=== PATIENT | male | born 1945 | race Caucasian/White ===

== ENCOUNTER 2023-01-17 13:12 | Inpatient (IN) | payer OTHER, SELFPAY ==
[2023-01-17 13:21] VITALS: BP 180/88; PULSE 88; RESP 21; TEMP 37.3; O2SAT 100; BMI 25.1
[2023-01-17] MEDS: lidocaine HCL 2 % JELLY (TOP) STERILE 6 ML UR ×2 (13:45→16:30)
[2023-01-17 14:14] LABS: Basophils Absolute Auto 0.03 K/uL (0.00-0.30); Basophils Percent Auto 0.3 % (0.0-3.0); Eosinophils Absolute Auto 0.04 K/uL (0.00-0.50); Eosinophils Percent Auto 0.4 % (0.0-7.0); Hematocrit 32.9 % (37.0-53.0); Hemoglobin* 10.6 gm/dL (13.5-17.5); Immature Granulocytes Abs Auto 0.02 K/uL (0.00-0.30); Immature Granulocytes Pct Auto 0.2 %; Lymphocytes Percent Auto 9.5 % (20-44); Mean Corpuscular HGB Conc 32 gm/dL (32-36); Mean Corpuscular Hemoglobin 26 pg (26-34); Mean Corpuscular Volume 81 fL (80-100); Monocytes Percent Auto 9.3 % (0.0-11.0); Neutrophils Percent Auto 80.3 % (42.0-72.0); Platelet Count* 326 K/uL (140-440); RDW Coefficient of Variation % 13.2 % (11.5-15.5); Red Blood Count 4.07 m/uL (4.30-5.90); White Blood Count* 9.26 K/uL (4.50-11.00)
[2023-01-17 14:35] LABS: Slide Review Reflex No
--- NOTE | 2023-01-17 14:45 | ED.NURSE ---
Patient c/o severe pain 'buring at tip of penis'. MD notified and at bedside. Will order urojet for discomfort.
--- NOTE | 2023-01-17 15:00 | ED.NURSE ---
[facility] paged for consult.
[2023-01-17] MEDS: ACETAMINOPHEN 500 MG TABLET 1000 MG PO (15:11)
--- NOTE | 2023-01-17 15:30 | ED.NURSE ---
Bautista bag emptied. 4L irrigation completed. 2L irrigation started per order. Video Game Technician at bedside. No irrigation noted into bautista bag after starting second bag. Patient reporting increase in pain. Bautista bladder tip irrigated with sterile water, and large clot expelled. Patient reporting significant decrease in pain.
--- NOTE | 2023-01-17 15:49 | ED_ITS ---
HPI - General Adult General Chief complaint: Urogenital Problems, Male Stated complaint: Bladder is Bleeding Time Seen by Provider: 01/17/23 13:19 Source: patient and family Mode of arrival: ambulatory Limitations: no limitations History of Present Illness HPI narrative: 77-year-old male coming in today complaining of urinary retention. Patient states that he has a history of bladder cancer in his was to get a bladder resection in the next 1-2 months. He states that this has happened to him before where he has had a lot of bleeding in his bladder and it causes his bladder to ?get plugged up?. He complains of abdominal discomfort and suprapubic pressure. He denies any systemic symptoms. He does complain of burning at the tip of the penis which is not unusual for him. He denies any nausea or vomiting. No fevers or chills. Related Data Allergies Allergy/AdvReac Type Severity Reaction Status Date / Time Penicillins AdvReac Severe Rash Verified 01/17/23 13:29 Review of Systems Status of ROS: Reports: 10 or more systems reviewed and unremarkable except as noted in History and below PFSH PFS Social History Smoking Status: Never smoker Do you use any of these nicotine containing products: None Second hand tobacco smoke exposure: No How often do you have a drink containing alcohol: never How often do you have six or more drinks on one occasion: Never AUDIT-C Alcohol total score: 0 Non-prescribed substance use: denies use service: No Exam Narrative: Exam Narrative: Well-nourished well-developed patient who appears quite uncomfortable. Alert and oriented. Answers questions appropriately. Mood and affect are appropriate. Thoughts are goal oriented and rational. No tangential or magical thinking noted. Patient speaks in full sentences without needing to catch his breath. HEENT: Normocephalic atraumatic. Pupils are equally round reactive to light. Extraocular muscles are intact. Conjunctivae are moist without any icterus noted. Moist mucous membranes. Cardiovascular: Heart is regular rate and rhythm S1 and S2 are present without any murmurs. Lungs: Clear to auscultation bilaterally no wheezes rhonchi or rales are appreciated. Patient takes deep breaths without any discomfort. Abdomen: Soft and mildly distended. He has suprapubic tenderness. Normal bowel sounds. Skin: Well perfused without any obvious rashes. Const: Vital Signs, click to edit/add: Vital Signs - 24 hr 01/17/23 13:21 Temperature 99.1 F Pulse Rate [Pulse Oximeter] 88 Respiratory Rate 21 Blood Pressure [Ri ght Upper Arm] 180/88 H Pulse Oximetry 100 Oxygen Delivery Me thod Room Air Course Course Hospital Course: Espino was placed and approximately 1000 mL of dede dark red urine was extracted. At this time we did start continuous bladder irrigation. Initial hemoglobin 10.6. After about 3 L of irrigation irrigation stopped. We did flush the Espino and large clots or removed. Irrigation continued. Urine was still red but much more clear. Did discussed patient with Dr. Higuera, urology at [place], who recommended admission with continued irrigation as well as covering him with Ancef at this time. Vital Signs Vital signs: Initial Vital Signs Temperature 99.1 F 01/17/23 13:21 Temperature Source Temporal Artery Scan 01/17/23 13:21 Pulse Rate 88 01/17/23 13:21 Pulse Rhythm 01/17/23 13:21 Pulse Strength 3+ Normal 01/17/23 13:21 Respiratory Rate 21 01/17/23 13:21 Blood Pressure 180/88 H 01/17/23 13:21 Blood Pressure Mean 118 01/17/23 13:21 Pulse Oximetry 100 01/17/23 13:21 Oxygen Delivery Method 01/17/23 13:21 Vital Signs Temperature 99.1 F 01/17/23 13:21 Pulse Rate 88 01/17/23 13:21 Respiratory Rate 21 01/17/23 13:21 Blood Pressure 180/88 H 01/17/23 13:21 Pulse Oximetry 100 01/17/23 13:21 Oxygen Delivery Method 01/17/23 13:21 Temperature 99.1 F 01/17/23 13:21 Pulse Rate 88 01/17/23 13:21 Respiratory Rate 21 01/17/23 13:21 Blood Pressure 180/88 H 01/17/23 13:21 Pulse Oximetry 100 01/17/23 13:21 Oxygen Delivery Method 01/17/23 13:21 Medical Decision Making MDM Narrative Medical decision making narrative: 77-year-old male with hematuria and urinary retention. Patient will be admitted for continuous bladder irrigation and management. Repeat hemoglobin pending at this time. Lab Data Lab results reviewed: Yes I reviewed the patient's lab results Labs: Lab Results 01/17/23 Range/Units 14:05 WBC 9.26 (4.50-11.00) K/uL RBC 4.07 L (4.30-5.90) m/uL Hgb 10.6 L (13.5-17.5) gm/dL Hct 32.9 L (37.0-53.0) % MCV 81 (80-100) fL MCH 26 (26-34) pg MCHC 32 (32-36) gm/dL RDW Coeff of Rita 13.2 (11.5-15.5) % Plt Count 326 (140-440) K/uL Neut % (Auto) 80.3 H (42.0-72.0) % Lymph % (Auto) 9.5 L (20-44) % [place] % (Auto) 9.3 (0.0-11.0) % Eos % (Auto) 0.4 (0.0-7.0) % Baso % (Auto) 0.3 (0.0-3.0) % Neut # (Auto) 7.40 H (1.7-7.0) K/uL Lymph # (Auto) 0.90 (0.90-2.90) K/uL [place] # (Auto) 0.90 (0.00-0.90) K/UL Eos # (Auto) 0.04 (0.00-0.50) K/uL Baso # (Auto) 0.03 (0.00-0.30) K/uL Discharge Plan Discharge Clinical Impression: Hematuria Patient Disposition: Admitted As Inpatient Condition: Stable Follow Up/Referrals: Tuan Marcos MD [Primary Care Provider] -
[2023-01-17 15:58] LABS: Appearance Urine Cloudy (Clear); Bilirubin Urine 3+ (Negative); Blood Urine 3+ (Negative); Color Urine Red (Yellow); Glucose Urine Negative (Negative); Ketones Urine 2+ (Negative); Leukocyte Esterase Urine 3+ (Negative); Nitrite Urine Positive (Negative); Protein Urine 3+ (Negative); Specific Gravity Urine 1.015 (1.000-1.030); Urobilinogen Urine >=8.0 (0.2-1.0); pH Urine 8.5 (5.0-8.5)
[2023-01-17 15:59] LABS: PCR FLU A Negative PCR FLU A (Negative); PCR FLU B Negative PCR FLU B (Negative); PCR RSV Negative PCR RSV (Negative)
[2023-01-17] MEDS: CEFAZOLIN 1 GM in 0.9 % SODIUM CHLORIDE Mini-bag 100 ML IVPB ×2 (16:00→23:24)
[2023-01-17 16:05] VITALS: BP 125/79; PULSE 98; RESP 18; O2SAT 98
[2023-01-17 16:08] LABS: Hemoglobin* 10.9 gm/dL (13.5-17.5)
[2023-01-17 16:10] LABS: SARS PCR* Negative SARS-CoV-2 (Negative)
[2023-01-17 16:20] LABS: Chloride* 95 mmol/L (96-114); Potassium* 4.2 mmol/L (3.6-5.1); Sodium* 126 mmol/L (135-149)
[2023-01-17 16:23] LABS: Carbon Dioxide* 23 mmol/L (20-32); Creatinine* 0.8 mg/dL (0.5-1.5); Estimated Glomerular Filt Rate 91 ml/min
[2023-01-17 16:24] LABS: Blood Urea Nitrogen* 15 mg/dL (7-30); Calcium* 8.3 mg/dL (8.4-10.6); Glucose* 133 mg/dL (60-115)
[2023-01-17 16:25] LABS: Bacteria Urine Few; RBC Urine >100 (0-2); WBC Urine >100 (0-5)
[2023-01-17 16:40] VITALS: BP 138/69; PULSE 91; RESP 24; TEMP 37; O2SAT 94; BMI 27.4
--- NOTE | 2023-01-17 17:31 | PM.IMHP1 ---
Hospitalist- H&P: HPI History of Present Illness Time Seen by Provider: 17:20 Date Seen: 01/17/23 Chief complaint: Bladder is Bleeding Narrative: Med Lopes is a 77 year old male diagnosed with bladder cancer in fall 2020 presents with hematuria. He goes to [facility], Dr. Camarillo, and had BCG treatments in early 2021, and then immunotherapy in late 2021. He has a known recurrence of bladder cancer for which he has an appointment on February [address] Angel at [facility] in [place] to discuss bladder resection, prostate resection, and creation of ileal pouch urostomy. He has been doing quite well otherwise and has not had any blood in his urine. This morning, he was straining for a BM when bloody urine appeared. There were a few small clots in the toilet. He continued to pass clots and bright red blood. He ate breakfast at 10. At 11am he could no longer pass clots or urine. He took two stool softeners this morning. Denies fevers or chills. No pain now. 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 Denies melena or blood in his stool. He denies drinking any excess fluids lately, in fact he and his tell me that he did not drink as much water as he usually did this morning because he was using the bathroom so frequently, and then he did not drink any since he has been in the ER. Review of Systems Status of ROS: Reports: 10 or more systems reviewed and unremarkable except as noted in History and below [facility] Medical History (Updated 01/17/23 @ 19:02 by Yue Gutierrez MD) Adenomatous colon polyp (~06/2018) Basal cell carcinoma of skin (~04/19/07) Elevated cholesterol Essential hypertension Prediabetes Primary cancer of bladder (~07/10/21) Surgical History (Updated 01/17/23 @ 17:40 by Yue Gutierrez MD) H/O cataract removal with insertion of prosthetic lens H/O hernia repair (~1999) H/O transurethral resection of bladder tumor (TURBT) H/O vasectomy History of open reduction and internal fixation (ORIF) procedure (~1999) Hx of colonoscopy S/P appendectomy S/P left inguinal herniorrhaphy (10/12/19) Family History (Updated 01/17/23 @ 17:41 by uYe Gutierrez MD) Mother Lung cancer, Onset Age: 57 Brother High blood pressure Peripheral arterial disease Social History (Updated 01/17/23 @ 18:46 by Yue Gutierrez MD) Narrative: to [employer]. Smoked 1.5ppd for 30 years. Quit 30 years ago. 1 beer every other week. Denies recreational drugs. 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 Highest level of school completed/degree received: Associate degree: occupational, technical, vocational program Smoking Status: Former smoker Do you use any of these nicotine containing products: None Second hand tobacco smoke exposure: No How often do you have a drink containing alcohol: monthly or less How often do you have six or more drinks on one occasion: Never AUDIT-C Alcohol total score: 1 Non-prescribed substance use: denies use Caffeine: Yes (3 cups daily) service: Yes Meds Home Medications and Allergies Home Medications Medication Instructions Recorded Confirmed Type amlodipine 5 mg tablet 5 mg PO QPM 01/17/23 01/17/23 History aspirin 81 mg capsule 81 mg PO HS 01/17/23 01/17/23 History atorvastatin 20 mg tablet 20 mg PO HS 01/17/23 01/17/23 History hydrochlorothiazide 25 mg tablet 12.5 mg PO DAILY 01/17/23 01/17/23 History lisinopril 10 mg tablet 10 mg PO DAILY 01/17/23 01/17/23 History loperamide 2 mg capsule 1 mg PO DAILY 01/17/23 01/17/23 History (Anti-Diarrheal (loperamide)) multivitamin (Daily Multi-Vitamin 1 tab PO DAILY 01/17/23 01/17/23 History tablet) tamsulosin 0.4 mg capsule 0.4 mg PO DAILY@18 01/17/23 01/17/23 History Allergies Allergy/AdvReac Type Severity Reaction Status Date / Time Penicillins AdvReac Severe Rash Verified 01/17/23 13:29 Naproxen Allergy Intermediate Rash Uncoded 01/17/23 16:43 Exam Narrative: Exam Narrative: General: No acute distress. Awake alert oriented x3. HEENT: Normocephalic atraumatic, pupils equally round and reactive to light and accommodation. Oropharynx clear. Mucous membranes are slightly dry. No cervical lymphadenopathy, thyromegaly or carotid bruits. No JVD. Cardiovascular: Regular rate and rhythm. No murmurs, gallops, or rubs. Chest: No increased work of breathing. Clear to auscultation bilaterally. No crackles or wheezes. Abdomen: Bowel sounds present. Soft, nondistended, nontender. No hepatosplenomegaly or masses. Genitourinary: Normal circumcised external male genitalia with a hematuria catheter in place. There is no leakage around the catheter. No ulcers, sores, or rash. Extremities: No edema, no cyanosis or clubbing. Skin: No jaundice, no pallor, no rashes. Const: Vital Signs, click to edit/add: Vital Signs - 24 hr 01/17/23 13:21 01/17/23 16:05 01/17/23 16:40 Temperature 99.1 F 98.6 F Pulse Rate [Pulse Oximeter] 88 98 91 Respiratory Rate 21 18 24 Blood Pressure [Ri ght Arm] 138/69 Blood Pressure [Ri ght Upper Arm] 180/88 H 125/79 Pulse Oximetry 100 98 94 Oxygen Delivery Me thod Room Air Room Air Room Air Documenting provider has reviewed patient's vital signs: yes Hospitalist - H&P: Result Labs Labs: Short CBC 01/17/23 01/17/23 Range/Units 14:05 16:00 WBC 9.26 (4.50-11.00) K/uL Hgb 10.6 L 10.9 L (13.5-17.5) gm/dL Hct 32.9 L (37.0-53.0) % Plt Count 326 (140-440) K/uL BMP 01/17/23 16:00 Sodium 126 L Potassium 4.2 Chloride 95 L Carbon Dioxide 23 BUN 15 Creatinine 0.8 Glucose 133 H Calcium 8.3 L Urine 01/17/23 Range/Units 15:45 Urine Color Red A (Yellow) Urine Appearance Cloudy A (Clear) Urine pH 8.5 (5.0-8.5) Ur Specific [place] 1.015 (1.000-1.030) Urine Protein 3+ A (Negative) Urine Glucose (UA) Negative (Negative) Assessment and Plan Assessment and plan (1) Hematuria: Problem comment: - Suspect secondary to bladder cancer. - Per Dr. Graham, Dr. Higuera, urology at [place], recommended bladder irrigation and Ancef. These have been ordered. Hematuria is improving. I will check a hemoglobin at 9pm and again in the am. Status: Acute (2) Primary cancer of bladder: Problem comment: - Diagnosed in fall. Goes to [facility], Dr. Camarillo, and had BCG treatments in early 2021, and then immunotherapy in late 2021. He has a known recurrence of bladder cancer for which he has an appointment on February [address] Angel at [facility] in [place] to discuss bladder resection, prostate resection, and creation of ileal pouch urostomy. Status: Chronic (3) Anemia: Problem comment: - Normocytic, acute on chronic, suspect acute blood loss anemia secondary to hematuria/bladder cancer - 09/30/22 Hgb 14.2 - 11/25/22 Hgb 11.9 - 01/17/23 Hgb 10.9 - I do not think he needs a blood transfusion at this time, but I discussed the risks and benefits of blood products with Med and his in case this should be necessary. We discussed that the risks include transmission of blood borne illnesses including HIV and hepatitis. Additionally the risks include blood reaction or allergic reaction. Status: Acute (4) Hyponatremia: Problem comment: Baseline Na is 130-133. I suspect he is somewhat hypovolemic for which I will give him maintenance saline at 75 mL/hour. I will check a sodium again this evening with the hemoglobin. I will also hold HCTZ for now. Status: Acute
[2023-01-17] MEDS: 0.9 % SODIUM CHLORIDE 1000 ml 1,000 ML 75 ML IV (17:55)
[2023-01-17] MEDS: SODIUM CHLORIDE 0.9 % (FLUSH) 10 ML SYRINGE 5 ML IVF (17:56)
[2023-01-17 19:00] VITALS: BP 144/71; PULSE 91; RESP 22; TEMP 36.6; O2SAT 95
--- NOTE | 2023-01-17 19:30 | PC.NURSE ---
Admission-- Pleasant and cooperative, alert and oriented patient was admitted to med-surg this evening. VSS and pt is afebrile. SPO2 >90% on RA. He denied any pain. Continuous bladder irrigation is running with anderson colored urine. No clots noted at this time. was at bedside and appears loving and supportive. Report to OPAL Graham.
[2023-01-17] MEDS: ATORVASTATIN 10 MG TABLET 20 MG PO (20:39)
[2023-01-17 21:01] LABS: Hemoglobin* 9.7 gm/dL (13.5-17.5)
[2023-01-17 21:16] LABS: Sodium* 126 mmol/L (135-149)
[2023-01-17] MEDS: CALCIUM CARBONATE 500 MG CHEW PO (21:25)
[2023-01-17 23:00] VITALS: BP 121/59; PULSE 80; PULSE 91; RESP 20; RESP 22; TEMP 36.7; O2SAT 95
[2023-01-18 03:00] VITALS: BP 145/74; PULSE 72; RESP 18; TEMP 36.6; O2SAT 92
--- NOTE | 2023-01-18 04:56 | PC.NURSE ---
Shift note: Pt is doing well. The CBI is draining well with anderson red output. At 0220, pt complained of pelvic pain. Lump Machine Operator noticed retention of urine but the output continued to drained with a reduced rate. Irrigation done and blood clot drained into the urine bag. Pt confirmed of a released after the clot was removed. Pt attempted 2x to get BM but failed. Pt was passing urine at the time of urine retention which led to soiling of bed linens. Linens changed. Vital signs stable except high systolic Bp. Hgb came out as 9.7. Awaiting for this morning Hgb results. Had adequate sleep.
[2023-01-18] MEDS: 0.9 % SODIUM CHLORIDE 1000 ml 1,000 ML 75 ML IV ×2 (06:28→20:54)
[2023-01-18] MEDS: ACETAMINOPHEN 325 MG TABLET 650 MG PO ×2 (06:33→23:45)
[2023-01-18 07:00] VITALS: BP 144/66; PULSE 76; RESP 20; TEMP 37.7; O2SAT 92
[2023-01-18 07:02] LABS: Basophils Percent Auto 0.2 % (0.0-3.0); Eosinophils Percent Auto 0.5 % (0.0-7.0); Hematocrit 36.1 % (37.0-53.0); Hemoglobin* 11.6 gm/dL (13.5-17.5); Immature Granulocytes Pct Auto 0.2 %; Lymphocytes Percent Auto 11.7 % (20-44); Mean Corpuscular HGB Conc 32 gm/dL (32-36); Mean Corpuscular Hemoglobin 26 pg (26-34); Mean Corpuscular Volume 80 fL (80-100); Monocytes Percent Auto 8.4 % (0.0-11.0); Platelet Count* 341 K/uL (140-440); RDW Coefficient of Variation % 13.5 % (11.5-15.5); White Blood Count* 11.41 K/uL (4.50-11.00)
[2023-01-18 07:03] LABS: Slide Review Reflex No
[2023-01-18 07:15] LABS: Chloride* 98 mmol/L (96-114)
[2023-01-18 07:16] LABS: Potassium* 4.1 mmol/L (3.6-5.1); Sodium* 129 mmol/L (135-149)
[2023-01-18 07:18] LABS: Creatinine* 0.7 mg/dL (0.5-1.5); Est. Creatinine Clearance* 60.88; Estimated Glomerular Filt Rate 94 ml/min
[2023-01-18 07:19] LABS: Blood Urea Nitrogen* 10 mg/dL (7-30); Calcium* 8.5 mg/dL (8.4-10.6); Carbon Dioxide* 25 mmol/L (20-32); Glucose* 110 mg/dL (60-115)
[2023-01-18] MEDS: cefTRIAXone 1 GM in 0.9 % SODIUM CHLORIDE Mini-bag 100 ML IVPB (07:53)
[2023-01-18] MEDS: lisinopriL 10 MG TABLET PO (07:57)
[2023-01-18] MEDS: AMLODIPINE 5 MG TABLET PO (07:57)
[2023-01-18] MEDS: MULTIVITAMIN/MINERALS 1 TABLET 1 TAB PO (07:57)
--- NOTE | 2023-01-18 09:22 | PM.IMPN1 ---
Progress Note: A&P Assessment and plan (1) Hematuria: Problem details: - Suspect secondary to bladder cancer - improving with CBI - also likely has UTI, culture pending, on Ceftriaxone Status: Acute (2) Primary cancer of bladder: Problem details: - Diagnosed fall 2020. Sees Dr. More at [facility]: BCG treatments in early 2021 followed by immunotherapy in late 2021 - Known recurrence, has an appointment 02/[address] Rodriguez at [facility] to discuss bladder resection, prostate resection, and creation of ileal pouch urostomy - reviewed case with Dr. More on 01/18: recommends CBI until urine clear, keep bautista in place until 02/04 followup appointment Status: Chronic (3) Anemia: Problem details: - Normocytic, acute on chronic, suspect acute blood loss anemia secondary to hematuria/bladder cancer - 09/30/22: 14.2 - 11/25/22: 11.9 - 01/17/23: 10.9 - 01/18/23: 11.6 Status: Acute (4) Hyponatremia: Problem details: - outpatient baseline Na is 130-133, improved from 126 --> 129 - holding HCTZ Status: Acute Plan - continue CBI until urine clear - continue Ceftriaxone while awaiting culture results - continue to hold HCTZ and follow electrolytes - TEDs, SCDs, ambulation for ppx. Holding pharmacological ppx given short stay and hematuria - updated at bedside, questions answered. Anticipate home tomorrow Subjective Date Seen: 01/18/23 Interval history: Med had an episode of pelvic pain last night, associated with a clot, irrigated successfully. CBI continued, hematuria is improving. T-max 99.8? overnight, patient overall feels well. Exam Narrative: Exam Narrative: GEN: Alert and oriented, sitting comfortably in bed and answering questions appropriately HEENT: EOMIs bilaterally, no scleral icterus CV: RRR, No concerning murmurs, rubs, or gallops R: LCTA bilaterally without concerning wheezing, air movement adequate Ext: wwp, no concerning edema : Urine in Bautista bag is pink Skin: No concerning skin lesions or rashes on exposed skin Neuro: No focal deficits Psych: Appropriate Const: Vital Signs, click to edit/add: Vital Signs - 24 hr 01/17/23 13:21 01/17/23 16:05 01/17/23 16:40 Temperature 99.1 F 98.6 F Pulse Rate [Pulse Oximeter] 88 98 91 Respiratory Rate 21 18 24 Blood Pressure [Ri ght Arm] 138/69 Blood Pressure [Ri ght Upper Arm] 180/88 H 125/79 Pulse Oximetry 100 98 94 Oxygen Delivery Me thod Room Air Room Air Room Air 01/17/23 19:00 01/17/23 23:00 01/17/23 23:00 Temperature 97.9 F Pulse Rate [Pulse Oximeter] 91 80 Respiratory Rate 22 22 20 Blood Pressure [Ri ght Arm] 144/71 H Blood Pressure [Ri ght Upper Arm] Pulse Oximetry 95 95 Oxygen Delivery Me thod Room Air Room Air 01/17/23 23:00 01/18/23 03:00 01/18/23 07:00 Temperature 98.1 F 97.9 F Pulse Rate [Pulse Oximeter] 91 72 Respiratory Rate 20 18 Blood Pressure [Ri ght Arm] 121/59 L 145/74 H Blood Pressure [Ri ght Upper Arm] Pulse Oximetry 95 92 92 Oxygen Delivery Me thod Room Air Room Air Room Air 01/18/23 07:00 01/18/23 07:00 Temperature 99.8 F H Pulse Rate [Pulse Oximeter] 76 76 Respiratory Rate 20 20 Blood Pressure [Ri ght Arm] 144/66 H Blood Pressure [Ri ght Upper Arm] Pulse Oximetry 92 Oxygen Delivery Me thod Room Air Labs Labs: Laboratory Results - last 24 hr 01/17/23 01/17/23 01/17/23 14:05 14:05 15:15 WBC 9.26 RBC 4.07 L Hgb 10.6 L Hct 32.9 L MCV 81 MCH 26 MCHC 32 RDW Coeff of Rita 13.2 Plt Count 326 Neut % (Auto) 80.3 H Lymph % (Auto) 9.5 L [place] % (Auto) 9.3 Eos % (Auto) 0.4 Baso % (Auto) 0.3 Neut # (Auto) 7.40 H Lymph # (Auto) 0.90 [place] # (Auto) 0.90 Eos # (Auto) 0.04 Baso # (Auto) 0.03 Sodium Potassium Chloride Carbon Dioxide BUN Creatinine Estimated Creat Clear Estimated GFR Glucose Calcium Urine Color Urine Appearance Urine pH Ur Specific [place] Urine Protein Urine Glucose (UA) Urine Ketones Urine Blood Urine Nitrite Urine Bilirubin Urine Urobilinogen Ur Leukocyte Esterase Urine RBC Urine WBC Ur Squamous Epith Cells Urine Bacteria SARS-CoV-2 (PCR) Negative SARS-CoV-2 Influenza Type A (PCR) Negative PCR FLU A Influenza Type B (PCR) Negative PCR FLU B RSV (PCR) Negative PCR RSV Blood Type O Negative Antibody Screen NEGATIVE 01/17/23 01/17/23 01/17/23 15:45 16:00 16:00 WBC RBC Hgb 10.9 L Hct MCV MCH MCHC RDW Coeff of Rita Plt Count Neut % (Auto) Lymph % (Auto) [place] % (Auto) Eos % (Auto) Baso % (Auto) Neut # (Auto) Lymph # (Auto) [place] # (Auto) Eos # (Auto) Baso # (Auto) Sodium 126 L Potassium 4.2 Chloride 95 L Carbon Dioxide 23 BUN 15 Creatinine 0.8 Estimated Creat Clear 58.90 Estimated GFR 91 Glucose 133 H Calcium 8.3 L Urine Color Red A Urine Appearance Cloudy A Urine pH 8.5 Ur Specific [place] 1.015 Urine Protein 3+ A Urine Glucose (UA) Negative Urine Ketones 2+ A Urine Blood 3+ A Urine Nitrite Positive A Urine Bilirubin 3+ A Urine Urobilinogen >=8.0 A Ur Leukocyte Esterase 3+ A Urine RBC >100 A Urine WBC >100 A Ur Squamous Epith Cells None Urine Bacteria Few A SARS-CoV-2 (PCR) Influenza Type A (PCR) Influenza Type B (PCR) RSV (PCR) Blood Type Antibody Screen 01/17/23 01/17/23 01/18/23 20:52 20:52 06:25 WBC 11.41 H RBC 4.50 Hgb 9.7 L 11.6 L Hct 36.1 L MCV 80 MCH 26 MCHC 32 RDW Coeff of Rita 13.5 Plt Count 341 Neut % (Auto) 79.0 H Lymph % (Auto) 11.7 L [place] % (Auto) 8.4 Eos % (Auto) 0.5 Baso % (Auto) 0.2 Neut # (Auto) 9.00 H Lymph # (Auto) 1.30 [place] # (Auto) 1.00 H Eos # (Auto) 0.10 Baso # (Auto) 0.00 Sodium 126 L Potassium Chloride Carbon Dioxide BUN Creatinine Estimated Creat Clear Estimated GFR Glucose Calcium Urine Color Urine Appearance Urine pH Ur Specific [place] Urine Protein Urine Glucose (UA) Urine Ketones Urine Blood Urine Nitrite Urine Bilirubin Urine Urobilinogen Ur Leukocyte Esterase Urine RBC Urine WBC Ur Squamous Epith Cells Urine Bacteria SARS-CoV-2 (PCR) Influenza Type A (PCR) Influenza Type B (PCR) RSV (PCR) Blood Type Antibody Screen 01/18/23 06:25 WBC RBC Hgb Hct MCV MCH MCHC RDW Coeff of Rita Plt Count Neut % (Auto) Lymph % (Auto) [place] % (Auto) Eos % (Auto) Baso % (Auto) Neut # (Auto) Lymph # (Auto) [place] # (Auto) Eos # (Auto) Baso # (Auto) Sodium 129 L Potassium 4.1 Chloride 98 Carbon Dioxide 25 BUN 10 Creatinine 0.7 Estimated Creat Clear 60.88 Estimated GFR 94 Glucose 110 Calcium 8.5 Urine Color Urine Appearance Urine pH Ur Specific [place] Urine Protein Urine Glucose (UA) Urine Ketones Urine Blood Urine Nitrite Urine Bilirubin Urine Urobilinogen Ur Leukocyte Esterase Urine RBC Urine WBC Ur Squamous Epith Cells Urine Bacteria SARS-CoV-2 (PCR) Influenza Type A (PCR) Influenza Type B (PCR) RSV (PCR) Blood Type Antibody Screen
[2023-01-18 11:00] VITALS: BP 139/71; PULSE 76; RESP 20; TEMP 37.2; O2SAT 99
--- NOTE | 2023-01-18 12:57 | PC.NURSE ---
End of Shift Note: Patient is alert and oriented very pleasant. Has CBI running have tried to titrate and stop his CBI but when I decrease what its running at it only becomes more pink. Will continue to monitor.
[2023-01-18 15:00] VITALS: BP 144/81; PULSE 84; RESP 18; TEMP 36.6; O2SAT 94
[2023-01-18] MEDS: TAMSULOSIN HCL 0.4 MG CAPSULE PO (17:45)
[2023-01-18 19:00] VITALS: BP 158/77; PULSE 91; RESP 20; TEMP 36.4; O2SAT 94
[2023-01-18] MEDS: SODIUM CHLORIDE 0.9 % (FLUSH) 10 ML SYRINGE 5 ML IVF (20:54)
[2023-01-18] MEDS: ATORVASTATIN 10 MG TABLET 20 MG PO (20:54)
[2023-01-18 23:00] VITALS: BP 157/77; PULSE 81; RESP 18; TEMP 36.4; O2SAT 92
--- NOTE | 2023-01-18 23:25 | PC.NURSE ---
End of Shift: Patient pleasant and cooperative. Afebrile. Denies pain except for occasional discomfort from catheter. CBI running to keep output light pink to clear. When attempting to decrease CBI output darkens to dark pink/anderson. 2 small clots noted this shift. Patient up to bathroom and walk in hallway x1. Tolerating regular diet with no nausea.
[2023-01-19 03:00] VITALS: BP 128/61; PULSE 74; RESP 16; TEMP 37; O2SAT 94
--- NOTE | 2023-01-19 05:44 | PC.NURSE ---
[id number] Pt slept well during night, CBI remains in place, patent and draining, blood tinged urine present. Minimal clots noted in drainage. Pt denies pain, N/V, chest pain or headache, does acknowledge some discomfort at meatus from bautista, tylenol administered for comfort.
[2023-01-19 07:00] VITALS: BP 170/76; PULSE 99; RESP 20; TEMP 36.8; O2SAT 99
[2023-01-19 07:00] LABS: Basophils Absolute Auto 0.03 K/uL (0.00-0.30); Basophils Percent Auto 0.3 % (0.0-3.0); Eosinophils Absolute Auto 0.24 K/uL (0.00-0.50); Eosinophils Percent Auto 2.7 % (0.0-7.0); Hematocrit 34.2 % (37.0-53.0); Immature Granulocytes Abs Auto 0.02 K/uL (0.00-0.30); Immature Granulocytes Pct Auto 0.2 %; Lymphocytes Percent Auto 15.8 % (20-44); Mean Corpuscular HGB Conc 32 gm/dL (32-36); Mean Corpuscular Hemoglobin 26 pg (26-34); Mean Corpuscular Volume 80 fL (80-100); Monocytes Percent Auto 10.8 % (0.0-11.0); Neutrophils Absolute Auto 6.35 K/uL (1.7-7.0); Neutrophils Percent Auto 70.2 % (42.0-72.0); Platelet Count* 330 K/uL (140-440); RDW Coefficient of Variation % 13.6 % (11.5-15.5); Red Blood Count 4.27 m/uL (4.30-5.90); White Blood Count* 9.05 K/uL (4.50-11.00)
[2023-01-19 07:02] LABS: Slide Review Reflex No
[2023-01-19 07:17] LABS: Chloride* 100 mmol/L (96-114)
[2023-01-19 07:18] LABS: Potassium* 3.9 mmol/L (3.6-5.1); Sodium* 130 mmol/L (135-149)
[2023-01-19 07:20] LABS: Creatinine* 0.7 mg/dL (0.5-1.5); Est. Creatinine Clearance* 60.88; Estimated Glomerular Filt Rate 94 ml/min
[2023-01-19 07:21] LABS: Blood Urea Nitrogen* 11 mg/dL (7-30); Calcium* 8.2 mg/dL (8.4-10.6); Carbon Dioxide* 25 mmol/L (20-32); Glucose* 111 mg/dL (60-115)
[2023-01-19 08:01] VITALS: O2SAT 99
[2023-01-19] MEDS: cefTRIAXone 1 GM in 0.9 % SODIUM CHLORIDE Mini-bag 100 ML IVPB (08:16)
[2023-01-19] MEDS: lisinopriL 10 MG TABLET PO (08:17)
[2023-01-19] MEDS: MULTIVITAMIN/MINERALS 1 TABLET 1 TAB PO (08:17)
[2023-01-19] MEDS: AMLODIPINE 5 MG TABLET PO (08:17)
[2023-01-19] MEDS: SODIUM CHLORIDE 0.9 % (FLUSH) 10 ML SYRINGE 5 ML IVF (08:18)
[2023-01-19] MEDS: ACETAMINOPHEN 325 MG TABLET 650 MG PO (08:18)
--- NOTE | 2023-01-19 08:46 | P.DS_ITS ---
DS: Providers Provider Date Seen: 01/19/23 Date of admission: 01/17/23 17:16 Primary care physician: Tuan Marcos MD Admitting Clinician: Yue Gutierrez MD Attending Physician on discharge: Cecelia Key MD Date of Discharge: 01/19/23 DS: Diagnosis Discharge Diagnosis (1) Hematuria: Status: Acute Problem details: - Secondary to bladder cancer - improved with CBI - negative urine culture, received 2 days of IV antibiotics during stay (2) Primary cancer of bladder: Status: Chronic Problem details: - Diagnosed fall 2020. Sees Dr. More at [facility]: BCG treatments in early 2021 followed by immunotherapy in late 2021 - Known recurrence, has appt 02/[address] Rodriguez at [facility] to discuss bladder resection, prostate resection, and creation of ileal pouch urostomy - reviewed case with Dr. More on 01/18: keep bautista in place until 02/04 followup appointment (3) Anemia: Status: Acute Problem details: - Normocytic, acute on chronic, suspect acute blood loss anemia secondary to hematuria/bladder cancer. Did not require intervention during stay - 09/30/22: 14.2 - 11/25/22: 11.9 - 01/17/23: 10.9 - 01/18/23: 11.6 - 01/19/23: 11.0 (4) Hyponatremia: Status: Acute Problem details: - outpatient baseline Na is 130-133, improved from 126 --> 130 - held HCTZ during stay, will continue to hold until follow-up with PCP DS: Summary Hospital Course Hospital Course: 77-year-old male with known recurrent UCC, presented to the emergency room on 01/17 with hematuria. After discussion with Urology, Bautista was placed and CBI initiated. Improvement in hematuria noted, and hemoglobin remained stable. Per Urology, will leave Bautista catheter in place until 02/04 follow-up appointment with Urology. ASA held upon discharge. Patient also noted to have acute on chronic hyponatremia, with sodium lower than baseline. His hydrochlorothiazide will be held on discharge until follow-up with his PCP. Status at Discharge Functional status at discharge: independent ambulation Overall status at discharge: patient is progressing back to baseline Time Spent with Patient Time attestation: Total time spent providing and/or coordinating discharge services: Time spent: Greater than 30 minutes Specific discharge activities: Care coordination with multidisciplinary team, updates, medication reconciliation Exam Narrative: Exam Narrative: GEN: Alert and oriented, sitting comfortably in bedside chair and answering questions appropriately HEENT: EOMIs bilaterally, no scleral icterus CV: RRR, No concerning murmurs, rubs, or gallops R: LCTA bilaterally without concerning wheezing, air movement adequate : Urine in Bautista bag is pink tinged, improved from admission Skin: Scattered AKs on exposed skin Neuro: No focal deficits, no resting tremor Psych: Appropriate Const: Vital Signs, click to edit/add: Vital Signs - 24 hr 01/18/23 11:00 01/18/23 15:00 01/18/23 15:00 Temperature 98.9 F 97.9 F Pulse Rate [Pulse Oximeter] 76 84 Respiratory Rate 20 18 Blood Pressure [Ri ght Arm] 139/71 144/81 H Pulse Oximetry 99 94 94 Oxygen Delivery Me thod Room Air Room Air Room Air 01/18/23 15:00 01/18/23 19:00 01/18/23 23:00 Temperature 97.5 F L Pulse Rate [Pulse Oximeter] 84 91 Respiratory Rate 18 20 18 Blood Pressure [Ri ght Arm] 158/77 H Pulse Oximetry 94 92 Oxygen Delivery Me thod Room Air Room Air 01/18/23 23:00 01/19/23 03:00 01/19/23 07:00 Temperature 97.6 F 98.6 F 98.2 F Pulse Rate [Pulse Oximeter] 81 74 99 Respiratory Rate 18 16 20 Blood Pressure [Ri ght Arm] 157/77 H 128/61 170/76 H Pulse Oximetry 92 94 99 Oxygen Delivery Me thod Room Air Room Air Room Air 01/19/23 08:01 01/19/23 07:00 Temperature Pulse Rate [Pulse Oximeter] 99 Respiratory Rate 20 Blood Pressure [Ri ght Arm] Pulse Oximetry 99 Oxygen Delivery Me thod Room Air DS: Data Data Completed and Pending Labs on day of discharge: Labs from last 24 hours 01/19/23 01/19/23 06:20 06:20 WBC 9.05 RBC 4.27 L Hgb 11.0 L Hct 34.2 L MCV 80 MCH 26 MCHC 32 RDW Coeff of Rita 13.6 Plt Count 330 Neut % (Auto) 70.2 Lymph % (Auto) 15.8 L [place] % (Auto) 10.8 Eos % (Auto) 2.7 Baso % (Auto) 0.3 Neut # (Auto) 6.35 Lymph # (Auto) 1.40 [place] # (Auto) 1.00 H Eos # (Auto) 0.24 Baso # (Auto) 0.03 Sodium 130 L Potassium 3.9 Chloride 100 Carbon Dioxide 25 BUN 11 Creatinine 0.7 Estimated Creat Clear 60.88 Estimated GFR 94 Glucose 111 Calcium 8.2 L Preliminary micro results at discharge 01/17/23 15:45 Urine Culture - Preliminary Urine,Clean Catch < 10,000 COL/ML MIXED GRAM POSITIVE NIKIA ISOLATED NO FURTHER WORKUP Discharge Plan Discharge Disposition: Home, Self-Care Date of Admission: 01/17/23 17:16 Attending Provider on Discharge: Cecelia Key Primary Care Provider: Tuan Marcos Condition: Stable Anticipated Discharge Date/Time: 01/19/23 08:39 Discharge Medications: Continued amlodipine 5 mg tablet 5 mg PO HS atorvastatin 20 mg tablet 20 mg PO HS lisinopril 10 mg tablet 10 mg PO DAILY loperamide [Anti-Diarrheal (loperamide)] 2 mg capsule 1 mg PO DAILY tamsulosin 0.4 mg capsule 0.4 mg PO DAILY@18 multivitamin [Daily Multi-Vitamin] Tablet 1 tab PO DAILY Held hydrochlorothiazide 25 mg tablet 12.5 mg PO DAILY Hold Instructions: Resume on 01/27/23. Hold until you have seen Dr. Marcos in followup. aspirin [Adult Aspirin Regimen] 81 mg tablet,delayed release (DR/EC) 81 mg PO DAILY Hold Instructions: Resume on 02/04/23. hold until f/u with Urology Discharge Orders: Discharge Order (Routine); Ordered 01/19/23 Ordered By: Cecelia Key Patient Education: Bautista Catheter Placement and Care (DC), Hematuria (GEN), Urinary Leg Bag (GEN), How to Change a Catheter Drainage Bag (DC) Additional Instructions: Hold your HCTZ (can contribute to low sodium) until you see Dr. Marcos in followup (You may just need to increase your Amlodipine for blood pressure control, depending on what your numbers look like). Keep the catheter in until you see Dr. Rodriguez on February 04. If you have any significant pain or blood clots that can't pass through the catheter, you'll need to return to the ED. Activity Level: Activity as Tolerated Discharge Diet: Regular Follow Up Appointments: Jean Rodriguez MD [Referring] - (Keep appt at scheduled on 02/04) Tuan Marcos MD [Primary Care Provider] - 01/26/23 2:30 pm (see Dr. Marcos in 7-10 days for blood pressure check) Forms: [employer] Info Instructions
[2023-01-19 09:26] VITALS: RESP 20; TEMP 36.8
[2023-01-19 09:29] VITALS: RESP 20; TEMP 36.8
== END 2023-01-19 09:49 | disposition home or self-care (01) | DRG 687 ==
LOC: ED 15:54 → MEDSURG 16:07
PROVIDERS: Family Medicine; Admitting Provider Family Medicine; Emergency Provider Family Medicine; PCP Family Medicine; Visit Provider Family Medicine
DX: C67.9 Malignant neoplasm of bladder, unspecified (principal); D62 Acute posthemorrhagic anemia; E87.1 Hypo-osmolality and hyponatremia; R31.9 Hematuria, unspecified; R33.9 Retention of urine, unspecified; D64.9 Anemia, unspecified; I10 Essential (primary) hypertension
CPT/HCPCS: 36415; 51702; 80048; 81001; 84295; 85018; 85025; 86850; 86900; 86901; 87086; 87502; 87634; 87635; 99284; 99285; A9153; A9270; J0690; J0696; J7030

== ENCOUNTER 2023-01-19 22:08 | Emergency (ER) | payer OTHER, SELFPAY ==
--- NOTE | 2023-01-19 22:52 | ED.NURSE ---
Pt needed education on his current catheter system, rather than being seen by the doctor. Pt signed appropriate AMA paperwork prior to leaving.
== END 2023-01-19 22:54 | disposition home or self-care (01) ==
PROVIDERS: PCP Family Medicine
DX: Z53.21 Procedure and treatment not carried out due to patient leaving prior to being seen by health care provider (principal)

== ENCOUNTER 2023-07-12 09:23 | Outpatient (CLI) | payer OTHER, SELFPAY ==
--- NOTE | 2023-07-12 10:00 | CRLHL7_ITS ---
For Patients: As a result of the 21st Century Cures Act, medical imaging exams and procedure reports are released immediately into your electronic medical record. You may view this report before your referring provider. If you have questions, please contact your health care provider. Indication: malignant tumor of urinary bladder Technique: Postcontrast CT chest, abdomen and pelvis. 91 cc Isovue 370 intravenous contrast. Please note that all CT scans at this facility use dose modulation, iterative reconstruction, and/or weight-based dosing when appropriate to reduce radiation dose to as low as reasonably achievable. Comparison: 05/07/2021 Findings: In the chest, there is an ill-defined nodule within the superior segment of the right lower lobe measuring 6.2 millimeters, series 4, image 103. Biapical pleural parenchymal scarring noted with several pleural-based nodular densities within the upper lobes. In particular, there is a lobular soft tissue density in the subpleural left apex measuring 2.1 cm, series 4, image 94. COPD/emphysema. Scarring is present within both lung bases. There is no pleural effusion. No enlarged lymph nodes in the mediastinum, ashlee or axilla. Atherosclerotic changes. Similar appearance of the T12 vertebral body with benign Schmorl`s node superior endplate. No vertebral body compression fracture. In the abdomen, there is no suspicious intrahepatic mass. Layering stones are present within the gallbladder, as before. The spleen is within normal limits. Normal pancreas. No biliary duct dilation. Adrenal glands are normal. No solid renal mass or hydronephrosis. There is a simple cyst within the medial left kidney measuring 1.5 cm, as before. Atherosclerotic changes in the aorta. The aorta measures up to 2.9 cm. No retroperitoneal or mesenteric adenopathy. In the pelvis, postoperative changes of bladder resection noted. No enlarged pelvic or inguinal lymph nodes. Status post pelvic lymph node dissection. A destructive osseous lesion is present within the left posterior acetabulum extending to the left iliac bone with associated soft tissue extension. This mass measures approximately 5.2 x 7.2 x 6.3 cm. Degenerative disc disease at L5-S1. 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 Ill-defined pulmonary nodule superior segment right lower lobe measuring 6.2 millimeters. Lobular soft tissue subpleural nodule at the left lung apex measuring 2.1 cm. Both of these lesions are indeterminate and potentially suspicious. No enlarged lymph nodes within the chest, abdomen or pelvis. Status post transurethral resection of the bladder. No hydronephrosis. Please note that all CT scans at this facility use dose modulation, iterative reconstruction, and/or weight-based dosing when appropriate to reduce radiation dose to as low as reasonably achievable. Dictated by Giovanni Fraire MD @ 07/12/2023 12:47:12 PM (Electronically Signed)
[2023-07-12 10:27] LABS: Creatinine* 0.8 mg/dL (0.5-1.5); Estimated Glomerular Filt Rate 91 ml/min
== END 2023-07-12 09:24 | disposition home or self-care (01) ==
LOC: CT 09:24
PROVIDERS: PCP Family Medicine; Visit Provider Physician Assistant
DX: C67.9 Malignant neoplasm of bladder, unspecified (principal); M89.9 Disorder of bone, unspecified; R91.8 Other nonspecific abnormal finding of lung field
CPT/HCPCS: 36415; 71260; 74177; 82565; Q9967

== ENCOUNTER 2023-07-25 10:09 | Observation (INO) | payer OTHER, SELFPAY ==
[2023-07-25 10:27] VITALS: BP 134/68; PULSE 92; RESP 14; TEMP 37.1; O2SAT 97; BMI 23.6
--- NOTE | 2023-07-25 11:11 | CRLHL7_ITS ---
For Patients: As a result of the Century Cures Act, medical imaging exams and procedure reports are released immediately into your electronic medical record. You may view this report before your referring provider. If you have questions, please contact your health care provider. INDICATION: Weak, shaky COMPARISON: CT 07/12/2023. TECHNIQUE: 1 view chest radiograph. FINDINGS: The lungs are well expanded. Biapical reticulation is consistent with scarring and was seen on the recent prior CT chest. No new consolidation. No pulmonary edema. No pleural effusion. No pneumothorax. No pneumomediastinum. Normal cardiomediastinal silhouette. Bones: Normal for age. IMPRESSION: No acute or worrisome findings. No change compared to recent prior CT chest. Dictated by Lynda Prakash MD @ 07/25/2023 12:46:03 PM (Electronically Signed)
[2023-07-25 11:20] LABS: PCR FLU A Negative PCR FLU A (Negative); PCR FLU B Negative PCR FLU B (Negative); PCR RSV Negative PCR RSV (Negative)
--- NOTE | 2023-07-25 11:28 | ED.GENADULT ---
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 Apparently has bouts of shaking particularly in the upper extremities. Has felt chilled but no fevers measured. Not increasingly short of breath. No new complaints of pain other than the radicular pain in his left leg. Has history of bladder cancer and has had cystectomy with urostomy. Has had radiation to left hip area tumor. Taking oxycodone as needed for pain along with what sounds like senna product. Spouse is concerned about him falling and feels she is increasing unable to assist her manage him at home especially over the last few days. In review of records does have a history of hyponatremia. Hydrochlorothiazide was held in hospitalization in December of this year. Was also anemic and thought to be related to bleeding secondary to bladder cancer. Had been admitted for continuous bladder irrigation. Subsequently had surgery. Related Data Home Medications Medication Instructions Recorded Confirmed atorvastatin 20 mg tablet 20 mg PO HS 01/17/23 07/25/23 lisinopril 10 mg tablet 10 mg PO DAILY 01/17/23 07/25/23 multivitamin (Daily Multi-Vitamin 1 tab PO DAILY 01/17/23 07/25/23 tablet) cholecalciferol (vitamin D3) 125 125 mcg PO DAILY 07/25/23 07/25/23 mcg (5,000 unit) tablet (Vitamin D3) Previous Rx's Medication Instructions Recorded acetaminophen 325 mg tablet 650 mg (2 x 325 mg) PO Q6H #100 08/03/23 tabs ferrous sulfate 325 mg (65 mg 325 mg PO Q48H #20 tabs 08/03/23 iron) tablet,delayed release oxycodone 10 mg tablet,crush 10 mg PO Q12H #60 tabs 08/03/23 resistant,extended release 12 hr (OxyContin) oxycodone 5 mg tablet 5 mg PO Q4H PRN Pain #60 tabs 08/03/23 sennosides 8.6 mg tablet (Senna 17.6 mg (2.0465 x 8.6 mg) PO BID 08/03/23 Lax) PRN #120 tabs sodium chloride 1,000 mg soluble 1,000 mg PO TIDWM #90 tabs 08/03/23 tablet Allergies Allergy/AdvReac Type Severity Reaction Status Date / Time naproxen Allergy Verified 01/18/23 07:15 Penicillins AdvReac Severe Rash Verified 01/17/23 13:29 Review of Systems Status of ROS: Reports: 6 or more systems reviewed and unremarkable except as noted in History and below [facility] Medical History (Updated 08/11/23 @ 00:01 by Arnaud Overton) Bladder cancer metastasized to bone ?C67.9 - Malignant neoplasm of bladder, unspecified (ICD-10) ?C79.51 - Secondary malignant neoplasm of bone (ICD-10) Primary cancer of bladder (~07/10/21) ?C67.9 - Malignant neoplasm of bladder, unspecified (ICD-10) Adenomatous colon polyp (~06/2018) ?D12.6 - Benign neoplasm of colon, unspecified (ICD-10) Elevated cholesterol ?E78.00 - Pure hypercholesterolemia, unspecified (ICD-10) Prediabetes ?R73.03 - Prediabetes (ICD-10) Essential hypertension ?I10 - Essential (primary) hypertension (ICD-10) Basal cell carcinoma of skin (~04/19/07) ?C44.91 - Basal cell carcinoma of skin, unspecified (ICD-10) Surgical History H/O vasectomy ?Z98.52 - Vasectomy status (ICD-10) H/O transurethral resection of bladder tumor (TURBT) ?Z98.890 - Other specified postprocedural states (ICD-10) ?Z86.03 - Personal history of neoplasm of uncertain behavior (ICD-10) History of open reduction and internal fixation (ORIF) procedure (~1999) ?Z98.890 - Other specified postprocedural states (ICD-10) S/P left inguinal herniorrhaphy (10/12/19) ?Z98.890 - Other specified postprocedural states (ICD-10) ?Z87.19 - Personal history of other diseases of the digestive system (ICD-10) H/O hernia repair (~1999) ?Z98.890 - Other specified postprocedural states (ICD-10) ?Z87.19 - Personal history of other diseases of the digestive system (ICD-10) Hx of colonoscopy ?Z98.890 - Other specified postprocedural states (ICD-10) H/O cataract removal with insertion of prosthetic lens ?Z98.49 - Cataract extraction status, unspecified eye (ICD-10) ?Z96.1 - Presence of intraocular lens (ICD-10) S/P appendectomy ?Z90.49 - Acquired absence of other specified parts of digestive tract (ICD-10) Family History Mother Lung cancer, Onset Age: 57 Brother High blood pressure Peripheral arterial disease Social History Narrative: to [employer]. Smoked 1.5ppd for 30 years. Quit 30 years ago. 1 beer every other week. Denies recreational drugs. Full code, does not want assisted life support. What is your current living situation?: I presently have a place to live Problems where you live: no known problems Problems where you live details: NA In the past 12 months, utilities in danger of being shut off: no In past 12 months, lack of transportation kept you from medical appts, meetings, work, or getting things needed for daily living: no In the past 12 mos, have been you worried that your food would run out before you had money to buy more?: never true In the past 12 mos, the food you bought just didn't last and you didn't have money to buy more?: never true Highest level of school completed/degree received: Associate degree: occupational, technical, vocational program Smoking Status: Former smoker What tobacco products do you use: cigarettes Smoking quit date/years: >15 years ago Do you use any of these nicotine containing products: None Second hand tobacco smoke exposure: No How often do you have a drink containing alcohol: monthly or less Alcohol type: beer How many standard drinks containing alcohol do you have on a typical day: 1 or 2 How often do you have six or more drinks on one occasion: Never AUDIT-C Alcohol total score: 1 Non-prescribed substance use: denies use Caffeine: Yes How often does anyone, including family, friends and others, physically hurt you: never How often does anyone, including family, friends and others, insult or talk down to you: never How often does anyone, including family, friends and others, threaten you with harm: never How often does anyone, including family, friends and others, scream or curse at you: never service: Yes Exam Narrative: Exam Narrative: Pleasant. Hard of hearing. Ptosis evident in the right eyelid which apparently is chronic. Breathing easily. Lungs appear to be clear. Oropharynx is a little dry. Heart an elevated rate and regular rhythm. Abdomen is soft nontender. Well-healed low vertical midline surgical incision. Noninflamed urostomy site with clear yellow urine in bag. Left thighs notably thinner than the right. There is no lower extremity edema. Pain exacerbated with straight leg raise of the left. Does not have the strength to raise the left leg from the bed or at least exacerbates pain. Right arm/hand with clear intention tremor. Const: Vital Signs, click to edit/add: Vital Signs - 24 hr 07/25/23 10:27 07/25/23 11:30 07/25/23 12:30 Temperature 98.7 F 97.8 F Pulse Rate [Right Pulse Oximeter] 92 82 Respiratory Rate 14 16 Blood Pressure [Ri ght Upper Arm] 134/68 126/68 Pulse Oximetry 97 96 96 Oxygen Delivery Me thod Room Air Room Air Documenting provider has reviewed patient's vital signs: yes Course Vital Signs Vital signs: Initial Vital Signs Temperature 98.7 F 07/25/23 10:27 Temperature Source Temporal Artery Scan 07/25/23 10:27 Pulse Rate 92 07/25/23 10:27 Respiratory Rate 14 07/25/23 10:27 Blood Pressure 134/68 07/25/23 10:27 Blood Pressure Mean 90 07/25/23 10:27 Blood Pressure Position Sitting 07/25/23 10:27 Pulse Oximetry 97 07/25/23 10:27 Oxygen Delivery Method Room Air 07/25/23 10:27 Vital Signs Temperature 98.7 F 07/25/23 10:27 Pulse Rate 92 07/25/23 10:27 Respiratory Rate 14 07/25/23 10:27 Blood Pressure 134/68 07/25/23 10:27 Pulse Oximetry 97 07/25/23 10:27 Oxygen Delivery Method Room Air 07/25/23 10:27 Temperature 98.3 F 08/03/23 09:12 Pulse Rate 90 08/03/23 09:12 Respiratory Rate 18 08/03/23 09:12 Blood Pressure 137/76 08/03/23 09:12 Pulse Oximetry 95 08/03/23 09:12 Oxygen Delivery Method Room Air 08/03/23 09:12 Medical Decision Making MDM Narrative Medical decision making narrative: Primary issue does seem to be increasing weakness of unclear etiology. Spouse is maintaining that she feels unsafe to try to manage him at home at this point. Looking for labs with history of hyponatremia and anemia. Look for etiology to infection. Check urostomy bag though would probably need to wait on culture to confirm as potential source. No respiratory symptoms but will check chest x-ray for pneumonia. Will initiate IV hydration. EKG as noted before. This may correspond to a potassium of 5.7. Sodium of 127. Able to locate records from July 08 of this year showing a sodium of 132 and potassium of 5.2. Hemoglobin at that time was 9.9. Today is 9 Urostomy urine with nitrite positive and many bacteria but no other findings. No recent EKGs for comparison Will discuss with hospitalist for admission for weakness, stabilization of potassium. Hyponatremia is relatively chronic but probably is dehydrated as well. Lab Data Lab results reviewed: Yes I reviewed the patient's lab results Labs: Lab Results 07/25/23 07/25/23 07/25/23 Range/Units 10:34 10:45 11:54 WBC 10.76 (4.50-11.00) K/uL RBC 3.62 L (4.30-5.90) m/uL Hgb 9.0 L (13.5-17.5) gm/dL Hct 28.4 L (37.0-53.0) % MCV 79 L (80-100) fL MCH 25 L (26-34) pg MCHC 32 (32-36) gm/dL RDW Coeff of Rita 16.7 H (11.5-15.5) % Plt Count 559 H (140-440) K/uL Neut % (Auto) 77.9 H (42.0-72.0) % Lymph % (Auto) 5.8 L (20-44) % [place] % (Auto) 12.8 H (0.0-11.0) % Eos % (Auto) 0.7 (0.0-7.0) % Baso % (Auto) 0.1 (0.0-3.0) % Neut # (Auto) 8.40 H (1.7-7.0) K/uL Lymph # (Auto) 0.60 L (0.90-2.90) K/uL [place] # (Auto) 1.40 H (0.00-0.90) K/UL Eos # (Auto) 0.07 (0.00-0.50) K/uL Baso # (Auto) 0.01 (0.00-0.30) K/uL Abs Immat Gran (auto) 0.29 (0.00-0.30) K/uL Imm/Tot Granulo (auto) 2.7 % Sodium 127 L (135-149) mmol/L Potassium 5.7 H (3.6-5.1) mmol/L Chloride 96 (96-114) mmol/L Carbon Dioxide 23 (20-32) mmol/L Anion Gap 8 (7-15) mEq/L BUN 38 H (7-30) mg/dL Creatinine 0.9 (0.5-1.5) mg/dL Estimated Creat Clear 64.84 Estimated GFR 87 ml/min Glucose 104 (60-115) mg/dL Lactate 1.2 (0.5-1.9) mmol/L Calcium 9.9 (8.4-10.6) mg/dL C-Reactive Protein 17.1 H (0.5-1.0) mg/dL NT-Pro-B Natriuret Pep 146 pg/mL Urine Color [place] A (Yellow) Urine Appearance Clear (Clear) Urine pH 6.5 (5.0-8.5) Ur Specific [place] 1.015 (1.000-1.030) Urine Protein Negative (Negative) Urine Glucose (UA) Negative (Negative) Urine Ketones Negative (Negative) Urine Blood Negative (Negative) Urine Nitrite Positive A (Negative) Urine Bilirubin Negative (Negative) Urine Urobilinogen 0.2 (0.2-1.0) Ur Leukocyte Esterase Negative (Negative) Urine RBC 0-2 (0-2) Urine WBC 0-2 (0-5) Urine WBC Clumps Few A (None) Ur Squamous Epith Cells (None-Few) Urine Bacteria Many A (None) Urine Mucus Few A (None) SARS-CoV-2 (PCR) Negative SARS-CoV-2 (Negative) Influenza Type A (PCR) Negative PCR FLU A (Negative) Influenza Type B (PCR) Negative PCR FLU B (Negative) RSV (PCR) Negative PCR RSV (Negative) 07/25/23 07/26/23 07/27/23 Range/Units 19:19 05:56 11:00 WBC 10.31 10.38 (4.50-11.00) K/uL RBC 3.59 L 3.38 L (4.30-5.90) m/uL Hgb 8.4 L 9.0 L 8.5 L (13.5-17.5) gm/dL Hct 28.4 L 26.8 L (37.0-53.0) % MCV 79 L 79 L (80-100) fL MCH 25 L 25 L (26-34) pg MCHC 32 32 (32-36) gm/dL RDW Coeff of Rita 16.9 H 16.8 H (11.5-15.5) % Plt Count 518 H 471 H (140-440) K/uL Neut % (Auto) 83.0 H 83.9 H (42.0-72.0) % Lymph % (Auto) 4.9 L 5.4 L (20-44) % [place] % (Auto) 8.8 8.3 (0.0-11.0) % Eos % (Auto) 1.6 1.2 (0.0-7.0) % Baso % (Auto) 0.1 0.2 (0.0-3.0) % Neut # (Auto) 8.60 H 8.70 H (1.7-7.0) K/uL Lymph # (Auto) 0.50 L 0.60 L (0.90-2.90) K/uL [place] # (Auto) 0.90 0.90 (0.00-0.90) K/UL Eos # (Auto) 0.17 0.12 (0.00-0.50) K/uL Baso # (Auto) 0.01 0.02 (0.00-0.30) K/uL Abs Immat Gran (auto) 0.16 0.10 (0.00-0.30) K/uL Imm/Tot Granulo (auto) 1.6 1.0 % Sodium 129 L 131 L (135-149) mmol/L Potassium 4.7 4.8 4.3 (3.6-5.1) mmol/L Chloride 98 99 (96-114) mmol/L Carbon Dioxide 24 24 (20-32) mmol/L Anion Gap 7 8 (7-15) mEq/L BUN 29 24 (7-30) mg/dL Creatinine 0.8 0.7 (0.5-1.5) mg/dL Estimated Creat Clear 60.88 60.88 Estimated GFR 91 94 ml/min Glucose 110 135 H (60-115) mg/dL Lactate (0.5-1.9) mmol/L Calcium 9.5 9.1 (8.4-10.6) mg/dL C-Reactive Protein (0.5-1.0) mg/dL NT-Pro-B Natriuret Pep pg/mL Urine Color (Yellow) Urine Appearance (Clear) Urine pH (5.0-8.5) Ur Specific [place] (1.000-1.030) Urine Protein (Negative) Urine Glucose (UA) (Negative) Urine Ketones (Negative) Urine Blood (Negative) Urine Nitrite (Negative) Urine Bilirubin (Negative) Urine Urobilinogen (0.2-1.0) Ur Leukocyte Esterase (Negative) Urine RBC (0-2) Urine WBC (0-5) Urine WBC Clumps (None) Ur Squamous Epith Cells (None-Few) Urine Bacteria (None) Urine Mucus (None) SARS-CoV-2 (PCR) (Negative) Influenza Type A (PCR) (Negative) Influenza Type B (PCR) (Negative) RSV (PCR) (Negative) 07/28/23 Range/Units 05:53 WBC 9.00 (4.50-11.00) K/uL RBC 3.18 L (4.30-5.90) m/uL Hgb 8.1 L (13.5-17.5) gm/dL Hct 25.1 L (37.0-53.0) % MCV 79 L (80-100) fL MCH 26 (26-34) pg MCHC 32 (32-36) gm/dL RDW Coeff of Rita 17.0 H (11.5-15.5) % Plt Count 427 (140-440) K/uL Neut % (Auto) 76.6 H (42.0-72.0) % Lymph % (Auto) 7.0 L (20-44) % [place] % (Auto) 11.8 H (0.0-11.0) % Eos % (Auto) 3.2 (0.0-7.0) % Baso % (Auto) 0.3 (0.0-3.0) % Neut # (Auto) 6.90 (1.7-7.0) K/uL Lymph # (Auto) 0.60 L (0.90-2.90) K/uL [place] # (Auto) 1.10 H (0.00-0.90) K/UL Eos # (Auto) 0.29 (0.00-0.50) K/uL Baso # (Auto) 0.03 (0.00-0.30) K/uL Abs Immat Gran (auto) 0.10 (0.00-0.30) K/uL Imm/Tot Granulo (auto) 1.1 % Sodium 130 L (135-149) mmol/L Potassium 4.7 (3.6-5.1) mmol/L Chloride 99 (96-114) mmol/L Carbon Dioxide 24 (20-32) mmol/L Anion Gap 7 (7-15) mEq/L BUN 23 (7-30) mg/dL Creatinine 0.8 (0.5-1.5) mg/dL Estimated Creat Clear 60.88 Estimated GFR 91 ml/min Glucose 118 H (60-115) mg/dL Lactate (0.5-1.9) mmol/L Calcium 9.1 (8.4-10.6) mg/dL C-Reactive Protein (0.5-1.0) mg/dL NT-Pro-B Natriuret Pep pg/mL Urine Color (Yellow) Urine Appearance (Clear) Urine pH (5.0-8.5) Ur Specific [place] (1.000-1.030) Urine Protein (Negative) Urine Glucose (UA) (Negative) Urine Ketones (Negative) Urine Blood (Negative) Urine Nitrite (Negative) Urine Bilirubin (Negative) Urine Urobilinogen (0.2-1.0) Ur Leukocyte Esterase (Negative) Urine RBC (0-2) Urine WBC (0-5) Urine WBC Clumps (None) Ur Squamous Epith Cells (None-Few) Urine Bacteria (None) Urine Mucus (None) SARS-CoV-2 (PCR) (Negative) Influenza Type A (PCR) (Negative) Influenza Type B (PCR) (Negative) RSV (PCR) (Negative) ECG Data Attestation: I personally reviewed and interpreted this ECG as follows: (Normal sinus rhythm without acute ischemic changes. There do appear to be rather prominent T-waves.) Discharge Plan Discharge Clinical Impression: Weakness, Hyponatremia, Hyperkalemia Patient Disposition: Admitted As Observation Condition: Improved Activity Level: Up with assist and Use Walker Discharge Diet: Regular
[2023-07-25 11:30] VITALS: O2SAT 96
[2023-07-25] MEDS: 0.9 % SODIUM CHLORIDE 1000 ml 1,000 ML IV (11:33)
[2023-07-25 11:42] LABS: SARS PCR* Negative SARS-CoV-2 (Negative)
[2023-07-25 11:50] LABS: Chloride* 96 mmol/L (96-114); Potassium* 5.7 mmol/L (3.6-5.1); Sodium* 127 mmol/L (135-149)
[2023-07-25 11:51] LABS: Lactate* 1.2 mmol/L (0.5-1.9)
[2023-07-25 11:53] LABS: Creatinine* 0.9 mg/dL (0.5-1.5); Est. Creatinine Clearance* 64.84; Estimated Glomerular Filt Rate 87 ml/min
[2023-07-25 11:54] LABS: Anion Gap 8 mEq/L (7-15); Blood Urea Nitrogen* 38 mg/dL (7-30); Calcium* 9.9 mg/dL (8.4-10.6); Carbon Dioxide* 23 mmol/L (20-32); Glucose* 104 mg/dL (60-115)
[2023-07-25 11:58] LABS: Basophils Absolute Auto 0.01 K/uL (0.00-0.30); Basophils Percent Auto 0.1 % (0.0-3.0); Eosinophils Absolute Auto 0.07 K/uL (0.00-0.50); Eosinophils Percent Auto 0.7 % (0.0-7.0); Hematocrit 28.4 % (37.0-53.0); Immature Granulocytes Abs Auto 0.29 K/uL (0.00-0.30); Immature Granulocytes Pct Auto 2.7 %; Lymphocytes Percent Auto 5.8 % (20-44); Mean Corpuscular HGB Conc 32 gm/dL (32-36); Mean Corpuscular Hemoglobin 25 pg (26-34); Mean Corpuscular Volume 79 fL (80-100); Monocytes Percent Auto 12.8 % (0.0-11.0); Neutrophils Percent Auto 77.9 % (42.0-72.0); Platelet Count* 559 K/uL (140-440); RDW Coefficient of Variation % 16.7 % (11.5-15.5); Red Blood Count 3.62 m/uL (4.30-5.90); White Blood Count* 10.76 K/uL (4.50-11.00)
[2023-07-25 12:02] LABS: Slide Review Reflex No
[2023-07-25 12:07] LABS: Bilirubin Urine Negative (Negative); Blood Urine Negative (Negative); Color Urine Orange (Yellow); Glucose Urine Negative (Negative); Ketones Urine Negative (Negative); Leukocyte Esterase Urine Negative (Negative); Nitrite Urine Positive (Negative); Protein Urine Negative (Negative); Specific Gravity Urine 1.015 (1.000-1.030); Urobilinogen Urine 0.2 (0.2-1.0); pH Urine 6.5 (5.0-8.5)
[2023-07-25 12:08] LABS: Appearance Urine Clear (Clear)
[2023-07-25 12:10] LABS: C Reactive Protein* 17.1 mg/dL (0.5-1.0); NT Pro B Type NatriureticPept* 146 pg/mL
[2023-07-25 12:30] VITALS: BP 126/68; PULSE 82; RESP 16; TEMP 36.6; O2SAT 96
[2023-07-25 12:31] LABS: RBC Urine 0-2 (0-2)
[2023-07-25 12:32] LABS: Bacteria Urine Many; Mucus Urine Few; WBC Clumps Urine Few; WBC Urine 0-2 (0-5)
--- NOTE | 2023-07-25 14:22 | PM.IMHP1 ---
Hospitalist- H&P: HPI History of Present Illness Date Seen: 07/25/23 Chief complaint: weak, shaky Narrative: Med Lopes is a 77 year old male with past medical history noted below including hx of primary cancer of bladder with urostomy (undergoing radiation therapy, Sees Dr. More at [facility]: BCG treatments in early 2021 followed by immunotherapy in late 2021), chronic hyponatremia, anemia of chronic disease, hypertension presenting for generalized weakness. The patient has had difficulty ambulating and increased pain in left hip from tumor compression of sciatic nerve. He has undergone radiation therapy on tumor with plans for follow up PET CT scan in the coming weaks. He denies abdominal pain, fever. He presented to ED for further evaluation. In the ED notable labs included potassium 5.7, sodium 127, normal Cr, hgb 9.0 (previously 11 in December), normal wbc. CXR with no acute findings. COVID and Influenza PCR negative. UA positive for bacteria. In the ED he was given IVF and admitted for further evaluation. cxr IMPRESSION: No acute or worrisome findings. No change compared to recent prior CT chest. [facility] Medical History Primary cancer of bladder (~07/10/21) ?C67.9 - Malignant neoplasm of bladder, unspecified (ICD-10) Adenomatous colon polyp (~06/2018) ?D12.6 - Benign neoplasm of colon, unspecified (ICD-10) Elevated cholesterol ?E78.00 - Pure hypercholesterolemia, unspecified (ICD-10) Prediabetes ?R73.03 - Prediabetes (ICD-10) Essential hypertension ?I10 - Essential (primary) hypertension (ICD-10) Basal cell carcinoma of skin (~04/19/07) ?C44.91 - Basal cell carcinoma of skin, unspecified (ICD-10) Surgical History H/O vasectomy ?Z98.52 - Vasectomy status (ICD-10) H/O transurethral resection of bladder tumor (TURBT) ?Z98.890 - Other specified postprocedural states (ICD-10) ?Z86.03 - Personal history of neoplasm of uncertain behavior (ICD-10) History of open reduction and internal fixation (ORIF) procedure (~1999) ?Z98.890 - Other specified postprocedural states (ICD-10) S/P left inguinal herniorrhaphy (10/12/19) ?Z98.890 - Other specified postprocedural states (ICD-10) ?Z87.19 - Personal history of other diseases of the digestive system (ICD-10) H/O hernia repair (~1999) ?Z98.890 - Other specified postprocedural states (ICD-10) ?Z87.19 - Personal history of other diseases of the digestive system (ICD-10) Hx of colonoscopy ?Z98.890 - Other specified postprocedural states (ICD-10) H/O cataract removal with insertion of prosthetic lens ?Z98.49 - Cataract extraction status, unspecified eye (ICD-10) ?Z96.1 - Presence of intraocular lens (ICD-10) S/P appendectomy ?Z90.49 - Acquired absence of other specified parts of digestive tract (ICD-10) Family History Mother Lung cancer, Onset Age: 57 Brother High blood pressure Peripheral arterial disease Social History Narrative: to [employer]. Smoked 1.5ppd for 30 years. Quit 30 years ago. 1 beer every other week. Denies recreational drugs. 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 Highest level of school completed/degree received: Associate degree: occupational, technical, vocational program Smoking Status: Former smoker Do you use any of these nicotine containing products: None Second hand tobacco smoke exposure: No How often do you have a drink containing alcohol: monthly or less How often do you have six or more drinks on one occasion: Never AUDIT-C Alcohol total score: 1 Non-prescribed substance use: denies use Caffeine: Yes (3 cups daily) service: Yes Meds Home Medications and Allergies Home Medications Medication Instructions Recorded Confirmed Type atorvastatin 20 mg tablet 20 mg PO HS 01/17/23 07/25/23 History lisinopril 10 mg tablet 10 mg PO DAILY 01/17/23 07/25/23 History multivitamin (Daily Multi-Vitamin 1 tab PO DAILY 01/17/23 07/25/23 History tablet) cholecalciferol (vitamin D3) 125 125 mcg PO DAILY 07/25/23 07/25/23 History mcg (5,000 unit) tablet (Vitamin D3) ferrous sulfate 325 mg (65 mg 325 mg PO BIDWM 07/25/23 07/25/23 History iron) tablet,delayed release oxycodone 5 mg tablet 5 mg PO Q4H PRN pain 07/25/23 07/25/23 History sennosides 8.6 mg tablet (Senna 8.6 mg PO DAILY PRN 07/25/23 07/25/23 History Lax) spironolactone 25 mg tablet 25 mg PO DAILY 07/25/23 07/25/23 History Allergies Allergy/AdvReac Type Severity Reaction Status Date / Time naproxen Allergy Verified 01/18/23 07:15 Penicillins AdvReac Severe Rash Verified 01/17/23 13:29 Exam Narrative: Exam Narrative: Gen: no acute distress HEENT: NCAT EOMI mmm Neck: Supple CV: RRR normal s1 s2 Lungs: CTAB Abd: Soft,nt, nd; urostomy bag full Neuro: Alert, oriented, CN grossly intact; nonfocal screening?exam Psych: appropriate affect MSK: age appropriate muscle mass Skin; Warm, dry no rash on face Const: Vital Signs, click to edit/add: Vital Signs - 24 hr 07/25/23 10:27 07/25/23 11:30 07/25/23 12:30 Temperature 98.7 F 97.8 F Pulse Rate [Right Pulse Oximeter] 92 82 Respiratory Rate 14 16 Blood Pressure [Ri ght Upper Arm] 134/68 126/68 Pulse Oximetry 97 96 96 Oxygen Delivery Me thod Room Air Room Air Hospitalist - H&P: Result Labs Labs: Short CBC 07/25/23 Range/Units 10:45 WBC 10.76 (4.50-11.00) K/uL Hgb 9.0 L (13.5-17.5) gm/dL Hct 28.4 L (37.0-53.0) % Plt Count 559 H (140-440) K/uL BMP 07/25/23 10:45 Sodium 127 L Potassium 5.7 H Chloride 96 Carbon Dioxide 23 BUN 38 H Creatinine 0.9 Glucose 104 Calcium 9.9 Urine 09/24/23 Range/Units 11:54 Urine Color [place] A (Yellow) Urine Appearance Clear (Clear) Urine pH 6.5 (5.0-8.5) Ur Specific [place] 1.015 (1.000-1.030) Urine Protein Negative (Negative) Urine Glucose (UA) Negative (Negative) Assessment and Plan Assessment and plan (1) Hyperkalemia: Status: Acute (2) Hyponatremia: Status: Acute (3) Anemia: Problem comment: - Normocytic, acute on chronic, suspect acute blood loss anemia secondary to hematuria/bladder cancer. Did not require intervention during stay - 09/30/22: 14.2 - 11/25/22: 11.9 - 01/17/23: 10.9 - 01/18/23: 11.6 - 01/19/23: 11.0 Status: Acute (4) Primary cancer of bladder: Problem comment: - Diagnosed fall 2020. Sees Dr. More at [facility]: BCG treatments in early 2021 followed by immunotherapy in late 2021 - Known recurrence, has appt 02/[address] Rodriguez at [facility] to discuss bladder resection, prostate resection, and creation of ileal pouch urostomy - reviewed case with Dr. More on 01/18: keep bautista in place until 02/04 followup appointment Status: Chronic (5) UTI (urinary tract infection): Status: Acute Plan Med Lopes is a 77 year old male with past medical history noted below including hx of primary cancer of bladder with urostomy (undergoing radiation therapy, Sees Dr. More at [facility]: BCG treatments in early 2021 followed by immunotherapy in late 2021), chronic hyponatremia, anemia of chronic disease, hypertension presenting for generalized weakness. The patient has had difficulty ambulating and increased pain in left hip from tumor compression of sciatic nerve. He has undergone radiation therapy on tumor with plans for follow up PET CT scan in the coming weeks. In the ED notable labs included potassium 5.7, sodium 127, normal Cr, hgb 9.0 (previously 11 in December), normal wbc. CXR with no acute findings. COVID and Influenza PCR negative. UA positive for bacteria. In the ED he was given IVF and admitted for further evaluation. 1. Hyperkalemia 2. Anemia of chronic disease; hgb 9 3. R/o UTI 4. Hx of bladder cancer 5. Acute on chronic hyponatremia; sodium 127 6. Genarlized weakness multifactorial Plan -admit inpatient -start ceftriaxone -f/u Ucx -IVF/Calcium/Lasix/Repeat potassium -tele -serial hgb and sodium -Therapy evaluation -pain control -DIscussed with may end up requiring short term rehab Code status-full dvt ppx-SCD
[2023-07-25] MEDS: OXYCODONE 5 MG TABLET PO ×2 (14:34→18:24)
[2023-07-25 15:14] VITALS: BP 151/66; PULSE 87; RESP 20; TEMP 36.8; O2SAT 95; BMI 23.6
[2023-07-25] MEDS: cefTRIAXone 1 GM in 0.9 % SODIUM CHLORIDE Mini-bag 100 ML IVPB (15:57)
[2023-07-25] MEDS: FUROSEMIDE 10 MG/ML inj 20 MG IVP (15:57)
[2023-07-25] MEDS: 0.9 % SODIUM CHLORIDE 1000 ml 1,000 ML 125 ML IV (15:57)
[2023-07-25] MEDS: ACETAMINOPHEN 325 MG TABLET 650 MG PO (15:58)
[2023-07-25] MEDS: HYDROmorphone 0.5 mg/0.5 ml inj IVP ×4 (15:58→21:44)
[2023-07-25] MEDS: FERROUS SULFATE 325 MG TABLET PO (17:40)
[2023-07-25 19:00] VITALS: BP 115/57; PULSE 73; RESP 20; TEMP 36.7; O2SAT 93
[2023-07-25 19:50] LABS: Hemoglobin* 8.4 gm/dL (13.5-17.5)
--- NOTE | 2023-07-25 19:54 | PC.NURSE ---
Nursing Care Hours: [id number] Pt this shift arrives from ED on stretcher, assisted with slide transfer to bed. Pt has intense pain in L hip radiating to L ankle. VSS, skin intact. Urostomy patent. Pt anxious and overwhelmed with situation. Non pharmacological methods attempted such as deep breathing, music therapy, aromatherapy, distraction, family visits, hand and feet massage, and therapeutic communication. Anxiety continues aeb constantly rubbing forehead and back of neck and teary eyes. Pedal pulses present bilat feet, able to pump feet without pain. Left hip elevated and supported on pillow. Eating full meals and drinking sufficiently .
[2023-07-25 20:02] LABS: Potassium* 4.7 mmol/L (3.6-5.1)
[2023-07-25] MEDS: ATORVASTATIN 10 MG TABLET 20 MG PO (21:41)
[2023-07-25] MEDS: SODIUM CHLORIDE 0.9 % (FLUSH) 10 ML SYRINGE 5 ML IVF (21:46)
[2023-07-25 22:00] VITALS: BP 139/68; PULSE 73; PULSE 83; RESP 20; TEMP 36.7; O2SAT 94
[2023-07-26] VITALS (7 sets, daily range): BP systolic 114–155; BP diastolic 57–74; PULSE 86–109; RESP 16–24; TEMP 36.4–37.5; O2SAT 92–98; BMI 23.6
[2023-07-26] MEDS: OXYCODONE 5 MG TABLET PO ×2 (01:50→06:06)
[2023-07-26] MEDS: HYDROmorphone 0.5 mg/0.5 ml inj IVP (03:40)
[2023-07-26] MEDS: SODIUM CHLORIDE 0.9 % (FLUSH) 10 ML SYRINGE 5 ML IVF (03:41)
[2023-07-26] MEDS: 0.9 % SODIUM CHLORIDE 1000 ml 1,000 ML 75 ML IV ×2 (04:58→19:39)
[2023-07-26] MEDS: SENNOSIDES 1 TAB TABLET PO (06:14)
[2023-07-26 06:17] LABS: Basophils Absolute Auto 0.01 K/uL (0.00-0.30); Basophils Percent Auto 0.1 % (0.0-3.0); Eosinophils Absolute Auto 0.17 K/uL (0.00-0.50); Eosinophils Percent Auto 1.6 % (0.0-7.0); Hematocrit 28.4 % (37.0-53.0); Immature Granulocytes Abs Auto 0.16 K/uL (0.00-0.30); Immature Granulocytes Pct Auto 1.6 %; Lymphocytes Percent Auto 4.9 % (20-44); Mean Corpuscular HGB Conc 32 gm/dL (32-36); Mean Corpuscular Hemoglobin 25 pg (26-34); Mean Corpuscular Volume 79 fL (80-100); Monocytes Percent Auto 8.8 % (0.0-11.0); Platelet Count* 518 K/uL (140-440); RDW Coefficient of Variation % 16.9 % (11.5-15.5); Red Blood Count 3.59 m/uL (4.30-5.90); White Blood Count* 10.31 K/uL (4.50-11.00)
[2023-07-26 06:24] LABS: Slide Review Reflex No
[2023-07-26 06:27] LABS: Chloride* 98 mmol/L (96-114); Potassium* 4.8 mmol/L (3.6-5.1); Sodium* 129 mmol/L (135-149)
[2023-07-26 06:30] LABS: Anion Gap 7 mEq/L (7-15); Blood Urea Nitrogen* 29 mg/dL (7-30); Calcium* 9.5 mg/dL (8.4-10.6); Carbon Dioxide* 24 mmol/L (20-32); Creatinine* 0.8 mg/dL (0.5-1.5); Est. Creatinine Clearance* 60.88; Estimated Glomerular Filt Rate 91 ml/min; Glucose* 110 mg/dL (60-115)
--- NOTE | 2023-07-26 07:01 | PC.NURSE ---
Shift note [id number]: Pt is alert and oriented to self only. Pt is able to state correct month and year but doesn?t know what time of day or where he is. Afebrile. Pt reports pain in left hip that radiates down to toes, pain manage with PRN medications. Pt?s urostomy bag is patented and draining. Pt denies chest pain, SOB and N/V. Pt was turned and repositioned throughout shift. Pt slept intermittently throughout night. ?
[2023-07-26] MEDS: FERROUS SULFATE 325 MG TABLET PO ×2 (08:16→18:36)
[2023-07-26] MEDS: OXYCODONE (CR) 10 MG TAB.ER.12H PO ×2 (10:34→21:33)
[2023-07-26] MEDS: SENNOSIDES/DOCUSATE TABLET 1 TAB PO ×2 (10:35→20:29)
--- NOTE | 2023-07-26 10:46 | PM.IMPN1 ---
Progress Note: A&P Assessment and plan (1) UTI (urinary tract infection): Problem details: UCX with GNR; continue ceftriaxone Status: Acute (2) Hyperkalemia: Problem details: resolved Status: Acute (3) Hyponatremia: Problem details: sodium improving from 127 to 129; continue IVF hold aldactone Status: Acute (4) Weakness: Problem details: PT, OT evaluation Status: Acute (5) Primary cancer of bladder: Problem details: pain regimen increased to scheduled oxycontin, +bowel regimen increased Status: Chronic (6) Hypertension: Problem details: resume lisinopril; hold aldactone Status: Acute Plan Plan for 07/26: PT, OT evaluation, continue antibiotics; UCx pending; anticipate 1-2 more days; may need short term rehab; updated with plan Subjective Date Seen: 07/26/23 Interval history: patient with at bedside this morning pain regimen increased to oxycontin Sodium improving to 129 Hyperkalemia resolved Ucx GNR endorses anxiety, discussed risks of ativan; does not want bdzs decreased appetite Exam Narrative: Exam Narrative: Gen: no acute distress HEENT: NCAT EOMI mmm Neck: Supple CV: RRR normal s1 s2 Lungs: CTAB Abd: Soft,nt, nd; Urostomy intact Neuro: Alert, oriented, CN grossly intact; nonfocal screening?exam Psych: appropriate affect MSK: age appropriate muscle mass Skin; Warm, dry no rash on face Const: Vital Signs, click to edit/add: Vital Signs - 24 hr 07/25/23 11:30 07/25/23 12:30 07/25/23 15:14 Temperature 97.8 F 98.2 F Pulse Rate [Left P ulse Oximeter] 87 Pulse Rate [Right Pulse Oximeter] 82 Respiratory Rate 16 20 Blood Pressure [Le ft Arm] 151/66 H Blood Pressure [Ri ght Upper Arm] 126/68 Pulse Oximetry 96 96 95 Oxygen Delivery Me thod Room Air Room Air 07/25/23 19:00 07/25/23 22:00 07/25/23 22:00 Temperature 98.0 F Pulse Rate [Left P ulse Oximeter] 73 73 Pulse Rate [Right Pulse Oximeter] Respiratory Rate 20 20 Blood Pressure [Le ft Arm] 115/57 L Blood Pressure [Ri ght Upper Arm] Pulse Oximetry 93 94 Oxygen Delivery Me thod Room Air 07/25/23 22:00 07/26/23 04:05 07/26/23 07:00 Temperature 98.0 F 97.6 F Pulse Rate [Left P ulse Oximeter] 83 86 Pulse Rate [Right Pulse Oximeter] Respiratory Rate 20 20 Blood Pressure [Le ft Arm] 139/68 133/65 Blood Pressure [Ri ght Upper Arm] Pulse Oximetry 94 92 98 Oxygen Delivery Me thod Room Air Room Air 07/26/23 07:00 07/26/23 07:00 Temperature 99.5 F Pulse Rate [Left P ulse Oximeter] 98 98 Pulse Rate [Right Pulse Oximeter] Respiratory Rate 20 20 Blood Pressure [Le ft Arm] 148/66 H Blood Pressure [Ri ght Upper Arm] Pulse Oximetry 98 Oxygen Delivery Me thod Room Air Labs Labs: Laboratory Results - last 24 hr 07/25/23 07/25/23 07/25/23 10:34 10:45 11:54 WBC 10.76 RBC 3.62 L Hgb 9.0 L Hct 28.4 L MCV 79 L MCH 25 L MCHC 32 RDW Coeff of Rita 16.7 H Plt Count 559 H Neut % (Auto) 77.9 H Lymph % (Auto) 5.8 L [place] % (Auto) 12.8 H Eos % (Auto) 0.7 Baso % (Auto) 0.1 Neut # (Auto) 8.40 H Lymph # (Auto) 0.60 L [place] # (Auto) 1.40 H Eos # (Auto) 0.07 Baso # (Auto) 0.01 Abs Immat Gran (auto) 0.29 Imm/Tot Granulo (auto) 2.7 Sodium 127 L Potassium 5.7 H Chloride 96 Carbon Dioxide 23 Anion Gap 8 BUN 38 H Creatinine 0.9 Estimated Creat Clear 64.84 Estimated GFR 87 Glucose 104 Lactate 1.2 Calcium 9.9 C-Reactive Protein 17.1 H NT-Pro-B Natriuret Pep 146 Urine Color [place] A Urine Appearance Clear Urine pH 6.5 Ur Specific [place] 1.015 Urine Protein Negative Urine Glucose (UA) Negative Urine Ketones Negative Urine Blood Negative Urine Nitrite Positive A Urine Bilirubin Negative Urine Urobilinogen 0.2 Ur Leukocyte Esterase Negative Urine RBC 0-2 Urine WBC 0-2 Urine WBC [place] Few A Ur Squamous Epith Cells Urine Bacteria Many A Urine Mucus Few A SARS-CoV-2 (PCR) Negative SARS-CoV-2 Influenza Type A (PCR) Negative PCR FLU A Influenza Type B (PCR) Negative PCR FLU B RSV (PCR) Negative PCR RSV 07/25/23 07/26/23 19:19 05:56 WBC 10.31 RBC 3.59 L Hgb 8.4 L 9.0 L Hct 28.4 L MCV 79 L MCH 25 L MCHC 32 RDW Coeff of Rita 16.9 H Plt Count 518 H Neut % (Auto) 83.0 H Lymph % (Auto) 4.9 L [place] % (Auto) 8.8 Eos % (Auto) 1.6 Baso % (Auto) 0.1 Neut # (Auto) 8.60 H Lymph # (Auto) 0.50 L [place] # (Auto) 0.90 Eos # (Auto) 0.17 Baso # (Auto) 0.01 Abs Immat Gran (auto) 0.16 Imm/Tot Granulo (auto) 1.6 Sodium 129 L Potassium 4.7 4.8 Chloride 98 Carbon Dioxide 24 Anion Gap 7 BUN 29 Creatinine 0.8 Estimated Creat Clear 60.88 Estimated GFR 91 Glucose 110 Lactate Calcium 9.5 C-Reactive Protein NT-Pro-B Natriuret Pep Urine Color Urine Appearance Urine pH Ur Specific [place] Urine Protein Urine Glucose (UA) Urine Ketones Urine Blood Urine Nitrite Urine Bilirubin Urine Urobilinogen Ur Leukocyte Esterase Urine RBC Urine WBC Urine WBC [place] Ur Squamous Epith Cells Urine Bacteria Urine Mucus SARS-CoV-2 (PCR) Influenza Type A (PCR) Influenza Type B (PCR) RSV (PCR)
[2023-07-26] MEDS: polyethylene glycoL 3350 17 GM PACK PO (11:04)
[2023-07-26] MEDS: lisinopriL 10 MG TABLET PO (12:00)
[2023-07-26] MEDS: ACETAMINOPHEN 325 MG TABLET 650 MG PO (13:05)
--- NOTE | 2023-07-26 14:44 | PC.NURSE ---
Patient pleasant and alert. at bedside until around lunchtime. Patient reports pain in left leg rated 6-7/10. Repositioning somewhat effective for patient's left leg discomfort. Right heel floated on pillow and repositioned per patient request or q 2hrs. New orders for scheduled Oxycontin and Senna-S given. PRN Tylenol given at approximately 1300 for left leg pain. Patient in bed resting at this time. Sat up in recliner x1. Transfers with A2, waker and gait belt. Tolerating regular diet. Per Maxine in OT there are two open areas on buttocks. One in gluteal crease and one just left of crease. Mepilex was applied over both areas. Patient states has been caring for area at home. Per patient's , patient received radiation treatments Wednesday through Wednesday last week. Family waiting to hear plan for possible chemo and PET scan.
--- NOTE | 2023-07-26 15:42 | PC.SOCIAL ---
Per therapy, pt's had questions regarding a possible SNF for short-term rehab for pt. Phone call to pt's to discuss discharge plans. Pt's informs that she is unable to safely take care of pt at home and she believes pt needs a short-term rehab stay. Discussed with pt's about his current treatment for cancer. Pt's states that radiation is completed, however, pt is receiving chemo treatment and needs a PET scan set up. Pt's will follow up with pt's oncologist tomorrow to see if the chemo treatments will be put on hold for pt to get a short-term rehab stay. Informed pt's that it is possible that it may be difficult to find a SNF if pt is actively receiving chemo treatment. Provided social work contact information and pt's will follow up with this worker tomorrow (07/27). Social work will follow up as needed.
[2023-07-26] MEDS: cefTRIAXone 1 GM in 0.9 % SODIUM CHLORIDE Mini-bag 100 ML IVPB (15:43)
--- NOTE | 2023-07-26 19:23 | PC.NURSE ---
Pt is cooperative, sleepy, on/off confused. Pain medications changed from Oxycodone to OxyContin today with success. Pt was able rest as well as ambulate with assist of 1, walker, & gait belt from bed to toilet, toilet to chair. states that is the best he's moved with the least pain in a long time. Tolerates regular diet, denies N/V. Mepilex to coccyx for to small sores states she has been putting ointment on. Educated pt and on shifting weight and reposition for healthy skin and reducing incidence of pressure sores/ulcers.
[2023-07-26] MEDS: HEPARIN 5,000 UNIT/0.5 ML INJ 5000 UNIT SUBCUT (20:28)
[2023-07-26] MEDS: ATORVASTATIN 10 MG TABLET 20 MG PO (20:29)
[2023-07-27] VITALS (8 sets, daily range): BP systolic 124–147; BP diastolic 61–70; PULSE 79–99; RESP 16–28; TEMP 36.5–38.1; O2SAT 92–99
[2023-07-27] MEDS: HYDROmorphone 0.5 mg/0.5 ml inj IVP (01:10)
[2023-07-27] MEDS: ACETAMINOPHEN 325 MG TABLET 650 MG PO ×2 (04:55→15:56)
--- NOTE | 2023-07-27 06:28 | PC.NURSE ---
Shift note: Pain 10/10, treated per eMAR with relief to7/10 which pt reports comfortable. Turning in bed with nurse assist. Increased temp to 100.5F treated with Tylenol
[2023-07-27] MEDS: FERROUS SULFATE 325 MG TABLET PO ×2 (08:39→17:59)
[2023-07-27] MEDS: HEPARIN 5,000 UNIT/0.5 ML INJ 5000 UNIT SUBCUT ×2 (08:40→22:08)
[2023-07-27] MEDS: lisinopriL 10 MG TABLET PO (08:40)
[2023-07-27] MEDS: SENNOSIDES/DOCUSATE TABLET 1 TAB PO (08:40)
[2023-07-27] MEDS: polyethylene glycoL 3350 17 GM PACK PO (08:40)
[2023-07-27] MEDS: OXYCODONE 5 MG TABLET PO ×3 (08:40→22:06)
[2023-07-27] MEDS: OXYCODONE (CR) 10 MG TAB.ER.12H PO ×2 (10:24→22:06)
[2023-07-27] MEDS: 0.9 % SODIUM CHLORIDE 1000 ml 1,000 ML 75 ML IV (10:54)
[2023-07-27 11:23] LABS: Chloride* 99 mmol/L (96-114); Potassium* 4.3 mmol/L (3.6-5.1); Sodium* 131 mmol/L (135-149)
[2023-07-27 11:25] LABS: Creatinine* 0.7 mg/dL (0.5-1.5); Est. Creatinine Clearance* 60.88; Estimated Glomerular Filt Rate 94 ml/min
[2023-07-27 11:26] LABS: Anion Gap 8 mEq/L (7-15); Blood Urea Nitrogen* 24 mg/dL (7-30); Calcium* 9.1 mg/dL (8.4-10.6); Carbon Dioxide* 24 mmol/L (20-32); Glucose* 135 mg/dL (60-115)
[2023-07-27 12:33] LABS: Basophils Absolute Auto 0.02 K/uL (0.00-0.30); Basophils Percent Auto 0.2 % (0.0-3.0); Eosinophils Absolute Auto 0.12 K/uL (0.00-0.50); Eosinophils Percent Auto 1.2 % (0.0-7.0); Hematocrit 26.8 % (37.0-53.0); Hemoglobin* 8.5 gm/dL (13.5-17.5); Lymphocytes Percent Auto 5.4 % (20-44); Mean Corpuscular HGB Conc 32 gm/dL (32-36); Mean Corpuscular Hemoglobin 25 pg (26-34); Mean Corpuscular Volume 79 fL (80-100); Monocytes Percent Auto 8.3 % (0.0-11.0); Neutrophils Percent Auto 83.9 % (42.0-72.0); Platelet Count* 471 K/uL (140-440); RDW Coefficient of Variation % 16.8 % (11.5-15.5); Red Blood Count 3.38 m/uL (4.30-5.90); White Blood Count* 10.38 K/uL (4.50-11.00)
[2023-07-27 12:34] LABS: Slide Review Reflex No
--- NOTE | 2023-07-27 13:06 | CRLHL7_ITS ---
For Patients: As a result of the Century Cures Act, medical imaging exams and procedure reports are released immediately into your electronic medical record. You may view this report before your referring provider. If you have questions, please contact your health care provider. INDICATION: Bladder cancer. Leg weakness. TECHNIQUE: Head CT without contrast. COMPARISON: None. FINDINGS: CSF spaces: Within normal limits for age. Brain parenchyma and extra-axial spaces: Generalized atrophy. There are nonspecific low attenuation white matter changes consistent with chronic microvascular disease. No sign of mass, hemorrhage, or midline shift. Skull base and calvarium: The visualized paranasal sinuses and mastoid air cells demonstrate no acute or significant findings. The visualized orbits are grossly unremarkable. No skull fractures. IMPRESSION: No signs of metastatic disease or acute ischemia on this noncontrast exam. There is generalized atrophy and chronic microvascular changes. No specific finding to explain leg weakness. Please note that all CT scans at this facility use dose modulation, iterative reconstruction, and/or weight-based dosing when appropriate to reduce radiation dose to as low as reasonably achievable. Dictated by Mo Easton MD @ 07/27/2023 3:22:10 PM (Electronically Signed)
--- NOTE | 2023-07-27 13:08 | P.IMPN_ITS ---
Progress Note: A&P Assessment and plan (1) UTI (urinary tract infection): Problem details: UCX with enterobacter; continue ceftriaxone Status: Acute (2) Hypertension: Problem details: resume lisinopril; hold aldactone Status: Acute (3) Hyperkalemia: Problem details: resolved Status: Acute (4) Hyponatremia: Problem details: sodium improving from 127 to 129 to 131; discontinue IVF hold aldactone Status: Acute (5) Weakness: Problem details: PT, OT evaluation Status: Acute (6) Hyponatremia: Problem details: - outpatient baseline Na is 130-133, improved from 126 --> 130 - held HCTZ during stay, will continue to hold until follow-up with PCP Status: Acute (7) Primary cancer of bladder: Problem details: pain regimen increased to scheduled oxycontin, +bowel regimen increased Status: Chronic (8) Cognitive impairment: Problem details: MOCA score [address] given cancer hx Status: Acute Plan appreciate therapy and SW assistance will need Short term rehab unable to take care of patient at home; awaiting Urology callback to discuss timing of PET CT scan and whether patient will require chemotherapy Subjective Date Seen: 07/27/23 Interval history: patient scored 10 MOCA exam updated SW awaiting for placement Sodium improving 131 no acute events overnigth Exam Narrative: Exam Narrative: Gen: no acute distress HEENT: NCAT EOMI mmm CV: RRR normal s1 s2 Lungs: CTAB Abd: Soft,nt, nd Neuro: Alert, CN grossly intact; nonfocal screening?exam Psych: flat affect MSK: age appropriate muscle mass Skin; Warm, dry no rash on face Const: Vital Signs, click to edit/add: Vital Signs - 24 hr 07/26/23 15:30 07/26/23 15:30 07/26/23 15:30 Temperature 98.3 F Pulse Rate [Left P ulse Oximeter] 102 H 102 H Respiratory Rate 16 Blood Pressure [Le ft Arm] 114/62 Pulse Oximetry 93 93 Oxygen Delivery Me thod Room Air 07/26/23 19:30 07/26/23 23:00 07/26/23 23:00 Temperature 98.3 F Pulse Rate [Left P ulse Oximeter] 109 H 109 H Respiratory Rate 16 16 Blood Pressure [Le ft Arm] 124/57 L Pulse Oximetry 93 93 Oxygen Delivery Me thod Room Air 07/26/23 23:00 07/27/23 03:00 07/27/23 04:55 Temperature 99.3 F 100.5 F H 100.5 F H Pulse Rate [Left P ulse Oximeter] 106 H 95 Respiratory Rate 16 16 Blood Pressure [Le ft Arm] 155/74 H 138/66 Pulse Oximetry 93 92 Oxygen Delivery Me thod Room Air Room Air 07/27/23 07:00 07/27/23 07:00 07/27/23 07:00 Temperature 97.7 F Pulse Rate [Left P ulse Oximeter] 79 79 Respiratory Rate 18 18 Blood Pressure [Le ft Arm] 132/64 Pulse Oximetry 96 96 Oxygen Delivery Me thod Room Air Labs Labs: Laboratory Results - last 24 hr 07/27/23 11:00 WBC 10.38 RBC 3.38 L Hgb 8.5 L Hct 26.8 L MCV 79 L MCH 25 L MCHC 32 RDW Coeff of Rita 16.8 H Plt Count 471 H Neut % (Auto) 83.9 H Lymph % (Auto) 5.4 L [place] % (Auto) 8.3 Eos % (Auto) 1.2 Baso % (Auto) 0.2 Neut # (Auto) 8.70 H Lymph # (Auto) 0.60 L [place] # (Auto) 0.90 Eos # (Auto) 0.12 Baso # (Auto) 0.02 Abs Immat Gran (auto) 0.10 Imm/Tot Granulo (auto) 1.0 Sodium 131 L Potassium 4.3 Chloride 99 Carbon Dioxide 24 Anion Gap 8 BUN 24 Creatinine 0.7 Estimated Creat Clear 60.88 Estimated GFR 94 Glucose 135 H Calcium 9.1
--- NOTE | 2023-07-27 15:55 | PC.SOCIAL ---
Phone call to pt's (Sanjuanita) to discuss discharge plans. Provided update, per therapy, pt's pain is under control more today and pt has done better overall with therapy services. Per therapy, pt could go to SNF vs. home with home care, depending on the level of assistance at home. Asked for 's input on discharge plans. Pt's states that she would like pt to get rehab services from SNF, if possible. Discussed barriers to locating SNF and pt's is understanding. Asked pt's if she was able to reach out to pt's Oncologist and pt's informs that she called and left a voicemail and has not heard back. Pt's gives this worker permission to call Dr. Jean Rodriguez's office ([facility] in [place]) at [phone]. Pt's informs that pt has completed radiation and is needing a PET scan completed with an unknown date of appointment. Pt's is unaware of the treatment plan, however, notes that pt will likely be receiving Chemo treatments. Phone call to [facility] in [place] and spoke to Violette at [phone]. Provided an update on pt and requested information on pt's treatment plan. Violette sent a message to Dr. Rodriguez's team to call this worker back. Social work will follow up as needed.
[2023-07-27] MEDS: cefTRIAXone 1 GM in 0.9 % SODIUM CHLORIDE Mini-bag 100 ML IVPB (15:56)
--- NOTE | 2023-07-27 20:02 | PC.NURSE ---
Nursing Care Hours: [id number] Pt this shift calm and cooperative with cares. Alert and oriented to place, month, and self. VSS. Every time flex o writer operator asked pt about pain level, even when reassessing after pain medication given, pt would state 7. When flex o writer operator asked if pt was comfortable, pt would state yes. Pt appeared comfortable most of shift until about 1500, then flex o writer operator observed increased tremor to R arm, pt rubbing at back of neck, and occasionally wincing. Pain treated per eMAR. VSS, LS clear. IS used with vitals. Pt walking with 1 assist using walker and gait belt. IV patent. Urostomy patent, u/o dark, clear with sediment. Pt changed urostomy bag at bedside from home supplies. Bandage on coccyx CDI. No BM.
[2023-07-27] MEDS: ATORVASTATIN 10 MG TABLET 20 MG PO (22:06)
[2023-07-27] MEDS: SENNOSIDES 1 TAB TABLET PO (22:08)
[2023-07-28] VITALS (10 sets, daily range): BP systolic 135–145; BP diastolic 60–67; PULSE 86–107; RESP 18–30; TEMP 36.5–37.9; O2SAT 93–96
[2023-07-28] MEDS: ACETAMINOPHEN 325 MG TABLET 650 MG PO ×2 (03:52→19:19)
[2023-07-28 06:29] LABS: Basophils Absolute Auto 0.03 K/uL (0.00-0.30); Basophils Percent Auto 0.3 % (0.0-3.0); Eosinophils Absolute Auto 0.29 K/uL (0.00-0.50); Eosinophils Percent Auto 3.2 % (0.0-7.0); Hematocrit 25.1 % (37.0-53.0); Hemoglobin* 8.1 gm/dL (13.5-17.5); Immature Granulocytes Pct Auto 1.1 %; Mean Corpuscular HGB Conc 32 gm/dL (32-36); Mean Corpuscular Hemoglobin 26 pg (26-34); Mean Corpuscular Volume 79 fL (80-100); Monocytes Percent Auto 11.8 % (0.0-11.0); Neutrophils Percent Auto 76.6 % (42.0-72.0); Platelet Count* 427 K/uL (140-440); Red Blood Count 3.18 m/uL (4.30-5.90)
[2023-07-28 06:33] LABS: Slide Review Reflex No
[2023-07-28 06:47] LABS: Chloride* 99 mmol/L (96-114); Potassium* 4.7 mmol/L (3.6-5.1); Sodium* 130 mmol/L (135-149)
[2023-07-28 06:50] LABS: Anion Gap 7 mEq/L (7-15); Blood Urea Nitrogen* 23 mg/dL (7-30); Carbon Dioxide* 24 mmol/L (20-32); Creatinine* 0.8 mg/dL (0.5-1.5); Est. Creatinine Clearance* 60.88; Estimated Glomerular Filt Rate 91 ml/min; Glucose* 118 mg/dL (60-115)
[2023-07-28 06:51] LABS: Calcium* 9.1 mg/dL (8.4-10.6)
--- NOTE | 2023-07-28 06:53 | PC.NURSE ---
Alert to self and place. Pt is pleasant and cooperative. Temp of 100.3 overnight. Tylenol given. Recheck temp at 99.4. Pt denies pain and looks comfortable. Turn and repo. Pt doing IS w/ vitals. Urostomy is draining. Bed alarm in place.
[2023-07-28] MEDS: FERROUS SULFATE 325 MG TABLET PO ×2 (08:55→18:19)
[2023-07-28] MEDS: lisinopriL 10 MG TABLET PO (08:55)
[2023-07-28] MEDS: polyethylene glycoL 3350 17 GM PACK PO (08:56)
[2023-07-28] MEDS: HEPARIN 5,000 UNIT/0.5 ML INJ 5000 UNIT SUBCUT ×2 (08:56→21:14)
[2023-07-28] MEDS: SENNOSIDES/DOCUSATE TABLET 1 TAB PO (08:56)
[2023-07-28] MEDS: OXYCODONE (CR) 10 MG TAB.ER.12H PO ×2 (10:08→21:14)
--- NOTE | 2023-07-28 14:05 | PM.IMPN1 ---
Progress Note: A&P Assessment and plan (1) UTI (urinary tract infection): Problem details: UCX with enterobacter; continue ceftriaxone Status: Acute (2) Cognitive impairment: Problem details: MOCA score [address] head given cancer hx; no acute findings on CT Head Status: Acute (3) Hypertension: Problem details: resume lisinopril; hold aldactone Status: Acute (4) Hyperkalemia: Problem details: resolved Status: Acute (5) Hyponatremia: Problem details: sodium improving from 127 to 129 to 131; discontinue IVF hold aldactone; 130 today Status: Acute (6) Weakness: Problem details: PT, OT evaluation Status: Acute (7) Anemia: Problem details: - Normocytic, acute on chronic, suspect acute blood loss anemia secondary to hematuria/bladder cancer. Status: Acute (8) Primary cancer of bladder: Status: Chronic Plan appreciate therapy and SW assistance will need Short term rehab unable to take care of patient at home; awaiting Urology callback to discuss timing of PET CT scan and whether patient will require chemotherapy (07/28 [facility] called) vs possible home with [facility] tomorrow. Medically stable for discharge Subjective Date Seen: 07/28/23 Interval history: no acute events overnight I called [facility]; clinic team will call back to discuss truck terminal manager treatment plan updated at bedside Exam Narrative: Exam Narrative: Gen: no acute distress HEENT: NCAT EOMI mmm CV: RRR normal s1 s2 Lungs: CTAB Abd: Soft,nt, nd Neuro: Alert, CN grossly intact; nonfocal screening?exam Psych: flat affect MSK: age appropriate muscle mass Skin; Warm, dry no rash on face Const: Vital Signs, click to edit/add: Vital Signs - 24 hr 07/27/23 15:00 07/27/23 15:00 07/27/23 15:00 Temperature 98.6 F Pulse Rate [Bilate ral Dorsalis Pedis ] Pulse Rate [Left P ulse Oximeter] 94 94 Respiratory Rate 28 H 28 H Blood Pressure [Le ft Arm] 135/70 Pulse Oximetry 94 94 Oxygen Delivery Me thod Room Air 07/27/23 19:00 07/27/23 23:07 07/27/23 23:16 Temperature 98.4 F 98.5 F Pulse Rate [Bilate ral Dorsalis Pedis ] Pulse Rate [Left P ulse Oximeter] 99 98 Respiratory Rate 26 H 22 Blood Pressure [Le ft Arm] 128/63 147/70 H Pulse Oximetry 94 94 94 Oxygen Delivery Me thod Room Air Room Air 07/28/23 03:00 07/28/23 03:52 07/28/23 04:38 Temperature 100.3 F H 100.3 F H 99.4 F Pulse Rate [Bilate ral Dorsalis Pedis ] Pulse Rate [Left P ulse Oximeter] 93 Respiratory Rate 22 Blood Pressure [Le ft Arm] 136/60 Pulse Oximetry 94 Oxygen Delivery Me thod Room Air 07/28/23 06:49 07/28/23 11:00 Temperature 97.7 F 98.1 F Pulse Rate [Bilate ral Dorsalis Pedis ] 86 Pulse Rate [Left P ulse Oximeter] Respiratory Rate 18 Blood Pressure [Le ft Arm] 145/67 H Pulse Oximetry 95 Oxygen Delivery Me thod Room Air Labs Labs: Laboratory Results - last 24 hr 07/28/23 05:53 WBC 9.00 RBC 3.18 L Hgb 8.1 L Hct 25.1 L MCV 79 L MCH 26 MCHC 32 RDW Coeff of [place] 17.0 H Plt Count 427 Neut % (Auto) 76.6 H Lymph % (Auto) 7.0 L [place] % (Auto) 11.8 H Eos % (Auto) 3.2 Baso % (Auto) 0.3 Neut # (Auto) 6.90 Lymph # (Auto) 0.60 L [place] # (Auto) 1.10 H Eos # (Auto) 0.29 Baso # (Auto) 0.03 Abs Immat Gran (auto) 0.10 Imm/Tot Granulo (auto) 1.1 Sodium 130 L Potassium 4.7 Chloride 99 Carbon Dioxide 24 Anion Gap 7 BUN 23 Creatinine 0.8 Estimated Creat Clear 60.88 Estimated GFR 91 Glucose 118 H Calcium 9.1
[2023-07-28] MEDS: cefTRIAXone 1 GM in 0.9 % SODIUM CHLORIDE Mini-bag 100 ML IVPB (16:30)
--- NOTE | 2023-07-28 16:34 | PC.SOCIAL ---
Met with pt and pt's , Sanjuanita, in room to discuss discharge plans. Pt's has not heard from Oncology team for pt. Per therapy, pt is stronger today and could potentially go home. Discussed with pt's and she believes she can handle pt's care at home. Provided pt's with resource list for home organizer care in the home that can be hired. Informed that home organizer care is privately paid. Pt's will discuss with MD on recommendations for discharge. Provided update to MD. Social work will follow up as needed.
--- NOTE | 2023-07-28 19:49 | PC.NURSE ---
shift note: pt up 2/walker due to bilat l/e weakness and increased shaking in u/e during transfers. pt rating lt hip pain minimal during the day. PP+ bilat. IV infiltrated and removed intact. Urostomy site patent and intact
[2023-07-28 21:03] LABS: Lactate* 1.3 mmol/L (0.5-1.9)
[2023-07-28] MEDS: ATORVASTATIN 10 MG TABLET 20 MG PO (21:14)
[2023-07-28 21:51] LABS: Procalcitonin* 0.18 ng/mL (<0.50)
[2023-07-28] MEDS: SODIUM CHLORIDE 0.9 % (FLUSH) 10 ML SYRINGE 5 ML IVF (21:59)
[2023-07-28] MEDS: LACTATED RINGERS 500 ML 500 ML IV (22:03)
--- NOTE | 2023-07-28 22:30 | CRLHL7_ITS ---
For Patients: As a result of the Cures Act, medical imaging exams and procedure reports are released immediately into your electronic medical record. You may view this report before your referring provider. If you have questions, please contact your health care provider. INDICATION: Shortness of breath. TECHNIQUE: Chest 1 view. COMPARISON: 07/25/2023. FINDINGS: Cardiovascular and mediastinum: Heart size and vasculature are normal in caliber and appearance. Lungs and pleural spaces: Biapical scarring. No focal consolidation. No pleural effusions or pneumothorax. Bones and soft tissues: No significant findings. IMPRESSION: No acute pulmonary process. Dictated by Braulio Howe MD @ 07/28/2023 11:25:34 PM (Electronically Signed)
--- NOTE | 2023-07-28 22:50 | W.PM.CROSSCO ---
Subjective Subjective Interval history: patient tachycardic, tachypneic; febrile Exam Gen: NAD Cv RRR Lungs: CTAB Blood cx-ordered lactate-WNL procal pending CXR pending
[2023-07-28] MEDS: 0.9 % SODIUM CHLORIDE 1000 ml 1,000 ML 75 ML IV (23:18)
[2023-07-29] MEDS: OXYCODONE 5 MG TABLET PO ×3 (02:56→17:43)
[2023-07-29 03:00] VITALS: BP 157/69; PULSE 86; RESP 24; TEMP 36.9; O2SAT 95
[2023-07-29 05:50] LABS: Basophils Absolute Auto 0.02 K/uL (0.00-0.30); Basophils Percent Auto 0.2 % (0.0-3.0); Eosinophils Absolute Auto 0.29 K/uL (0.00-0.50); Eosinophils Percent Auto 3.3 % (0.0-7.0); Hematocrit 25.2 % (37.0-53.0); Immature Granulocytes Pct Auto 1.1 %; Lymphocytes Percent Auto 7.1 % (20-44); Mean Corpuscular HGB Conc 32 gm/dL (32-36); Mean Corpuscular Hemoglobin 25 pg (26-34); Mean Corpuscular Volume 79 fL (80-100); Monocytes Percent Auto 9.6 % (0.0-11.0); Neutrophils Percent Auto 78.7 % (42.0-72.0); Platelet Count* 405 K/uL (140-440); RDW Coefficient of Variation % 17.1 % (11.5-15.5); Red Blood Count 3.18 m/uL (4.30-5.90); White Blood Count* 8.85 K/uL (4.50-11.00)
[2023-07-29 06:00] LABS: Slide Review Reflex No
[2023-07-29 06:03] LABS: Chloride* 99 mmol/L (96-114); Potassium* 4.4 mmol/L (3.6-5.1); Sodium* 129 mmol/L (135-149)
[2023-07-29 06:05] LABS: Creatinine* 0.5 mg/dL (0.5-1.5); Est. Creatinine Clearance* 60.88; Estimated Glomerular Filt Rate 104 ml/min
[2023-07-29 06:06] LABS: Anion Gap 6 mEq/L (7-15); Blood Urea Nitrogen* 20 mg/dL (7-30); Carbon Dioxide* 24 mmol/L (20-32)
[2023-07-29 06:07] LABS: Calcium* 8.7 mg/dL (8.4-10.6); Glucose* 118 mg/dL (60-115)
--- NOTE | 2023-07-29 06:34 | PC.NURSE ---
End of shift: Alert to self and place. Pt is pleasant and cooperative. Temp of 100.2 overnight. Tylenol given. Recheck temp 98.4. Increased RR. updated, see orders. Pt wincing some overnight and stating he has pain. PRN oxycodone given. Sleeping on reassessment. Turn and repo. Pt doing IS w/ vitals. Urostomy is draining. Bed alarm in place.
[2023-07-29 07:00] VITALS: BP 158/75; PULSE 93; RESP 22; TEMP 37; O2SAT 90; O2SAT 95
[2023-07-29] MEDS: ACETAMINOPHEN 325 MG TABLET 650 MG PO ×2 (07:52→14:53)
[2023-07-29] MEDS: polyethylene glycoL 3350 17 GM PACK PO ×2 (09:08→09:10)
[2023-07-29] MEDS: OXYCODONE (CR) 10 MG TAB.ER.12H PO ×2 (09:08→21:05)
[2023-07-29] MEDS: SODIUM CHLORIDE 0.9 % (FLUSH) 10 ML SYRINGE 5 ML IVF (09:09)
[2023-07-29] MEDS: FERROUS SULFATE 325 MG TABLET PO ×2 (09:09→17:41)
[2023-07-29] MEDS: lisinopriL 10 MG TABLET PO (09:09)
[2023-07-29] MEDS: HEPARIN 5,000 UNIT/0.5 ML INJ 5000 UNIT SUBCUT ×2 (09:10→21:05)
[2023-07-29] MEDS: SENNOSIDES/DOCUSATE TABLET 1 TAB PO ×2 (09:17→21:05)
[2023-07-29 11:00] VITALS: BP 107/70; PULSE 88; RESP 20; TEMP 36.6; O2SAT 95
--- NOTE | 2023-07-29 12:58 | P.IMPN_ITS ---
Progress Note: A&P Assessment and plan (1) UTI (urinary tract infection): Problem details: UCX with enterobacter; continue ceftriaxone Status: Acute (2) Weakness: Problem details: PT, OT evaluation . Still needing standby assist for standing, transferring, ambulating. Consider halfway facility for rehab Status: Acute (3) Anemia: Problem details: Uncertain etiology. Check iron studies and retic count Status: Acute (4) Hyponatremia: Problem details: sodium improving from 127 to 129 to 131. Continue to monitor Status: Acute (5) Bladder cancer metastasized to bone: Problem details: Bony destructive lesion in left iliac crest causing left low back pain and left sciatica symptoms Status: Acute Assessment and Plan: Anticipate response over the next few weeks to radiation treatment. Pending [facility] oncology evaluation (6) Cognitive impairment: Problem details: MOCA score 10. Needs 24/05 supervision Status: Acute Plan Continue in-hospital for treatment of urinary tract infection, sciatica, weakness pending safe discharge plan and eventually outpatient medical oncology evaluation and treatment Time Spent With Patient Total time spent: 55 minutes, 35 minutes in coordination of care and discussing with patient and management of bladder cancer and weakness and disposition Subjective Date Seen: 07/29/23 Interval history: 77-year-old male with metastatic bladder cancer admitted to the hospital for left hip pain, weakness, difficulty ambulating. About 3 months ago he underwent prostatectomy, pelvic lymphadenectomy and cystectomy with ileal conduit. After this he developed left low back pain radiating down his left leg. This was initially treated as a musculoskeletal problem with sciatica. Eventually was determined that he had metastatic lesions to the left iliac bone. Last week he underwent 5 radiation treatments to this area. He has been getting urology care with Dr. Rodriguez of [place] [facility] who performed his cystectomy. He received radiation treatment through Dr. Polanco of [facility] in [place]. He does not have medical oncology arranged. The most recent plan includes medical oncology follow-up and PET scan. Evaluation here has shown that he needs assist of 1 to get up and move at all. He also has dementia and needs 24 hour a day supervision. On this basis social service technician has been talking with the patient and his about options for rehabilitation. Exam Narrative: Exam Narrative: He is alert and pleasant in no distress. Respirations are clear to auscultation. Cardiovascular: S1, S2, regular rate and rhythm. Abdomen: Bowel sounds active. Urostomy in place draining a clear yellow urine. No tenderness no mass. External genitalia normal. Palpation over his back shows maximum tenderness around the left SI joint going somewhat into the left buttock. Extremities are normal in appearance. Strength testing of his lower extremities shows 5/5 strength in right hip flexion, knee flexion and extension, ankle dorsiflexion and plantar flexion. He has 4/5 strength in left hip flexion, 5- / 5 strength in knee flexion and extension, 5/5 strength in left ankle plantar flexion and dorsiflexion. Intact pulses and sensation in both lower extremities. Const: Vital Signs, click to edit/add: Vital Signs - 24 hr 07/28/23 15:00 07/28/23 15:00 07/28/23 19:19 Temperature 98.9 F 100.2 F H Pulse Rate [Bilate ral Dorsalis Pedis ] 86 Pulse Rate [Left P ulse Oximeter] Respiratory Rate 20 Blood Pressure [Le ft Arm] 144/63 H Pulse Oximetry 94 96 Oxygen Delivery Me thod Room Air 07/28/23 20:03 07/28/23 23:00 07/28/23 23:00 Temperature 98.4 F 98.0 F Pulse Rate [Bilate ral Dorsalis Pedis ] Pulse Rate [Left P ulse Oximeter] 107 H 86 Respiratory Rate 30 H 28 H Blood Pressure [Le ft Arm] 139/66 135/66 Pulse Oximetry 93 94 94 Oxygen Delivery Me thod Room Air Room Air 07/28/23 23:00 07/29/23 03:00 07/29/23 07:00 Temperature 98.4 F Pulse Rate [Bilate ral Dorsalis Pedis ] Pulse Rate [Left P ulse Oximeter] 86 Respiratory Rate 28 H 24 Blood Pressure [Le ft Arm] 157/69 H Pulse Oximetry 95 95 Oxygen Delivery Me thod Room Air 07/29/23 07:00 07/29/23 07:00 07/29/23 11:00 Temperature 98.6 F 97.8 F Pulse Rate [Bilate ral Dorsalis Pedis ] 88 Pulse Rate [Left P ulse Oximeter] 93 93 Respiratory Rate 22 20 Blood Pressure [Le ft Arm] 158/75 H 107/70 Pulse Oximetry 90 95 Oxygen Delivery Me thod Room Air Room Air Documenting provider has reviewed patient's vital signs: yes Labs Labs: Laboratory Results - last 24 hr 07/28/23 07/29/23 20:59 05:29 WBC 8.85 RBC 3.18 L Hgb 8.0 L Hct 25.2 L MCV 79 L MCH 25 L MCHC 32 RDW Coeff of Rita 17.1 H Plt Count 405 Neut % (Auto) 78.7 H Lymph % (Auto) 7.1 L [place] % (Auto) 9.6 Eos % (Auto) 3.3 Baso % (Auto) 0.2 Neut # (Auto) 7.00 Lymph # (Auto) 0.60 L [place] # (Auto) 0.80 Eos # (Auto) 0.29 Baso # (Auto) 0.02 Abs Immat Gran (auto) 0.10 Imm/Tot Granulo (auto) 1.1 Sodium 129 L Potassium 4.4 Chloride 99 Carbon Dioxide 24 Anion Gap 6 L BUN 20 Creatinine 0.5 Estimated Creat Clear 60.88 Estimated GFR 104 Glucose 118 H Lactate 1.3 Calcium 8.7 Procalcitonin 0.18
[2023-07-29] MEDS: 0.9 % SODIUM CHLORIDE 1000 ml 1,000 ML 75 ML IV (13:39)
[2023-07-29] MEDS: cefTRIAXone 1 GM in 0.9 % SODIUM CHLORIDE Mini-bag 100 ML IVPB (14:53)
[2023-07-29 15:00] VITALS: BP 152/71; PULSE 92; RESP 24; TEMP 36.8; O2SAT 93; O2SAT 99
--- NOTE | 2023-07-29 16:33 | PC.SOCIAL ---
Discharge planning- Met with pt and pt's in room. Pt's was able to speak with MD and had a good conversation. Pt's is hopeful that a SNF will take pt for short term rehab. Pt's understands that cancer care treatments will be on hold during the short term rehab stay. Pt's would like pt stronger to return to home. Pt and pt's are fine with contacting [facility], [facility], and [facility]. Contacted the following SNF's. 1. [facility]- No openings this week per admissions. 2. [facility]- Left a voicemail inquiring on bed availability. 3. [facility]- Phone call to Nemo in admissions. There is an opening. Faxed referral to [phone]. Received a phone call from Nemo at the [facility] with further questions regarding Chemo treatments and IV antibiotics. Clarified with Nursing that pt would discharge with oral antibiotics. Provided update to Nemo at the [facility]. Nemo informs that they are accepting pt for admission. Prior authorization would need to be obtained by pt's insurance ([employer]). Phone call to pt's and she would like to accept the bed at the [facility]. Informed that prior authorization would need to be obtained. Provided update to charge nurse. Social work will follow up as needed.
--- NOTE | 2023-07-29 19:27 | PC.NURSE ---
End of shift-- Very pleasant and cooperative, alert patient oriented to person, place and month. VSS and pt is afebrile. SPO2 maintained >90% on RA. He c/o pain in his left hip which he rated as high as 7 out of 10 with grimacing noted and was given PRN Tylenol and Oxycodone in addition to scheduled Oxycontin with apparent relief. LS CTA. He denied nausea, ate 100% of 3 meals and had a BM today. Urostomy is patent and drained large amounts of clear, yellow urine this shift. Mepilex to coccyx was changed and is C/D/I. 3x tiny open areas were noted beneath it. He was up to the BR and chair with assist of 1, belt and walker today and tolerated it fair. Increased hip pain was noted with movement. was at bedside most of the day and appears loving and supportive.
[2023-07-29 19:39] VITALS: BP 130/60; PULSE 96; RESP 26; TEMP 36.5; O2SAT 94
[2023-07-29] MEDS: ATORVASTATIN 10 MG TABLET 20 MG PO (21:04)
[2023-07-29 23:00] VITALS: BP 164/77; PULSE 88; RESP 28; TEMP 36.9; O2SAT 97
[2023-07-30] MEDS: 0.9 % SODIUM CHLORIDE 1000 ml 1,000 ML 75 ML IV ×2 (02:52→16:05)
[2023-07-30 02:59] VITALS: BP 158/68; PULSE 94; RESP 24; TEMP 36.9; O2SAT 94
--- NOTE | 2023-07-30 06:53 | PC.NURSE ---
Alert to self and place. Pt is pleasant and cooperative. Afebrile. Pt denies pain and appeared to be sleeping comfortably overnight. Turn and repo. Pt doing IS w/ vitals. A1 w/ walker and gait belt. Urostomy is draining. Bed alarm in place.
[2023-07-30 06:54] LABS: Basophils Absolute Auto 0.02 K/uL (0.00-0.30); Basophils Percent Auto 0.2 % (0.0-3.0); Eosinophils Absolute Auto 0.14 K/uL (0.00-0.50); Eosinophils Percent Auto 1.4 % (0.0-7.0); Hematocrit 24.4 % (37.0-53.0); Immature Granulocytes Abs Auto 0.13 K/uL (0.00-0.30); Immature Granulocytes Pct Auto 1.3 %; Immature Reticulocyte Fraction 26.9 % (2.3-13.4); Lymphocytes Percent Auto 6.4 % (20-44); Mean Corpuscular HGB Conc 32 gm/dL (32-36); Mean Corpuscular Hemoglobin 25 pg (26-34); Mean Corpuscular Volume 79 fL (80-100); Neutrophils Percent Auto 80.7 % (42.0-72.0); Platelet Count* 414 K/uL (140-440); RDW Coefficient of Variation % 17.1 % (11.5-15.5); Red Blood Count 3.09 m/uL (4.30-5.90); Reticulocyte Hemoglobin Equivi 25.8 pg (29.0-35.0); Reticulocytes Absolute 0.06 # (0.03-0.08); White Blood Count* 9.81 K/uL (4.50-11.00)
[2023-07-30 07:02] LABS: Hemoglobin* 7.8 gm/dL (13.5-17.5); Slide Review Reflex No
[2023-07-30 07:14] LABS: Chloride* 99 mmol/L (96-114); Sodium* 129 mmol/L (135-149)
[2023-07-30 07:15] LABS: Potassium* 4.4 mmol/L (3.6-5.1)
[2023-07-30 07:17] LABS: Creatinine* 0.6 mg/dL (0.5-1.5); Est. Creatinine Clearance* 60.88; Estimated Glomerular Filt Rate 99 ml/min
[2023-07-30 07:18] LABS: Anion Gap 6 mEq/L (7-15); Blood Urea Nitrogen* 19 mg/dL (7-30); Calcium* 8.6 mg/dL (8.4-10.6); Carbon Dioxide* 24 mmol/L (20-32); Glucose* 105 mg/dL (60-115)
[2023-07-30 07:33] LABS: C Reactive Protein* 18.7 mg/dL (0.5-1.0)
[2023-07-30 07:49] LABS: Thyroid Stimulating Hormone* 0.863 uIU/mL (0.270-4.20)
[2023-07-30 08:10] VITALS: BP 116/57; PULSE 99; RESP 20; TEMP 37.1; O2SAT 94
[2023-07-30] MEDS: FERROUS SULFATE 325 MG TABLET PO (08:15)
[2023-07-30] MEDS: lisinopriL 10 MG TABLET PO (09:28)
[2023-07-30] MEDS: HEPARIN 5,000 UNIT/0.5 ML INJ 5000 UNIT SUBCUT ×2 (09:28→21:06)
[2023-07-30] MEDS: SENNOSIDES/DOCUSATE TABLET 1 TAB PO (09:29)
[2023-07-30] MEDS: OXYCODONE (CR) 10 MG TAB.ER.12H PO ×2 (10:05→21:07)
[2023-07-30 11:00] VITALS: BP 140/72; PULSE 89; RESP 22; TEMP 36.8; O2SAT 93
[2023-07-30 11:50] LABS: Iron* 23 ug/dL (49-181); Percent Iron Saturation 7 % (20-50); Total Iron Binding Capacity 344 ug/dL (261-462)
--- NOTE | 2023-07-30 12:08 | PM.IMPN1 ---
Progress Note: A&P Assessment and plan (1) UTI (urinary tract infection): Problem details: UCX with enterobacter; switch from ceftriaxone to Cipro Status: Acute (2) Weakness: Problem details: PT, OT evaluation . Still needing standby assist for standing, transferring, ambulating. Consider residential facility for rehab Status: Acute (3) Anemia: Problem details: Uncertain etiology. Iron studies show iron deficiency. Oral iron now. Probably will need intravenous iron. May also have anemia of chronic disease. Status: Acute (4) Hyponatremia: Problem details: sodium improving from 127 to 129 to 131. Continue to monitor Status: Acute (5) Bladder cancer metastasized to bone: Problem details: Bony destructive lesion in left iliac crest causing left low back pain and left sciatica symptoms. Status: Acute (6) Cognitive impairment: Problem details: MOCA score 10. Needs 24/05 supervision Status: Acute Plan Continue in hospital pending residential facility for rehab. I discussed in some length today with patient and his about his current disability. He is ECOG performance status 3. Will need to see Oncology about ongoing evaluation and management once he is strong enough to be more independent. Time Spent With Patient Total time spent: Total time spent today is 50 minutes, 30 minutes in coordination of care and discussing with patient and and other providers ongoing management of oncology care and disability. Subjective Date Seen: 07/30/23 Interval history: 77-year-old male with metastatic bladder cancer admitted to the hospital for left hip pain, weakness, difficulty ambulating. About 3 months ago he underwent prostatectomy, pelvic lymphadenectomy and cystectomy with ileal conduit. After this he developed left low back pain radiating down his left leg. This was initially treated as a musculoskeletal problem with sciatica. Eventually was determined that he had metastatic lesions to the left iliac bone. Last week he underwent 5 radiation treatments to this area. He has been getting urology care with Dr. Rodriguez of [place] [facility] who performed his cystectomy. He received radiation treatment through Dr. Polanco of [facility] in [place]. He does not have medical oncology arranged. The most recent plan includes medical oncology follow-up and PET scan, still pending. On admission he was found to have a urinary tract infection and he has had a fever. No fever in the last 24 hours. Urine culture has grown Enterobacter species susceptible to ceftriaxone, his current treatment and Cipro, his oral treatment, pending. Evaluation here has shown that he needs assist of 1 to get up and move at all. His mobility and weakness fluctuate somewhat. He also has dementia and needs 24 hour a day supervision. On this basis social sciences chair has been talking with the patient and his about options for rehabilitation. Exam Narrative: Exam Narrative: He is alert and appears in no distress. Respirations are clear to auscultation. Breathing is unlabored. Cardiovascular: S1, S2, regular rate and rhythm. No murmur gallop or rub. Abdomen: Bowel sounds active. Abdomen is soft without tenderness or mass. Urostomy noted. Lower extremities: Right lower extremity with full strength in hip flexion, knee flexion and extension, ankle dorsiflexion and plantar flexion. Left lower extremity with 4/5 strength in hip flexion and 5-/ 5 strength in knee flexion and extension and 5/5 strength in ankle dorsiflexion plantar flexion. Const: Vital Signs, click to edit/add: Vital Signs - 24 hr 07/29/23 15:00 07/29/23 15:00 07/29/23 15:00 Temperature 98.2 F Pulse Rate [Left P ulse Oximeter] 92 92 Respiratory Rate 24 24 Blood Pressure [Le ft Arm] 152/71 H Pulse Oximetry 99 93 Oxygen Delivery Me thod Room Air 07/29/23 19:39 07/29/23 23:00 07/29/23 23:00 Temperature 97.7 F 98.5 F Pulse Rate [Left P ulse Oximeter] 96 88 Respiratory Rate 26 H 28 H Blood Pressure [Le ft Arm] 130/60 164/77 H Pulse Oximetry 94 97 97 Oxygen Delivery Me thod Room Air Room Air 07/29/23 23:00 07/30/23 02:59 07/30/23 08:10 Temperature 98.4 F Pulse Rate [Left P ulse Oximeter] 94 Respiratory Rate 28 H 24 Blood Pressure [Le ft Arm] 158/68 H Pulse Oximetry 94 94 Oxygen Delivery Me thod Room Air 07/30/23 08:10 07/30/23 08:10 07/30/23 11:00 Temperature 98.8 F 98.2 F Pulse Rate [Left P ulse Oximeter] 99 99 89 Respiratory Rate 20 20 22 Blood Pressure [Le ft Arm] 116/57 L 140/72 H Pulse Oximetry 94 93 Oxygen Delivery Me thod Room Air Room Air Documenting provider has reviewed patient's vital signs: yes Labs Labs: Laboratory Results - last 24 hr 07/30/23 07/30/23 06:06 09:51 WBC 9.81 RBC 3.09 L Hgb 7.8 L* Hct 24.4 L MCV 79 L MCH 25 L MCHC 32 RDW Coeff of Rita 17.1 H Plt Count 414 Neut % (Auto) 80.7 H Lymph % (Auto) 6.4 L [place] % (Auto) 10.0 Eos % (Auto) 1.4 Baso % (Auto) 0.2 Neut # (Auto) 7.90 H Lymph # (Auto) 0.60 L [place] # (Auto) 1.00 H Eos # (Auto) 0.14 Baso # (Auto) 0.02 Abs Immat Gran (auto) 0.13 Imm/Tot Granulo (auto) 1.3 Absolute Retic 0.06 Percent Retic 2.0 Immature Retic Fraction 26.9 H Retic Hgb Equivalent 25.8 L Sodium 129 L Potassium 4.4 Chloride 99 Carbon Dioxide 24 Anion Gap 6 L BUN 19 Creatinine 0.6 Estimated Creat Clear 60.88 Estimated GFR 99 Glucose 105 Calcium 8.6 Iron 23 L TIBC 344 % Saturation 7 L C-Reactive Protein 18.7 H TSH 0.863 Lab Acknowledgement Test Added
[2023-07-30] MEDS: CIPROFLOXACIN 500 MG TABLET PO ×2 (12:12→21:05)
--- NOTE | 2023-07-30 13:48 | NUTR.NU ---
Nutrition Follow-Up: Pt continues to have improved appetite. Eating 75-100% of meals. Endorses liking the Ensure Enlive, which is ordered TID. Will continue to follow intake, weight, labs, and plan of care.
[2023-07-30 15:00] VITALS: BP 141/83; PULSE 100; RESP 20; TEMP 36.7; O2SAT 96
[2023-07-30] MEDS: OXYCODONE 5 MG TABLET PO (15:49)
[2023-07-30 16:58] LABS: Iron* 24 ug/dL (49-181)
[2023-07-30 17:07] LABS: Percent Iron Saturation 11 % (20-50); Total Iron Binding Capacity 215 ug/dL (261-462)
--- NOTE | 2023-07-30 17:11 | PC.SOCIAL ---
Discharge planning- Follow up phone call to Nemo in admissions at [facility] at [phone]. Pt is accepted for admission and bed is being held, pending prior authorization from pt's insurance ([facility]). Social work will follow up as needed.
--- NOTE | 2023-07-30 18:24 | PC.NURSE ---
Patient pleasant and cooperative. here visiting most of this shift. Patient was up in chair. Ambulates and transfers with assist of one, gait belt and walker. Tolerated regular diet. Eats independently. Dressing to coccyx CD&I. He reported pain in his back that he was unable to rate. He reported he did not need anything for his discomfort this morning, however he accepted PRN oxycodone this afternoon. He reports Oxycodone was effective and denies any pain at this time.
[2023-07-30 19:00] VITALS: BP 166/80; PULSE 99; RESP 18; TEMP 37.5; O2SAT 93
[2023-07-30] MEDS: ATORVASTATIN 10 MG TABLET 20 MG PO (21:05)
[2023-07-30] MEDS: SENNOSIDES/DOCUSATE TABLET 2 TAB PO (21:06)
[2023-07-30 23:00] VITALS: BP 167/78; PULSE 99; RESP 18; TEMP 37.7; O2SAT 92
[2023-07-31] VITALS (16 sets, daily range): BP systolic 124–164; BP diastolic 66–82; PULSE 84–100; RESP 18–30; TEMP 36.4–37.6; O2SAT 91–98
[2023-07-31] MEDS: 0.9 % SODIUM CHLORIDE 1000 ml 1,000 ML 75 ML IV (05:00)
[2023-07-31 06:40] LABS: Basophils Absolute Auto 0.02 K/uL (0.00-0.30); Basophils Percent Auto 0.2 % (0.0-3.0); Eosinophils Percent Auto 2.1 % (0.0-7.0); Hematocrit 23.5 % (37.0-53.0); Immature Granulocytes Abs Auto 0.13 K/uL (0.00-0.30); Immature Granulocytes Pct Auto 1.4 %; Lymphocytes Percent Auto 9.3 % (20-44); Mean Corpuscular HGB Conc 32 gm/dL (32-36); Mean Corpuscular Hemoglobin 25 pg (26-34); Mean Corpuscular Volume 79 fL (80-100); Monocytes Percent Auto 11.5 % (0.0-11.0); Neutrophils Percent Auto 75.5 % (42.0-72.0); Platelet Count* 399 K/uL (140-440); RDW Coefficient of Variation % 17.2 % (11.5-15.5); Red Blood Count 2.96 m/uL (4.30-5.90); White Blood Count* 9.43 K/uL (4.50-11.00)
[2023-07-31 06:52] LABS: Hemoglobin* 7.5 gm/dL (13.5-17.5); Slide Review Reflex No
[2023-07-31 07:12] LABS: Chloride* 97 mmol/L (96-114); Potassium* 4.1 mmol/L (3.6-5.1); Sodium* 127 mmol/L (135-149)
[2023-07-31 07:15] LABS: Creatinine* 0.6 mg/dL (0.5-1.5); Est. Creatinine Clearance* 60.88; Estimated Glomerular Filt Rate 99 ml/min
[2023-07-31 07:16] LABS: Anion Gap 8 mEq/L (7-15); Blood Urea Nitrogen* 17 mg/dL (7-30); Calcium* 8.6 mg/dL (8.4-10.6); Carbon Dioxide* 22 mmol/L (20-32); Glucose* 107 mg/dL (60-115)
--- NOTE | 2023-07-31 07:16 | PC.NURSE ---
Shift note: Pt has been in bed throughout the shift. Occasional confusion noted, response no to pain questions. Pt had difficulty getting out of bed to be weighed due to aggravation of left hip pain when attempted to move. Bed scale used.
[2023-07-31 07:31] LABS: C Reactive Protein* 19.4 mg/dL (0.5-1.0)
[2023-07-31] MEDS: polyethylene glycoL 3350 17 GM PACK PO (09:16)
[2023-07-31] MEDS: SENNOSIDES/DOCUSATE TABLET 2 TAB PO ×2 (09:17→20:32)
[2023-07-31] MEDS: OXYCODONE (CR) 10 MG TAB.ER.12H PO ×2 (09:18→20:44)
[2023-07-31] MEDS: CIPROFLOXACIN 500 MG TABLET PO ×2 (09:18→20:32)
[2023-07-31] MEDS: lisinopriL 10 MG TABLET PO (09:18)
[2023-07-31] MEDS: SODIUM CHLORIDE 0.9 % (FLUSH) 10 ML SYRINGE 5 ML IVF (09:57)
[2023-07-31] MEDS: HEPARIN 5,000 UNIT/0.5 ML INJ 5000 UNIT SUBCUT ×2 (09:57→20:32)
--- NOTE | 2023-07-31 15:38 | P.IMPN_ITS ---
Progress Note: A&P Assessment and plan (1) UTI (urinary tract infection): Problem details: UCX with enterobacter; switch from ceftriaxone to Cipro Status: Acute (2) Weakness: Problem details: PT, OT evaluation . Still needing standby assist for standing, transferring, ambulating. Consider intermediate facility for rehab Status: Acute (3) Anemia: Problem details: Uncertain etiology. Iron studies show iron deficiency. Oral iron now. May need intravenous iron. May also have anemia of chronic disease. Status: Acute (4) Hyponatremia: Problem details: sodium improving from 127 to 129 to 131. Continue to monitor Status: Acute (5) Bladder cancer metastasized to bone: Problem details: Bony destructive lesion in left iliac crest causing left low back pain and left sciatica symptoms. Outpatient Oncology follow-up pending Status: Acute (6) Cognitive impairment: Problem details: MOCA score 10. Needs / supervision. Status: Acute Plan Continue in-hospital for evaluation management of above problems. Possible correction discharge in 2 days for outpatient rehab and outpatient follow-up of oncology. Total time spent today is 40 minutes, 30 minutes in coordination of care and discussing with patient and and other providers prognosis and decision making about future treatments. Subjective Date Seen: 07/31/23 Interval history: 77-year-old male with metastatic bladder cancer admitted to the hospital for le ft hip pain, weakness, difficulty ambulating. About 3 months ago he underwent prostatectomy, pelvic lymphadenectomy and cystectomy with ileal conduit. After this he developed left low back pain radiating down his left leg. This was initially treated as a musculoskeletal problem with sciatica. Eventually was determined that he had metastatic lesions to the left iliac bone. Last week he underwent 5 radiation treatments to this area. He has been getting urology care with Dr. Rodriguez of [place] [facility] who performed his cystectomy. He received radiation treatment through Dr. Polanco of [facility] in [place]. He does not have medical oncology arranged. The most recent plan includes medical oncology follow-up and PET scan, still pending. On admission he was found to have a urinary tract infection and he has had a fever. No fever in the last 24 hours. Urine culture has grown Enterobacter species susceptible to ceftriaxone, his current treatment and Cipro, his oral treatment, pending. Evaluation here has shown that he needs assist of 1 to get up and move at all. His mobility and weakness fluctuate somewhat. He also has dementia and needs 24 hour a day supervision. On this basis social sciences lecturer has been talking with the patient and his about options for rehabilitation. Discussed with patient and current health status. Given his current f railty he is probably not a candidate for cisplatin for bladder cancer. Will need oncology follow-up to make decisions about appropriate next steps. Radiation therapy may still provide some benefit in terms of pain control and improved mobility. Exam Narrative: Exam Narrative: He is alert and appears in no distress. Respirations are clear to auscultation. He still has some tenderness in his left buttock area but this is maybe a little better today. Cardiovascular: S1, S2, regular rate and rhythm. Abdomen is soft without tenderness. Const: Vital Signs, click to edit/add: Vital Signs - 24 hr 07/30/23 19:00 07/30/23 23:00 07/31/23 03:00 Temperature 99.5 F 99.9 F H 99.7 F H Pulse Rate Pulse Rate [Bilate ral Dorsalis Pedis ] 99 99 87 Pulse Rate [Left P ulse Oximeter] Respiratory Rate 18 18 18 Blood Pressure Blood Pressure [Le ft Arm] 166/80 H 167/78 H 139/69 Pulse Oximetry 93 92 91 Oxygen Delivery Me thod Room Air Room Air Room Air 07/31/23 07:00 07/31/23 07:10 07/31/23 10:01 Temperature 98.3 F 97.8 F Pulse Rate 97 Pulse Rate [Bilate ral Dorsalis Pedis ] Pulse Rate [Left P ulse Oximeter] 89 89 Respiratory Rate 22 22 30 H Blood Pressure 124/68 Blood Pressure [Le ft Arm] 155/75 H Pulse Oximetry 93 Oxygen Delivery Me thod Room Air 07/31/23 10:28 07/31/23 10:44 07/31/23 11:28 Temperature 97.8 F 97.6 F 97.8 F Pulse Rate 97 90 Pulse Rate [Bilate ral Dorsalis Pedis ] Pulse Rate [Left P ulse Oximeter] Respiratory Rate 30 H 22 24 Blood Pressure 124/68 142/72 H 144/70 H Blood Pressure [Le ft Arm] Pulse Oximetry 96 95 95 Oxygen Delivery Me thod 07/31/23 13:42 07/31/23 14:10 Temperature 98.2 F 98.2 F Pulse Rate 87 87 Pulse Rate [Bilate ral Dorsalis Pedis ] Pulse Rate [Left P ulse Oximeter] Respiratory Rate 22 22 Blood Pressure 153/74 H 158/77 H Blood Pressure [Le ft Arm] Pulse Oximetry 98 96 Oxygen Delivery Me thod Documenting provider has reviewed patient's vital signs: yes Labs Labs: Laboratory Results - last 24 hr 07/30/23 07/31/23 16:16 05:31 WBC 9.43 RBC 2.96 L Hgb 7.5 L* Hct 23.5 L MCV 79 L MCH 25 L MCHC 32 RDW Coeff of Rita 17.2 H Plt Count 399 Neut % (Auto) 75.5 H Lymph % (Auto) 9.3 L [place] % (Auto) 11.5 H Eos % (Auto) 2.1 Baso % (Auto) 0.2 Neut # (Auto) 7.10 H Lymph # (Auto) 0.90 [place] # (Auto) 1.10 H Eos # (Auto) 0.20 Baso # (Auto) 0.02 Abs Immat Gran (auto) 0.13 Imm/Tot Granulo (auto) 1.4 Sodium 127 L Potassium 4.1 Chloride 97 Carbon Dioxide 22 Anion Gap 8 BUN 17 Creatinine 0.6 Estimated Creat Clear 60.88 Estimated GFR 99 Glucose 107 Calcium 8.6 Iron 24 L TIBC 215 L % Saturation 11 L C-Reactive Protein 19.4 H Blood Type O Negative Antibody Screen NEGATIVE Crossmatch (AHG) See Detail
--- NOTE | 2023-07-31 18:42 | PC.NURSE ---
Patient alert and pleasant. Patient was up in recliner with legs elevated most of the shift. Patient in bed at this time. New orders received for 2 liters of packed red blood cells. Patient tolerated transfusion well. Reported left hip was a little sore this afternoon, but has otherwise denied any discomfort. Was offered PRN pain medication/interventions at that time however he declined. Patient was educated to let staff know if his pain increases. Tolerated regular diet.
[2023-07-31] MEDS: ATORVASTATIN 10 MG TABLET 20 MG PO (20:32)
[2023-08-01 03:00] VITALS: BP 158/81; PULSE 87; RESP 20; TEMP 36.7; O2SAT 92
[2023-08-01] MEDS: 0.9 % SODIUM CHLORIDE 1000 ml 1,000 ML 75 ML IV (03:40)
--- NOTE | 2023-08-01 06:20 | PC.NURSE ---
Shift note: Pt is pleasant and cooperate with treatment but oriented to self. Urostomy is patent and draining light uzma colored urine with sediments. Has been in bed throughout the shift but able to mobilize self in bed. Pt was up early tonight at 0430. Systolic Bp has been above 150. No fever, cough and SOB recorded.
[2023-08-01 06:37] LABS: Basophils Absolute Auto 0.02 K/uL (0.00-0.30); Basophils Percent Auto 0.2 % (0.0-3.0); Eosinophils Absolute Auto 0.08 K/uL (0.00-0.50); Eosinophils Percent Auto 0.8 % (0.0-7.0); Hematocrit 29.3 % (37.0-53.0); Hemoglobin* 9.6 gm/dL (13.5-17.5); Immature Granulocytes Abs Auto 0.21 K/uL (0.00-0.30); Immature Granulocytes Pct Auto 2.2 %; Lymphocytes Percent Auto 6.4 % (20-44); Mean Corpuscular HGB Conc 33 gm/dL (32-36); Mean Corpuscular Hemoglobin 26 pg (26-34); Mean Corpuscular Volume 79 fL (80-100); Monocytes Percent Auto 10.2 % (0.0-11.0); Neutrophils Percent Auto 80.2 % (42.0-72.0); Platelet Count* 361 K/uL (140-440); RDW Coefficient of Variation % 16.7 % (11.5-15.5); White Blood Count* 9.67 K/uL (4.50-11.00)
[2023-08-01 06:43] LABS: Slide Review Reflex No
[2023-08-01 07:00] VITALS: BP 136/75; PULSE 89; RESP 24; TEMP 36.4; O2SAT 95
[2023-08-01 07:05] LABS: Chloride* 96 mmol/L (96-114); Potassium* 4.1 mmol/L (3.6-5.1); Sodium* 126 mmol/L (135-149)
[2023-08-01 07:08] LABS: Creatinine* 0.6 mg/dL (0.5-1.5); Est. Creatinine Clearance* 60.88; Estimated Glomerular Filt Rate 99 ml/min
[2023-08-01 07:09] LABS: Anion Gap 7 mEq/L (7-15); Blood Urea Nitrogen* 15 mg/dL (7-30); Calcium* 8.7 mg/dL (8.4-10.6); Carbon Dioxide* 23 mmol/L (20-32); Glucose* 114 mg/dL (60-115)
[2023-08-01 07:25] LABS: C Reactive Protein* 19.5 mg/dL (0.5-1.0)
[2023-08-01] MEDS: polyethylene glycoL 3350 17 GM PACK PO (08:31)
[2023-08-01] MEDS: ACETAMINOPHEN 325 MG TABLET 650 MG PO (08:31)
[2023-08-01] MEDS: lisinopriL 10 MG TABLET PO (08:32)
[2023-08-01] MEDS: SENNOSIDES/DOCUSATE TABLET 2 TAB PO ×2 (08:32→21:09)
[2023-08-01] MEDS: FERROUS SULFATE 325 MG TABLET PO (08:33)
[2023-08-01] MEDS: CIPROFLOXACIN 500 MG TABLET PO ×2 (08:33→21:10)
[2023-08-01] MEDS: OXYCODONE (CR) 10 MG TAB.ER.12H PO ×2 (09:38→21:10)
[2023-08-01] MEDS: HEPARIN 5,000 UNIT/0.5 ML INJ 5000 UNIT SUBCUT ×2 (09:46→21:10)
[2023-08-01 11:00] VITALS: BP 115/64; PULSE 87; RESP 20; TEMP 36.3; O2SAT 96
[2023-08-01 15:00] VITALS: BP 138/73; PULSE 84; PULSE 96; RESP 22; TEMP 36.5; O2SAT 96
[2023-08-01] MEDS: OXYCODONE 5 MG TABLET PO (16:16)
--- NOTE | 2023-08-01 16:37 | PM.IMPN1 ---
Progress Note: A&P Assessment and plan (1) UTI (urinary tract infection): Problem details: UCX with enterobacter; switch from ceftriaxone to Cipro Status: Acute (2) Weakness: Problem details: PT, OT evaluation . Still needing standby assist for standing, transferring, ambulating. Consider alf facility for rehab Status: Acute (3) Anemia: Problem details: Uncertain etiology. Iron studies show iron deficiency. Oral iron now. May need intravenous iron. May also have anemia of chronic disease. Transfused 1 unit. Hemoglobin up to 9.6 Status: Acute (4) Hyponatremia: Problem details: Sodium fluctuating in the upper 120s. Fluid restriction. Status: Acute (5) Bladder cancer metastasized to bone: Problem details: Bony destructive lesion in left iliac crest causing left low back pain and left sciatica symptoms. Outpatient Oncology follow-up pending Status: Acute (6) Cognitive impairment: Problem details: MOCA score 10. Needs / supervision. Status: Acute Plan Continue in hospital pending alf facility placement, probably tomorrow, for rehab. Will need to monitor his response to radiation treatment in terms of his mobility.. Outpatient Oncology plan will need to be developed. Time Spent With Patient Total time spent: Total time spent today is 25 minutes, 15 minutes in coordination of care and discussing with patient and other providers management of disability and disposition Subjective Date Seen: 08/01/23 Interval history: 77-year-old male with metastatic bladder cancer admitted to the hospital for left hip pain, weakness, difficulty ambulating. About 3 months ago he underwent prostatectomy, pelvic lymphadenectomy and cystectomy with ileal conduit. After this he developed left low back pain radiating down his left leg. This was initially treated as a musculoskeletal problem with sciatica. Eventually was determined that he had metastatic lesions to the left iliac bone. Last week he underwent 5 radiation treatments to this area. He has been getting urology care with Dr. Rodriguez of [place] [facility] who performed his cystectomy. He received radiation treatment through Dr. Polanco of [place] [facility] in [place]. He does not have medical oncology arranged. The most recent plan includes medical oncology follow-up and PET scan, still pending. On admission he was found to have a urinary tract infection and he has had a fever. No fever in the last 24 hours. Urine culture has grown Enterobacter species susceptible to ceftriaxone, his current treatment and Cipro, his oral treatment, pending. Evaluation here has shown that he needs assist of 1 to get up and move at all. His mobility and weakness fluctuate somewhat. He also has dementia and needs 24 hour a day supervision. On this basis home health care social worker has been talking with the patient and his about options for rehabilitation. Discussed with patient and current health status. Given his current frailty he is probably not a candidate for cisplatin for bladder cancer. Will need oncology follow-up to make decisions about appropriate next steps. Radiation therapy may still provide some benefit in terms of pain control and improved mobility. Patient reports no new concerns today. He thinks his pain might be a little better. Mobility is still poor due to pain and weakness in his left leg Exam Narrative: Exam Narrative: He is alert no distress. Respirations are clear to auscultation. Cardiovascular: S1, S2, regular rate and rhythm. Abdomen is soft without tenderness or mass. Const: Vital Signs, click to edit/add: Vital Signs - 24 hr 07/31/23 17:24 07/31/23 18:00 07/31/23 19:00 Temperature 98.3 F 98 F 99.1 F Pulse Rate 84 93 Pulse Rate [Bilate ral Dorsalis Pedis ] 100 Pulse Rate [Left P ulse Oximeter] Respiratory Rate 22 22 20 Blood Pressure 160/78 H 158/66 H Blood Pressure [Le ft Arm] 164/75 H Pulse Oximetry 95 95 94 [facility] 07/31/23 22:30 08/01/23 03:00 08/01/23 07:00 Temperature 99.5 F 98.1 F 97.6 F Pulse Rate Pulse Rate [Bilate ral Dorsalis Pedis ] 87 87 Pulse Rate [Left P ulse Oximeter] 89 Respiratory Rate 20 20 24 Blood Pressure Blood Pressure [Le ft Arm] 162/82 H 158/81 H 136/75 Pulse Oximetry 94 92 95 [facility] Room Air Room Air 08/01/23 11:00 08/01/23 15:00 08/01/23 15:00 Temperature 97.4 F L 97.7 F Pulse Rate Pulse Rate [Bilate ral Dorsalis Pedis ] Pulse Rate [Left P ulse Oximeter] 87 96 84 Respiratory Rate 20 22 22 Blood Pressure Blood Pressure [Le ft Arm] 115/64 138/73 Pulse Oximetry 96 96 [facility] Room Air Documenting provider has reviewed patient's vital signs: yes Labs Labs: Laboratory Results - last 24 hr 07/31/23 08/01/23 05:31 05:40 WBC 9.67 RBC 3.70 L Hgb 9.6 L Hct 29.3 L MCV 79 L MCH 26 MCHC 33 RDW Coeff of Rita 16.7 H Plt Count 361 Neut % (Auto) 80.2 H Lymph % (Auto) 6.4 L Henry % (Auto) 10.2 Eos % (Auto) 0.8 Baso % (Auto) 0.2 Neut # (Auto) 7.80 H Lymph # (Auto) 0.60 L Henry # (Auto) 1.00 H Eos # (Auto) 0.08 Baso # (Auto) 0.02 Abs Immat Gran (auto) 0.21 Imm/Tot Granulo (auto) 2.2 Sodium 126 L Potassium 4.1 Chloride 96 Carbon Dioxide 23 Anion Gap 7 BUN 15 Creatinine 0.6 Estimated Creat Clear 60.88 Estimated GFR 99 Glucose 114 Calcium 8.7 C-Reactive Protein 19.5 H Crossmatch (AHG) See Detail
[2023-08-01 19:00] VITALS: BP 148/70; PULSE 91; RESP 20; TEMP 37.4; O2SAT 96
--- NOTE | 2023-08-01 19:44 | PC.NURSE ---
Patient tolerated regular diet. Transferred and ambulated with assist of 1-2, walker and gait belt. Patient reported pain in his low back this am and was given PRN Tylenol which was effective. Patient saline locked per MD orders. Patient had increased left hip pain at 1600 and rec'd oxycodone.
[2023-08-01] MEDS: ATORVASTATIN 10 MG TABLET 20 MG PO (21:09)
[2023-08-01] MEDS: SODIUM CHLORIDE 0.9 % (FLUSH) 10 ML SYRINGE 5 ML IVF (21:11)
[2023-08-01 23:00] VITALS: BP 174/89; PULSE 91; RESP 20; TEMP 37.1; O2SAT 96
[2023-08-02 03:00] VITALS: BP 161/79; PULSE 94; RESP 20; TEMP 37.1; O2SAT 92
--- NOTE | 2023-08-02 05:29 | PC.NURSE ---
Shift note: Urostomy is patent and draining light uzma colored urine with some sediments. Pt make more urine and bag need to be empty frequently.Pt is pleasant and cooperate with treatment but oriented to self. Has been in bed throughout the shift but able to mobilize self in bed. Systolic Bp has been above 150. No fever, cough, pain, and SOB recorded.
[2023-08-02] MEDS: ACETAMINOPHEN 325 MG TABLET 650 MG PO ×3 (05:46→21:27)
[2023-08-02 06:04] LABS: Basophils Absolute Auto 0.02 K/uL (0.00-0.30); Basophils Percent Auto 0.2 % (0.0-3.0); Eosinophils Absolute Auto 0.17 K/uL (0.00-0.50); Eosinophils Percent Auto 1.6 % (0.0-7.0); Hematocrit 30.7 % (37.0-53.0); Hemoglobin* 9.9 gm/dL (13.5-17.5); Immature Granulocytes Abs Auto 0.24 K/uL (0.00-0.30); Immature Granulocytes Pct Auto 2.3 %; Lymphocytes Percent Auto 6.6 % (20-44); Mean Corpuscular HGB Conc 32 gm/dL (32-36); Mean Corpuscular Hemoglobin 26 pg (26-34); Mean Corpuscular Volume 80 fL (80-100); Monocytes Percent Auto 11.1 % (0.0-11.0); Neutrophils Percent Auto 78.2 % (42.0-72.0); Platelet Count* 364 K/uL (140-440); RDW Coefficient of Variation % 17.5 % (11.5-15.5); Red Blood Count 3.84 m/uL (4.30-5.90); White Blood Count* 10.37 K/uL (4.50-11.00)
[2023-08-02 06:06] LABS: Slide Review Reflex No
[2023-08-02 06:15] LABS: Chloride* 95 mmol/L (96-114); Potassium* 4.4 mmol/L (3.6-5.1); Sodium* 126 mmol/L (135-149)
[2023-08-02 06:18] LABS: Anion Gap 8 mEq/L (7-15); Blood Urea Nitrogen* 16 mg/dL (7-30); Calcium* 8.8 mg/dL (8.4-10.6); Carbon Dioxide* 23 mmol/L (20-32); Creatinine* 0.6 mg/dL (0.5-1.5); Est. Creatinine Clearance* 56.21; Estimated Glomerular Filt Rate 99 ml/min; Glucose* 111 mg/dL (60-115)
[2023-08-02 07:48] VITALS: BP 161/84; PULSE 86; RESP 16; TEMP 37.4; O2SAT 96
[2023-08-02] MEDS: HEPARIN 5,000 UNIT/0.5 ML INJ 5000 UNIT SUBCUT ×2 (08:51→21:28)
[2023-08-02] MEDS: lisinopriL 10 MG TABLET PO (08:51)
[2023-08-02] MEDS: SENNOSIDES/DOCUSATE TABLET 2 TAB PO (08:51)
[2023-08-02] MEDS: CIPROFLOXACIN 500 MG TABLET PO ×2 (08:51→21:28)
[2023-08-02] MEDS: SODIUM CHLORIDE 0.9 % (FLUSH) 10 ML SYRINGE 5 ML IVF ×2 (08:51→21:27)
[2023-08-02] MEDS: OXYCODONE (CR) 10 MG TAB.ER.12H PO ×2 (09:37→21:27)
[2023-08-02 11:22] VITALS: BP 132/66; PULSE 85; RESP 16; O2SAT 96
[2023-08-02] MEDS: OXYCODONE 5 MG TABLET PO ×2 (11:31→17:21)
--- NOTE | 2023-08-02 12:47 | P.IMPN_ITS ---
Progress Note: A&P Assessment and plan (1) UTI (urinary tract infection): Problem details: UCX with enterobacter; switch from ceftriaxone to Cipro Status: Acute (2) Weakness: Problem details: PT, OT evaluation . Still needing standby assist for standing, transferring, ambulating. Consider retirement facility for rehab Status: Acute (3) Anemia: Problem details: Uncertain etiology. Iron studies show iron deficiency. Oral iron now. May need intravenous iron. May also have anemia of chronic disease. Transfused 1 unit. Hemoglobin up to 9.6 Status: Acute (4) Hyponatremia: Problem details: Sodium fluctuating in the upper 120s. Fluid restriction. Salt tablets. Monitor Status: Acute (5) Bladder cancer metastasized to bone: Problem details: Bony destructive lesion in left iliac crest causing left low back pain and left sciatica symptoms. Outpatient Oncology follow-up pending Status: Acute (6) Cognitive impairment: Problem details: MOCA score 10. Needs 24/7 supervision. Status: Acute Plan Continue in-hospital for monitoring and therapy pending safe discharge plan. Time Spent With Patient Total time spent: Total time spent today is 40 minutes, 30 minutes in coordination care discussing with patient, and other providers ongoing management of disabilities, cancer, Subjective Date Seen: 08/02/23 Interval history: 77-year-old male with metastatic bladder cancer admitted to the hospital for left hip pain, weakness, difficulty ambulating. About 3 months ago he underwent prostatectomy, pelvic lymphadenectomy and cystectomy with ileal conduit. After this he developed left low back pain radiating down his left leg. This was initially treated as a musculoskeletal problem with sciatica. Eventually was determined that he had metastatic lesions to the left iliac bone. Last week he underwent 5 radiation treatments to this area. He has been getting urology care with Dr. Rodriguez of [place] [facility] who performed his cystectomy. He received radiation treatment through Dr. Polanco of [facility] in [place]. He does not have medical oncology arranged. The most recent plan includes medical oncology follow-up and PET scan, still pending. On admission he was found to have a urinary tract infection and he has had a fever. No fever in the last 24 hours. Urine culture has grown Enterobacter species susceptible to ceftriaxone, his current treatment and Cipro, his oral treatment, pending. Evaluation here has shown that he needs assist of 1 to get up and move at all. His mobility and weakness fluctuate somewhat. He also has dementia and needs 24 hour a day supervision. On this basis social insurance administrator has been talking with the patient and his about options for rehabilitation. Discussed with patient and current health status. Given his current frailty he is probably not a candidate for cisplatin for bladder cancer. Will need oncology follow-up to make decisions about appropriate next steps. Radiation therapy may still provide some benefit in terms of pain control and improved mobility. Patient reports no new concerns today. He thinks his pain might be a little better. Mobility is still poor due to pain and weakness in his left leg Patient was able to ambulate the full length of the hallway today. He did need to stop and rest at that point but then was able to walk back to his room. He reported moderate pain in the left hip associated with this ambulation. Appears his ambulation and strength is much improved over the last few days. Still awaiting disposition plan approval from [facility] Exam Narrative: Exam Narrative: He is alert, pleasant and in no distress. Respirations are clear to auscultation. Cardiovascular: S1, S2, regular rate and rhythm. Abdomen is soft without tenderness or mass. Extremities without edema. Hip flexion on the left still mildly weak. He walks with a walker fairly well. Const: Vital Signs, click to edit/add: Vital Signs - 24 hr 08/01/23 15:00 08/01/23 15:00 08/01/23 19:00 Temperature 97.7 F 99.3 F Pulse Rate [Bilate ral Dorsalis Pedis ] 91 Pulse Rate [Left P ulse Oximeter] 96 84 Respiratory Rate 22 22 20 Blood Pressure [Le ft Arm] 138/73 148/70 H Pulse Oximetry 96 96 [facility] 08/01/23 23:00 08/01/23 23:00 08/02/23 03:00 Temperature 98.8 F 98.7 F Pulse Rate [Bilate ral Dorsalis Pedis ] Pulse Rate [Left P ulse Oximeter] 91 91 94 Respiratory Rate 20 20 Blood Pressure [Le ft Arm] 174/89 H 161/79 H Pulse Oximetry 96 92 [facility] Room Air 08/02/23 07:48 08/02/23 11:22 Temperature 99.4 F Pulse Rate [Bilate ral Dorsalis Pedis ] Pulse Rate [Left P ulse Oximeter] 86 85 Respiratory Rate 16 16 Blood Pressure [Le ft Arm] 161/84 H 132/66 Pulse Oximetry 96 96 Oxygen Delivery [facility] Room Air Room Air Documenting provider has reviewed patient's vital signs: yes Labs Labs: Laboratory Results - last 24 hr 08/02/23 05:23 WBC 10.37 RBC 3.84 L Hgb 9.9 L Hct 30.7 L MCV 80 MCH 26 MCHC 32 RDW Coeff of Rita 17.5 H Plt Count 364 Neut % (Auto) 78.2 H Lymph % (Auto) 6.6 L [place] % (Auto) 11.1 H Eos % (Auto) 1.6 Baso % (Auto) 0.2 Neut # (Auto) 8.10 H Lymph # (Auto) 0.70 L [place] # (Auto) 1.20 H Eos # (Auto) 0.17 Baso # (Auto) 0.02 Abs Immat Gran (auto) 0.24 Imm/Tot Granulo (auto) 2.3 Sodium 126 L Potassium 4.4 Chloride 95 L Carbon Dioxide 23 Anion Gap 8 BUN 16 Creatinine 0.6 Estimated Creat Clear 56.21 Estimated GFR 99 Glucose 111 Calcium 8.8
--- NOTE | 2023-08-02 14:30 | PC.SOCIAL ---
Discharge planning- Received a phone call from Shayy from the [facility] ([phone]). Pt's insurance provided prior authorization. Pt will admit to [facility] on 08-03-2023. Pt's (Sanjuanita) will transport pt to [facility] with a discharge from [facility] at 10:00 am. Provided update to Shayy at [facility]. Completed Preadmission screening. Confirmation #[id number]. Faxed PAS to [facility] at [phone]. Social work will follow up as needed.
[2023-08-02 15:08] VITALS: BP 153/74; PULSE 93; RESP 16; TEMP 37.4; O2SAT 96
[2023-08-02] MEDS: LIDOCAINE 5% PATCH 1 PATCH TRANSDERMA (16:59)
[2023-08-02] MEDS: SODIUM CHLORIDE 1 GM TABLET PO (17:21)
[2023-08-02 19:00] VITALS: BP 144/66; PULSE 81; RESP 16; TEMP 36.9; O2SAT 96
[2023-08-02] MEDS: ATORVASTATIN 10 MG TABLET 20 MG PO (21:27)
[2023-08-02 23:00] VITALS: BP 145/69; PULSE 73; RESP 16; TEMP 36.3; O2SAT 95
[2023-08-03 03:00] VITALS: BP 162/85; PULSE 90; RESP 18; TEMP 36.3; O2SAT 96
[2023-08-03] MEDS: ACETAMINOPHEN 325 MG TABLET 650 MG PO ×2 (03:35→09:04)
[2023-08-03] MEDS: OXYCODONE 5 MG TABLET PO (03:36)
--- NOTE | 2023-08-03 06:20 | PC.NURSE ---
End of shift report [id number]: Patient alert and oriented to person, birthdate and place. Pain reported to left low back, patient reporting discomfort around 0335. Patient appeared restless at that time, attempting to take covers off and on as well as holding head up off the bed. Patient received PRN oxycodone for discomfort, pain appears to have lessened as patient was laying calmly but patient unable to fall back to sleep. Urostomy bag patent, draining straw colored urine with large amount of mucous type strings. Denies any cough or chest pain. Mepilex to sacrum clean, dry and intact. Transfers with minimal assist x 1, SBA with gait belt and walker for ambulation.
[2023-08-03 06:36] LABS: Basophils Absolute Auto 0.02 K/uL (0.00-0.30); Basophils Percent Auto 0.2 % (0.0-3.0); Eosinophils Absolute Auto 0.12 K/uL (0.00-0.50); Eosinophils Percent Auto 1.5 % (0.0-7.0); Hematocrit 30.6 % (37.0-53.0); Hemoglobin* 9.9 gm/dL (13.5-17.5); Immature Granulocytes Abs Auto 0.13 K/uL (0.00-0.30); Immature Granulocytes Pct Auto 1.6 %; Lymphocytes Percent Auto 6.6 % (20-44); Mean Corpuscular HGB Conc 32 gm/dL (32-36); Mean Corpuscular Hemoglobin 26 pg (26-34); Mean Corpuscular Volume 80 fL (80-100); Monocytes Percent Auto 9.8 % (0.0-11.0); Neutrophils Percent Auto 80.3 % (42.0-72.0); Platelet Count* 413 K/uL (140-440); RDW Coefficient of Variation % 17.9 % (11.5-15.5); Red Blood Count 3.81 m/uL (4.30-5.90); White Blood Count* 8.06 K/uL (4.50-11.00)
[2023-08-03 06:42] LABS: Slide Review Reflex No
[2023-08-03 06:54] LABS: Chloride* 98 mmol/L (96-114); Potassium* 4.2 mmol/L (3.6-5.1); Sodium* 129 mmol/L (135-149)
[2023-08-03 06:57] LABS: Anion Gap 8 mEq/L (7-15); Carbon Dioxide* 23 mmol/L (20-32)
[2023-08-03 06:58] LABS: Blood Urea Nitrogen* 17 mg/dL (7-30); Calcium* 8.5 mg/dL (8.4-10.6); Glucose* 116 mg/dL (60-115)
[2023-08-03 07:13] LABS: Creatinine* 0.6 mg/dL (0.5-1.5); Est. Creatinine Clearance* 57.25; Estimated Glomerular Filt Rate 99 ml/min
[2023-08-03] MEDS: lisinopriL 10 MG TABLET PO (09:04)
[2023-08-03] MEDS: OXYCODONE (CR) 10 MG TAB.ER.12H PO (09:04)
[2023-08-03] MEDS: SODIUM CHLORIDE 1 GM TABLET PO (09:05)
[2023-08-03] MEDS: FERROUS SULFATE 325 MG TABLET PO (09:05)
[2023-08-03] MEDS: SODIUM CHLORIDE 0.9 % (FLUSH) 10 ML SYRINGE 5 ML IVF (09:11)
[2023-08-03] MEDS: HEPARIN 5,000 UNIT/0.5 ML INJ 5000 UNIT SUBCUT (09:11)
[2023-08-03] MEDS: CIPROFLOXACIN 500 MG TABLET PO (09:11)
[2023-08-03 09:12] VITALS: BP 137/76; PULSE 90; RESP 18; TEMP 36.8; O2SAT 95
--- NOTE | 2023-08-03 11:25 | PC.NURSE ---
Addendum entered by Tressa Sears RN 08/03/23 11:30: Urostomy patent and draining Original Note: Discharge note... Patient discharged to [facility] in [place] the information packet was given to his . Iv was removed, patient has moderate pain in his L hip... scheduled oxy and Tylenol was given prior to discharge. Belongings sheet was signed as well as discharge summary. No other concerns at this time.Alert of self and place and month only.
--- NOTE | 2023-08-03 14:50 | PM.DS1 ---
DS: Providers Provider Date Seen: 08/03/23 Date of admission: 07/28/23 15:37 Primary care physician: Tuan Marcos MD Admitting Clinician: Luiz Augustin MD Attending Physician on discharge: Jonathan Neumann MD Date of Discharge: 08/03/23 DS: Diagnosis Discharge Diagnosis (1) UTI (urinary tract infection): Status: Acute Problem details: UCX with enterobacter; switch from ceftriaxone to Cipro. Has completed a full course of treatment (2) Weakness: Status: Acute Problem details: PT, OT evaluation . Still needing standby assist for standing, transferring, ambulating. [facility] facility rehab (3) Anemia: Status: Acute Problem details: Uncertain etiology. Iron studies show iron deficiency. Oral iron now. May need intravenous iron. May also have anemia of chronic disease. Transfused 1 unit. Hemoglobin up to 9.6 (4) Hyponatremia: Status: Acute Problem details: Sodium fluctuating in the upper 120s. Today sodium is 129. Continue salt tablets and outpatient follow-up. (5) Bladder cancer metastasized to bone: Status: Acute Problem details: Bony destructive lesion in left iliac crest causing left low back pain and left sciatica symptoms. Two weeks ago had a 5 day course of radiation to treat the bony lesions in the left iliac crest. Clinically he seems to be modestly improved since then. Outpatient Oncology follow-up pending (6) Cognitive impairment: Status: Acute Problem details: MOCA score 10. Needs / supervision. DS: Summary Hospital Course Hospital Course: 77-year-old male with metastatic bladder cancer admitted to the hospital for left hip pain, weakness, difficulty ambulating. About 3 months ago he underwent prostatectomy, pelvic lymphadenectomy and cystectomy with ileal conduit. After this he developed left low back pain radiating down his left leg. This was initially treated as a musculoskeletal problem with sciatica. Eventually was determined that he had metastatic lesions to the left iliac bone. Last week he underwent 5 radiation treatments to this area. He has been getting urology care with Dr. Rodriguez of [place] [facility] who performed his cystectomy. He received radiation treatment through Dr. Polanco of [facility] in [place]. He does not have medical oncology arranged. The most recent plan includes medical oncology follow-up and PET scan, still pending. On admission he was found to have a urinary tract infection and he has had a fever. No fever in the last 24 hours. Urine culture has grown Enterobacter species susceptible to ceftriaxone, his current treatment and Cipro, his oral treatment, pending. Evaluation here has shown that he needs assist of 1 to get up and move at all. His mobility and weakness fluctuate somewhat. He also has dementia and needs 24 hour a day supervision. On this basis director of social media marketing has been talking with the patient and his about options for rehabilitation. Discussed with patient and current health status. Given his current frailty he is probably not a candidate for cisplatin for bladder cancer. Will need oncology follow-up to make decisions about appropriate next steps. Radiation therapy may still provide some benefit in terms of pain control and improved mobility. Patient reports no new concerns today. He thinks his pain might be a little better. Mobility is still poor due to pain and weakness in his left leg Patient was able to ambulate the full length of the hallway today. He did need to stop and rest at that point but then was able to walk back to his room. He reported moderate pain in the left hip associated with this ambulation. Appears his ambulation and strength is much improved over the last few days. PLAN FOR MEDICAL ONCOLOGY: Patient remains relatively frail and there was uncertainty whether he is a candidate for palliative chemotherapy or immunotherapy. After discussion with the patient, his and the oncology clinic the current plan will be for him to go to the correction facility for rehabilitation. He remains to be seen how much of a positive response he gets from his radiation treatment in terms of management of pain and improvement in his mobility. If he has fairly good recovery to the point he can return home to live with his he should at that time make arrangements for medical oncology follow-up. He will also need a PET scan to determine the staging of his bladder cancer. Medical oncology care can be arranged through [facility] if he is improving in his functional status. Currently ECOG performance status 3. Status at Discharge Functional status at discharge: uses cane/walker Overall status at discharge: patient is progressing back to baseline Time Spent with Patient Time attestation: Total time spent providing and/or coordinating discharge services: Total time spent today is 40 minutes in evaluation management and discussing with disposition plan and Oncology follow-up. Time spent: Greater than 30 minutes Exam Narrative: Exam Narrative: He is alert and appears in no distress. He is observed to walk fairly well. Breathing is unlabored. Left lower extremity remains weak. He is unable to lift his left leg off the recliner. Weak hip flexion on the left. Knee flexion extension ankle dorsiflexion plantar flexion are near normal on the left compared to the right Const: Vital Signs, click to edit/add: Vital Signs - 24 hr 08/02/23 15:08 08/02/23 19:00 08/02/23 23:00 Temperature 99.3 F 98.4 F 97.4 F L Pulse Rate [Bilate ral Dorsalis Pedis ] Pulse Rate [Left P ulse Oximeter] 93 81 73 Respiratory Rate 16 16 16 Blood Pressure [Le ft Arm] 153/74 H 144/66 H 145/69 H Pulse Oximetry 96 96 95 Oxygen Delivery [facility] Room Air Room Air Room Air 08/03/23 03:00 08/03/23 09:12 Temperature 97.4 F L 98.3 F Pulse Rate [Bilate ral Dorsalis Pedis ] 90 Pulse Rate [Left P ulse Oximeter] 90 Respiratory Rate 18 18 Blood Pressure [Le ft Arm] 162/85 H 137/76 Pulse Oximetry 96 95 Oxygen Delivery [facility] Room Air Room Air Documenting provider has reviewed patient's vital signs: yes DS: Data Data Completed and Pending Completed studies during hospitalization: Procedures Drainage of Bladder with Drainage Device, Via Natural or Artificial Opening (01/17/23) Irrigation of Genitourinary Tract using Irrigating Substance, Via Natural or Artificial Opening (01/17/23) Labs on day of discharge: Labs from last 24 hours 08/03/23 05:55 WBC 8.06 RBC 3.81 L Hgb 9.9 L Hct 30.6 L MCV 80 MCH 26 MCHC 32 RDW Coeff of Rita 17.9 H Plt Count 413 Neut % (Auto) 80.3 H Lymph % (Auto) 6.6 L [place] % (Auto) 9.8 Eos % (Auto) 1.5 Baso % (Auto) 0.2 Neut # (Auto) 6.50 Lymph # (Auto) 0.50 L [place] # (Auto) 0.80 Eos # (Auto) 0.12 Baso # (Auto) 0.02 Abs Immat Gran (auto) 0.13 Imm/Tot Granulo (auto) 1.6 Sodium 129 L Potassium 4.2 Chloride 98 Carbon Dioxide 23 Anion Gap 8 BUN 17 Creatinine 0.6 Estimated Creat Clear 57.25 Estimated GFR 99 Glucose 116 H Calcium 8.5 Discharge Plan Discharge Disposition: Xfer [facility] Date of Admission: 07/28/23 15:37 Attending Provider on Discharge: Jg Neumann Primary Care Provider: Tuan Marcos Condition: Improved Discharge Medications: New acetaminophen 325 mg Tablet 650 mg PO Q6H Qty: 100 0RF oxycodone 5 mg Tablet 5 mg PO Q4H PRN (Reason: Pain) Qty: 60 0RF sodium chloride 1,000 mg Tablet,Soluble 1,000 mg PO TIDWM Qty: 90 0RF oxycodone [OxyContin] 10 mg Tablet,Oral Only,Ext.Rel.12 Hr 10 mg PO Q12H Qty: 60 0RF Continued atorvastatin 20 mg tablet 20 mg PO HS lisinopril 10 mg tablet 10 mg PO DAILY multivitamin [Daily Multi-Vitamin] Tablet 1 tab PO DAILY cholecalciferol (vitamin D3) [Vitamin D3] 125 mcg (5,000 unit) tablet 125 mcg PO DAILY Changed sennosides [Senna Lax] 8.6 mg tablet 17.6 mg PO BID PRNQty: 120 0RF ferrous sulfate 325 mg (65 mg iron) tablet,delayed release (DR/EC) 325 mg PO Q48H Qty: 20 0RF Discontinued spironolactone 25 mg tablet 25 mg PO DAILY oxycodone 5 mg tablet 5 mg PO Q4H PRN (Reason: pain) Discharge Orders: Discharge Order (Routine); Ordered 08/03/23 Ordered By: Jg Neumann Activity Level: Up with assist and Use Walker Discharge Diet: Regular Follow Up Appointments: [facility] [place] [Outside] (Patient being discharged to [facility].) Tuan Marcos MD [Primary Care Provider] - Discharge Comments: When patient has functional recovery to the point he can return home with his . He will need arrangements for medical oncology care and a PET scan. These can be arranged through [facility] oncology clinic and Dr. Marcos Admit to: SNF Discharge Potential: Fair Length of Stay: <30 days Can use facility standing orders?: Yes Code Status: DNR/DNI Rehab Potential: Fair Therapy: Physical Therapy and Occupational Therapy Therapy Orders: Evaluate and Treat Oxygen: No
== END 2023-08-03 10:04 ==
LOC: ED 13:36 → MEDSURG 14:49
PROVIDERS: Family Medicine; Hospitalist; Admitting Provider Internal Medicine; Emergency Provider Family Medicine; PCP Family Medicine; Visit Provider Internal Medicine
DX: N39.0 Urinary tract infection, site not specified (principal); E87.1 Hypo-osmolality and hyponatremia; E87.5 Hyperkalemia; D64.9 Anemia, unspecified; C67.9 Malignant neoplasm of bladder, unspecified; C79.51 Secondary malignant neoplasm of bone; R41.89 Other symptoms and signs involving cognitive functions and awareness; I10 Essential (primary) hypertension; B96.89 Other specified bacterial agents as the cause of diseases classified elsewhere; Z16.39 Resistance to other specified antimicrobial drug; E61.1 Iron deficiency; M62.81 Muscle weakness (generalized); M79.605 Pain in left leg; M54.50 Low back pain, unspecified; R50.9 Fever, unspecified; R31.9 Hematuria, unspecified; F03.90 Unspecified dementia, unspecified severity, without behavioral disturbance, psychotic disturbance, mood disturbance, and anxiety; D12.6 Benign neoplasm of colon, unspecified; R73.03 Prediabetes; Z98.52 Vasectomy status; F41.9 Anxiety disorder, unspecified; Z98.890 Other specified postprocedural states; Z86.03 Personal history of neoplasm of uncertain behavior; Z87.19 Personal history of other diseases of the digestive system; Z98.49 Cataract extraction status, unspecified eye; Z96.1 Presence of intraocular lens; Z90.49 Acquired absence of other specified parts of digestive tract; Z87.891 Personal history of nicotine dependence; H02.401 Unspecified ptosis of right eyelid; Z11.52 Encounter for screening for COVID-19; Z79.60 Long term (current) use of unspecified immunomodulators and immunosuppressants
CPT/HCPCS: 36415; 36430; 70450; 71045; 80048; 81001; 83540; 83550; 83605; 83880; 84132; 84145; 84443; 85018; 85025; 85045; 86140; 86850; 86900; 86901; 86922; 87040; 87086; 87186; 87631; 93005; 94761; 96361; 96365; 96366; 96368; 96372; 96375; 96376; 97110; 97112; 97116; 97162; 97165; 97535; 99284; 99285; G0378; A9270; J0610; J0696; J1170; J1644; J1940; J7030; J7120; P9016

== ENCOUNTER 2023-08-26 15:09 | Outpatient (CLI) | payer OTHER, SELFPAY ==
--- NOTE | 2023-08-26 15:30 | PE_ITS ---
[facility] [address] [facility] [address] Phone:?[phone] Fax:?[phone] Referring Physician Information: Scotty Tucker M.D. 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 TECHNICAL INFORMATION: Spiral acquisition of data was obtained from the mid orbits to the proximal thighs with reconstruction of 3.75 mm thick images at 3.[address] data was used for attenuation correction. PET scanning was performed through the same anatomic range 54 minutes following administration of 14.25 mCi of 18-FDG delivered intravenously. The patient's glucose at the time of the injection was 110 mg/dL. PET, CT and PET/CT fusion images are interpreted using a computer viewing workstation. COMPARISON:?CT chest abdomen pelvis 07/12/2023 [facility] INTERPRETATION: Head and Neck: No neck adenopathy or abnormal radiotracer uptake is identified. Chest: Bilateral subpleural apical reticular nodular fibrosis without FDG uptake. There are numerous FDG avid pulmonary nodules, most of which have developed or enlarged since previous 07/12/[address] exam, including a new 12 x 11 mm medial right upper lobe nodule image 63/202, SUV max 16.73. There are 3 new new right lower lobe pulmonary nodules, images 106 through 116 series 202, largest measuring 15 x 12 mm image 115, SUV max 12.71. Additional smaller right upper lobe nodules, including 6 mm nodule image 72, SUV max 3.37. No pleural or pericardial effusion. No pathologic mediastinal adenopathy. Abdomen, Pelvis and Proximal Thighs: Patient status post cystectomy with diverting ileostomy right lower quadrant without complication. No evidence of hydronephrosis. Large, destructive lytic lesion left iliac bone/posterior acetabulum measuring approximately 75 x 64 x 53 mm, SUV max 6.24. Additional FDG avid metastatic lesions involving the superior medial aspect of the left ilium adjacent to SI joint, images 188 through 202, SUV max 6.47. Additional smaller FDG avid, ill- defined CT metastatic lesions of the left anterior iliac crest, images 179 - 199, SUV max 13.94. Additional lytic lesion left ischial tuberosity image 242, SUV max 9.94 and additional left inferior pubic ramus metastasis image 249, SUV max 8.07. CONCLUSION: 1. Patient status post cystoprostatectomy with right lower quadrant urostomy without complication. 2. 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 Electronically signed on 08/27/2023 9:48:00 AM by Kashif Tovar M.D.
== END 2023-08-26 15:10 | disposition home or self-care (01) ==
LOC: RAD 15:10
PROVIDERS: PCP Family Medicine; Visit Provider Internal Medicine Hematology & Oncology
DX: C67.8 Malignant neoplasm of overlapping sites of bladder (principal); C79.51 Secondary malignant neoplasm of bone
CPT/HCPCS: 78815; A9552

== ENCOUNTER 2023-12-02 14:30 | Outpatient (CLI) | payer MEDICARE, SELFPAY ==
--- OUTSIDE RECORDS SUMMARY | 2023-12-02 14:33 | XMS_ITS | Clinical Summary ---
Author Name Unknown Organization [facility] Address [place], [place] [address] Care Team Providers Care Recruiting Coordinator Name Role Phone Votel, Tuan Gonzalez MD Primary Care Provider + None Unavailable Unavailable [facility] [place] Unavailable Allergies Active Allergy Reactions Criticality Noted Date Comments Naproxen Stomach Upset 04/28/2022 Avoid in face of chronic kidney disease. Penicillins Rash 04/19/2007 ##No similarities in side chains, very low to no risk of cross-sensitivity to ANCEF. ANW Antimicrobial Stewardship Team 08/2019 Medications Medication Sig Dispensed Refills Start Date End Date Status multivitamin (MVI) tablet Take 1 Tablet by mouth once daily. 0 08/21/2013 Active eucalyptus-peppermint oil (PONARIS) solnIndications:Left- sided epistaxis Use 2 drops in the left nostril in the morning and at bedtime. 30 mL 11 09/04/2019 Active atorvastatin (LIPITOR) 20 mg tabletIndications:Rosie vated cholesterol TAKE ONE TABLET BY MOUTH ONE TIME DAILY 90 Tablet 3 02/24/2023 Active ACETAMINOPHEN ORAL 650 mg. 0 Active cholecalciferol, Vitamin D3, 5,000 unit tab tablet Take by mouth. 0 07/25/2023 Activ e sennosides (SENNA) 8.6 mg tablet 2 Tablets. 0 Active lisinopriL (PRINIVIL; ZESTRIL) 5 mg tabletIndications:Ess ential hypertension Take 1 Tablet (5 mg) by mouth once daily. 90 Tablet 3 08/19/2023 Active sodium chloride 1,000 mg soluble tabletIndications:Hyp onatremia Take 1 Tablet (1,000 mg) by mouth three times daily with meals. 90 Tablet 6 08/19/2023 Active Xtampza ER 9 mg CSpA Take by mouth. 0 09/01/2023 Active ferrous sulfate 325 mg delayed release tabletIndications:Ane breanne due to acute blood loss Take 1 Tablet (325 mg) by mouth two times daily with meals. 120 Tablet 0 10/17/2023 Active CPAPIndications:KENNETH (obstructive sleep apnea) CPAP machine for home use at pressure 8 cmw, full face mask x1/3month with a full face cushion x1/mo 1 Each 11 11/05/2023 Active Ostomy Supplies miscIndications:Prese nce of urostomy (HC) As directed. 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, unspecified laterality 09/09/2023 Hyponatremia 03/10/2023 Acute non-recurrent maxillary sinusitis 11/06/19 22 Primary cancer of bladder 07/10/2021 Adenomatous colon polyp 06/10/2018 Overview: Colonoscopy 06/2018 polyp, repeat in 5 years Special screening for malignant neoplasm 016 Elevated cholesterol 03/06/2010 HX BASAL CELL SKIN CANCER 04/19/2007 Unspecified essential hypertension 04/19/2007 Prediabetes 04/19/2007 Encounters Date Type Department Care Team Description 12/01/2023 Telephone [facility] [address] [place] [address] Tuan Marcos MD 11/30/2023 Telephone [facility] [address] [place] [address] Tuan Marcos MD 11/25/2023 Telephone [facility] [address] [place] [address] Tuan Marcos MD 11/18/2023 Telephone [facility] [address] [place] [address] Tuan Marcos MD Procedure 11/09/2023 Telephone [facility] [address] [place] [address] Tuan Marcos MD Form 11/05/2023 2:30 PM COMBAT SYSTEMS OFFICER Office Visit [facility] [address] [place] [address] Dakota Denise MD Sleep Follow-up (Sleep study results) 11/05/2023 Travel 11/03/2023 Telephone [facility] [address] [place] [address] Tuan Marcos MD Form 11/02/2023 Travel 10/27/2023 Telephone [facility] [address] [place] [address] Tuan Marcos MD 10/15/2023 Orders Only [facility] Scanner 1 scan: (1-Ord) [facility] DERMATOLOGY, SHAVE BIOPSY, 10/15/2023 10/15/2023 Refill [facility] [address] [place] [address] Tuan Marcos MD Refill Request (Ferrous Sulfate) 09/30/2023 Telephone [facility] [address] [place] [address] Tuan Marcos MD Form 09/30/2023 Telephone [facility] [address] [place] [address] Tuan Marcos MD Form 09/29/2023 Telephone [facility] [address] [place] [address] Tuan Marcos MD 09/28/2023 Telephone [facility] [address] [place] [address] Tuan Marcos MD Form 09/20/2023 Lab Requisition [facility] [phone] Scotty Tucker MD 09/14/2023 Orders Only [facility] Staff, Other Clinical 1 scan: (1-Ord) [facility] 09/09/2023 1:15 PM COMBAT SYSTEMS OFFICER [facility] [address] [facility] [address] Tuan Marcos MD Lab; Follow Up (Anemia and hyponatremia) 09/09/2023 Travel 09/08/2023 9:30 PM COMBAT SYSTEMS OFFICER Procedure Only [facility] [address] [place] [address] Dakota Denise MD 09/08/2023 Orders Only [facility] Staff, Other Clinical 1 scan: (1-Ord) [facility] from Last 3 Months Immunizations Name Administration Dates Next Due AMB Influenza, IIV4 PF (=>6 mos Flulaval,Fluzone Fluarix)(Flu Clinic Only) 08/30/2018 Amb Influenza, Inact (High-d ose) (Flu Clinic Only) 08/09/2014 COVID-19 Vaccine Spikevax (M oderna 50mcg/0.5mL) 12YO+ [id number] Formula PF 08/19/2023 COVID-19 vaccine (Pfizer-Bio NTech 30mcg/0.3mL) 12YO+ BENJAMIN-SUCROSE PF, MDV 04/28/2022 COVID-19 vaccine (Pfizer-Bio NTech 30mcg/0.3mL) PF, MDV 08/01/2021,01/01/2021,12/11/2020 Influenza A (H1N1), Inactivated 09/11/2009 Influenza RIV4 (Age 18+ Year s) PRESERV FREE 08/10/2019 Influenza, High-dose Inactivated 08/27/2016,11/2014,08/09/2014 Influenza, High-dose Quadriv alent Inactivated 08/07/2022,08/26/2020 Influenza, IIV3 (Age >=3 years) 07/12/20 13,07/23/2012,08/04/2011,2009,07/10/2009,09/23/2005 Influenza, Inactivated AIIV4 (Age 65+ Years) Preserv Free 08/04/2023,07/10/2021 Influenza, Inactivated IIV3 (Age 65+ Years) Preserv Free 08/11/2019,07/13/2017 Pneumococcal Poly,23-Valent (Pneumovax) 05/20/2016,02/21/2009 Pneumococcal conj 13-Valent (Prevnar 13) 05/08/2015 Td (Age >=7 Years) 07/17/2004 Tdap 04/12/2012 Zoster (Shingrix-RZV, recombinant) 05/10/2019, Zoster (Zostavax-ZVL, live) 04/12/2012 Family History Medical History Relation Name Comments Hypertension Brother Todd half brother. p eripheral artery disease Unknown Father Cancer Mother lung- heavy smo ker Relation Name Status Comments Brother Todd Father Mother Social History Tobacco Use Types Packs/Day Years Used Date Smoking Tobacco: Former Cigarettes Q uit: 11/01/1992 Smokeless Tobacco: Never Tobacco Cessation:Counseling Given: Yes Alcohol Use Standard Drinks/Week Comments Yes 23.3 (1 standard drink = 0.6 oz pure alcohol) occ PHQ-2 Answer Date Recorded PHQ-2 TOTAL SCORE 0 09/30/2022 Social Connections Answer Date Recorded Frequency of Communication with Friends and Fami ly 0 04/24/2023 Financial Resource Strain Answer Date R ecorded Difficulty of Paying Living Expenses 3 04/24/2023 Difficulty of Paying Living Expenses Not on file 04/24/2023 Food Insecurity Answer Date Recorded Worried About Running Out of Food in the Last Ye ar 1 04/24/2023 Transportation Needs Answer Date Record ed Lack of Transportation (Medical) 1 04/24/2023 Housing Stability Answer Date Recorded Unable to Pay for Housing in the Last Year 1 04/24/2023 Sex and Gender Information Value Date Recorded Sex Assigned at Not on file Gender Identity Not on file Sexual Orientation Not on file Obstetrics History Last Filed Vital Signs Vital Sign Reading Time Taken Comments Blood Pressure 133/67 11/05/2023 2:24 PM COMBAT SYSTEMS OFFICER Pulse 68 11/05/2023 2:24 PM COMBAT SYSTEMS OFFICER Temperature 36.4 ??C (97.5 ??F) 08/19/2023 2:29 PM CD T Respiratory Rate 18 04/09/2023 10:09 AM CDT Oxygen Saturation 94% 11/05/2023 2:24 PM COMBAT SYSTEMS OFFICER Inhaled Oxygen Concentration - - Weight 79.5 kg (175 lb 3.2 oz) 11/05/2023 2:24 P M COMBAT SYSTEMS OFFICER Height 182.9 cm (6') 11/05/2023 2:24 PM COMBAT SYSTEMS OFFICER Body Mass Index 23.76 11/05/2023 2:24 PM COMBAT SYSTEMS OFFICER Plan of Treatment Upcoming Encounters Date Type Department Care Team (Late st Contact Info) Description 12/07/2023 1:15 PM COMBAT SYSTEMS OFFICER Office Visit [facility] [address] [place] [address] Tuan Marcos MD [address] [place] [address] 02/14/2024 10:00 AM CDT Office Visit [facility] [address] [place] [address] Dakota Denise MD [address] [place] [address] Health Maintenance Due Date Last Done Comments Hepatitis C screening for ag e 18-79 1963 Tetanus booster 04/12/2022 04/12/2012, 07/17/2004 Depression screening for age 12+ 09/30/2023 09/30/2022, 09/18/2021, 05/28/2021, Additional history exists Medicare Wellness for age 65+ 09/30/2023, 09/18/2021, 06/18/2020, Additional history exists COVID-19 vaccine series (2022- season) 2023 08/19/2023, 08/07/2022, 04/28/2022, Additional history exists BMI (ht and wt on same day) for age 18+ 11/05/2024 11/05/2023, 09/09/2023, 07/13/2023, Additional history exists Tdap Completed 04/12/2012 Pneumococcal series for age 65+ Completed 05/20/2016, 05/08/2015, 02/21/2009 Zoster (shingles) series for age 50+ Completed 05/10/2019, 03/01/2019, 04/12/2012 Influenza for age 65+ Completed 08/04/2023 , 08/07/2022, 07/10/2021, Additional history exists Procedures Procedure Name Priority Date/Time Associated Diagnosis Comments SCAN-OPERATIVE/PROC EDURE REPORT 10/15/2023 12:00 AM COMBAT SYSTEMS OFFICER SCAN CORRESP-DIAGNOSTICS 09/21/2023 2:05 PM COMBAT SYSTEMS OFFICER COMP METABOLIC PANEL Routine 09/20/2023 12:39 PM COMBAT SYSTEMS OFFICER Malignant neoplasm of overlapping sites of bladder (HC) Secondary malignant neoplasm of bone (HC) Iron deficiency anemia, unspecified Other snf (current) drug therapy SCAN CORRESP-DIAGNOSTICS 09/14/2023 10:07 AM COMBAT SYSTEMS OFFICER SODIUM,ISTAT Routine 09/09/2023 1:22 PM COMBAT SYSTEMS OFFICER Hyponatremia HEMOGLOBIN Routine 09/09/2023 1:14 PM COMBAT SYSTEMS OFFICER Other iron deficiency anemia SCAN-SLEEP STUDY 09/08/2023 12:0 0 AM COMBAT SYSTEMS OFFICER from Last 3 Months Results * SCAN-OPERATIVE/PROCEDURE REPORT (10/15/2023 12:00 AM COMBAT SYSTEMS OFFICER) Scanner OTHER * SCAN CORRESP-DIAGNOSTICS (09/21/2023 2:05 PM COMBAT SYSTEMS OFFICER) Narrative 09/21/2023 2:05 PM COMBAT SYSTEMS OFFICER Ordered by an unspecified provider. Other Clinical Staff OTHER * (ABNORMAL) COMP METABOLIC PANEL (09/20/2023 12:39 PM COMBAT SYSTEMS OFFICER) SODIUM 134(L) 136 - 145 mmol/L 09/21/2023 2:38 AM COMBAT SYSTEMS OFFICER [facility] POTASSIUM 4.5 3.5 - 5.1 mmol/L 09/21/2023 2:38 AM COMBAT SYSTEMS OFFICER [facility] CHLORIDE 99 98 - 107 mmol/L 09/21/2023 2:38 AM COMBAT SYSTEMS OFFICER [facility] CO2,TOTAL 25 22 - 29 mmol/L 09/21/2023 2:38 AM COMBAT SYSTEMS OFFICER [facility] ANION GAP 10 5 - 18 09/21/2023 2:38 AM COMBAT SYSTEMS OFFICER [facility] GLUCOSE 85 70 - 99 mg/dL 09/21/2023 2:38 AM [facility] CALCIUM 9.5 8.8 - 10.2 mg/dL 09/21/2023 2:38 AM [facility] BUN 15 8 - 23 mg/dL 09/21/2023 2:38 AM [facility] CREATININE 1.01 0.70 - 1.20 mg/dL 09/21/2023 2:38 AM [facility] BUN/CREAT RATIO 15 10 - 20 2:38 AM [facility] eGFR 76(L) >90 mL/min/1.7 3m2 09/21/2023 2:38 AM [facility] Comment:As of 2022, eG FR is calculated by the CKD-EPI creatinine equation without race adjustment. ??eGFR can be influenced by muscle mass, exercise, and diet. ??The reported eGFR is an estimation only and is only applicable if the renal function is stable. ALBUMIN 3.8(L) 4.0 - 4.9 g/dL 09/21/2023 2:38 AM [facility] PROTEIN,TOTAL 7.4 6.0 - 8.0 g/dL 09/21/2023 2:38 AM [facility] BILIRUBIN,TOTAL 0.5 0.0 - 1.2 mg/dL 09/21/2023 2:38 AM [facility] ALK PHOSPHATASE 86 40 - 129 IU/L 09/21/2023 2:38 AM [facility] ALT (SGPT) 34 10 - 50 IU/L 09/21/2023 2:38 AM [facility] AST (SGOT) 36 10 - 50 IU/L 09/21/2023 2:38 AM [facility] Blood BLOOD SPECIMEN / Unknown 09/20/2023 12:39 PM COMBAT SYSTEMS OFFICER 09/21/2023 1:56 AM COMBAT SYSTEMS OFFICER Scotty Tucker MD CHEMISTRY [facility] [address] [place] [address], [place] * SCAN CORRESP-DIAGNOSTICS (09/14/2023 10:07 AM COMBAT SYSTEMS OFFICER) Narrative 09/14/2023 10:07 AM COMBAT SYSTEMS OFFICER Ordered by an unspecified provider. Other Clinical Staff OTHER * (ABNORMAL) SODIUM,ISTAT (09/09/2023 1:22 PM COMBAT SYSTEMS OFFICER) SODIUM, POCT 134(L) 135 - 145 mmol/L 09/09/2023 1:25 PM COMBAT SYSTEMS OFFICER [facility] Blood BLOOD SPECIMEN / Unknown 09/09/2023 1:22 PM COMBAT SYSTEMS OFFICER 09/09/2023 1:25 PM COMBAT SYSTEMS OFFICER Tuan Marcos MD LABORATORY Performing Organization Address [facility] Co de Phone Number [facility] [address] [place] [address], * (ABNORMAL) HEMOGLOBIN (09/09/2023 1:14 PM COMBAT SYSTEMS OFFICER) Pathologist [facility] HEMOGLOBIN 10.9(L) 13.5 - 17.5 g/dL 09/09/2023 1:23 PM COMBAT SYSTEMS OFFICER [facility] MCV 86 80 - 100 fL 09/09/2023 1:23 PM COMBAT SYSTEMS OFFICER [facility] Blood BLOOD SPECIMEN / Unknown Venipuncture / Unknown 09/09/2023 1:14 PM COMBAT SYSTEMS OFFICER 09/09/2023 1:17 PM COMBAT SYSTEMS OFFICER Tuan Marcos MD HEMATOLOGY Performing Organization Address [facility] Co de Phone Number [facility] [address] [place] [address], * SCAN-SLEEP STUDY (09/08/2023 12:00 AM COMBAT SYSTEMS OFFICER) Narrative 09/08/2023 12:00 AM COMBAT SYSTEMS OFFICER Ordered by an unspecified provider. Other Clinical Staff OTHER from Last 3 Months Advance Directives Latest Code Status on File Code Status Date Activated Date Inactivated Comments Full Code 03/12/2023 7:53 AM 03/17/2023 4:43 PM Question Answer Comments Code Status Discussion: Reviewed Preferences Code Status History Code Status Date Activated Date Inactivated Comments Full Code 03/11/2023 11:58 AM 03/12/2023 7:53 AM Question Answer Comments Code Status Discussion: Unable to Assess Preferences, Provider to review later Full Code 03/10/2023 6:50 PM 03/11/2023 11:58 AM Question Answer Comments Code Status Discussion: Reviewed Preferences Full Code 12/18/2022 6:00 AM 12/18/2022 12:42 PM Question Answer Comments Code Status Discussion: Not Discussed Full Code 03/31/2022 12:05 PM 03/31/2022 7:48 PM Question Answer Comments Code Status Discussion: Not Discussed Care Teams Recruiting Coordinator Relationship Specialty Start Date End Date Votel, Tuan Gonzalez MD [address] [place] [address] PCP - General 02/18/06 None . 04/08/11 [facility] [address] [place] [address] 07/20/23
--- OUTSIDE RECORDS SUMMARY | 2023-12-02 14:34 | XMS_ITS | Data Portability ---
Author Name Unknown Address [address] [place] [address] Phone [phone] [facility] Address [address] [place] [address] Care Team Providers Care Injection Operator Name Role Phone URIELTELOLY Moran Primary Care Provider Assessment Encounter Date Assessment Date Assessment LastModified by Organization Details LastModified Time 08/04/2021 08/04/2021 75 yoM with NMI HG UCC s/p TURBT Not available 08/04/2021 13:32:16 12/01/2021 12/01/2021 76 yoM with NMI HG T1 UCC s/p TURBT and now completed induction BCG, stricture of fossa navicularis Not available 12/01/2021 12:04:51 03/06/2022 03/06/2022 76 yoM with NMI HG T1 UCC s/p TURBT and now completed induction BCG, stricture of fossa navicularis Not available 03/06/2022 09:03:42 04/10/2022 04/10/2022 TOV completed today [id number] instilled into the bladder and ~250cc out. pt educated on importance of increasing fluid intake and making frequent trips to the restroom to attempt to urinate regardless of urge. s/s of retention and UTI were explained. All questions were answered. Not available 04/10/2022 11:14:33 04/16/2022 04/16/2022 76 yoM with NMI HG T1 UCC s/p TURBT and now completed induction BCG, stricture of fossa navicularis Not available 04/16/2022 13:53:30 05/12/2022 05/12/2022 Plan to RTC next week for BCG #2/6. [email or web address] Not available 05/12/2022 11:41:43 05/19/2022 05/19/2022 Patient will return to clinic next week for 3rd BCG treatment. [email or web address] Not available 05/19/2022 11:47:50 05/28/2022 05/28/2022 Patient arrived to clinic for BCG #3/6. RTC next week for BCG #4/6. [email or web address] Not available 05/28/2022 12:43:47 06/02/2022 06/02/2022 patient to follo w up next week for BCG #5/6. [email or web address] Not available 06/02/2022 11:28:58 06/09/2022 06/09/2022 patient arrived today for BCG #5/6. RTC next week for BCG #6/6. [email or web address] Not available 06/09/2022 11:39:31 06/16/2022 06/16/2022 Patient will return to clinic for follow up with Dr. More next month. [email or web address] Not available 06/16/2022 11:12:13 07/09/2022 07/09/2022 76 yoM with NMI HG T1 UCC s/p TURBT and now completed second induction BCG, stricture of fossa navicularis Not available 07/09/2022 09:32:10 07/30/2022 07/30/2022 76 yoM with NMI HG T1 UCC s/p TURBT and now completed second induction BCG, stricture of fossa navicularis rstromquist Not available 07/29/2022 09:14:57 10/21/2022 10/21/2022 76 yoM with NMI HG T1 UCC s/p TURBT and now completed second induction BCG, stricture of fossa navicularis rstromquist Not available 10/20/2022 09:45:07 01/04/2023 01/04/2023 77 yoM with NMI HG T1 UCC s/p TURBT and now completed second induction BCG, stricture of fossa navicularis rstromquist Not available 01/01/2023 14:56:11 02/04/2023 02/04/2023 77M with 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 Recommend radical cystectomy as best chance of cure for BCG refractory HGT1 bladder cancer. We discussed the details radical cystectomy with urinary diversion and the expected post-operative course. I explained that this involves removal of the bladder, prostate, seminal vesicles, and pelvic lymph nodes in order to treat any remaining cancer in the pelvis. We discussed that while the goal of this operation is to cure his cancer, in some cases this is not possible and he may require additional treatments for the cancer. I explained that options for urinary diversion include ileal conduit, continent diversions like the neobladder and the advantages and disadvantages of each of these. We discussed that the reported overall complication rate of radical cystectomy is nearly 50%, with major complication rate of approximately 10-15%, and mortality rate of 1%. We discussed possible effects on sexual function including erectile dysfunction. We discussed risks of the procedure including ileus, hernia, stomal stenosis, bowel obstruction, urine leak, blood loss requiring transfusion, injury to nerves, blood vessels, or bowel that could require additional procedures. We discussed risk of infection. We also discussed risks of anesthesia including blood clots, cardiopulmonary complications, and the risk of mortality. - TOV today - CT Chest + CT Urogram for updated staging - schedule RC/IC 45 minutes total time; review prior path, imaging, notes, discussion marty Not available 02/04/2023 10:04:46 03/31/2023 03/31/2023 77M s/p RC/IC on 03/11/23 for pT2bN0 cancer of bladder (-SMS, -LVI, 0/11 LN) and pT1N0 cancer of prostatic urethra (+SMS [distal urethral margin], -LVI, 0/11 LN). Reviewed pathology. Discussed need for ongoing surveillance with imaging, labs, as well as urethral washings given involvement of prostatic urethra with positive margin. 1. Bladder cancer - alma delia out today - stents out to bag, discard with next bag change - abx for ppx (cipro 500 mg x2) - continue lifting restrictions x6 weeks post-op - change ostomy appliance 2x weekly - f/u in [address] C/A/P with contrast, CBC, BMP, urethral washings with Dr. Rodriguez [email or web address] Not available 03/31/2023 12:22:48 07/16/2023 07/16/2023 77M s/p RC/IC on 03/11/23 for pT2bN0 cancer of bladder (-SMS, -LVI, 0/11 LN) and pT1N0 cancer of prostatic urethra (+SMS [distal urethral margin], -LVI, 0/11 LN). 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 Reviewed again pre-op CT from 01/2023 and it appears there was no evidence of disease in this area at that time. 1) Bladder cancer - likely metastatic to bone and possibly lung - PET-CT for further staging to evaluate for other sites of disease - refer to medical oncology for consideration of chemotherapy; they prefer to do this in [place] if possible - refer to radiation oncology for consideration of palliative to RT to left iliac lesion 2) Ostomy - they would like to see ostomy nurse to review supplies; will place referral marty Not available 07/16/2023 14:04:28 Plan of Treatment Reminders Order Date Submit Date Provider Last Modified By Organization Details Last Modified Time Details Appointments None recorded . Lab CBC - For early Septembe r 2022. 2022 023 prugel [facility], [address], [place], [address], 3 12:39:11 BMP, serum or plasma - For early Septembe r 2022. 2022 023 prugel [facility], [address] [place], [address], 3 12:39:11 urinalys is, dipstick 2021 022 rstromquist [facility], [address], [place], [address], 2 11:50:18 urinalys is, dipstick 2021 022 rstromquist [facility], [address], [place], [address], 2 12:01:16 bladder cancer assay, urine - Does the patient the patient have a history of bladder cancer?: Most recent confirme d Tumor:Wa s the most recent tumor Initial or Recurren t: 2021 022 [id number] [employer], [address], [address], [place], [address], 3 03:41:13 urinalys is, dipstick 2021 022 lzais [facility], [address], [place], [address], 2 11:11:37 urinalys is, dipstick 2021 022 [email or web address] [facility], [address], [place], [address], 2 11:24:34 urinalys is, dipstick 2021 022 [email or web address] Not available 2 12:17:36 urinalys is, dipstick 2021 022 [email or web address] [facility], [address], [place], [address], 2 12:42:39 urinalys is, dipstick 2021 022 lzais Not available 11:47:17 urinalys is, dipstick 2021 022 [email or web address] Not available 2 11:41:10 urinalys is, dipstick 2021 022 Not available 13:30:42 cytology , urine 2021 022 SHUBHAM Not available 2 04:09:53 urinalys is, dipstick 2021 022 [email or web address] Not available 2 11:29:28 cytology , urine 2021 022 SHUBHAM Not available 05:19:10 urinalys is, dipstick 2020 021 lzais Not available 11:21:32 urinalys is, dipstick 2020 021 lzais Not available 11:32:54 urinalys is, dipstick 2020 021 lzais Not available 11:22:30 urinalys is, dipstick 2020 021 [email or web address] Not available 11:25:44 urinalys is, dipstick 2020 021 [email or web address] Not available 11:23:58 urinalys is, dipstick 2020 021 lzais Not available 11:30:06 urinalys is, dipstick 2020 021 [email or web address] Not available 15:41:36 Referral ostomy care referral 2022 023 [facility], [address] [place], [address], 3 08:00:[address] referral - consider palliati ve RT to right iliac bone 2022 023 SHUBHAM Polanco MD, [address] [place], [address], 14:28:[address] referral 2022 023 isabel [facility] - [facility], [address] [place], [address], 3 08:57:38 Procedures None recorded . Surgeries cystosco py with bladder biopsy (SURG) 2021 022 [email or web address] Not available 15:18:32 cystoure throscop y, with calibrat ion and/or dilation of urethral strictur e or stenosis (SURG) 2021 022 [email or web address] Not available 2 10:05:35 transure thral resectio n of bladder tumor (SURG) 2021 022 [email or web address] Not available 14:42:06 Imaging PET-CT, skull base to mid-thig h scan - bladder cancer staging - PLEASE CONTACT PATIENT TO SCHEDULE 2022 [facility]23 [email or web address], [address] [place], [address], 3 13:57:04 [address], chest + abdomen + pelvis, w/ contrast - For early Septembe r 2022. 2022 023 [facility], [address] [facility] [place], [address], 3 12:39:17 CT, chest, w/ contrast - 100ML OMNI 300, A/P WO/W ALSO*, NO PREV 2022 023 [email or web address] [facility] , [address] [place], [address], 3 09:09:19 CT, urogram - CT A/P W and WO, 100ML OMNI 300, CHEST ALSO*, NO PREV 2022 023 [facility] , [address], [place], [address], 17:41:33 Medication Orders Heike BCG 50 mg intraves ical suspensi on [address] [id number], [address], [address], 3 11:44:18 Heike BCG 50 mg intraves ical suspensi on [address] [id number], [address], [address], 3 11:44:18 Staves BCG 50 mg intraves ical suspensi on [address] [facility], [address], [address], 3 11:44:18 Heike BCG 50 mg intraves ical suspensi on [address] [id number], [address], [address], 3 11:44:18 Staves BCG 50 mg intraves ical suspensi on [address] [facility], [address], [address], 3 11:44:18 Heike BCG 50 mg intraves ical suspensi on [address] [facility], [address], [address], 3 11:44:18 Staves BCG 50 mg intraves ical suspensi on [address] [facility], [address], [address], 3 11:44:18 Heike BCG 50 mg intraves ical suspensi on [address] [facility], [address], [address], 3 11:44:18 Hieke BCG 50 mg intraves ical suspensi on [address] [facility], [address], [address], 3 11:44:18 Heike BCG 50 mg intraves ical suspensi on [address] [facility], [address], [address], 3 11:44:18 Staves BCG 50 mg intraves ical suspensi on [address] [facility], [address], [address], 3 11:44:18 Heike BCG 50 mg intraves ical suspensi on [address] [id number], [address], [address], 3 11:44:18 Patient Targets Encounter Date Encounter Id Patient Goals Patient Target Last Modified By Organization Details Last Modified Time Patient will start Flomax prescriptio n. If he hasn't voided by this afternoon, must RTC to have bautista replaced. Not available 06/23/2021 12:56:11 Patient Instructions Encounter Date Encounter Id Patient Instructions Last Modified By Organization Details Last Modified Time 12/22/2022 [id number] RTC by this afternoon if unable to void. [email or web address] Not available 12/22/2022 11:09:50 06/09/2022 [id number] Call triage with any questions/concer ns. [email or web address] Not available 06/09/2022 11:39:39 06/02/2022 [id number] Call triage with any questions/concer ns. [email or web address] Not available 06/02/2022 11:29:06 05/28/2022 [id number] Call triage with any questions/concer ns. [email or web address] Not available 05/28/2022 12:43:55 05/12/2022 [id number] Call triage with any questions/concer ns. [email or web address] Not available 05/12/2022 11:41:49 04/10/2022 [id number] Pt will RTC before 230 this afternoon if unable to urinate or ED after those hours.. Will f/u with MD as directed Not available 04/10/2022 11:01:24 09/03/2021 [id number] RTC if having issues with urethral stricture. Not available 09/03/2021 15:43:14 Reason for Referral Ostomy Care Referral for Uro stomy present Referring Physician: Ana Paula Presley, Encounter Date: 07/16/2023 [facility] Referring Physician: Ana Paula Presley, Encounter Date: 07/16/2023 Referring Physician: Ana Paula Presley, Encounter Date: 07/16/2023 Results Created Date Observation Date Name Description Value Unit Range Abnormal Flag LastModifiedBy Organization Detail LastModifiedTime 09/03/2009/03/2021 urina lysis , dipst ick Nitrates-Sta tus negati ve Not Available [facility] [address], [place], [address], 09/03/2021 15:13:09 09/03/20 21 09/03/2021 urina lysis , dipst ick Blood-Status Large Not Available [facility] [place] [address], [place], [address], 09/03/2021 15:13:09 09/03/20 21 09/03/2021 urina lysis , dipst ick Leuko-Status Negati ve Not Available [facility] [address], [place], [address], 09/03/2021 15:13:09 09/09/20 21 09/09/2021 urina lysis , dipst ick Color-Status Yellow Not Available [facility] [address], [place], [address], 09/09/2021 11:28:27 09/09/20 21 09/09/2021 urina lysis , dipst ick Clarity-Stat us Clear Not Available [facility] [address], [place], [address], 09/09/2021 11:28:27 09/09/20 21 09/09/2021 urina lysis , dipst ick Protein-Stat us >=9.0 Not Available [facility] [address], [place], [address], 09/09/2021 11:28:27 09/09/20 21 09/09/2021 urina lysis , dipst ick Nitrates-Sta tus negati ve Not Available [facility] [address], [place], [address], 09/09/2021 11:28:27 09/09/20 21 09/09/2021 urina lysis , dipst ick Blood-Status Small Not Available [facility] [place] [address], [place], [address], 09/09/2021 11:28:27 09/09/20 21 09/09/2021 urina lysis , dipst ick Leuko-Status Trace Not Available [facility] [place] [address], [place], [address], 09/09/2021 11:28:27 09/09/20 21 09/09/2021 urina lysis , dipst ick Specimen Type Voided Not Available [facility] [address], [place], [address], 09/09/2021 11:28:27 09/09/20 21 09/09/2021 urina lysis , dipst ick Performed by Teresa Andujar RN Not Available [facility] [address], [place], [address], 09/09/2021 11:28:27 09/09/20 21 09/09/2021 urina lysis , dipst ick Total Urine Volume 40cc Not Available [facility] [address], [place], [address], 09/09/2021 11:28:27 09/16/20 21 09/16/2021 urina lysis , dipst ick Color-Status Yellow Not Available [facility] [place] [address], [place], [address], 09/16/2021 11:22:44 09/16/20 21 09/16/2021 urina lysis , dipst ick Clarity-Stat us Clear Not Available [facility] [address], [place], [address], 09/16/2021 11:22:44 09/16/20 21 09/16/2021 urina lysis , dipst ick Nitrates-Sta tus negati ve Not Available [facility] [address], [place], [address], 09/16/2021 11:22:44 09/16/20 21 09/16/2021 urina lysis , dipst ick Blood-Status Modera te Not Available [facility] [address], [place], [address], 09/16/2021 11:22:44 09/16/2009/16/2021 urina lysis , dipst ick Leuko-Status Small Not Available [facility] [place] [address], [place], [address], 09/16/2021 11:22:44 09/16/20 21 09/16/2021 urina lysis , dipst ick Specimen Type Voided Not Available [facility] [address], [place], [address], 09/16/2021 11:22:44 09/16/20 21 09/16/2021 urina lysis , dipst ick Performed by Evon JOSEPH Not Available [facility] [address], [place], [address], 09/16/2021 11:22:44 09/16/20 21 09/16/2021 urina lysis , dipst ick Total Urine Volume 20cc Not Available [facility] [address], [place], [address], 09/16/2021 11:22:44 09/23/20 21 09/23/2021 urina lysis , dipst ick Color-Status Yellow Not Available [facility] [place] [address], [place], [address], 09/23/2021 11:24:30 09/23/20 21 09/23/2021 urina lysis , dipst ick Clarity-Stat us Clear Not Available [facility] [address], [place], [address], 09/23/2021 11:24:30 09/23/20 21 09/23/2021 urina lysis , dipst ick Nitrates-Sta tus negati ve Not Available [facility] [address], [place], [address], 09/23/2021 11:24:30 09/23/20 21 09/23/2021 urina lysis , dipst ick Blood-Status Trace Not Available [facility] [place] [address], [place], [address], 09/23/2021 11:24:30 09/23/20 21 09/23/2021 urina lysis , dipst ick Leuko-Status Trace Not Available [facility] [place] [address], [place], [address], 09/23/2021 11:24:30 09/23/20 21 09/23/2021 urina lysis , dipst ick Specimen Type Voided Not Available [facility] [address], [place], [address], 09/23/2021 11:24:30 09/23/20 21 09/23/2021 urina lysis , dipst ick Performed by Evon JOSEPH Not Available [facility] [address], [place], [address], 09/23/2021 11:24:30 09/23/20 21 09/23/2021 urina lysis , dipst ick Total Urine Volume 20cc Not Available [facility] [address], [place], [address], 09/23/2021 11:24:30 09/30/20 21 09/30/2021 urina lysis , dipst ick Color-Status Yellow Not Available [facility] [place] [address], [place], [address], 09/30/2021 11:21:07 09/30/20 21 09/30/2021 urina lysis , dipst ick Clarity-Stat us Clear Not Available [facility] [address], [place], [address], 09/30/2021 11:21:07 09/30/20 21 09/30/2021 urina lysis , dipst ick Nitrates-Sta tus negati ve Not Available [facility] [address], [place], [address], 09/30/2021 11:21:07 09/30/20 21 09/30/2021 urina lysis , dipst ick Blood-Status Modera te Not Available [facility] [address], [place], [address], 09/30/2021 11:21:07 09/30/20 21 09/30/2021 urina lysis , dipst ick Leuko-Status Trace Not Available [facility] [place] [address], [place], [address], 09/30/2021 11:21:07 09/30/20 21 09/30/2021 urina lysis , dipst ick Specimen Type Voided Not Available [facility] [address], [place], [address], 09/30/2021 11:21:07 09/30/20 21 09/30/2021 urina lysis , dipst ick Performed by Teresa Andujar RN Not Available [facility] [address], [place], [address], 09/30/2021 11:21:07 09/30/20 21 09/30/2021 urina lysis , dipst ick Total Urine Volume 40cc Not Available [facility] [address], [place], [address], 09/30/2021 11:21:07 10/07/20 21 10/07/2021 urina lysis , dipst ick Color-Status Yellow Not Available [facility] [place] [address], [place], [address], 10/07/2021 11:31:49 10/07/20 21 10/07/2021 urina lysis , dipst ick Clarity-Stat us Clear Not Available [facility] [address], [place], [address], 10/07/2021 11:31:49 10/07/20 21 10/07/2021 urina lysis , dipst ick Nitrates-Sta tus negati ve Not Available [facility] [address], [place], [address], 10/07/2021 11:31:49 10/07/20 21 10/07/2021 urina lysis , dipst ick Blood-Status Trace Not Available [facility] [place] [address], [place], [address], 10/07/2021 11:31:49 10/07/20 21 10/07/2021 urina lysis , dipst ick Leuko-Status Trace Not Available [facility] [place] [address], [place], [address], 10/07/2021 11:31:49 10/07/20 21 10/07/2021 urina lysis , dipst ick Specimen Type Voided Not Available [facility] [address], [place], [address], 10/07/2021 11:31:49 10/07/20 21 10/07/2021 urina lysis , dipst ick Performed by Teresa Andujar RN Not Available [facility] [address], [place], [address], 10/07/2021 11:31:49 10/07/20 21 10/07/2021 urina lysis , dipst ick Total Urine Volume 50cc Not Available [facility] [address], [place], [address], 10/07/2021 11:31:49 10/14/2010/14/2021 urina lysis , dipst ick Color-Status Yellow Not Available [facility] [place] [address], [place], [address], 10/14/2021 11:18:47 10/14/2010/14/2021 urina lysis , dipst ick Clarity-Stat us Clear Not Available [facility] [address], [place], [address], 10/14/2021 11:18:47 10/14/2010/14/2021 urina lysis , dipst ick Nitrates-Sta tus negati ve Not Available [facility] [address], [place], [address], 10/14/2021 11:18:47 10/14/2010/14/2021 urina lysis , dipst ick Blood-Status Trace Not Available [facility] [place] [address], [place], [address], 10/14/2021 11:18:47 10/14/2010/14/2021 urina lysis , dipst ick Leuko-Status Small Not Available [facility] [place] [address], [place], [address], 10/14/2021 11:18:47 10/14/2010/14/2021 urina lysis , dipst ick Specimen Type Voided Not Available [facility] [address], [place], [address], 10/14/2021 11:18:47 10/14/2010/14/2021 urina lysis , dipst ick Performed by Teresa Andujar RN Not Available [facility] [address], [place], [address], 10/14/2021 11:18:47 10/14/2021 1010/14/2021 urina lysis , dipst ick Total Urine Volume 40cc Not Available [facility] [address], [place], [address], 10/14/2021 11:18:47 12/01/19 22 12/01/2021 urina lysis , dipst ick Color-Status Yellow Not Available [facility] [place] [address], [place], [address], 12/01/2021 11:27:54 12/01/19 22 12/01/2021 urina lysis , dipst ick Clarity-Stat us Clear Not Available [facility] [address], [place], [address], 12/01/2021 11:27:54 12/01/19 22 12/01/2021 urina lysis , dipst ick Glucose-Stat us Negati ve Not Available [facility] [address], [place], [address], 12/01/2021 11:27:54 12/01/19 22 12/01/2021 urina lysis , dipst ick Bilirubin-St atus Negati ve Not Available [facility] [address], [place], [address], 12/01/2021 11:27:54 12/01/19 22 12/01/2021 urina lysis , dipst ick Ketones-Stat us Negati ve Not Available [facility] [address], [place], [address], 12/01/2021 11:27:54 12/01/19 22 12/01/2021 urina lysis , dipst ick Sp [place]-Stat us 1.015 Not Available [facility] [address], [place], [address], 12/01/2021 11:27:54 12/01/19 22 12/01/2021 urina lysis , dipst ick pH-Status 7.0 Not Available [facility] [address], [place], [address], 12/01/2021 11:27:54 12/01/19 22 12/01/2021 urina lysis , dipst ick Nitrates-Sta tus negati ve Not Available [facility] [address], [place], [address], 12/01/2021 11:27:54 12/01/19 22 12/01/2021 urina lysis , dipst ick Blood-Status Trace Not Available [facility] [address], [place], [address], 12/01/2021 11:27:54 12/01/19 22 12/01/2021 urina lysis , dipst ick Leuko-Status Small Not Available [facility] [address], [place], [address], 12/01/2021 11:27:54 03/06/20 22 03/06/2022 urina lysis , dipst ick Color-Status Yellow Not Available [facility] [address], [place], [address], 03/06/2022 09:03:43 03/06/20 22 03/06/2022 urina lysis , dipst ick Clarity-Stat us Clear Not Available [facility] [address], [place], [address], 03/06/2022 09:03:43 05/12/20 22 05/12/2022 urina lysis , dipst ick Color-Status Yellow Not Available [facility] [address], [place], [address], 05/12/2022 11:38:37 05/12/20 22 05/12/2022 urina lysis , dipst ick Clarity-Stat us Clear Not Available [facility] [address], [place], [address], 05/12/2022 11:38:37 05/12/20 22 05/12/2022 urina lysis , dipst ick pH-Status 7.0 Not Available [facility] [address], [place], [address], 05/12/2022 11:38:37 05/12/20 22 05/12/2022 urina lysis , dipst ick Nitrates-Sta tus negati ve Not Available [facility] [address], [place], [address], 05/12/2022 11:38:37 05/12/20 22 05/12/2022 urina lysis , dipst ick Blood-Status Small Not Available [facility] [address], [place], [address], 05/12/2022 11:38:37 05/12/20 22 05/12/2022 urina lysis , dipst ick Leuko-Status Trace Not Available [facility] [address], [place], [address], 05/12/2022 11:38:37 05/12/20 22 05/12/2022 urina lysis , dipst ick Specimen Type Voided Not Available [facility] [address], [place], [address], 05/12/2022 11:38:37 05/12/20 22 05/12/2022 urina lysis , dipst ick Performed by Evon JOSEPH Not Available [facility] [address], [place], [address], 05/12/2022 11:38:37 05/12/20 22 05/12/2022 urina lysis , dipst ick Total Urine Volume 20cc Not Available [facility] [address], [place], [address], 05/12/2022 11:38:37 05/19/20 22 05/19/2022 urina lysis , dipst ick Color-Status Yellow Not Available [facility] [address], [place], [address], 05/19/2022 11:45:52 05/19/20 22 05/19/2022 urina lysis , dipst ick Clarity-Stat us Clear Not Available [facility] [address], [place], [address], 05/19/2022 11:45:52 05/19/20 22 05/19/2022 urina lysis , dipst ick Glucose-Stat us Negati ve Not Available [facility] [address], [place], [address], 05/19/2022 11:45:52 05/19/20 22 05/19/2022 urina lysis , dipst ick Bilirubin-St atus Negati ve Not Available [facility] [address], [place], [address], 05/19/2022 11:45:52 05/19/20 22 05/19/2022 urina lysis , dipst ick Ketones-Stat us Negati ve Not Available [facility] [address], [place], [address], 05/19/2022 11:45:52 05/19/20 22 05/19/2022 urina lysis , dipst ick Nitrates-Sta tus negati ve Not Available [facility] [address], [place], [address], 05/19/2022 11:45:52 05/19/20 22 05/19/2022 urina lysis , dipst ick Blood-Status Small Not Available [facility] [address], [place], [address], 05/19/2022 11:45:52 05/19/20 22 05/19/2022 urina lysis , dipst ick Leuko-Status Small Not Available [facility] [address], [place], [address], 05/19/2022 11:45:52 05/19/20 22 05/19/2022 urina lysis , dipst ick Specimen Type Voided Not Available [facility] [address], [place], [address], 05/19/2022 11:45:52 05/19/20 22 05/19/2022 urina lysis , dipst ick Performed by DANIEL RN Not Available [facility] [address], [place], [address], 05/19/2022 11:45:52 05/19/20 22 05/19/2022 urina lysis , dipst ick Total Urine Volume 40cc Not Available [facility] [address], [place], [address], 05/19/2022 11:45:52 05/28/20 22 05/28/2022 urina lysis , dipst ick Color-Status Yellow Not Available [facility] [address], [place], [address], 05/28/2022 12:40:38 05/28/20 22 05/28/2022 urina lysis , dipst ick Clarity-Stat us Clear Not Available [facility] [address], [place], [address], 05/28/2022 12:40:38 05/28/20 22 05/28/2022 urina lysis , dipst ick pH-Status 7.0 Not Available [facility] [address], [place], [address], 05/28/2022 12:40:38 05/28/20 22 05/28/2022 urina lysis , dipst ick Nitrates-Sta tus negati ve Not Available [facility] [address], [place], [address], 05/28/2022 12:40:38 05/28/20 22 05/28/2022 urina lysis , dipst ick Blood-Status Modera te Not Available [facility] [address], [place], [address], 05/28/2022 12:40:38 05/28/20 22 05/28/2022 urina lysis , dipst ick Leuko-Status Modera te Not Available [facility] [address], [place], [address], 05/28/2022 12:40:38 05/28/20 22 05/28/2022 urina lysis , dipst ick Specimen Type Voided Not Available [facility] [address], [place], [address], 05/28/2022 12:40:38 05/28/20 22 05/28/2022 urina lysis , dipst ick Performed by Evon JOSEPH Not Available [facility] [address], [place], [address], 05/28/2022 12:40:38 05/28/20 22 05/28/2022 urina lysis , dipst ick Total Urine Volume 20cc Not Available [facility] [address], [place], [address], 05/28/2022 12:40:38 06/09/20 22 06/09/2022 urina lysis , dipst ick Color-Status Yellow Not Available [facility] [address], [place], [address], 06/09/2022 11:12:07 06/09/20 22 06/09/2022 urina lysis , dipst ick Clarity-Stat us Slight ly Cloudy Not Available [facility] [address], [place], [address], 06/09/2022 11:12:07 06/09/20 22 06/09/2022 urina lysis , dipst ick Nitrates-Sta tus negati ve Not Available [facility] [address], [place], [address], 06/09/2022 11:12:07 06/09/20 22 06/09/2022 urina lysis , dipst ick Blood-Status Trace Not Available [facility] [address], [place], [address], 06/09/2022 11:12:07 06/09/20 22 06/09/2022 urina lysis , dipst ick Leuko-Status Small Not Available [facility] [address], [place], [address], 06/09/2022 11:12:07 06/09/20 22 06/09/2022 urina lysis , dipst ick Specimen Type Cathet erized Not Available [facility] [address], [place], [address], 06/09/2022 11:12:07 06/09/20 22 06/09/2022 urina lysis , dipst ick Performed by Evon JOSEPH Not Available [facility] [address], [place], [address], 06/09/2022 11:12:07 06/09/20 22 06/09/2022 urina lysis , dipst ick Total Urine Volume 20cc Not Available [facility] [address], [place], [address], 06/09/2022 11:12:07 06/16/20 22 06/16/2022 urina lysis , dipst ick Color-Status Yellow Not Available [facility] [address], [place], [address], 06/16/2022 11:10:26 06/16/20 22 06/16/2022 urina lysis , dipst ick Clarity-Stat us Clear Not Available [facility] [address], [place], [address], 06/16/2022 11:10:26 06/16/20 22 06/16/2022 urina lysis , dipst ick Nitrates-Sta tus negati ve Not Available [facility] [address], [place], [address], 06/16/2022 11:10:26 06/16/20 22 06/16/2022 urina lysis , dipst ick Blood-Status Trace Not Available [facility] [address], [place], [address], 06/16/2022 11:10:26 06/16/20 22 06/16/2022 urina lysis , dipst ick Leuko-Status Modera te Not Available [facility] [address], [place], [address], 06/16/2022 11:10:26 06/16/20 22 06/16/2022 urina lysis , dipst ick Specimen Type Voided Not Available [facility] [address], [place], [address], 06/16/2022 11:10:26 06/16/20 22 06/16/2022 urina lysis , dipst ick Performed by DANIEL RN Not Available [facility] [address], [place], [address], 06/16/2022 11:10:26 06/16/20 22 06/16/2022 urina lysis , dipst ick Total Urine Volume 40cc Not Available [facility] [address], [place], [address], 06/16/2022 11:10:26 07/30/20 22 07/30/2022 urina lysis , dipst ick pH-Status 6.5 Not Available [facility] [address], [place], [address], 07/30/2022 12:00:49 07/30/20 22 07/30/2022 urina lysis , dipst ick Nitrates-Sta tus negati ve Not Available [facility] [address], [place], [address], 07/30/2022 12:00:49 07/30/20 22 07/30/2022 urina lysis , dipst ick Blood-Status Large Not Available [facility] [address], [place], [address], 07/30/2022 12:00:49 07/30/20 22 07/30/2022 urina lysis , dipst ick Leuko-Status Small Not Available [facility] [address], [place], [address], 07/30/2022 12:00:49 07/30/20 22 07/30/2022 urina lysis , dipst ick Specimen Type Voided Not Available [facility] [address], [place], [address], 07/30/2022 12:00:49 10/21/20 22 10/21/2022 urina lysis , dipst ick Color-Status Red Not Available [facility] [address], [place], [address], 10/21/2022 11:46:10 10/21/20 22 10/21/2022 urina lysis , dipst ick Clarity-Stat us Slight ly Cloudy Not Available [facility] [address], [place], [address], 10/21/2022 11:46:10 10/21/20 22 10/21/2022 urina lysis , dipst ick pH-Status 7.0 Not Available [facility] [address], [place], [address], 10/21/2022 11:46:10 10/21/20 22 10/21/2022 urina lysis , dipst ick Protein-Stat us >=9.0 Not Available [facility] [address], [place], [address], 10/21/2022 11:46:10 10/21/20 22 10/21/2022 urina lysis , dipst ick Nitrates-Sta tus negati ve Not Available [facility] [address], [place], [address], 10/21/2022 11:46:10 10/21/20 22 10/21/2022 urina lysis , dipst ick Blood-Status Large Not Available [facility] [address], [place], [address], 10/21/2022 11:46:10 10/21/20 22 10/21/2022 urina lysis , dipst ick Leuko-Status Negati ve Not Available [facility] [address], [place], [address], 10/21/2022 11:46:10 10/21/20 22 10/21/2022 urina lysis , dipst ick Specimen Type Voided Not Available [facility] [address], [place], [address], 10/21/2022 11:46:10 06/23/2006/23/2021 bladd er scan (PROC ) No observ ation record ed. Not Available 08/04/2021 13:29:30 02/11/20 23 02/10/2023 CT, urogr am EXAM: CT, UROGRA M LOCATI ON: [facility] DATE/T SANNA: 023 9:00 AM CDT INDICA TION: Malign ant neopla sm of bladde r, unspec ified. COMPAR LIANA: None. TECHNI QUE: CT scan of the chest, abdome n, and pelvis was perfor med follow ing inject ion of IV contra st. Multip lanar reform ats were obtain ed. Dose reduct ion techni ques were used. CT scan of the abdome n and pelvis using urogra m techni que with pre contra st, post contra st, and delaye d images . Multip lanar reform ats were obtain ed. Dose reduct ion techni ques were used. CONTRA ST: OMNI-3 00 100 mL IV. FINDIN GS: LUNGS AND PLEURA : Biapic al subple ural scarri ng. Solid nodule kiln car repairer olater al right upper lobe is 0.5 cm series 10 image 25. Ill-de fined irregu lar nodule kiln car repairer ior right lower lobe is 0.7 cm image 67. Right minor fissur e elonga candace 0.9 cm nodule image 81. Small nodule at the left lower lobe superi raisa abutti ng the fissur e is 0.4 cm image 99. No effusi on or acute airspa ce diseas e. Mild areas of air trappi ng. MEDIAS TINUM/ AXILLA E: Scatte red thorac ic aortic calcif icatio ns. No acute medias tinal abnorm ality. No suspic ious enlarg ed lymph nodes. LOPEZ RY ARTERY CALCIF ICATIO N: Modera te. HEPATO BILIAR Y: Cholel ithias is. No worris ome liver lesion . No biliar y ductal dilata tion. PANCRE : Normal . SPLEEN : Normal . ADRENA L GLANDS : Normal . KIDNEY S/BLAD JAYJAY: No hydron ephros is. Tiny nonobs tructi ng stone lower left kidney is 2 mm series 2 image 81. No worris ome renal parenc hymal lesion . Incide ntal mildly dense cyst at the lower medial left kidney withou t convin cing enhanc ement measur ing 1.1 cm series 12 image 82. No focal renal collec ting system fillin g defect identi fied. [place] inferi or focal bladde r wall thicke sai measur es 6 x 2.9 x 3.2 cm series 24 image 156. Prosta te is 5 cm. BOWEL: No acute bowel abnorm ality. Coloni c divert icula. LYMPH NODES: Normal . VASCUL ATURE: Scatte red calcif icatio ns. Infrar enal abdomi nal aortic aneury sm is 3.3 cm. PELVIC ORGANS : Unrema rkable . MUSCUL OSKELE MELVIN: Mild spine degene rative change s. No convin cing aggres sive bone lesion . IMPRES JAMES: 1. Promin ent focal soft tissue wall thicke sai along the [place] inferi or bladde r sugges tive of the site of bladde r neopla sm. 2. Multip le indete rminat e bilate ral pulmon mehul nodule s. Neopla stic etiolo gy is possib le. Recomm end follow -up CT chest in 3-6 months . 3. Mildly promin ent prosta te. 4. Tiny nonobs tructi ng stone within the lower left kidney . No hydron ephros is. 5. Likely small hemorr hagic or protei naceou s cyst medial lower left kidney . 6. Cholel ithias is. 7. Infrar enal abdomi nal aortic aneury sm is 3.3 cm. This report was electr onical ly interp reted by: Abdullahi Russell MD on 2022 at 16:39 [email or web address] [facility] [address] [place], [address], 02/22/2023 10:55:05 07/12/20 23 07/12/2023 CT, chest + abdom en + pelvi s, w/ contr ast No observ ation record ed. [email or web address] [facility] [address] [place], [address], 07/15/2023 14:57:07 Result Notes Documentation Provider Name and Address Organization Details Recorded Time Ct, Urogram : EXAM: CT, UROGRAM LOCATION: [facility] DATE/TIME: 02/10/2023 9:00 AM CDT INDICATION: Malignant neoplasm of bladder, unspecified. COMPARISON: None. TECHNIQUE: CT scan of the chest, abdomen, and pelvis was performed following injection of IV contrast. Multiplanar reformats were obtained. Dose reduction techniques were used. CT scan of the abdomen and pelvis using urogram technique with pre contrast, post contrast, and delayed images. Multiplanar reformats were obtained. Dose reduction techniques were used. CONTRAST: OMNI-300 100 mL IV. FINDINGS: LUNGS AND PLEURA: Biapical subpleural scarring. Solid nodule posterolateral right upper lobe is 0.5 cm series 10 image 25. Ill-defined irregular nodule posterior right lower lobe is 0.7 cm image 67. Right minor fissure elongated 0.9 cm nodule image 81. Small nodule at the left lower lobe superiorly abutting the fissure is 0.4 cm image 99. No effusion or acute airspace disease. Mild areas of air trapping. MEDIASTINUM/AXILLAE: Scattered thoracic aortic calcifications. No acute mediastinal abnormality. No suspicious enlarged lymph nodes. CORONARY ARTERY CALCIFICATION: Moderate. HEPATOBILIARY: Cholelithiasis. No worrisome liver lesion. No biliary ductal dilatation. PANCREAS: Normal. SPLEEN: Normal. ADRENAL GLANDS: Normal. KIDNEYS/BLADDER: No hydronephrosis. Tiny nonobstructing stone lower left kidney is 2 mm series 2 image 81. No worrisome renal parenchymal lesion. Incidental mildly dense cyst at the lower medial left kidney without convincing enhancement measuring 1.1 cm series 12 image 82. No focal renal collecting system filling defect identified. Anteroinferior focal bladder wall thickening measures 6 x 2.9 x 3.2 cm series 24 image 156. Prostate is 5 cm. BOWEL: No acute bowel abnormality. Colonic diverticula. LYMPH NODES: Normal. VASCULATURE: Scattered calcifications. Infrarenal abdominal aortic aneurysm is 3.3 cm. PELVIC ORGANS: Unremarkable. MUSCULOSKELETAL: Mild spine degenerative changes. No convincing aggressive bone lesion. IMPRESSION: 1. Prominent focal soft tissue wall thickening along the anteroinferior bladder suggestive of the site of bladder neoplasm. 2. Multiple indeterminate bilateral pulmonary nodules. Neoplastic etiology is possible. Recommend follow-up CT chest in 3-6 months. 3. Mildly prominent prostate. 4. Tiny nonobstructing stone within the lower left kidney. No hydronephrosis. 5. Likely small hemorrhagic or proteinaceous cyst medial lower left kidney. 6. Cholelithiasis. 7. Infrarenal abdominal aortic aneurysm is 3.3 cm. This report was electronically interpreted by: Abdullahi Russell MD on 02/10/2023 at 16:39 Halina Delcid [facility] 02/22/2023 10:55:05 Problems Name Status Onset Date Resolution Date Notes Provider Name and Address Organization Details Recorded Time Malignant tumor of urinary bladder Active 1 Teresa Andujar [facility] 09/09/2021 11:25:57 Retention of urine Active 2 Grazyna Flores [facility] 04/03/2022 11:44:20 Problem Notes None recorded. Procedures Surgical History Date Name Laterality Status Provider Name and Address Organization Details Recorded Time 02/05/20 23 Fill and Pull/Voiding Trial/TOV completed Jean alvarez MD, PHD [address] [place] [address],[address], [address], [facility] 02/04/2023 10:14:03 12/22/19 23 Fill and Pull/Voiding Trial/TOV completed Violette Weaver [facility] 12/22/2022 11:09:14 10/21/20 22 Cystoscopy- male completed Jose More MD [address] [place] [address],[address] [place] [address], [address], [facility] 10/21/2022 13:46:42 07/30/20 22 Cystoscopy- male completed Jose More MD [address] [place] [address],[address] [place] [address], [address], [facility] 07/30/2022 13:10:19 06/16/20 22 BCG Full Dose Tx 50mg completed Teresa Andujar [facility] 06/16/2022 11:10:22 06/09/20 22 BCG Full Dose Tx 50mg completed Evon Presley [facility] 06/09/2022 11:40:10 06/02/20 22 BCG Full Dose Tx 50mg completed Evon Ribeiroometa null, [facility] 06/02/2022 11:26:18 05/28/20 22 BCG Full Dose Tx 50mg completed Evon Otta null, [facility] 05/28/2022 12:40:35 05/19/20 22 BCG Full Dose Tx 50mg completed Teresa Andujar null, [facility] 05/19/2022 11:45:49 05/12/20 22 BCG Full Dose Tx 50mg completed Evon Presley null, [facility] 05/12/2022 11:38:30 04/10/20 22 Fill and Pull/Voiding Trial/TOV completed Mary Jane Malik null, [facility] 04/10/2022 11:14:06 04/03/20 22 Bautista Catheter Insertion completed Grazyna Flores null, [facility] 04/03/2022 11:45:37 04/03/20 22 Bladder Scan completed Grazyna Flores null, [facility] 04/03/2022 11:44:29 03/06/20 22 Cystoscopy- male completed Jose More MD [address] [place] [address],[address], [place], [address], [facility] 03/06/2022 13:28:52 12/01/19 22 Cystoscopy- male completed Jose More MD [address] [place] [address],[address], [place], [address], [facility] 12/01/2021 12:02:06 12/01/19 22 Urethral Dilation-initial male completed Jose More MD [address] [place] [address],[address], [place], [address], [facility] 12/01/2021 12:04:27 12/01/19 22 Cytology completed Nadia Mendez null, [facility] 12/01/2021 11:55:49 10/14/20 21 BCG Full Dose Tx 50mg completed Teresa Andujar null, [facility] 10/14/2021 11:18:44 10/07/20 21 BCG Full Dose Tx 50mg completed Teresa milton, [facility] 10/07/2021 11:31:46 09/30/20 21 BCG Full Dose Tx 50mg completed Teresa Andujar null, [facility] 09/30/2021 11:21:04 09/23/20 21 BCG Full Dose Tx 50mg completed Evon Presley null, [facility] 09/23/2021 11:24:26 09/16/20 21 BCG Full Dose Tx 50mg completed Evon Presley null, [facility] 09/16/2021 11:22:40 09/09/20 21 BCG Full Dose Tx 50mg completed Teresa Andujar null, [facility] 09/09/2021 11:28:03 09/03/20 21 Urethral Dilation-initial male completed Malaika Davis null, [facility] 09/03/2021 15:42:54 08/04/20 21 Fill and Pull/Voiding Trial/TOV completed Jose More MD [address] [place] [address],[address], [place], [address], [facility] 08/04/2021 13:31:48 07/31/20 21 CYSTOSCOPY WITH BLADDER BIOPSY (SURG) completed Jose More MD [address] [place] [address],[address], [place], [address], [facility] 08/04/2021 13:29:31 06/23/20 21 Bladder Scan completed Malaika milton, [facility] 06/23/2021 14:14:01 06/23/20 21 Fill and Pull/Voiding Trial/TOV completed Malaika Davis null, [facility] 06/23/2021 12:55:23 Appendectomy completed Nadia Mendez null, [facility] 08/04/2021 13:07:54 Orthopedic Surgery completed Nadia Mendez null, [facility] 08/04/2021 13:08:04 Hernia Repair completed Nadia Mendez null, [facility] 08/04/2021 13:08:09 Imaging Results Imaging Date Name Status LastModified by Organiz ation Details LastModified Time 06/23/2021 bladder scan (PROC) completed Information not available 08/04/2021 13:29:30 02/10/2023 CT, urogram completed [email or web address] [facility] [address] [place], [address], 02/22/2023 10:55:05 07/12/2023 CT, chest + abdomen + pelvis, w/ contrast completed [facility] [address] [place], [address], 07/15/2023 14:57:07 Procedure Notes None recorded. Medical Equipment None Reported. Allergies Allergen ID Allergen Name Allergen Category Reaction Reaction Severity Criticality Documentation Date Start Date Code Code System Note Provider Name and Address Organization Details Recorded Time 711644 Medicinal product containin g penicilli n and acting as antibacte rial agent (product) medicatio n Not available Not available Not available 08/04/2021 8[address] [facility] 1 13:05:37 [id number] naproxen medicatio n rash moderate high 04/16/[address] [facility] 2 16:49:46 Medications Name Sig Start Date Stop Date Status Note LastModified by Organization Details LastModified Time atorvastati n 20 mg tablet TAKE ONE TABLET BY MOUTH ONE TIME DAILY* active Not Available Not Available No t Available hydrocodone 5 mg-acetamin ophen 325 mg tablet 08/04 completed Not Available Not Available Not Available lisinopril 20 mg tablet TAKE ONE TABLET BY MOUTH ONE TIME DAILY 01/04 completed Not Available Not Available Not Available amlodipine 5 mg tablet TAKE ONE TABLET BY MOUTH ONE TIME DAILY* active Not Available Not Available No t Available sulfamethox azole 800 mg-trimetho prim 160 mg tablet TAKE ONE TABLET BY MOUTH TWICE DAILY FOR 5 DAYS 08/04 completed Not Available Not Available Not Available spironolact one 25 mg tablet TAKE ONE TABLET BY MOUTH EVERY DAY IN THE MORNING.* active Not Available Not Available No t Available Heike BCG 50 mg intravesica l suspension Instill 50 mg by intravesi aundrea route. 01/04 completed Not Available Not Available Not Available tamsulosin 0.4 mg capsule TAKE ONE CAPSULE BY MOUTH ONE TIME DAILY active Not Available Not Available No t Available phenazopyri dine 100 mg tablet TAKE ONE TABLET BY MOUTH THREE TIMES DAILY AFTER MEALS FOR 3 DAYS 04/16 completed Not Available Not Available Not Available lisinopril 10 mg tablet TAKE ONE TABLET BY MOUTH ONE TIME DAILY* active Not Available Not Available No t Available omeprazole 20 mg capsule,del ayed release TAKE ONE CAPSULE BY MOUTH ONE TIME DAILY BEFORE A MEAL 01/04 completed Not Available Not Available Not Available hydrochloro thiazide 25 mg tablet Take 0.5 Tablets (12.5 mg) by mouth once daily active Not Available Not Available No t Available mupirocin 2 % topical ointment APPLY THIN FILM TO TO AFFECTED AREA TWICE A DAY active Not Available Not Available No t Available ferrous sulfate 325 mg (65 mg iron) tablet,ion yed release Take 1 Tablet (325 mg) by mouth two times daily with meals.* active Not Available Not Available No t Available doxycycline hyclate 100 mg tablet Take 1 Tablet (100 mg) by mouth 2 times daily. 12/01 completed Not Available Not Available Not Available naproxen 500 mg tablet 04/16 completed Not Available Not Available Not Available oxycodone 5 mg tablet TAKE ONE TABLET BY MOUTH EVERY FOUR HOURS NEEDED FOR PAIN 08/04 completed Not Available Not Available Not Available enoxaparin 40 mg/0.4 mL subcutaneou s syringe active Not Available Not Available No t Available Imodium active Not Available Not Avail able Not Available GaviLyte-G 236 gram-22.74 gram-6.74 gram-5.86 gram oral solution Drink 2 liters the day before colonosco py and drink 2 liters 6 hours before colonosco py appointme nt* active Not Available Not Available No t Available Vitals Date Recorded Body height Body mass index (BMI) Body weight Provider Name and Address Organization Details Last Updated DateTime 07/09/2022 176.53 cm 26.9 kg/m2 80052.59 g YASSINE [facility] 07/09/2022 11:41:11 Date Recorded Body height Body mass index (BMI) Body weight Provider Name and Address Organization Details Last Updated DateTime 07/30/2022 176.53 cm 26.9 kg/m2 45729.59 g Violette Weaver null, [facility] 07/30/2022 11:49:34 Date Recorded Body height Body mass index (BMI) Body weight Provider Name and Address Organization Details Last Updated DateTime 10/21/2022 176.53 cm 26.9 kg/m2 91076.59 g Violette Weaver null, [facility] 10/21/2022 11:42:58 Date Recorded Body height Body mass index (BMI) Body weight Provider Name and Address Organization Details Last Updated DateTime 01/04/2023 176.53 cm 26.9 kg/m2 45260.59 g Violette Weaver null, [facility] 01/04/2023 11:40:42 Date Recorded Body height Body mass index (BMI) Body weight Provider Name and Address Organization Details Last Updated DateTime 02/04/2023 176.53 cm 26.9 kg/m2 09550.59 g Janine Ahsan null, [employer] 02/04/2023 09:27:32 Date Recorded Body height Body mass index (BMI) Body weight Provider Name and Address Organization Details Last Updated DateTime 03/31/2023 176.53 cm 26.9 kg/m2 98405.59 g Elizabeth Worley [facility], [employer] 03/31/2023 10:26:36 Date Recorded Body height Body mass index (BMI) Body weight Provider Name and Address Organization Details Last Updated DateTime 07/16/2023 176.53 cm 24.6 kg/m2 66373.11 g Jean alvarez MD, PHD [address] [place] [address], [id number], [employer] [facility] 07/16/2023 13:01:17 Date Recorded Body height Body mass index (BMI) Body weight Provider Name and Address Organization Details Last Updated DateTime 08/04/2021 176.53 cm 26.9 kg/m2 98043.59 g Nadia Mendez null, [employer] 08/04/2021 13:05:27 Date Recorded Body height Body mass index (BMI) Body weight Provider Name and Address Organization Details Last Updated DateTime 12/01/2021 176.53 cm 26.9 kg/m2 19174.59 g Sheng milton, [facility] 12/01/2021 11:26:13 Date Recorded Body height Body mass index (BMI) Body weight Provider Name and Address Organization Details Last Updated DateTime 03/06/2022 176.53 cm 26.9 kg/m2 95872.[address] [facility] 03/06/2022 11:53:23 Date Recorded Body height Body mass index (BMI) Body weight Provider Name and Address Organization Details Last Updated DateTime 04/16/2022 176.53 cm 26.9 kg/m2 74178.59 g Sheng Clark [facility] 04/16/2022 16:48:30 Social History Question Answer Notes LastModified by Organizat ion Details LastModified Time Tobacco Smoking Status Former Smoker Nadia Mendez [facility] 08/04/2021 13:07:38 What Is Your Level Of Alcohol Consumption? Occasional Information not available 08/04/2021 What Is Your Level Of Caffeine Consumption? Occasional Information not available 08/04/2021 Are You Currently Employed? No Information not available 12/01/2021 When Did You Quit Smoking? 16+yearssincel astcigarette Information not available 08/04/2021 Ethnicity Not /Latin o Information not available 08/04/2021 Preferred Language Turkish Information not available 08/04/2021 Recreational Drug Use No Information not available 08/04/2021 What Was The Date Of Your Most Recent Tobacco Screening? 03/31/2023 prugel Information not available 03/31/2023 What Is Your Relationship Status? Information not available 12/01/2021 Do You Use Any Illicit Or Recreational Drugs? No Information not available 08/04/2021 Has Tobacco Cessation Counseling Been Provided? No Information not available 04/16/2022 How Many Years Have You Smoked Tobacco? 30 Information not available 12/01/2021 Do You Or Have You Ever Used Any Other Forms Of Tobacco Or Nicotine? No Information not available 08/04/2021 Sex: Male Functional Status None recorded. Mental Status None recorded. Family History Relationship Description Onset Age of this Age Resolved Age Notes Mother Family history of cancer Lung cancer Notes:Prostate cancer: Mater nal Cousin Medical History Condition Response High Blood Pressure Y Kidney Stones Y GERD/Acid Reflux Y Cancer Y High Cholesterol Y Bleeding Disorder N Immunizations Vaccine Type Date Status Provider Name and Address Organization Details Recorded Time pneumococcal polysaccharide PPV23 02/21/2009 completed Violette milton, [employer] 07/09/2022 11:41:32 COVID-19, mRNA, LNP-S, PF, 30 mcg/0.3 mL dose 08/01/2021 completed Violette Owen null, [employer] 07/09/2022 11:41:32 COVID-19, mRNA, LNP-S, PF, 30 mcg/0.3 mL dose 12/11/2020 [facility] 07/[facility] 11:41:32 Pneumococcal conjugate PCV 13 05/08/2015 [facility] 11:41:32 COVID-19, mRNA, LNP-S, PF, 30 mcg/0.3 mL dose 01/01/2021 [facility] 11:41:32 pneumococcal polysaccharide PPV23 05/20/2016 completed Violette Weaver [facility] 07/09/2022 11:41:32 influenza, trivalent, adjuvanted 07/13/2017 [facility] 14:59:32 influenza, recombinant, quadrivalent,injecta ble, preservative free 08/10/2019 [facility] 14:59:32 zoster recombinant 03/01/2019 [facility] 14:59:32 zoster recombinant 05/10/2019 [facility] 14:59:32 influenza, high-dose, quadrivalent 08/26/2020 [facility] 14:59:32 Influenza vaccine, quadrivalent, adjuvanted 07/10/2021 completed Dana milton, [facility] 08/30/2023 14:59:32 Tdap 04/12/2012 [facility] 08/30/2023 14:59:32 Novel [id number], all formulations 09/11/2009 completed Dana Fournier null, [facility] 08/30/2023 14:59:32 zoster live 04/12/2012 completed Dana Spicerre null, [facility] 08/30/2023 14:59:32 Influenza, high dose seasonal 08/01/2015 [facility] 08/30/[facility]23 14:59:32 Influenza, high dose seasonal 08/09/2014 [facility] 08/30/2023 14:59:32 Influenza, high dose seasonal 08/27/2016 [facility] 08/30/2023 14:59:32 Influenza, seasonal, injectable 07/10/2009 completed [facility] 08/30/2023 14:59:32 Influenza, seasonal, injectable 07/12/2013 completed [facility] 08/30/2023 14:59:32 Influenza, seasonal, injectable 07/23/2012 completed [facility] 08/30/2023 14:59:32 Influenza, seasonal, injectable 07/28/2010 completed [facility] 08/30/2023 14:59:32 Influenza, seasonal, injectable 08/04/2011 completed [facility] 08/30/2023 14:59:32 Influenza, seasonal, injectable 09/23/2005 completed [facility] 08/30/2023 14:59:32 Td (adult), 2 Lf tetanus toxoid, preservative free, adsorbed 07/17/2004 completed [facility] 08/30/2023 14:59:32 influenza, injectable, quadrivalent, preservative free 08/30/2018 completed Dana milton [facility] 08/30/2023 14:59:32 influenza, high-dose, quadrivalent 08/07/2022 completed Dana milton [facility] 08/30/2023 15:01:51 COVID-19, mRNA, LNP-S, PF, 30 mcg/0.3 mL dose, sarah-sucrose 04/28/2022 completed Dana milton [facility] 08/30/2023 15:01:02 COVID-19, mRNA, LNP-S, bivalent, PF, 30 mcg/0.3 mL dose 08/07/2022 completed Dana milton [facility] 08/30/2023 15:01:51 Past Encounters Encounter ID Performer Location Encounter Start Date Encounter Closed Date Diagnosis/Indication [id number] Malaika Davis [facility] [address] [place] [address] 06/23/2021 12:12:46 06/24/2021 15:38:38 Retention of urine [id number] MD KRISH [facility] [address] [place] [address] 08/04/2021 12:08:14 08/08/2021 09:52:43 Malignant tumor of urinary bladder [id number] Malaika [facility] [address] [place] [address] 09/03/2021 15:05:16 09/08/2021 11:00:22 Urinary tract infectious disease Urethral stricture [id number] MD KRISH [facility] [address] [place] [address] 09/09/2021 10:26:41 09/11/2021 14:42:50 Malignant tumor of urinary bladder [id number] Evon Ribeiroometa [facility] [address] [place] [address] 09/16/2021 10:42:44 09/17/2021 14:16:41 Malignant tumor of urinary bladder [id number] Evon Otta [facility] [address] [place] [address] 09/23/2021 10:44:52 09/29/2021 10:46:51 Malignant tumor of urinary bladder [id number] Teresa Andujar [facility] [address] [place] [address] 09/30/2021 10:37:37 10/07/2021 10:26:46 Malignant tumor of urinary bladder [id number] Teresa Andujar [facility] [address] [place] [address] 10/07/2021 11:03:54 10/15/2021 10:37:13 Malignant tumor of urinary bladder [id number] MD KRISH [facility] [address] [place] [address] 10/14/2021 10:35:10 10/20/2021 12:14:53 Malignant tumor of urinary bladder [id number] MD KRISH [facility] [address] [place] [address] 12/01/2021 11:11:34 12/03/2021 08:44:38 Malignant tumor of urinary bladder Male urethral stricture [id number] MD KRISH [facility] [address] [place] [address] 03/06/2022 11:44:16 03/09/2022 13:22:50 Malignant tumor of urinary bladder Male urethral stricture [id number] MD KRISH [facility] [address] [place] [address] 04/03/2022 10:15:13 04/06/2022 13:28:39 Retention of urine [id number] Mary Jane Malik [facility] [address] [place] [address] 04/10/2022 10:41:20 04/15/2022 13:43:17 Malignant tumor of urinary bladder [id number] MD KRISH [facility] [address] [place] [address] 04/16/2022 16:42:19 04/20/2022 09:07:47 Malignant tumor of urinary bladder Male urethral stricture [id number] Evon Presley [facility] [address] [place] [address] 05/12/2022 10:41:13 05/13/2022 09:43:25 Malignant tumor of urinary bladder [id number] Teresa Andujar [facility] [address] [place] [address] 05/19/2022 10:44:29 05/20/2022 12:08:08 Malignant tumor of urinary bladder [id number] Evon Presley [facility] [address] [place] [address] 05/28/2022 11:59:30 06/01/2022 08:56:38 Malignant tumor of urinary bladder [id number] Evon Presley [facility] [address] [place] [address] 06/02/2022 10:46:42 06/08/2022 15:24:13 Malignant tumor of urinary bladder [id number] Evon Presley [facility] [address] [place] [address] 06/09/2022 10:45:40 06/12/2022 11:22:43 Malignant tumor of urinary bladder [id number] Teresa Andujar [facility] [address] [place] [address] 06/16/2022 10:43:36 06/17/2022 11:06:41 Malignant tumor of urinary bladder [id number] Jose More MD [facility] [address] [place] [address] 07/09/2022 11:24:15 07/15/2022 10:34:30 Malignant tumor of urinary bladder Male urethral stricture [id number] Jose More MD [facility] [address] [place] [address] 07/30/2022 11:46:51 08/03/2022 09:28:41 Malignant tumor of urinary bladder Male urethral stricture [id number] Kallie Dalal [facility] [address] [place] [address] 10/21/2022 11:06:43 10/23/2022 11:32:57 Malignant tumor of urinary bladder Male urethral stricture [id number] Jose More MD [facility] [address] [place] [address] 12/22/2022 10:47:13 12/25/2022 11:50:03 Male urethral stricture [id number] Jose More MD [facility] [address] [place] [address] 01/04/2023 11:32:27 01/08/2023 12:15:12 Malignant tumor of urinary bladder Male urethral stricture [id number] Jean Rodriguez MD, PHD [facility] [address] [place] [address] 02/04/2023 09:13:39 02/09/2023 18:39:12 Malignant tumor of urinary bladder [id number] Malaika Ernandez PA-C [facility] [address] [place] [address] 03/31/2023 10:21:37 04/02/2023 16:50:24 Malignant tumor of urinary bladder Urostomy present [id number] Jean Rodriguez MD, PHD [facility] [address] [facility] [place] [address] 07/16/2023 12:27:33 07/22/2023 10:54:33 Malignant tumor of urinary bladder Urostomy present Health Concerns Section Related Observation LastModified by Organization Detai ls LastModified Time None Recorded Concern Status LastModified by Organization Details LastModified Time None Recorded Advance Directives Directive None Recorded Payers Encounter Date Sequence Insurance Name Policy Number Policy Preciado Covered Member ID Preciado Member ID Guarantor Name 07/16/2023 1 [employer] (MEDICARE REPLACEMENT/A DVANTAGE - PPO) Med [employer]opes [id number] [employer] 03/31/2023 1 [employer] (MEDICARE REPLACEMENT/A DVANTAGE - PPO) Med Lopes [id number] [employer] 02/04/2023 1 [employer] (MEDICARE REPLACEMENT/A DVANTAGE - PPO) Med Lopes [id number] [employer] 01/04/2023 1 [employer] (MEDICARE REPLACEMENT/A DVANTAGE - PPO) Med Lopes [id number] [employer] 12/22/2022 1 [employer] (MEDICARE REPLACEMENT/A DVANTAGE - PPO) Med Lopes [id number] [employer] 10/21/2022 1 [employer] (MEDICARE REPLACEMENT/A DVANTAGE - PPO) Med D Marianne [id number] Med Carlos Marianne 07/30/2022 1 [employer] (MEDICARE REPLACEMENT/A DVANTAGE - PPO) Med D Marianne [id number] Med Carlos Marianne 07/09/2022 1 [employer] (MEDICARE REPLACEMENT/A DVANTAGE - PPO) Med D Marianne [id number] Med Carlos Marianne 06/16/2022 1 [employer] (MEDICARE REPLACEMENT/A DVANTAGE - PPO) Med D Marianne [id number] Med Carlos Marianne 06/09/2022 1 [employer] (MEDICARE REPLACEMENT/A DVANTAGE - PPO) Med D Marianne [id number] Med Carlos Marianne 06/02/2022 1 [employer] (MEDICARE REPLACEMENT/A DVANTAGE - PPO) Med D Marianne [id number] Med Carlos Marianne 05/28/2022 1 [employer] (MEDICARE REPLACEMENT/A DVANTAGE - PPO) Med D Marianne [id number] Med Carlos Marianne 05/19/2022 1 [employer] (MEDICARE REPLACEMENT/A DVANTAGE - PPO) Med D Marianne [id number] Med Carlos Marianne 05/12/2022 1 [employer] (MEDICARE REPLACEMENT/A DVANTAGE - PPO) Med D Marianne [id number] Med Carlos Marianne 04/16/2022 1 [employer] (MEDICARE REPLACEMENT/A DVANTAGE - PPO) Med D Marianne [id number] Med Carlos Marianne 04/10/2022 1 [employer] (MEDICARE REPLACEMENT/A DVANTAGE - PPO) Med D Marianne [id number] Med Carlos Marianne 04/03/2022 1 [employer] (MEDICARE REPLACEMENT/A DVANTAGE - PPO) Med D Marianne [id number] Med Carlos Marianne 03/06/2022 1 [employer] (MEDICARE REPLACEMENT/A DVANTAGE - PPO) Med D Marianne [id number] Med Carlos Marianne 12/01/2021 1 [employer] (MEDICARE REPLACEMENT/A DVANTAGE - PPO) Med D Marianne [id number] Med Carlos Marianne 10/14/2021 1 [employer] (MEDICARE REPLACEMENT/A DVANTAGE - PPO) Med D Marianne [id number] Med Carlos Marianne 10/07/2021 1 [employer] (MEDICARE REPLACEMENT/A DVANTAGE - PPO) Med D Marianne [id number] Med Carlos Marianne 09/30/2021 1 [employer] (MEDICARE REPLACEMENT/A DVANTAGE - PPO) Med D Marianne [id number] Med Carlos Marianne 09/23/2021 1 [employer] (MEDICARE REPLACEMENT/A DVANTAGE - PPO) Med D Marianne [id number] Med Carlos Marianne 09/16/2021 1 [employer] (MEDICARE REPLACEMENT/A DVANTAGE - PPO) Med D Marianne [id number] Med Carlos Marianne 09/09/2021 1 [employer] (MEDICARE REPLACEMENT/A DVANTAGE - PPO) Med D Marianne [id number] Med Carlos Marianne 09/03/2021 1 [employer] (MEDICARE REPLACEMENT/A DVANTAGE - PPO) Med D Marianne [id number] Med Carlos Marianne 08/04/2021 1 [employer] (MEDICARE REPLACEMENT/A DVANTAGE - PPO) Med D Marianne [id number] Med Carlos Marianne 06/23/2021 1 [employer] (MEDICARE REPLACEMENT/A DVANTAGE - PPO) Med D Marianne [id number] Med [facility] Notes Date Note Type Note Provider Name and Address Organization Details Recorded Time 08/04/2021 text/html HPI Notes: 75 yo M who follows with [facility] in [place] for hematuria. Found to have bladder tumors on in-office cystoscopy. Underwent TURBT in [place] but insufficient muscularis. Now s/p re-resection with path confirming non-invasive HG UCC. Here for catheter removal. Jose More MD [address], [place], [address], [facility] 08/04/2021 13:32:40 12/01/2021 text/html HPI Notes: 75 yo M who follows with me in [place] for hematuria. Found to have bladder tumors on in-office cystoscopy. Underwent TURBT in [place] but insufficient muscularis. Now s/p re-resection with path confirming non-invasive HG UCC. Here for catheter removal. 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 Planned cystoscopy today. Seen today with his who provides some of the history. Jose More MD [address] [place] [address],[address], [place], [address], [facility] 12/01/2021 12:05:42 03/06/2022 text/html HPI Notes: 75 yo M who follows with me in [place] for hematuria. Found to have bladder tumors on in-office cystoscopy. Underwent TURBT in [place] but insufficient muscularis. Now s/p re-resection with path confirming non-invasive HG UCC. Here for catheter removal. 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 Planned cystoscopy today. Seen today with his who provides some of the history. 03/06/2022: Here for follow up HG T1 Bladder Cancer, now s/p induction BCG. Planned cystoscopy today. Jose More MD [address] [place] [address],[address], [place], [address], [facility] 03/06/2022 13:31:17 04/10/2022 text/html HPI Notes: 76YOM here for TOV he is s/p BTR with Dr. more on 03/31/22. [facility]10[facility] 11:14:40 04/16/2022 text/html HPI Notes: 75 yo M who follows with me in [place] for hematuria. Found to have bladder tumors on in-office cystoscopy. Underwent TURBT in [place] but insufficient muscularis. Now s/p re-resection with path confirming non-invasive HG UCC. Here for catheter removal. 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 Planned cystoscopy today. Seen today with his who provides some of the history. 03/06/2022: Here for follow up HG T1 Bladder Cancer, now s/p induction BCG. Planned cystoscopy today. 04/16/2022: Here for follow-up high-grade T1 bladder cancer status post induction BCG with evidence of recurrence. Underwent repeat transurethral resection which again showed noninvasive high-grade urothelial cell carcinoma. 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 Seen today with his who provides some history. Jose More MD [address], [place], [address], [facility] 04/16/2022 17:37:04 05/12/2022 text/html HPI Notes: 75 yo M who follows with [facility] in [place] for hematuria. Found to have bladder tumors on in-office cystoscopy. Underwent TURBT in [place] but insufficient muscularis. Now s/p re-resection with path confirming non-invasive HG UCC. Here for catheter removal. 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 Planned cystoscopy today. Seen today with his who provides some of the history. 03/06/2022: Here for follow up HG T1 Bladder Cancer, now s/p induction BCG. Planned cystoscopy today. 04/16/2022: Here for follow-up high-grade T1 bladder cancer status post induction BCG with evidence of recurrence. Underwent repeat transurethral resection which again showed noninvasive high-grade urothelial cell carcinoma. 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 Seen today with his who provides some history. 05/12/22: Patient arrived today for re-induction BCG #1/6 Evon milton [facility] 05/12/2022 11:42:02 05/19/2022 text/html HPI Notes: 75 yo M who follows with me in [place] for hematuria. Found to have bladder tumors on in-office cystoscopy. Underwent TURBT in [place] but insufficient muscularis. Now s/p re-resection with path confirming non-invasive HG UCC. Here for catheter removal. 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 Planned cystoscopy today. Seen today with his who provides some of the history. 03/06/2022: Here for follow up HG T1 Bladder Cancer, now s/p induction BCG. Planned cystoscopy today. 04/16/2022: Here for follow-up high-grade T1 bladder cancer status post induction BCG with evidence of recurrence. Underwent repeat transurethral resection which again showed noninvasive high-grade urothelial cell carcinoma. 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 Seen today with his who provides some history. 05/19/22: Patient arrived today for re-induction BCG #2/6 Teresa Nguyeneder karine [facility] 05/19/2022 11:47:55 05/28/2022 text/html HPI Notes: 75 yo M who follows with [facility] in [place] for hematuria. Found to have bladder tumors on in-office cystoscopy. Underwent TURBT in [place] but insufficient muscularis. Now s/p re-resection with path confirming non-invasive HG UCC. Here for catheter removal. 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 Planned cystoscopy today. Seen today with his who provides some of the history. 03/06/2022: Here for follow up HG T1 Bladder Cancer, now s/p induction BCG. Planned cystoscopy today. 04/16/2022: Here for follow-up high-grade T1 bladder cancer status post induction BCG with evidence of recurrence. Underwent repeat transurethral resection which again showed noninvasive high-grade urothelial cell carcinoma. 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 Seen today with his who provides some history. 05/28/22: Patient arrived today for re-induction BCG #3/6 Evon milton [facility] 05/28/2022 12:44:01 06/02/2022 text/html HPI Notes: 75 yo M who follows with [facility] in [place] for hematuria. Found to have bladder tumors on in-office cystoscopy. Underwent TURBT in [place] but insufficient muscularis. Now s/p re-resection with path confirming non-invasive HG UCC. Here for catheter removal. 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 Planned cystoscopy today. Seen today with his who provides some of the history. 03/06/2022: Here for follow up HG T1 Bladder Cancer, now s/p induction BCG. Planned cystoscopy today. 04/16/2022: Here for follow-up high-grade T1 bladder cancer status post induction BCG with evidence of recurrence. Underwent repeat transurethral resection which again showed noninvasive high-grade urothelial cell carcinoma. 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 Seen today with his who provides some history. 06/02/22: Patient arrived today for re-induction BCG #4/6 Evon Fernandez milton [facility] 06/03/2022 12:18:00 06/09/2022 text/html HPI Notes: 75 yo M who follows with [facility] in [place] for hematuria. Found to have bladder tumors on in-office cystoscopy. Underwent TURBT in [place] but insufficient muscularis. Now s/p re-resection with path confirming non-invasive HG UCC. Here for catheter removal. 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 Planned cystoscopy today. Seen today with his who provides some of the history. 03/06/2022: Here for follow up HG T1 Bladder Cancer, now s/p induction BCG. Planned cystoscopy today. 04/16/2022: Here for follow-up high-grade T1 bladder cancer status post induction BCG with evidence of recurrence. Underwent repeat transurethral resection which again showed noninvasive high-grade urothelial cell carcinoma. 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 Seen today with his who provides some history. 06/09/22: Patient arrived today for re-induction BCG #5/6 Evon Fernandez milton [facility] 06/09/2022 11:40:24 06/16/2022 text/html HPI Notes: 75 yo M who follows with [facility] in [place] for hematuria. Found to have bladder tumors on in-office cystoscopy. Underwent TURBT in [place] but insufficient muscularis. Now s/p re-resection with path confirming non-invasive HG UCC. Here for catheter removal. 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 Planned cystoscopy today. Seen today with his who provides some of the history. 03/06/2022: Here for follow up HG T1 Bladder Cancer, now s/p induction BCG. Planned cystoscopy today. 04/16/2022: Here for follow-up high-grade T1 bladder cancer status post induction BCG with evidence of recurrence. Underwent repeat transurethral resection which again showed noninvasive high-grade urothelial cell carcinoma. 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 Seen today with his who provides some history. 06/16/22: Patient presented to clinic for 6th re-induction BCG treatment. Teresa milton, [facility] 06/16/2022 11:12:17 07/09/2022 text/html HPI Notes: 76 yo M who follows with [facility] in [place] for hematuria. Found to have bladder tumors on in-office cystoscopy. Underwent TURBT in [place] but insufficient muscularis. Now s/p re-resection with path confirming non-invasive HG UCC. Here for catheter removal. 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 Planned cystoscopy today. Seen today with his who provides some of the history. 03/06/2022: Here for follow up HG T1 Bladder Cancer, now s/p induction BCG. Planned cystoscopy today. 04/16/2022: Here for follow-up high-grade T1 bladder cancer status post induction BCG with evidence of recurrence. Underwent repeat transurethral resection which again showed noninvasive high-grade urothelial cell carcinoma. 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 Seen today with his who provides some history. 07/09/2022: Here for follow-up high-grade T1 bladder cancer. Has now completed second induction course of BCG. Jose More MD [address] [place] [address],[address], [place], [address], [facility] 07/09/2022 13:39:17 07/30/2022 text/html HPI Notes: 76 yo M who follows with [facility] in [place] for hematuria. Found to have bladder tumors on in-office cystoscopy. Underwent TURBT in [place] but insufficient muscularis. Now s/p re-resection with path confirming non-invasive HG UCC. Here for catheter removal. 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 Planned cystoscopy today. Seen today with his who provides some of the history. 03/06/2022: Here for follow up HG T1 Bladder Cancer, now s/p induction BCG. Planned cystoscopy today. 04/16/2022: Here for follow-up high-grade T1 bladder cancer status post induction BCG with evidence of recurrence. Underwent repeat transurethral resection which again showed noninvasive high-grade urothelial cell carcinoma. 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 Seen today with his who provides some history. 07/09/2022: Here for follow-up high-grade T1 bladder cancer. Has now completed second induction course of BCG. 07/30/2022: Here for follow-up high-grade T1 bladder cancer. Has now completed second induction course of BCG. Here for surveillance cystoscopy. Jose More MD [address] [facility],[address], [place], [address], [facility] 07/30/2022 13:11:12 10/21/2022 text/html HPI Notes: 76 yo M who follows with me in [place] for hematuria. Found to have bladder tumors on in-office cystoscopy. Underwent TURBT in [place] but insufficient muscularis. Now s/p re-resection with path confirming non-invasive HG UCC. Here for catheter removal. 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 Planned cystoscopy today. Seen today with his who provides some of the history. 03/06/2022: Here for follow up HG T1 Bladder Cancer, now s/p induction BCG. Planned cystoscopy today. 04/16/2022: Here for follow-up high-grade T1 bladder cancer status post induction BCG with evidence of recurrence. Underwent repeat transurethral resection which again showed noninvasive high-grade urothelial cell carcinoma. 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 Seen today with his who provides some history. 07/09/2022: Here for follow-up high-grade T1 bladder cancer. Has now completed second induction course of BCG. 07/30/2022: Here for follow-up high-grade T1 bladder cancer. Has now completed second induction course of BCG. Here for surveillance cystoscopy. 10/21/2022: Here for follow-up high-grade T1 bladder cancer. Has now completed second induction course of BCG. Here for surveillance cystoscopy. 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 Seen today with his who provides some of the history. Jose More MD [address] [facility],[address], [place], [address], [facility] 10/21/2022 13:49:25 01/04/2023 text/html HPI Notes: 77 yo M who follows with me in [place] for hematuria. Found to have bladder tumors on in-office cystoscopy. Underwent TURBT in [place] but insufficient muscularis. Now s/p re-resection with path confirming non-invasive HG UCC. Here for catheter removal. 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 Planned cystoscopy today. Seen today with his who provides some of the history. 03/06/2022: Here for follow up HG T1 Bladder Cancer, now s/p induction BCG. Planned cystoscopy today. 04/16/2022: Here for follow-up high-grade T1 bladder cancer status post induction BCG with evidence of recurrence. Underwent repeat transurethral resection which again showed noninvasive high-grade urothelial cell carcinoma. 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 Seen today with his who provides some history. 07/09/2022: Here for follow-up high-grade T1 bladder cancer. Has now completed second induction course of BCG. 07/30/2022: Here for follow-up high-grade T1 bladder cancer. Has now completed second induction course of BCG. Here for surveillance cystoscopy. 10/21/2022: Here for follow-up high-grade T1 bladder cancer. Has now completed second induction course of BCG. Here for surveillance cystoscopy. 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 Seen today with his who provides some of the history. 01/04/2023: Here for follow up history of bladder cancer treated with two induction course of BCG. Evidence of recurrence at last surveillance cystoscopy so underwent bladder biopsy. Evidence of HG UCC with invasion into the lamina propria along anterior bladder wall. Also underwent Optilume dilation of his fossa navicularis stricture. Seen today with his who provides some the history. 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 Here with Sanjuanita. Fossa navicularis stricture. Recent admit @ [place] for clot retention. Urine clear x 2 weeks. 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 Nonobstructing 2 millimeter stone lower pole left kidney. 2. Incidental 1.5 cm simple cyst lower pole left kidney. 3. Normal ureters. No hydronephrosis. 4. No solid renal mass. 5. Prostatomegaly with mass effect upon the inferior bladder. 6. Ectasia of the distal abdominal aorta measuring up to 2.9 cm. 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 H/o fossa navicularis stricture. Here with Sanjuanita. Overall doing well since surgery. Ambulating daily. Appetite excellent per his report. Having regular BMs. Denies leg swelling, problems with incisions, or fever/chills. Changing stoma appliance q3-4 days. Some hematuria past couple days, is on lovenox. 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 Incidental 1.5 cm simple cyst lower pole left kidney. Normal ureters. No hydronephrosis. No solid renal mass. Prostatomegaly with mass effect upon the inferior bladder. Ectasia of the distal abdominal aorta measuring up to 2.9 cm. 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 Here with Sanjuanita. Has been treated for pinched nerve. Pain in left leg/tailbone, weakness in left leg. This has happened over last 6-7 weeks. Appetite decreased. Maybe few pounds weight loss. Some issues with stoma bag itself leaking; not stoma. 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 Incidental 1.5 cm simple cyst lower pole left kidney. Normal ureters. No hydronephrosis. No solid renal mass. Prostatomegaly with mass effect upon the inferior bladder. Ectasia of the distal abdominal aorta measuring up to 2.9 cm. 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
--- NOTE | 2023-12-02 14:45 | PE_ITS ---
[facility] [address] [facility] [address] Phone:?[phone] Fax:?[phone] Referring Physician Information: Scotty Tucker M.D. [address] [facility] [address] Phone:?[phone] Fax:?[phone] Patient:Gene Lopes D.O.B:?1945 Sex:?Male Phone:?[phone] [facility] MRN:?[id number] Exam Date:?12/02/2023 EXAM: PET/CT EYES TO THIGHS, CANCER RESTAGING CLINICAL INFORMATION: Bladder cancer, restaging. TECHNICAL INFORMATION: Helical acquisition of data was obtained from the orbits to the upper thighs with reconstruction of 3.75 mm thick images at 3.[address] data was used for attenuation correction. PET scanning was performed through the same anatomic range 60 minutes following administration of 12.05 mCi of 18-FDG delivered intravenously. The patient's glucose at the time of the injection was 75 mg/dL. PET, CT and PET/CT fusion images are interpreted using a computer viewing workstation. PET, CT and PET/CT fusion images were archived and saved in the patient's permanent medical record. COMPARISON: PET-CT from 08/26/2023. INTERPRETATION: Head and Neck: There are no abnormal hypermetabolic foci within the head or neck. There is physiologic uptake in the intracranial soft tissues. Chest: Previously indexed metastasis in the right upper lobe (Se 2 Im 83) now measures 0.8 x 0.6 cm with maximum SUV of 1.64, previously 1.2 x 1.1 cm with maximum SUV of 16.73. There are no definite present correlates for the hypermetabolic right lower lobe metastases seen on the prior exam. There are no new, enlarging, or increasingly hypermetabolic lesion within the chest. Background mediastinal blood pool uptake has a maximum SUV of 1.86. Abdomen and Pelvis: There are no abnormal hypermetabolic foci within the abdomen or pelvis. Background hepatic parenchymal uptake has a maximum SUV of 2.61. There is physiologic excretion of radiotracer in the urine and bowel. As before, the patient is status post cystectomy and ileal diversion stable and expected appearance. 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 Previously indexed osteolytic metastasis in the left ischium has a current maximum SUV of 3.15, previously 8.07. No new, enlarging, or increasingly hypermetabolic skeletal lesions identified. CONCLUSION: When compared to the exam from August 2023, the patient's lung metastases have either resolved or greatly diminished in terms of size and metabolic rate. Similarly, the patient's known osteolytic metastases have decreased in metabolic rate. In all, findings are consistent with response to therapy. No new, enlarging, or increasingly hypermetabolic lesions are identified. Electronically signed on 12/04/2023 9:33:00 AM by Addison Kim M.D.
== END 2023-12-02 14:31 | disposition home or self-care (01) ==
LOC: RAD 14:31
PROVIDERS: PCP Family Medicine; Visit Provider Internal Medicine Hematology & Oncology
DX: C67.8 Malignant neoplasm of overlapping sites of bladder (principal)
CPT/HCPCS: 78815; A9552

== ENCOUNTER 2024-04-06 13:41 | Outpatient (CLI) | payer MEDICARE, SELFPAY ==
--- OUTSIDE RECORDS SUMMARY | 2024-04-06 13:44 | XMS_ITS | Clinical Summary ---
Author Organization [facility] Address [place], [place] [address] Care Team Providers Care Authorization Rep Name Role Phone Votel, Tuan Gonzalez MD Primary Care Provider + None Unavailable Unavailable [facility] [place] Unavailable Allergies Active Allergy Reactions Criticality Noted Date Comments Naproxen Stomach Upset 04/28/2022 Avoid in face of chronic kidney disease. Penicillins Rash 04/19/2007 ##No similarities in side chains, very low to no risk of cross-sensitivity to ANCEF. ANW Antimicrobial Stewardship Team 08/2019 Medications Medication Sig Dispensed Refills Start Date End Date Status multivitamin (MVI) tablet Take 1 Tablet by mouth once daily. 0 3 Active eucalyptus-pepper mint oil (PONARIS) solnIndications:L eft-sided epistaxis Use 2 drops in the left nostril in the morning and at bedtime. 30 mL 11 9 Active ACETAMINOPHEN ORAL 650 mg. Active cholecalciferol, Vitamin D3, 5,000 unit tab tablet Take by mouth. 3 Active sennosides (SENNA) 8.6 mg tablet 2 Tablets. Active lisinopriL (PRINIVIL; ZESTRIL) 5 mg tabletIndications :Essential hypertension Take 1 Tablet (5 mg) by mouth once daily. 90 Tablet 3 3 Active Ostomy Supplies miscIndications:P resence of urostomy (HC) As directed. 30 Each 5 4 Active azelastine 137 mcg/actuation (ASTELIN) nasal sprayIndications: Nasal drainage Inhale 1 [place] into affected nostril(s) two times daily. 30 mL 4 Active CPAPIndications:O SA (obstructive sleep apnea) CPAP machine for home use at pressure 9 cmw, full face mask x1/3month with a full face cushion x1/mo 1 Each 4 Active gabapentin (NEURONTIN) 100 mg capsuleIndication s:Restless legs syndrome (RLS) Please take 1 pill by mouth at bedtime; this can be increased by 1 pill every week to a max of 3 pills or 300mg 60 Capsule 3 4 Active atorvastatin (LIPITOR) 20 mg tabletIndications :Elevated cholesterol TAKE ONE TABLET BY MOUTH ONE TIME DAILY 90 Tablet 2 4 Active sodium chloride 1,000 mg soluble tabletIndications :Hyponatremia TAKE ONE TABLET BY MOUTH THREE TIMES DAILY WITH MEALS 90 Tablet 1 4 Active ferrous sulfate 325 mg delayed release tabletIndications :Anemia due to acute blood loss Take 1 Tablet (325 mg) by mouth two times daily with meals. 180 Tablet 1 4 Active furosemide (LASIX) 20 mg tabletIndications :Peripheral edema Take one tablet daily in the evening 90 Tablet 1 4 Active sodium chloride 1,000 mg soluble tabletIndications :Hyponatremia Take 1 Tablet (1,000 mg) by mouth three times daily with meals. 90 Tablet 6 3 03/29/20 24 Discontinued ferrous sulfate 325 mg delayed release tabletIndications :Anemia due to acute blood loss Take 1 Tablet (325 mg) by mouth two times daily with meals. 180 Tablet 4 03/30/20 24 Discontinued ferrous sulfate 325 mg delayed release tabletIndications :Anemia due to acute blood loss Take 1 Tablet (325 mg) by mouth two times daily with meals. 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 04/05/2024 Type 2 diabetes mellitus wit h chronic kidney disease, without long-term current use of insulin, unspecified CKD stage 04/05/2024 Diabetes mellitus without complication 4 Malignant neoplasm metastatic from bladder 09/09 Malignant [...] Encounters Date Type Department Care Team Description 04/05/2024 9:35 AM CDT Office Visit [facility] [address] [place] [address] Tuan Marcos MD Medication Management; Concerns (Feet are painful, swollen, hard to walk) 04/05/2024 Travel 03/29/2024 Refill [facility] [address] [place] [address] Tuan Marcos MD Refill Request (Ferrous Sulfate) 03/18/[address] [address] Tuan Marcos MD Refill Request (Sodium Chloride) 02/19/2024 Refill [facility] [address] [place] [address] Tuan Marcos MD Refill Request (Atorvastatin, Lisinopril) 02/18/2024 1:45 PM CDT Orders Only [facility] [address] [place] [address] Lab, [place] [facility] 02/18/2024 Travel 02/15/2024 Travel 02/14/2024 10:00 AM CDT Office Visit [facility] [address] [place] [address] Dakota Denise MD Sleep Follow-up (Cpap) 02/14/2024 Travel 01/27/2024 Telephone [facility] [address] [place] [address] Votel, Tuan Gonzalez MD 01/20/2024 Telephone [facility] [address] [facility] [place] [address] Votel, Tuan Gonzalez MD 01/13/2024 Telephone [facility] [address] [facility] [place] [address] Votel, Tuan Gonzalez MD 01/06/2024 Telephone [facility] [address] [facility] [place] [address] Votel, Tuan Gonzalez MD from Last 3 Months Immunizations Name Administration Dates Next Due AMB Influenza, IIV4 PF (=>6 mos Flulaval,Fluzone Fluarix)(Flu Clinic Only) 08/30/2018 Amb Influenza, Inact (High-d ose) (Flu Clinic Only) 08/09/2014 COVID-19 Vaccine Spikevax (M oderna 50mcg/0.5mL) 12YO+ [id number] Formula PF 08/19/2023 COVID-19 vaccine (Physitrack-Bio NTech 30mcg/0.3mL) 12YO+ BENJAMIN-SUCROSE PF, MDV 04/28/2022 [...] Given: Yes Alcohol Use Standard Drinks/Week Comments Not Currently 23.3 (1 standard drink = 0.6 oz pure alcohol) PHQ-2 Answer Date Recorded PHQ-2 TOTAL SCORE 0 04/05/2024 Social Connections Answer Date Recorded Frequency of [...] Sign Reading Time Taken Comments Blood Pressure 122/70 04/05/2024 9:27 AM CDT Pulse 69 04/05/2024 9:27 AM CDT Temperature 36.4 ??C (97.5 ??F) 08/19/2023 2:29 PM CD T Respiratory Rate 18 04/09/2023 10:09 AM CDT Oxygen Saturation 95% 04/05/2024 9:27 AM CDT Inhaled Oxygen Concentration - - Weight 79 kg (174 lb 3.2 oz) 04/05/2024 9:27 AM CDT Height 182.9 cm (6') 04/05/2024 9:27 AM CDT Body Mass Index 23.63 04/05/2024 9:27 AM CDT Plan of Treatment Upcoming Encounters Date Type Department Care Team (Late st Contact Info) Description 04/19/2024 9:15 AM CDT Orders Only [facility] [address] [place] [address] [place], [place] 05/25/2024 10:00 AM CDT Office Visit [facility] [address] [place] [address] Dakota Denise MD [address] [place] [address] 09/05/2024 8:20 AM CENA Office Visit [facility] [address] [place] [address] Tuan Marcos MD [address] [place] [address] Health Maintenance Due Date Last Done Comments Hepatitis C screening for ag e 18-79 1963 Tetanus booster 04/12/2022 04/12/2012, 07/17/2004 Medicare Wellness for age 65+ 10/01/2023, 09/18/2021, 06/18/2020, Additional history exists COVID-19 vaccine series ( season) 2023 08/19/2023, 08/07/2022, 04/28/2022, Additional history exists Influenza for age 65+ 07/02/2024 08/04/2023 , 08/07/2022, 07/10/2021, Additional history exists BMI (ht and wt on same day) for age 18+ 04/05/2025 04/05/2024, 12/07/2023, 11/05/2023, Additional history exists Depression screening for age 12+ 04/05/2025 04/05/2024, 09/30/2022, 09/18/2021, Additional history exists Tdap Completed 04/12/2012 Pneumococcal series for age 65+ Completed 05/20/2016, 05/08/2015, 02/21/2009 Zoster (shingles) series for age 50+ Completed 05/10/2019, 03/01/2019, 04/12/2012 Procedures Procedure Name Priority Date/Time Associated Diagnosis Comments IRON PLUS IRON BINDING CAP Routine 02/18/2024 1:45 PM CDT Low iron stores FERRITIN Routine 02/18/2024 1:45 PM CDT Low iron stores from Last 3 Months Results * IRON PLUS IRON BINDING CAP (02/18/2024 1:45 PM CDT) IRON 86 61 - 157 ug/dL 02/18/2024 9:33 PM CDT [facility] UIBC (UNSATURATED) 192 112 - 347 ug/dL 02/18/2024 9:33 PM CDT [facility] IRON BINDING CAPACITY 278 250 - 400 ug/dL 02/18/2024 9:33 PM CDT [facility] IRON,% SATURATION 31 14 - 50 % 02/18/2024 9:33 PM CDT [facility] Blood BLOOD SPECIMEN / Unknown Venipuncture / Unknown 02/18/2024 1:45 PM CDT 02/18/2024 1:46 PM CDT Dakota Denise MD CHEMISTRY Performing Organization Address City/[facility]/ZIP Co de Phone Number [facility] [address] [place] [id number], * (ABNORMAL) FERRITIN (02/18/2024 1:45 PM CDT) FERRITIN 693.0(H) 30.0 - 400.0 ng/mL 02/18/2024 9:36 PM CDT [facility] Blood BLOOD SPECIMEN / Unknown Venipuncture / Unknown 02/18/2024 1:45 PM CDT 02/18/2024 1:46 PM CDT Dakota Denise MD CHEMISTRY [facility] [address] [place] [address], from Last 3 Months Advance Directives * Full Code (Latest Code Status on File) Date Activated Date Inactivated Comments 03/12/2023 7:53 AM 03/17/2023 4:43 PM Question Answer Comments Code Status Discussion: Reviewed Preferences * Full Code Date Activated Date Inactivated Comments 03/11/2023 11:58 AM 03/12/2023 7:53 AM Question Answer Comments Code Status Discussion: Unable to Assess Preferences, Provider to review later * Full Code Date Activated Date Inactivated Comments 03/10/2023 6:50 PM 03/11/2023 11:58 AM Question Answer Comments Code Status Discussion: Reviewed Preferences * Full Code Date Activated Date Inactivated Comments 12/18/2022 6:00 AM 12/18/2022 12:42 PM Question Answer Comments Code Status Discussion: Not Discussed * Full Code Date Activated Date Inactivated Comments 03/31/2022 12:05 PM 03/31/2022 7:48 PM Question Answer Comments Code Status Discussion: Not Discussed Care Teams Authorization Rep Relationship Specialty Start Date End Date Votel, Tuan Gonzalez MD [address] [place] [address] PCP - General 02/18/06 None . 04/08/11 [place] [id number] [address] [address] 07/20/23
--- OUTSIDE RECORDS SUMMARY | 2024-04-06 13:45 | XMS_ITS | Data Portability ---
Author Organization [place] [facility] Address [address] [place] [address] Care Team Providers Care Camera Assembler Name Role Phone URIELTELOLY [facility] [...] 03/06/2022 09:03:42 04/10/2022 04/10/2022 TOV completed today [id number] instilled into the bladder and ~250cc out. [...] CBC, BMP, urethral washings with Dr. Rodriguez [email or web address] Not available 03/31/2023 12:22:48 07/16/2023 07/16/2023 77M [...] chemotherapy; they prefer to do this in [place] if possible - refer to radiation oncology [...] early Septembe r 2022. 2022 023 [email or web address] [facility], [address], [place], [address], 3 12:39:11 BMP, serum or plasma - For early Septembe r 2022. 2022 023 prugel [facility], [address], [place], [address], 3 12:39:11 urinalys is, dipstick 2021 022 [email or web address] [facility], [address], [place], [address], 2 11:50:18 urinalys is, dipstick 2021 022 [email or web address] [facility], [address], [place], [address], 2 12:01:16 bladder cancer assay, urine - Does the patient the patient have a history of bladder cancer?: Most recent confirme d Tumor:Wa s the most recent tumor Initial or Recurren t: 2021 022 [id number] [employer], [address], [place] [address], [place], [address], 3 03:41:13 urinalys is, dipstick 2021 022 lzais [facility], [address], [place], [address], 2 11:11:37 urinalys is, dipstick 2021 022 [email or web address] [facility], [address], [place], [address], 2 11:24:34 urinalys is, dipstick 2021 022 [email or web address] Not available 2 12:17:36 urinalys is, dipstick 2021 022 [email or web address] [facility], [address], [place], [address], 2 12:42:39 urinalys is, dipstick 2021 022 [email or web address] Not available 11:47:17 urinalys is, dipstick 2021 022 [email or web address] Not available 11:41:10 urinalys is, dipstick 2021 022 Not available 2 13:30:42 cytology , urine 2021 022 [email or web address] Not available 2 04:09:53 urinalys is, dipstick 2021 022 [email or web address] Not available 2 11:29:28 cytology , urine 2021 022 [email or web address] Not available 2 05:19:10 urinalys is, dipstick 2020 021 [email or web address] [...] 15:41:36 Referral ostomy care referral 2022 023 [facility], [address] [place], [address], 3 08:00:[address] referral - consider palliati ve RT to right iliac bone 2022 023 SHUBHAM Polanco MD, [address] [place], [address], 3 14:28:[address] referral 2022 023 [email or web address] - [facility], [address] [place], [address], 3 08:57:38 Procedures None recorded . Surgeries cystosco py with bladder biopsy (SURG) 2021 022 [email or web address] Not available 3 15:18:32 cystoure throscop y, with calibrat ion and/or dilation of urethral strictur e or stenosis (SURG) 2021 022 [email or web address] Not available 2 10:05:35 transure thral resectio n of bladder tumor (SURG) 2021 022 [email or web address] Not available 14:42:06 Imaging PET-CT, skull base to mid-thig h scan - bladder cancer staging - PLEASE CONTACT PATIENT TO SCHEDULE 2022 023 [email or web address] [facility], [address] [place], [address], 3 13:57:04 CT, chest + abdomen + pelvis, w/ contrast - For early Septembe r 2022. 2022 023 [facility], [address], [place], [address], 3 12:39:17 CT, chest, w/ contrast - 100ML OMNI 300, A/P WO/W ALSO*, NO PREV [address] [facility] , [address] [place], [address], 3 09:09:19 CT, urogram - CT A/P W and WO, 100ML OMNI 300, CHEST ALSO*, NO PREV [address] [facility] , [address], [place], [address], 3 17:41:33 Medication Orders [place] BCG 50 mg intraves ical suspensi on 2021 [facility]22 [id number] [address], [address], 3 11:44:18 [place] BCG 50 mg intraves ical suspensi on 2021 022 [id number], [address], [address], 3 11:44:18 [place] BCG 50 mg intraves ical suspensi on 2021 022 [id number], [address], [address], 3 11:44:18 Heike BCG 50 mg intraves ical suspensi on 2021 022 [id number], [address], [address], 3 11:44:18 Heike BCG 50 mg intraves ical suspensi on 2021 022 [id number], [address], [address], 3 11:44:18 [place] BCG 50 mg intraves ical suspensi on 2021 022 [id number], [address], [address], 3 11:44:18 [place] BCG 50 mg intraves ical suspensi on 2020 021 [facility], [address], [address], 3 11:44:18 Heike BCG 50 mg intraves ical suspensi on [address] [id number], [address], [address], 3 11:44:18 [place] BCG 50 mg intraves ical suspensi on [address] [id number], [address], [address], 3 11:44:18 Heike BCG 50 mg intraves ical suspensi on [address] [id number], [address], [address], 3 11:44:18 [place] BCG 50 mg intraves ical suspensi on [address] [id number], [address], [address], 3 11:44:18 Heike BCG 50 mg intraves ical suspensi on [address] [id number], [address], [address], 3 11:44:18 Patient Targets Encounter Date Encounter Id Patient Goals Patient Target Last Modified By Organization Details Last Modified Time Patient will start Flomax prescriptio n. If he hasn't voided by this afternoon, must RTC to have bautista replaced. Not available 06/23/2021 12:56:11 Patient Instructions Encounter Date Encounter Id Patient Instructions Last Modified By Organization Details Last Modified Time 12/22/2022 [id number] RTC by this afternoon if unable to void. [email or web address] Not available 12/22/2022 11:09:50 06/09/2022 [id number] Call triage with any questions/concer ns. [email or web address] Not available 06/09/2022 11:39:39 06/02/2022 [id number] Call triage with any questions/concer ns. [email or web address] Not available 06/02/2022 11:29:06 05/28/2022 [id number] Call triage with any questions/concer ns. [email or web address] Not available 05/28/2022 12:43:55 05/12/2022 [id number] Call triage with any questions/concer ns. [email or web address] Not available 05/12/2022 11:41:49 04/10/2022 [id number] Pt will RTC before 230 this afternoon if unable to urinate or ED after those hours.. Will f/u with MD as directed Not available 04/10/2022 11:01:24 09/03/2021 [id number] RTC if having issues with urethral stricture. Not available 09/03/2021 15:43:14 Reason for Referral Ostomy Care Referral for Uro stomy present Referring Physician: Ana Paula Presley, Encounter Date: 07/16/2023 consider palliative RT to ri ght iliac bone Referring Physician: Ana Paula Presley, Encounter Date: 07/16/2023 Referring Physician: Ana Paula Presley, Encounter Date: 07/16/2023 Results Created Date Observation Date Name Description Value Unit Range Abnormal Flag LastModifiedBy Organization Detail LastModifiedTime 09/03/20 21 09/03/2021 urina lysis , dipst ick Nitrates-Sta tus negati ve Not Available [facility] [address], [place], [address], 09/03/2021 15:13:09 09/03/20 21 09/03/2021 urina lysis , dipst ick Blood-Status Large Not Available [facility] [address], [place], [address], 09/03/2021 15:13:09 09/03/20 21 09/03/2021 urina lysis , dipst ick Leuko-Status Negati ve Not Available [facility] [address], [place], [address], 09/03/2021 15:13:09 09/09/20 21 09/09/2021 urina lysis , dipst ick Color-Status Yellow Not Available [facility] [address], [place], [address], 09/09/2021 11:28:27 09/09/20 21 09/09/2021 urina lysis , dipst ick Clarity-Stat us Clear Not Available [facility] [address], [place], [address], 09/09/2021 11:28:27 09/09/20 21 09/09/2021 urina lysis , dipst ick Protein-Stat us >=9.0 Not Available [facility] [address], [place], [address], 09/09/2021 11:28:27 09/09/20 21 09/09/2021 urina lysis , dipst ick Nitrates-Sta tus negati ve Not Available [facility] [address], [place], [address], 09/09/2021 11:28:27 09/09/20 21 09/09/2021 urina lysis , dipst ick Blood-Status Small Not Available [facility] [address], [place], [address], 09/09/2021 11:28:27 09/09/20 21 09/09/2021 urina lysis , dipst ick Leuko-Status Trace Not Available [facility] [address], [place], [address], 09/09/2021 11:28:27 09/09/20 21 09/09/2021 urina lysis , dipst ick Specimen Type Voided Not Available [facility] [address], [place], [address], 09/09/2021 11:28:27 09/09/20 21 09/09/2021 urina lysis , dipst ick Performed by Teresa Andujar RN Not Available [facility] [address], [place], [address], 09/09/2021 11:28:27 09/09/20 21 09/09/2021 urina lysis , dipst ick Total Urine Volume 40cc Not Available [facility] [address], [place], [address], 09/09/2021 11:28:27 09/16/20 21 09/16/2021 urina lysis , dipst ick Color-Status Yellow Not Available [facility] [address], [place], [address], 09/16/2021 11:22:44 09/16/20 21 09/16/2021 urina lysis , dipst ick Clarity-Stat us Clear Not Available [facility] [address], [place], [address], 09/16/2021 11:22:44 09/16/20 21 09/16/2021 urina lysis , dipst ick Nitrates-Sta tus negati ve Not Available [facility] [address], [place], [address], 09/16/2021 11:22:44 09/16/20 21 09/16/2021 urina lysis , dipst ick Blood-Status Modera te Not Available [facility] [address], [place], [address], 09/16/2021 11:22:44 09/16/20 21 09/16/2021 urina lysis , dipst ick Leuko-Status Small Not Available [facility] [address], [place], [address], 09/16/2021 11:22:44 09/16/20 21 09/16/2021 urina lysis , dipst ick Specimen Type Voided Not Available [facility] [address], [place], [address], 09/16/2021 11:22:44 09/16/2009/16/2021 urina lysis , dipst ick Performed by Evon JOSEPH Not Available [facility] [address], [place], [address], 09/16/2021 11:22:44 09/16/20 21 09/16/2021 urina lysis , dipst ick Total Urine Volume 20cc Not Available [facility] [address], [place], [address], 09/16/2021 11:22:44 09/23/2009/23/2021 urina lysis , dipst ick Color-Status Yellow Not Available [facility] [address], [place], [address], 09/23/2021 11:24:30 09/23/20 21 09/23/2021 urina lysis , dipst ick Clarity-Stat us Clear Not Available [facility] [address], [place], [address], 09/23/2021 11:24:30 09/23/20 21 09/23/2021 urina lysis , dipst ick Nitrates-Sta tus negati ve Not Available [facility] [address], [place], [address], 09/23/2021 11:24:30 09/23/20 21 09/23/2021 urina lysis , dipst ick Blood-Status Trace Not Available [facility] [address], [place], [address], 09/23/2021 11:24:30 09/23/20 21 09/23/2021 urina lysis , dipst ick Leuko-Status Trace Not Available [facility] [employer], [place], [address], 09/23/2021 11:24:30 09/23/20 21 09/23/2021 urina lysis , dipst ick Specimen Type Voided Not Available [facility] [employer], [place], [address], 09/23/2021 11:24:30 09/23/20 21 09/23/2021 urina lysis , dipst ick Performed by Evon JOSEPH Not Available [facility] [employer], [place], [address], 09/23/2021 11:24:30 09/23/20 21 09/23/2021 urina lysis , dipst ick Total Urine Volume 20cc Not Available [facility] [employer], [place], [address], 09/23/2021 11:24:30 09/30/20 21 09/30/2021 urina lysis , dipst ick Color-Status Yellow Not Available [facility] [employer], [place], [address], 09/30/2021 11:21:07 09/30/20 21 09/30/2021 urina lysis , dipst ick Clarity-Stat us Clear Not Available [facility] [address], [place], [address], 09/30/2021 11:21:07 09/30/20 21 09/30/2021 urina lysis , dipst ick Nitrates-Sta tus negati ve Not Available [facility] [address], [place], [address], 09/30/2021 11:21:07 09/30/20 21 09/30/2021 urina lysis , dipst ick Blood-Status Modera te Not Available [facility] [address], [place], [address], 09/30/2021 11:21:07 09/30/20 21 09/30/2021 urina lysis , dipst ick Leuko-Status Trace Not Available [facility] [address], [place], [address], 09/30/2021 11:21:07 09/30/20 21 09/30/2021 urina lysis , dipst ick Specimen Type Voided Not Available [facility] [address], [place], [address], 09/30/2021 11:21:07 09/30/20 21 09/30/2021 urina lysis , dipst ick Performed by Teresa Andujar RN Not Available [facility] [address], [place], [address], 09/30/2021 11:21:07 09/30/20 21 09/30/2021 urina lysis , dipst ick Total Urine Volume 40cc Not Available [facility] [address], [place], [address], 09/30/2021 11:21:07 10/07/20 21 10/07/2021 urina lysis , dipst ick Color-Status Yellow Not Available [facility] [address], [place], [address], 10/07/2021 11:31:49 10/07/20 21 10/07/2021 urina lysis , dipst ick Clarity-Stat us Clear Not Available [facility] [address], [place], [address], 10/07/2021 11:31:49 10/07/20 21 10/07/2021 urina lysis , dipst ick Nitrates-Sta tus negati ve Not Available [facility] [address], [place], [address], 10/07/2021 11:31:49 10/07/20 21 10/07/2021 urina lysis , dipst ick Blood-Status Trace Not Available [facility] [address], [place], [address], 10/07/2021 11:31:49 10/07/20 21 10/07/2021 urina lysis , dipst ick Leuko-Status Trace Not Available [facility] [address], [place], [address], 10/07/2021 11:31:49 10/07/20 21 10/07/2021 urina lysis , dipst ick Specimen Type Voided Not Available [facility] [address], [place], [address], 10/07/2021 11:31:49 10/07/20 21 10/07/2021 urina lysis , dipst ick Performed by Teresa Andujar RN Not Available [facility] [address], [place], [address], 10/07/2021 11:31:49 10/07/20 21 10/07/2021 urina lysis , dipst ick Total Urine Volume 50cc Not Available [facility] [address], [place], [address], 10/07/2021 11:31:49 10/14/20 21 10/14/2021 urina lysis , dipst ick Color-Status Yellow Not Available [facility] [address], [place], [address], 10/14/2021 11:18:47 10/14/20 21 10/14/2021 urina lysis , dipst ick Clarity-Stat us Clear Not Available [facility] [address], [place], [address], 10/14/2021 11:18:47 10/14/20 21 10/14/2021 urina lysis , dipst ick Nitrates-Sta tus negati ve Not Available [facility] [address], [place], [address], 10/14/2021 11:18:47 10/14/20 21 10/14/2021 urina lysis , dipst ick Blood-Status Trace Not Available [facility] [address], [place], [address], 10/14/2021 11:18:47 10/14/20 21 10/14/2021 urina lysis , dipst ick Leuko-Status Small Not Available [facility] [address], [place], [address], 10/14/2021 11:18:47 10/14/20 21 10/14/2021 urina lysis , dipst ick Specimen Type Voided Not Available [facility] [address], [place], [address], 10/14/2021 11:18:47 10/14/20 21 10/14/2021 urina lysis , dipst ick Performed by Teresa Andujar RN Not Available [facility] [address], [place], [address], 10/14/2021 11:18:47 10/14/20 21 10/14/2021 urina lysis , dipst ick Total Urine Volume 40cc Not Available [facility] [address], [place], [address], 10/14/2021 11:18:47 12/01/19 22 12/01/2021 urina lysis , dipst ick Color-Status Yellow Not Available [facility] [address], [place], [address], 12/01/2021 11:27:54 12/01/19 22 12/01/2021 urina lysis , dipst ick Clarity-Stat us Clear Not Available [facility] [address], [place], [address], 12/01/2021 11:27:54 12/01/19 22 12/01/2021 urina lysis , dipst ick Glucose-Stat us Negati ve Not Available [facility] [address], [place], [address], 12/01/2021 11:27:54 12/01/19 22 12/01/2021 urina lysis , dipst ick Bilirubin-St atus Negati ve Not Available [facility] [address], [place], [address], 12/01/2021 11:27:54 12/01/19 22 12/01/2021 urina lysis , dipst ick Ketones-Stat us Negati ve Not Available [facility] [address], [place], [address], 12/01/2021 11:27:54 12/01/19 22 12/01/2021 urina lysis , dipst ick Sp [place]-Stat us 1.015 Not Available [facility] [address], [place], [address], 12/01/2021 11:27:54 12/01/19 22 12/01/2021 urina lysis , dipst ick pH-Status 7.0 Not Available [facility] [address], [place], [address], 12/01/2021 11:27:54 12/01/19 22 12/01/2021 urina lysis , dipst ick Nitrates-Sta tus negati ve Not Available [facility] [address], [place], [address], 12/01/2021 11:27:54 12/01/19 22 12/01/2021 urina lysis , dipst ick Blood-Status Trace Not Available [facility] [address], [place], [address], 12/01/2021 11:27:54 12/01/19 22 12/01/2021 urina lysis , dipst ick Leuko-Status Small Not Available [facility] [address], [place], [address], 12/01/2021 11:27:54 03/06/20 22 03/06/2022 urina lysis , dipst ick Color-Status Yellow Not Available [facility] [address], [place], [address], 03/06/2022 09:03:43 03/06/20 22 03/06/2022 urina lysis , dipst ick Clarity-Stat us Clear Not Available [facility] [address], [place], [address], 03/06/2022 09:03:43 05/12/20 22 05/12/2022 urina lysis , dipst ick Color-Status Yellow Not Available [facility] [address], [place], [address], 05/12/2022 11:38:37 05/12/20 22 05/12/2022 urina lysis , dipst ick Clarity-Stat us Clear Not Available [facility] [address], [place], [address], 05/12/2022 11:38:37 05/12/20 22 05/12/2022 urina lysis , dipst ick pH-Status 7.0 Not Available [facility] [address], [place], [address], 05/12/2022 11:38:37 05/12/20 22 05/12/2022 urina lysis , dipst ick Nitrates-Sta tus negati ve Not Available [facility] [address], [place], [address], 05/12/2022 11:38:37 05/12/20 22 05/12/2022 urina lysis , dipst ick Blood-Status Small Not Available [facility] [address], [place], [address], 05/12/2022 11:38:37 05/12/20 22 05/12/2022 urina lysis , dipst ick Leuko-Status Trace Not Available [facility] [address], [place], [address], 05/12/2022 11:38:37 05/12/20 22 05/12/2022 urina lysis , dipst ick Specimen Type Voided Not Available [facility] [address], [place], [address], 05/12/2022 11:38:37 05/12/20 22 05/12/2022 urina lysis , dipst ick Performed by Evon JOSEPH Not Available [facility] [address], [place], [address], 05/12/2022 11:38:37 05/12/20 22 05/12/2022 urina lysis , dipst ick Total Urine Volume 20cc Not Available [facility] [address], [place], [address], 05/12/2022 11:38:37 05/19/20 22 05/19/2022 urina lysis , dipst ick Color-Status Yellow Not Available [facility] [address], [place], [address], 05/19/2022 11:45:52 05/19/20 22 05/19/2022 urina lysis , dipst ick Clarity-Stat us Clear Not Available [facility] [address], [place], [address], 05/19/2022 11:45:52 05/19/20 22 05/19/2022 urina lysis , dipst ick Glucose-Stat us Negati ve Not Available [facility] [address], [place], [address], 05/19/2022 11:45:52 05/19/20 22 05/19/2022 urina lysis , dipst ick Bilirubin-St atus Negati ve Not Available [facility] [address], [place], [address], 05/19/2022 11:45:52 05/19/20 22 05/19/2022 urina lysis , dipst ick Ketones-Stat us Negati ve Not Available [facility] [address], [place], [address], 05/19/2022 11:45:52 05/19/20 22 05/19/2022 urina lysis , dipst ick Nitrates-Sta tus negati ve Not Available [facility] [address], [place], [address], 05/19/2022 11:45:52 05/19/20 22 05/19/2022 urina lysis , dipst ick Blood-Status Small Not Available [facility] [address], [place], [address], 05/19/2022 11:45:52 05/19/20 22 05/19/2022 urina lysis , dipst ick Leuko-Status Small Not Available [facility] [address], [place], [address], 05/19/2022 11:45:52 05/19/20 22 05/19/2022 urina lysis , dipst ick Specimen Type Voided Not Available [facility] [address], [place], [address], 05/19/2022 11:45:52 05/19/20 22 05/19/2022 urina lysis , dipst ick Performed by DANIEL RN Not Available [facility] [address], [place], [address], 05/19/2022 11:45:52 05/19/20 22 05/19/2022 urina lysis , dipst ick Total Urine Volume 40cc Not Available [facility] [address], [place], [address], 05/19/2022 11:45:52 05/28/20 22 05/28/2022 urina lysis , dipst ick Color-Status Yellow Not Available [facility] [address], [place], [address], 05/28/2022 12:40:38 05/28/20 22 05/28/2022 urina lysis , dipst ick Clarity-Stat us Clear Not Available [facility] [address], [place], [address], 05/28/2022 12:40:38 05/28/20 22 05/28/2022 urina lysis , dipst ick pH-Status 7.0 Not Available [facility] [address], [place], [address], 05/28/2022 12:40:38 05/28/20 22 05/28/2022 urina lysis , dipst ick Nitrates-Sta tus negati ve Not Available [facility] [address], [place], [address], 05/28/2022 12:40:38 05/28/20 22 05/28/2022 urina lysis , dipst ick Blood-Status Modera te Not Available [facility] [address], [place], [address], 05/28/2022 12:40:38 05/28/20 22 05/28/2022 urina lysis , dipst ick Leuko-Status Modera te Not Available [facility] [address], [place], [address], 05/28/2022 12:40:38 05/28/20 22 05/28/2022 urina lysis , dipst ick Specimen Type Voided Not Available [facility] [address], [place], [address], 05/28/2022 12:40:38 05/28/20 22 05/28/2022 urina lysis , dipst ick Performed by Evon JOSEPH Not Available [facility] [address], [place], [address], 05/28/2022 12:40:38 05/28/20 22 05/28/2022 urina lysis , dipst ick Total Urine Volume 20cc Not Available [facility] [address], [place], [address], 05/28/2022 12:40:38 06/09/20 22 06/09/2022 urina lysis , dipst ick Color-Status Yellow Not Available [facility] [address], [place], [address], 06/09/2022 11:12:07 06/09/20 22 06/09/2022 urina lysis , dipst ick Clarity-Stat us Slight ly Cloudy Not Available [facility] [address], [place], [address], 06/09/2022 11:12:07 06/09/20 22 06/09/2022 urina lysis , dipst ick Nitrates-Sta tus negati ve Not Available [facility] [address], [place], [address], 06/09/2022 11:12:07 06/09/20 22 06/09/2022 urina lysis , dipst ick Blood-Status Trace Not Available [facility] [address], [place], [address], 06/09/2022 11:12:07 06/09/20 22 06/09/2022 urina lysis , dipst ick Leuko-Status Small Not Available [facility] [address], [place], [address], 06/09/2022 11:12:07 06/09/20 22 06/09/2022 urina lysis , dipst ick Specimen Type Cathet erized Not Available [facility] [address], [place], [address], 06/09/2022 11:12:07 06/09/20 22 06/09/2022 urina lysis , dipst ick Performed by Evon JOSEPH Not Available [facility] [address], [place], [address], 06/09/2022 11:12:07 06/09/20 22 06/09/2022 urina lysis , dipst ick Total Urine Volume 20cc Not Available [facility] [address], [place], [address], 06/09/2022 11:12:07 06/16/20 22 06/16/2022 urina lysis , dipst ick Color-Status Yellow Not Available [facility] [address], [place], [address], 06/16/2022 11:10:26 06/16/20 22 06/16/2022 urina lysis , dipst ick Clarity-Stat us Clear Not Available [facility] [address], [place], [address], 06/16/2022 11:10:26 06/16/20 22 06/16/2022 urina lysis , dipst ick Nitrates-Sta tus negati ve Not Available [facility] [address], [place], [address], 06/16/2022 11:10:26 06/16/20 22 06/16/2022 urina lysis , dipst ick Blood-Status Trace Not Available [facility] [address], [place], [address], 06/16/2022 11:10:26 06/16/20 22 06/16/2022 urina lysis , dipst ick Leuko-Status Modera te Not Available [facility] [address], [place], [address], 06/16/2022 11:10:26 06/16/20 22 06/16/2022 urina lysis , dipst ick Specimen Type Voided Not Available [facility] [address], [place], [address], 06/16/2022 11:10:26 06/16/20 22 06/16/2022 urina lysis , dipst ick Performed by DANIEL RN Not Available [facility] [address], [place], [address], 06/16/2022 11:10:26 06/16/20 22 06/16/2022 urina lysis , dipst ick Total Urine Volume 40cc Not Available [facility] [address], [place], [address], 06/16/2022 11:10:26 07/30/20 22 07/30/2022 urina lysis , dipst ick pH-Status 6.5 Not Available [facility] [address], [place], [address], 07/30/2022 12:00:49 07/30/20 22 07/30/2022 urina lysis , dipst ick Nitrates-Sta tus negati ve Not Available [facility] [address], [place], [address], 07/30/2022 12:00:49 07/30/20 22 07/30/2022 urina lysis , dipst ick Blood-Status Large Not Available [facility] [address], [place], [address], 07/30/2022 12:00:49 07/30/20 22 07/30/2022 urina lysis , dipst ick Leuko-Status Small Not Available [facility] [address], [place], [address], 07/30/2022 12:00:49 07/30/20 22 07/30/2022 urina lysis , dipst ick Specimen Type Voided Not Available [facility] [address], [place], [address], 07/30/2022 12:00:49 10/21/20 22 10/21/2022 urina lysis , dipst ick Color-Status Red Not Available [facility] [address], [place], [address], 10/21/2022 11:46:10 10/21/20 10/21/2022 urina lysis , dipst ick Clarity-Stat us Slight ly Cloudy Not Available [facility] [address], [place], [address], 10/21/2022 11:46:10 10/21/20 22 10/21/2022 urina lysis , dipst ick pH-Status 7.0 Not Available [facility] [address], [place], [address], 10/21/2022 11:46:10 10/21/20 22 10/21/2022 urina lysis , dipst ick Protein-Stat us >=9.0 Not Available [facility] [address], [place], [address], 10/21/2022 11:46:10 10/21/20 22 10/21/2022 urina lysis , dipst ick Nitrates-Sta tus negati ve Not Available [facility] [address], [place], [address], 10/21/2022 11:46:10 10/21/20 22 10/21/2022 urina lysis , dipst ick Blood-Status Large Not Available [facility] [address], [place], [address], 10/21/2022 11:46:10 10/21/20 22 10/21/2022 urina lysis , dipst ick Leuko-Status Negati ve Not Available [facility] [address], [place], [address], 10/21/2022 11:46:10 10/21/20 22 10/21/2022 urina lysis , dipst ick Specimen Type Voided Not Available [facility] [address], [place], [address], 10/21/2022 11:46:10 06/23/20 21 06/23/2021 bladd er scan (PROC ) No observ ation record ed. Not Available 08/04/2021 13:29:30 02/11/20 23 02/10/2023 CT, urogr am EXAM: CT, UROGRA M LOCATI ON: [facility] DATE/T SANNA: 023 9:00 [...] al subple ural scarri ng. Solid nodule precision dancer olater al right upper lobe is 0.5 cm series 10 image 25. Ill-de fined irregu lar nodule precision dancer ior right lower lobe is 0.7 cm [...] Abdullahi Russell MD on 2022 at 16:39 [email or web address] [facility] [address] [place], [address], 02/22/2023 10:55:05 07/12/20 23 07/12/2023 CT, chest + abdom en + pelvi s, w/ contr ast No observ ation record ed. [email or web address] [facility] [address] [place], [address], 07/15/2023 14:57:07 Result Notes Documentation Provider Name and Address Organization Details Recorded Time Ct, Urogram : EXAM: CT, UROGRAM LOCATION: [facility] DATE/TIME: 02/10/2023 9:00 AM CDT INDICATION: Malignant [...] MD on 02/10/2023 at 16:39 Halina Delcid [facility] 02/22/2023 10:55:05 Problems Name Status Onset Date Resolution Date Notes Provider Name and Address Organization Details Recorded Time Malignant tumor of urinary bladder Active 1 Teresa Andujar [facility], [facility] 09/09/2021 11:25:57 Retention of urine Active 2 Grazyna Flores [facility] 04/03/2022 11:44:20 Problem Notes None recorded. Procedures Surgical History Date Name Laterality Status Provider Name and Address Organization Details Recorded Time 02/05/20 23 Fill and Pull/Voiding Trial/TOV completed Jean alvarez MD, PHD [address] [place] [address],[address], [address], [facility] 02/04/2023 10:14:03 12/22/19 23 Fill and Pull/Voiding Trial/TOV completed Violette Weaver [facility] 12/22/2022 11:09:14 10/21/20 22 Cystoscopy- male completed Jose More MD [address] [place] [address],[address] [place] [address], [address], [facility] 10/21/2022 13:46:42 07/30/20 22 Cystoscopy- male completed Jose More MD [address] [place] [address],[address], [place], [address], [facility] 07/30/2022 13:10:19 06/16/20 22 BCG Full Dose Tx 50mg completed Teresa Andujar [facility] 06/16/2022 11:10:22 06/09/20 22 BCG Full Dose Tx 50mg completed Evon Presley [facility] 06/09/2022 11:40:10 06/02/20 22 BCG Full Dose Tx 50mg completed Evon Presley null, [facility] 06/02/2022 11:26:18 05/28/20 22 BCG Full Dose Tx 50mg completed Evon Presley null, [facility] 05/28/2022 12:40:35 05/19/20 22 BCG Full Dose Tx 50mg completed Teresa Andujar null, [facility] 05/19/2022 11:45:49 05/12/20 22 BCG Full Dose Tx 50mg completed Evon Presley null, [facility] 05/12/2022 11:38:30 04/10/20 22 Fill and Pull/Voiding Trial/TOV completed Mary Jane Malik null, [facility] 04/10/2022 11:14:06 04/03/20 22 Bautista Catheter Insertion completed Grazyna Flores null, [facility] 04/03/2022 11:45:37 04/03/20 22 Bladder Scan completed Grazyna milton, [facility] 04/03/2022 11:44:29 03/06/20 22 Cystoscopy- male completed Jose More MD [address] [place] [address],[address], [address], [facility] 03/06/2022 13:28:52 12/01/19 22 Cystoscopy- male completed Jose More MD [address] [place] [address],[address], [place], [address], [facility] 12/01/2021 12:02:06 12/01/19 22 Urethral Dilation-initial male completed Jose More MD [address] [place] [address],[address], [place], [address], [facility] 12/01/2021 12:04:27 12/01/19 22 Cytology completed Nadia Mendez null, [facility] 12/01/2021 11:55:49 10/14/20 21 BCG Full Dose Tx 50mg completed Teresa Andujar null, [facility] 10/14/2021 11:18:44 10/07/20 21 BCG Full Dose Tx 50mg completed Teresa Andujar null, [facility] 10/07/2021 11:31:46 09/30/20 21 BCG Full Dose Tx 50mg completed Teresa Andujar null, [facility] 09/30/2021 11:21:04 09/23/20 21 BCG Full Dose Tx 50mg completed Evon Presley null, [facility] 09/23/2021 11:24:26 09/16/20 21 BCG Full Dose Tx 50mg completed Evon Presley null, [facility] 09/16/2021 11:22:40 09/09/20 21 BCG Full Dose Tx 50mg completed Teresa Andujar null, [facility] 09/09/2021 11:28:03 09/03/20 21 Urethral Dilation-initial male completed Malaika milton, [facility] 09/03/2021 15:42:54 08/04/20 21 Fill and Pull/Voiding Trial/TOV completed Jose More MD [address] [facility],[address], [place], [address], [facility] 08/04/2021 13:31:48 07/31/20 21 CYSTOSCOPY WITH BLADDER BIOPSY (SURG) completed Jose More MD [address] [place] [address],[address], [place], [address], [facility] 08/04/2021 13:29:31 06/23/20 21 [facility] 14:14:01 06/23/20 21 [facility] 12:55:23 Appendectomy completed Nadia Mendez null, [facility] 08/04/2021 13:07:54 Orthopedic Surgery completed Nadia Mendez null, [facility] 08/04/2021 13:08:04 Hernia Repair completed Nadia milton, [facility] 08/04/2021 13:08:09 Imaging Results Imaging Date Name Status LastModified by Organiz ation Details LastModified Time 06/23/2021 bladder scan (PROC) completed Information not available 08/04/2021 13:29:30 02/10/2023 CT, urogram completed [email or web address] [facility] [address] [place], [address], 02/22/2023 10:55:05 07/12/2023 CT, chest + abdomen + pelvis, w/ contrast completed [facility] [address] [place], [address], 07/15/2023 14:57:07 Procedure Notes None recorded. Medical Equipment None Reported. Allergies Allergen ID Allergen Name Allergen Category Reaction Reaction Severity Criticality Documentation Date Start Date Code Code System Note Provider Name and Address Organization Details Recorded Time 926034 Medicinal product containin g penicilli n and acting as antibacte rial agent (product) medicatio n Not available Not available Not available 08/04/2021 53555 05 SNOMED Nadia Vanessa [facility] 1 13:05:37 151224 naproxen medicatio n rash moderate high 04/16/2022 7258 RxNorm Sheng Clark [facility] 2 16:49:46 Medications Name Sig Start Date [...] Updated DateTime 07/09/2022 176.53 cm 26.9 kg/m2 77237.59 g Violette Weaver [facility] 07/09/2022 11:41:11 Date Recorded Body height Body mass index (BMI) Body weight Provider Name and Address Organization Details Last Updated DateTime 07/30/2022 176.53 cm 26.9 kg/m2 55791.59 g Violette Weaver [facility] 07/30/2022 11:49:34 Date Recorded Body height Body mass index (BMI) Body weight Provider Name and Address Organization Details Last Updated DateTime 10/21/2022 176.53 cm 26.9 kg/m2 15996.59 g Violette Weaver [facility] 10/21/2022 11:42:58 Date Recorded Body height Body mass index (BMI) Body weight Provider Name and Address Organization Details Last Updated DateTime 01/04/2023 176.53 cm 26.9 kg/m2 37870.59 g Violette Weaver [facility] 01/04/2023 11:40:42 Date Recorded Body height Body mass index (BMI) Body weight Provider Name and Address Organization Details Last Updated DateTime 02/04/2023 176.53 cm 26.9 kg/m2 46907.59 g Janine Foreman [facility] 02/04/2023 09:27:32 Date Recorded Body height Body mass index (BMI) Body weight Provider Name and Address Organization Details Last Updated DateTime 03/31/2023 176.53 cm 26.9 kg/m2 10943.59 g Elizabeth Worley [facility] 03/31/2023 10:26:36 Date Recorded Body height Body mass index (BMI) Body weight Provider Name and Address Organization Details Last Updated DateTime 07/16/2023 176.53 cm 24.6 kg/m2 26771.11 g Jean alvarez MD, PHD [address], [address], [facility] 07/16/2023 13:01:17 Date Recorded Body height Body mass index (BMI) Body weight Provider Name and Address Organization Details Last Updated DateTime 08/04/2021 176.53 cm 26.9 kg/m2 78339.59 g Nadia Mendez [facility] 08/04/2021 13:05:27 Date Recorded Body height Body mass index (BMI) Body weight Provider Name and Address Organization Details Last Updated DateTime 12/01/2021 176.53 cm 26.9 kg/m2 65209.59 g Sheng Clark [facility] 12/01/2021 11:26:13 Date Recorded Body height Body mass index (BMI) Body weight Provider Name and Address Organization Details Last Updated DateTime 03/06/2022 176.53 cm 26.9 kg/m2 86865.59 g Alex Bruno [facility] 03/06/2022 11:53:23 Date Recorded Body height Body mass index (BMI) Body weight Provider Name and Address Organization Details Last Updated DateTime 04/16/2022 176.53 cm 26.9 kg/m2 96497.59 g Sheng Clark [facility] 04/16/2022 16:48:30 Social History Question Answer Notes LastModified by Organizat ion Details LastModified Time Tobacco Smoking Status Former Smoker Nadia Vanessa milton [facility] 08/04/2021 13:07:38 What Is Your Level Of Alcohol Consumption? Occasional Information not available 08/04/2021 What Is Your Level Of Caffeine Consumption? Occasional Information not available 08/04/2021 Are You Currently Employed? No Information not available 12/01/2021 When Did You Quit Smoking? 16+yearssincel astciyariette Information not available 08/04/2021 Ethnicity Not /Latin o Information not available 08/04/2021 Preferred Language Setswana Information not available 08/04/2021 Recreational Drug Use [...] Mater nal Cousin Medical History Condition Response GERD/Acid Reflux Y Bleeding Disorder N High Blood Pressure Y Cancer Y Kidney Stones Y High Cholesterol Y Immunizations Vaccine Type Date Status Provider Name and Address Organization Details Recorded Time pneumococcal polysaccharide PPV23 02/21/2009 completed Violette Owen null, [facility] 07/09/2022 11:41:32 COVID-19, mRNA, LNP-S, PF, 30 mcg/0.3 mL dose 08/01/2021 completed Violette Stromquist null, [facility] 07/09/2022 11:41:32 COVID-19, mRNA, LNP-S, PF, 30 mcg/0.3 mL dose 12/11/2020 completed Violette Veroniquequist null, [facility] 07/09/2022 11:41:32 Pneumococcal conjugate PCV 13 05/08/2015 completed Violette Piperquist null, [facility] 07/09/2022 11:41:32 COVID-19, mRNA, LNP-S, PF, 30 mcg/0.3 mL dose 01/01/2021 completed Violette Weaver null, [facility] 07/09/2022 11:41:32 pneumococcal polysaccharide PPV23 05/20/2016 completed Violette Weaver null, [facility] 07/09/2022 11:41:32 Influenza, adjuvanted, trivalent, PF 07/13/2017 [facility] 14:59:32 Influenza, recombinant, quadrivalent, PF 08/10/2019 [facility] 14:59:32 zoster recombinant 03/01/2019 [facility] 14:59:32 zoster recombinant 05/10/2019 [facility] 14:59:32 Influenza, high-dose, quadrivalent, PF 08/26/2020 [facility] 14:59:32 Influenza, adjuvanted, quadrivalent, PF 07/10/2021 [facility] 14:59:32 Tdap 04/12/2012 [facility] 14:59:32 Novel [id number], all formulations 09/11/2009 [facility] 14:59:32 zoster live 04/12/2012 [facility] 14:59:32 Influenza, high-dose, trivalent, PF 08/01/2015 [facility] 14:59:32 Influenza, high-dose, trivalent, PF 08/09/2014 [facility] 14:59:32 Influenza, high-dose, trivalent, PF 08/27/2016 [facility] 14:59:32 Influenza, split virus, trivalent, preservative 07/10/2009 [facility] 14:59:32 Influenza, split virus, trivalent, preservative 07/12/2013 [facility] 14:59:32 Influenza, split virus, trivalent, preservative 07/23/2012 [facility] 14:59:32 Influenza, split virus, trivalent, preservative 07/28/2010 [facility] 14:59:32 Influenza, split virus, trivalent, preservative 08/04/2011 [facility] 14:59:32 Influenza, split virus, trivalent, preservative 09/23/2005 [facility] 14:59:32 Td (adult), 2 Lf tetanus toxoid, preservative free, adsorbed 07/17/2004 [facility] 14:59:32 Influenza, split virus, quadrivalent, PF 08/30/2018 completed Dana milton [facility] 08/30/2023 14:59:32 Influenza, high-dose, quadrivalent, PF 08/07/2022 completed Dana milton [facility] 08/30/2023 15:01:51 COVID-19, mRNA, LNP-S, PF, 30 mcg/0.3 mL dose, sarah-sucrose 04/28/2022 completed Dana milton [facility] 08/30/2023 15:01:02 COVID-19, mRNA, LNP-S, bivalent, PF, 30 mcg/0.3 mL dose 08/07/2022 completed Dana milton [facility] 08/30/2023 15:01:51 Past Encounters Encounter ID Performer Location Encounter Start Date Encounter Closed Date Diagnosis/Indication Diagnosis SNOMED-CT Code [id number] Malaikasaul [facility] [address] [place] [id number] 06/23/2021 12:12:46 06/24/2021 15:38:38 Retention of urine [id number] MD KRISH [facility] [address] [place] [id number] 08/04/2021 12:08:14 08/08/2021 09:52:43 Malignant tumor of urinary bladder 577957475 [id number] Malaika [facility] [address] [place] [id number] 09/03/2021 15:05:16 09/08/2021 11:00:22 Urinary tract infectious disease 71062103 Urethral stricture 54967 002 [id number] MD KRISH [facility] [address] [place] [id number] 09/09/2021 10:26:41 09/11/2021 14:42:50 Malignant tumor of urinary bladder 978390186 [id number] Evon Presley [facility] [address] [place] [id number] 09/16/2021 10:42:44 09/17/2021 14:16:41 Malignant tumor of urinary bladder 833181322 [id number] Evon Presley [facility] [address] [place] [address] 09/23/2021 10:44:52 09/29/2021 10:46:51 Malignant tumor of urinary bladder [id number] Teresa Andujar [facility] [address] [place] [id number] 09/30/2021 10:37:37 10/07/2021 10:26:46 Malignant tumor of urinary bladder [id number] Teresa Andujar [facility] [address] [place] [id number] 10/07/2021 11:03:54 10/15/2021 10:37:13 Malignant tumor of urinary bladder 531401499 [id number] MD KRISH [facility] [address] [place] [id number] 10/14/2021 10:35:10 10/20/2021 12:14:53 Malignant tumor of urinary bladder 681649654 [id number] MD KRISH [facility] [address] [place] [id number] 12/01/2021 11:11:34 12/03/2021 08:44:38 Malignant tumor of urinary bladder 591570993 Male ureth ral stricture [id number] 09 [id number] Jose More MD [facility] [address] [place] [id number] 03/06/2022 11:44:16 03/09/2022 13:22:50 Malignant tumor of urinary bladder 683484828 Male ureth ral stricture 546312610099335 09 [id number] Jose More MD [facility] [address] [place] [id number] 04/03/2022 10:15:13 04/06/2022 13:28:39 Retention of urine 900552302 [id number] Mary Jane Malik [facility] [address] [place] [id number] 04/10/2022 10:41:20 04/15/2022 13:43:17 Malignant tumor of urinary bladder [id number] Jose More MD [facility] [address] [place] [id number] 04/16/2022 16:42:19 04/20/2022 09:07:47 Malignant tumor of urinary bladder 271388202 Male ureth ral stricture 040386700778312 09 [id number] Evon Presley [facility] [address] [place] [id number] 05/12/2022 10:41:13 05/13/2022 09:43:25 Malignant tumor of urinary bladder [id number] Teresa Andujar [facility] [address] [place] [id number] 05/19/2022 10:44:29 05/20/2022 12:08:08 Malignant tumor of urinary bladder 515314647 [id number] Evon Presley [facility] [address] [place] [id number] 05/28/2022 11:59:30 06/01/2022 08:56:38 Malignant tumor of urinary bladder 539570636 [id number] Evon Presley [facility] [address] [place] [id number] 06/02/2022 10:46:42 06/08/2022 15:24:13 Malignant tumor of urinary bladder [id number] Evon Presley [facility] [address] [place] [id number] 06/09/2022 10:45:40 06/12/2022 11:22:43 Malignant tumor of urinary bladder [id number] Teresa Andujar [facility] [address] [place] [id number] 06/16/2022 10:43:36 06/17/2022 11:06:41 Malignant tumor of urinary bladder 646811051 [id number] Jose More MD [facility] [address] [place] [id number] 07/09/2022 11:24:15 07/15/2022 10:34:30 Malignant tumor of urinary bladder [id number] Male ureth ral stricture 105073220966715 09 [id number] Jose More MD [facility] [employer] [address] [place] [id number] 07/30/2022 11:46:51 08/03/2022 09:28:41 Malignant tumor of urinary bladder [id number] Male ureth ral stricture 825544443988155 09 [id number] Kallie Dalal [facility] [address] [place] [id number] 10/21/2022 11:06:43 10/23/2022 11:32:57 Malignant tumor of urinary bladder 073769958 Male ureth ral stricture 392617390692981 09 [id number] [facility] [employer] [address] [place] [id number] 12/22/2022 10:47:13 12/25/2022 11:50:03 Male urethral stricture [id number] 09 [id number] Jose More MD [facility] [employer] [address] [place] [id number] 01/04/2023 11:32:27 01/08/2023 12:15:12 Malignant tumor of urinary bladder 319761478 Male ureth ral stricture [id number] 09 [id number] Jean lunsford MD, PHD [facility] [employer] [address] [place] [id number] 02/04/2023 09:13:39 02/09/2023 18:39:12 Malignant tumor of urinary bladder [id number] Malaika Ernandez [facility]-C [facility] [employer] [address] [place], [place] [id number] 03/31/2023 10:21:37 04/02/2023 16:50:24 Malignant tumor of urinary bladder [id number] Urostomy present 9723149 [id number] Jean [facility]unsford MD, PHD [facility] [employer] [address] [place] [id number] 07/16/2023 12:27:33 07/22/2023 10:54:33 Malignant tumor of urinary bladder [id number] Urostomy present 7108805 04 Health Concerns Section Related Observation LastModified by Organization Detai ls LastModified Time None Recorded Concern Status LastModified by Organization Details LastModified Time None Recorded Advance Directives Directive None Recorded Payers Encounter Date Sequence Insurance Name Policy Number Policy Preciado Covered Member ID Preciado Member ID Guarantor Name 07/16/2023 1 [employer] (MEDICARE REPLACEMENT/A DVANTAGE - PPO) Med D Marianne [id number] Med Carlos Marianne 03/31/2023 1 [employer] (MEDICARE REPLACEMENT/A DVANTAGE - PPO) Med D Marianne [id number] Med Carlos Marianne 02/04/2023 1 [employer] (MEDICARE REPLACEMENT/A DVANTAGE - PPO) Med D Marianne [id number] Med Carlos Marianne 01/04/2023 1 [employer] (MEDICARE REPLACEMENT/A DVANTAGE - PPO) Med D Marianne [id number] Med Carlos Marianne 12/22/2022 1 [employer] (MEDICARE REPLACEMENT/A DVANTAGE - PPO) Med D Marianne [id number] Med Carlos Marianne 10/21/2022 1 [employer] (MEDICARE REPLACEMENT/A DVANTAGE - PPO) Med D Marianne [id number] Med Carlos Marianne 07/30/2022 1 [employer] (MEDICARE REPLACEMENT/A DVANTAGE - PPO) Med D Marianne [id number] Med Carlos Marianne 07/09/2022 1 [employer] (MEDICARE REPLACEMENT/A DVANTAGE - PPO) Med D Marianne [id number] Med Carlos Marianne 06/16/2022 1 [employer] (MEDICARE REPLACEMENT/A DVANTAGE - PPO) Med D Marianne [id number] Med Carlos Marianne 06/09/2022 1 [employer] (MEDICARE REPLACEMENT/A DVANTAGE - PPO) Med D Marianne [id number] Med Carlos Marianne 06/02/2022 1 [employer] (MEDICARE REPLACEMENT/A DVANTAGE - PPO) Med D Marianne [id number] Med Carlos Marianne 05/28/2022 1 [employer] (MEDICARE REPLACEMENT/A DVANTAGE - PPO) Med D Marianne [id number] Med Carlos Marianne 05/19/2022 1 [employer] (MEDICARE REPLACEMENT/A DVANTAGE - PPO) Med D Marianne [id number] Med Carlos Marianne 05/12/2022 1 [employer] (MEDICARE REPLACEMENT/A DVANTAGE - PPO) Med D Marianne [id number] Med Carlos Marianne 04/16/2022 1 [employer] (MEDICARE REPLACEMENT/A DVANTAGE - PPO) Med D Marianne [id number] Med Carlos Marianne 04/10/2022 1 [employer] (MEDICARE REPLACEMENT/A DVANTAGE - PPO) Med D Marianne [id number] Med Carlos Marianne 04/03/2022 1 [employer] (MEDICARE REPLACEMENT/A DVANTAGE - PPO) Med D Marianne [id number] Med Carlos Marianne 03/06/2022 1 [employer] (MEDICARE REPLACEMENT/A DVANTAGE - PPO) Med D Marianne [id number] Med Carlos Marianne 12/01/2021 1 [employer] (MEDICARE REPLACEMENT/A DVANTAGE - PPO) Med D Marianne [id number] Med Carlos Marianne 10/14/2021 1 [employer] (MEDICARE REPLACEMENT/A DVANTAGE - PPO) Med D Marianne [id number] Med Carlos Marianne 10/07/2021 1 [employer] (MEDICARE REPLACEMENT/A DVANTAGE - PPO) Med D Marianne [id number] Med Carlos Marianne 09/30/2021 1 [employer] (MEDICARE REPLACEMENT/A DVANTAGE - PPO) Med D Marianne [id number] Med Carlos Marianne 09/23/2021 1 [employer] (MEDICARE REPLACEMENT/A DVANTAGE - PPO) Med D Marianne [id number] Emd Carlos Marianne 09/16/2021 1 [employer] (MEDICARE REPLACEMENT/A DVANTAGE - PPO) Med D Marianne [id number] Med Carlos Marianne 09/09/2021 1 [employer] (MEDICARE REPLACEMENT/A DVANTAGE - PPO) Med D Marianne [id number] Med Carlos Marianne 09/03/2021 1 [employer] (MEDICARE REPLACEMENT/A DVANTAGE - PPO) Med Humera [facility] [id number] Med [facility] 08/04/2021 1 [employer] (MEDICARE REPLACEMENT/A DVANTAGE - PPO) Med Humera [facility] [id number] Med Lopes 06/23/2021 1 [employer] (MEDICARE REPLACEMENT/A DVANTAGE - PPO) Med [facility] Lopes [id number] Med [facility] Notes Date Note Type Note Provider Name and Address Organization Details Recorded Time 08/04/2021 text/html HPI Notes: 75 yo M who follows with tx in [place] for hematuria. Found to have bladder tumors on in-office cystoscopy. Underwent TURBT in [place] but insufficient muscularis. Now s/p re-resection with path confirming non-invasive HG UCC. Here for catheter removal. Jose More MD [address] [place] [address],[address], [place], [address], [facility] 08/04/2021 13:32:40 12/01/2021 text/html HPI Notes: 75 yo M who follows with tx in [place] for hematuria. Found to have bladder tumors on in-office cystoscopy. Underwent TURBT in [place] but insufficient muscularis. Now s/p re-resection with path confirming non-invasive HG UCC. Here for catheter removal. 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 Planned cystoscopy today. Seen today with his who provides some of the history. Jose More MD [address] [place] [address],[address], [place], [address], [facility] 12/01/2021 12:05:42 03/06/2022 text/html HPI Notes: 75 yo M who follows with tx in [place] for hematuria. Found to have bladder tumors on in-office cystoscopy. Underwent TURBT in [place] but insufficient muscularis. Now s/p re-resection with path confirming non-invasive HG UCC. Here for catheter removal. 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 Planned cystoscopy today. Seen today with his who provides some of the history. 03/06/2022: Here for follow up HG T1 Bladder Cancer, now s/p induction BCG. Planned cystoscopy today. Jose More MD [address] [facility],[address], [place], [address], [facility] 03/06/2022 13:31:17 04/10/2022 text/html HPI Notes: 76YOM here for TOV he is s/p BTR with Dr. more on 03/31/22. Mary Jane milton [facility] 04/10/2022 11:14:40 04/16/2022 text/html HPI Notes: 75 yo M who follows with tx in [place] for hematuria. Found to have bladder tumors on in-office cystoscopy. Underwent TURBT in [place] but insufficient muscularis. Now s/p re-resection with [...] provides some history. Jose More MD [address] [facility],[address], [place], [address], [facility] 04/16/2022 17:37:04 05/12/2022 text/html HPI Notes: 75 yo M who follows with me in [place] for hematuria. Found to have bladder tumors on in-office cystoscopy. Underwent TURBT in [place] but insufficient muscularis. Now s/p re-resection with [...] today for re-induction BCG #1/6 Evon milton [facility] 05/12/2022 11:42:02 05/19/2022 text/html HPI Notes: 75 yo M who follows with tx in [place] for hematuria. Found to have bladder tumors on in-office cystoscopy. Underwent TURBT in [place] but insufficient muscularis. Now s/p re-resection with [...] arrived today for re-induction BCG #2/6 Teresa milton [facility] 05/19/2022 11:47:55 05/28/2022 text/html HPI Notes: 75 yo M who follows with me in [place] for hematuria. Found to have bladder tumors on in-office cystoscopy. Underwent TURBT in [place] but insufficient muscularis. Now s/p re-resection with [...] Patient arrived today for re-induction BCG #3/6 YASSINE Horn [facility] 05/28/2022 12:44:01 06/02/2022 text/html HPI Notes: 75 yo M who follows with me in [place] for hematuria. Found to have bladder tumors on in-office cystoscopy. Underwent TURBT in [place] but insufficient muscularis. Now s/p re-resection with [...] arrived today for re-induction BCG #4/6 Evon milton [facility] 06/03/2022 12:18:00 06/09/2022 text/html HPI Notes: 75 yo M who follows with me in [place] for hematuria. Found to have bladder tumors on in-office cystoscopy. Underwent TURBT in [place] but insufficient muscularis. Now s/p re-resection with [...] for re-induction BCG #5/6 Evon Fernandez milton [facility] 06/09/2022 11:40:24 06/16/2022 text/html HPI Notes: 75 yo M who follows with tx in [place] for hematuria. Found to have bladder tumors on in-office cystoscopy. Underwent TURBT in [place] but insufficient muscularis. Now s/p re-resection with [...] clinic for 6th re-induction BCG treatment. Teresa milton [facility] 06/16/2022 11:12:17 07/09/2022 text/html HPI Notes: 76 yo M who follows with tx in [place] for hematuria. Found to have bladder tumors on in-office cystoscopy. Underwent TURBT in [place] but insufficient muscularis. Now s/p re-resection with [...] induction course of BCG. Jose More MD [address] [facility],[address], [place], [address], [facility] 07/09/2022 13:39:17 07/30/2022 text/html HPI Notes: 76 yo M who follows with tx in [place] for hematuria. Found to have bladder tumors on in-office cystoscopy. Underwent TURBT in [place] but insufficient muscularis. Now s/p re-resection with [...] for surveillance cystoscopy. Jose More MD [address] [facility],[address], [place], [address], [facility] 07/30/2022 13:11:12 10/21/2022 text/html HPI Notes: 76 yo M who follows with tx in [place] for hematuria. Found to have bladder tumors on in-office cystoscopy. Underwent TURBT in [place] but insufficient muscularis. Now s/p re-resection with [...] of the history. Jose More MD [address] [facility],[address], [place], [address], [facility] 10/21/2022 13:49:25 01/04/2023 text/html HPI Notes: 77 yo M who follows with me in [place] for hematuria. Found to have bladder tumors on in-office cystoscopy. Underwent TURBT in [place] but insufficient muscularis. Now s/p re-resection with [...] provides some the history. 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 Here with Sanjuanita. Fossa navicularis stricture. Recent admit @ [place] for clot retention. Urine clear x 2 weeks. 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 EtOH: rare FamHx: Lung ca- mother Jean Rodriguez MD, PHD [address] [facility],[address], [place], [address], [facility] 02/04/2023 10:14:06 03/31/2023 text/html HPI Notes: 77M s /p RC/IC on 03/11/23 for pT2bN0 cancer of bladder (-SMS, -LVI, 0/ LN) and pT1N0 cancer of prostatic urethra [...] PSH: Appy, IHR 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
--- NOTE | 2024-04-06 14:00 | PE_ITS ---
[address] [address] Phone:?[phone] Fax:?[phone] Referring Physician Information: Brittany Willson N.P. [address] [facility] [address] Phone:?[phone] Fax:?[phone] Patient:Gene Lopes D.O.B:?1945 Sex:?Male Phone:?[phone] [facility] MRN:?[id number] Exam Date:?04/06/2024 EXAM: PET/CT EYES TO THIGHS, CANCER RESTAGING CLINICAL INFORMATION: Bladder cancer, restaging. TECHNICAL INFORMATION: Helical acquisition of data was obtained from the orbits to the upper thighs with reconstruction of 3.75 mm thick images at 3.[address] data was used for attenuation correction. PET scanning was performed through the same anatomic range 60 minutes following administration of 13.62 mCi of 18-FDG delivered intravenously. The patient's glucose at the time of the injection was 94 mg/dL. PET, CT and PET/CT fusion images are interpreted using a computer viewing workstation. PET, CT and PET/CT fusion images were archived and saved in the patient's permanent medical record. COMPARISON: PET-CTs from 12/02/2023 and 08/26/2023. INTERPRETATION: Head and Neck: There are no abnormal hypermetabolic foci within the head or neck. There is physiologic uptake in the intracranial soft tissues. Chest: Previously indexed metastasis in the right upper lobe (Se 2 Im 83) now measures 0.8 x 0.6 cm with maximum SUV of 1.49, previously 1.64 (December 2023) and 16.73 (August 2023). There are no definite present correlates for the hypermetabolic right lower lobe metastases seen on the prior exam. There are no new, enlarging, or increasingly hypermetabolic lesion within the chest. Stable hypermetabolism along the left ventricular outflow tract is thought to be physiologic. Background mediastinal blood pool uptake has a maximum SUV of 1.79. Abdomen and Pelvis: There are no abnormal hypermetabolic foci within the abdomen or pelvis. Background hepatic parenchymal uptake has a maximum SUV of 2.6. There is physiologic excretion of radiotracer in the urine and bowel. As before, the patient is status post cystectomy and ileal diversion with stable and expected appearance. 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 No new, enlarging, or increasingly hypermetabolic skeletal lesions identified. CONCLUSION: Stable exam, with only low-level FDG uptake within the patient's known pulmonary and skeletal metastases. No new, enlarging, or increasingly hypermetabolic lesions are identified. Electronically signed on 04/07/2024 12:48:00 PM by Addison Kim M.D.
== END 2024-04-06 13:42 | disposition home or self-care (01) ==
LOC: RAD 13:42
PROVIDERS: PCP Family Medicine; Visit Provider Nurse Practitioner Adult Health
DX: C67.8 Malignant neoplasm of overlapping sites of bladder (principal)
CPT/HCPCS: 78815; A9552

== ENCOUNTER 2024-06-06 20:54 | Outpatient (CLI) | payer MEDICARE, SELFPAY ==
--- OUTSIDE RECORDS SUMMARY | 2024-06-06 20:58 | XMS_ITS | Clinical Summary ---
Author Organization [employer] [facility] Address [place], [place] [address] Care Team Providers Care Facility Practice Specialist Name Role Phone Votel, Tuan Gonzalez MD Primary Care Provider + None Unavailable Unavailable [facility], [place] Unavailable [phone] Allergies Active Allergy Reactions Criticality Noted Date [...] (ASTELIN) nasal sprayIndications: Nasal drainage Inhale 1 Cope into affected nostril(s) two times daily. 30 mL 11 4 Active atorvastatin (LIPITOR) 20 mg tabletIndications :Elevated cholesterol TAKE ONE TABLET BY MOUTH ONE TIME DAILY 90 Tablet 2 4 Active ferrous sulfate 325 mg delayed release tabletIndications :Anemia due to acute blood loss Take 1 Tablet (325 mg) by mouth two times daily with meals. 180 Tablet 1 4 Active furosemide (LASIX) 20 mg tabletIndications :Peripheral edema Take one tablet daily in the evening 90 Tablet 1 4 Active pregabalin (LYRICA) 50 mg capsuleIndication s:Restless leg syndrome Take 1 Capsule (50 mg) by mouth at bedtime. 30 Capsule 1 4 Active sodium chloride 1,000 mg soluble tabletIndications :Hyponatremia TAKE ONE TABLET BY MOUTH THREE TIMES DAILY WITH MEALS 90 Tablet 4 Active CPAPIndications:O SA (obstructive sleep apnea) CPAP machine for home use at pressure 9.6 cmw, full face mask x1/3month with a full face cushion x1/mo 1 Each 4 Active CPAPIndications:O SA (obstructive sleep apnea) CPAP machine for home use at pressure 9 cmw, full face mask x1/3month with a full face cushion x1/mo 1 Each 4 05/17/20 24 Discontinued(Reo rder (E-cancel not sent)) gabapentin (NEURONTIN) 100 mg capsuleIndication s:Restless legs syndrome (RLS) Please take 1 pill by mouth at bedtime; this can be increased by 1 pill every week to a max of 3 pills or 300mg 60 Capsule 3 4 05/09/20 24 Discontinued(*Me d complete/Regimen complete/Level of care change) sodium chloride 1,000 mg soluble tabletIndications :Hyponatremia TAKE ONE TABLET BY MOUTH THREE TIMES DAILY WITH MEALS 90 Tablet 1 4 05/23/20 24 Discontinued CPAPIndications:O SA (obstructive sleep apnea) CPAP machine for home use at pressure 11 cmw, full face mask x1/3month with a full face cushion x1/mo 4 05/31/20 24 Discontinued(Reo rder (E-cancel not sent)) Active Problems Problem Noted [...] Encounters Date Type Department Care Team Description 06/02/2024 8:00 AM CDT Orders Only [facility] at [address] [id number] 1 scan: (1-Ord) ECHO TTE COMPLETE WO CONTRAST ([id number]) 06/02/2024 Travel 05/30/2024 Travel 05/25/2024 10:00 AM CDT Office Visit [facility] [address] [place] [address] Dakota Mcguire MD Sleep Follow-up 05/25/2024 Travel 05/23/2024 Travel 05/22/2024 Refill [facility] [address] [place] [address] Tuan Marcos MD Refill Request (Sodium Chloride) 05/17/2024 Telephone [facility] [address] [place] [address] Dakota Mcguire MD cpap download 05/16/2024 Telephone [facility] [address] [place] [address] Tuan Marcos MD Update (Progression of patients weakness) 04/21/2024 1:25 PM CDT Office Visit [facility] [address] [facility] [address] Makenzie Haines MD Derm Problem (wart on the bottom of the left foot. ) 04/21/2024 Travel 04/19/2024 9:15 AM CDT Orders Only [address] [address] Lab, [place] [facility] (lab) 04/19/2024 Telephone [facility] [address] [place] [address] Tuan Marcos MD 04/19/2024 Travel 04/12/2024 Patient Outreach [facility] - Advanced Care Team [address] [place] [address] Sujey Alvarez Complex Care Management (CCM Engagement Outreach) 04/11/2024 Patient Outreach [facility] - Care Management Navigation/[facility] [address] [place] [address] Jewell Schwarz Care Management Intake (Identification Date/) 04/06/2024 Orders Only [facility] Scanner 1 scan: (1-Ord) SHERRON, PET/CT EYES TO THIGHS, 04/06/2024 04/05/2024 9:35 AM CDT Office Visit [facility] [address] [place] [address] Tuan Marcos MD Medication Management; Concerns (Feet are painful, swollen, hard to walk) 04/05/2024 Travel 03/29/2024 Refill [facility] [address] [place] [address] Tuan Marcos MD Refill Request (Ferrous Sulfate) 03/18/2024 Refill [facility] [address] [place] [address] Tuan Marcos MD Refill Request (Sodium Chloride) from Last 3 Months Immunizations Name Administration Dates Next Due AMB Influenza, IIV4 PF (=>6 mos Flulaval,Fluzone Fluarix)(Flu Clinic Only) 08/30/2018 Amb Influenza, Inact (High-d ose) (Flu Clinic Only) 08/09/2014 COVID-19 Vaccine Spikevax (M oderna 50mcg/0.5mL) 12YO+ [id number] Formula PF 08/19/2023 COVID-19 vaccine (FeastBio NTech 30mcg/0.3mL) 12YO+ BENJAMIN-SUCROSE PF, MDV 04/28/2022 COVID-19 vaccine (WeGreek-Bio NTech 30mcg/0.3mL) PF, MDV 08/01/2021,01/01/2021,12/11/2020 Influenza A [...] of Communication with Friends and Fami ly Not on file 04/24/2024 Financial Resource Strain Answer Date R ecorded [...] Sign Reading Time Taken Comments Blood Pressure 150/69 05/25/2024 9:58 AM CDT Pulse 64 05/25/2024 9:58 AM CDT Temperature 36.4 ??C (97.5 ??F) 08/19/2023 2:29 PM CD T Respiratory Rate 18 04/09/2023 10:09 AM CDT Oxygen Saturation 95% 05/25/2024 9:58 AM CDT Inhaled Oxygen Concentration - - Weight 80.3 kg (177 lb) 05/25/2024 9:58 AM CDT Height 182.9 cm (6') 05/25/2024 9:58 AM CDT Body Mass Index 24.01 05/25/2024 9:58 AM CDT Plan of Treatment Upcoming Encounters Date Type Department Care Team (Late st Contact Info) Description 06/13/2024 4:00 PM CDT Office Visit [facility] [place] [address] Dakota Mcguire MD [address] [place] [address] 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 [facility] [address] [place] [address] Votel, Tuan Gonzalez MD [address] [place] [address] Health Maintenance Due Date Last Done Comments Hepatitis C screening for ag e 18-79 1962 Tetanus booster 04/12/2022 04/12/2012, 07/17/2004 Medicare Wellness for age 65+ 10/01/2023, 09/18/2021, 06/18/2020, Additional history exists COVID-19 vaccine series (2022- season) 2023 08/19/2023, 08/07/2022, 04/28/2022, Additional history exists Influenza for age 65+ 07/02/2024 08/04/2023 , 08/07/2022, 07/10/2021, Additional history exists Depression screening for age 12+ 04/05/2025 04/05/2024, 09/30/2022, 09/18/2021, Additional history exists BMI (ht and wt on same day) for age 18+ 05/25/2025 05/25/2024, 04/05/2024, 12/07/2023, Additional history exists Tdap Completed 04/12/2012 Pneumococcal series for age 65+ Completed 05/20/2016, 05/08/2015, 02/21/2009 Zoster (shingles) series for age 50+ Completed 05/10/2019, 03/01/2019, 04/12/2012 Procedures Procedure Name Priority Date/Time Associated Diagnosis Comments ECHO TTE COMPLETE WO CONTRAST MALCOM 06/02/2024 8:16 AM CDT Congestive heart failure, unspecified HF chronicity, unspecified heart failure type (HC) BASIC METABOLIC PANEL Routine 04/19/2024 9:05 AM CDT Peripheral edema Hyponatremia SCAN-PET SCAN 04/06/2024 12:00 AM CDT from Last 3 Months Results * ECHO TTE COMPLETE WO CONTRAST (06/02/2024 8:16 AM CDT) AORTIC VALVE MEAN PG 5 mmHg EJECTION FRACTION 56 % LVEDD 4.4 cm EJECTION FRACTION 55 - 60% Anatomical Region Laterality Modality Ultrasound 06/02/2024 7:56 AM CDT Narrative 06/02/2024 9:14 AM CDT ECHOCARDIOGRAM MED WEBSTER ? Accession#: ?? [id number] : ?1945 78 years Study Date: ?? 06/02/2024 7:56:59 AM Gender: M ?BP: ? 150/69 mmHg Height: 175.00 cm ?BSA: ?1.92 m? ? ? Weight: 77.00 kg ? Tech: ? MJW ? Referring MD: DAKOTA MCGUIRE Site: ? [facility] Reading Location: Mobile-OP Patient Location: Outpatient. Procedure: 2D, Color Doppler and Spectral Doppler. Indication for study: Congestive heart failure, unspecified HF chronicity, unspecified heart failure type (HC) Cardiac Rhythm: Regular and normal sinus.Study quality: Good. Final Impressions: 1. Normal LV size, normal wall thickness, normal global systolic function with an estimated EF of 55 - 60%. 2. Right ventricular cavity size is normal, global systolic RV function is normal. 3. Normal diastolic function for age. 4. No significant valve disease detected. Chamber Sizes and Function Normal left ventricular size, normal wall thickness, normal global systolic function with an estimated EF of 55 - 60%. Left atrial size is normal. Left atrial pressure is normal. Right ventricular cavity size is normal, global systolic RV function is normal. RV wall thickness is normal. The right atrium is normal. Right atrial volume index is 15 ml/m? ? ?. Right atrial area is 12 cm? ? ?. The pulmonary artery is not well visualized. The sinus of Valsalva is normal sized. The ascending aorta is normal sized. Valves, RV Pressures and Diastolic Function The aortic valve is trileaflet and calcified, no stenosis and no regurgitation. The mitral valve is normal in structure, trace mitral regurgitation. Normal diastolic function for age. The tricuspid valve is normal in structure. Tricuspid regurgitation is trace regurgitation. Unable to assess right ventricular systolic pressure. The pulmonic valve is normal. Trace pulmonary regurgitation. Masses, Effusion, Shunts There is no pericardial effusion. The inferior vena cava is normal sized, respiratory size variation greater than 50%. No left to right shunting was detected by limited color flow Doppler interrogation of the interatrial septum. MEASUREMENTS AND CALCULATIONS 2-D Measurements and LV Function: LVID (d) 4.4 cm LV FS% (2D) ?? 26 % LVID (s) 3.2 cm LVOT diameter 2.4 cm IVS (d) ??1.0 cm HR ?67 bpm LVPW (d) 0.9 cm LA Vol index ??23 ml/m2 Ao Sinus 3.5 cm RA Vol index ??15 ml/m2 Asc Ao ?? 3.4 cm RA area ? 12 cm? ? ? LA ? 4.4 cm RV Max 4C (d) 3.8 cm Diastology: Mitral ?Tissue Doppler E Peak 0.8 m/s ??e', Septum ? 0.07 m/s A Peak 0.8 m/s ??e', Lateral ?0.07 m/s E/A ?0.9 ?E/e' Average ?? 11.48 DT ? 267 msec Aortic Valve: Vmax ? 1.4 m/s ??AIDAN (V) ?? 3.23 cm? ? ? VTI ?0.32 m ?? AIDAN (I) ?? 3.28 cm? ? ? LVOT V max ? 1.0 m/s ??Max PG ?8 mmHg LVOT VTI ? 0.23 m ?? Mean PG ?? 5 mmHg SV ? 104 ml ?? Dim Index 0.73 SV index ? 54 ml/m? ? ? CO ?6.9 l/min AV Ejection Time 0.33 sec CI ?3.6 l/min/m? ? ? AV Flow Rate ? 315 ml/s Mitral Valve: MVA ?2.8 cm? ? ? MV P 11/02 77 msec Tricuspid Valve and estimated PA pressures: TAPSE 2.9 cm . This study was interpreted by an [facility] accredited facility. ??Final ?? Procedure Note Paresh Cabrera MD - 06/02/2024 ECHOCARDIOGRAM MED WEBSTER : 1945 78 years Study Date: 06/02/2024 7:56:59 AM Gender: M BP: 150/69 mmHg Height: 175.00 cm BSA: 1.92 m? ? ? Weight: 77.00 kg Tech: ASHLEY Referring MD: DAKOTA MCGUIRE Site: [facility] Reading Location: Mobile-OP Patient Location: Outpatient. Procedure: 2D, Color Doppler and Spectral Doppler. Indication for study: Congestive heart failure, unspecified HF chronicity,unspecified heart failure type (HC) Cardiac Rhythm: Regular and normal sinus.Study quality: Good. Final Impressions: 1. Normal LV size, normal wall thickness, normal global systolic functionwith an estimated EF of 55 - 60%. 2. Right ventricular cavity size is normal, global systolic RV functionis normal. 3. Normal diastolic function for age. 4. No significant valve disease detected. Chamber Sizes and Function Normal left ventricular size, normal wall thickness, normal globalsystolic function with an estimated EF of 55 - 60%. Left atrial size isnormal. Left atrial pressure is normal. Right ventricular cavity size isnormal, global systolic RV function is normal. RV wall thickness isnormal. The right atrium is normal. Right atrial volume index is 15ml/m? ? ?. Right atrial area is 12 cm? ? ?. The pulmonary artery is not wellvisualized. The sinus of Valsalva is normal sized. The ascending aorta isnormal sized. Valves, RV Pressures and Diastolic Function The aortic valve is trileaflet and calcified, no stenosis and noregurgitation. The mitral valve is normal in structure, trace mitralregurgitation. Normal diastolic function for age. The tricuspid valve isnormal in structure. Tricuspid regurgitation is trace regurgitation.Unable to assess right ventricular systolic pressure. The pulmonic valveis normal. Trace pulmonary regurgitation. Masses, Effusion, Shunts There is no pericardial effusion. The inferior vena cava is normal sized,respiratory size variation greater than 50%. No left to right shunting wasdetected by limited color flow Doppler interrogation of the interatrialseptum. MEASUREMENTS AND CALCULATIONS 2-D Measurements and LV Function: LVID (d) 4.4 cm LV FS% (2D) 26 % LVID (s) 3.2 cm LVOT diameter 2.4 cm IVS (d) 1.0 cm HR 67 bpm LVPW (d) 0.9 cm LA Vol index 23 ml/m2 Ao Sinus 3.5 cm RA Vol index 15 ml/m2 Asc Ao 3.4 cm RA area 12 cm? ? ? LA 4.4 cm RV Max 4C (d) 3.8 cm Diastology: Mitral Tissue Doppler E Peak 0.8 m/s e', Septum 0.07 m/s A Peak 0.8 m/s e', Lateral 0.07 m/s E/A 0.9 E/e' Average 11.48 DT 267 msec Aortic Valve: Vmax 1.4 m/s AIDAN (V) 3.23 cm? ? ? VTI 0.32 m AIDAN (I) 3.28 cm? ? ? LVOT V max 1.0 m/s Max PG 8 mmHg LVOT VTI 0.23 m Mean PG 5 mmHg SV 104 ml Dim Index 0.73 SV index 54 ml/m? ? ? CO 6.9 l/min AV Ejection Time 0.33 sec CI 3.6 l/min/m? ? ? AV Flow Rate 315 ml/s Mitral Valve: MVA 2.8 cm? ? ? MV P 1/2 77 msec Tricuspid Valve and estimated PA pressures: TAPSE 2.9 cm . This study was interpreted by an [facility] accredited facility. Final Dakota Mcguire MD ECHO ORD * (ABNORMAL) BASIC METABOLIC PANEL (04/19/2024 9:05 AM CDT) SODIUM 138 136 - 145 mmol/L 04/19/2024 6:35 PM CDT [facility] POTASSIUM 4.9 3.5 - 5.1 mmol/L 04/19/2024 6:35 PM CDT [facility] CHLORIDE 101 98 - 107 mmol/L 04/19/2024 6:35 PM CDT [facility] CO2,TOTAL 27 22 - 29 mmol/L 04/19/2024 6:35 PM CDT [facility] ANION GAP 10 5 - 18 04/19/2024 6:35 PM CDT [facility] GLUCOSE 106(H) 70 - 99 mg/dL 04/19/2024 6:35 PM CDT [facility] CALCIUM 9.6 8.8 - 10.2 mg/dL 04/19/2024 6:35 PM T [facility] BUN 25(H) 8 - 23 mg/dL 04/19/2024 6:35 PM T [facility] CREATININE 0.95 0.70 - 1.20 mg/dL 04/19/2024 6:35 PM T [facility] BUN/CREAT RATIO 26(H) 10 - 20 6:35 PM T [facility] eGFR 81(L) >90 mL/min/1.7 3m2 04/19/2024 6:35 PM T [facility] Comment:As of 2022, eG FR is calculated by the CKD-EPI creatinine equation without race adjustment. ??eGFR can be influenced by muscle mass, exercise, and diet. ??The reported eGFR is an estimation only and is only applicable if the renal function is stable. Blood BLOOD SPECIMEN / Unknown Venipuncture / Unknown 04/19/2024 9:05 AM CDT 04/19/2024 9:07 AM CDT Tuan Marcos MD CHEMISTRY [facility] [address] [place] [address], * SCAN-PET SCAN (04/06/2024 12:00 AM CDT) Anatomical Region Laterality Modality Other Scanner OTHER from Last 3 Months Advance Directives * [...] Code Status Discussion: Not Discussed Care Teams Facility Practice Specialist Relationship Specialty Start Date End Date Votel, Tuan Gonzalez MD [address] [place] [address] PCP - General 02/18/06 None . 04/08/11 [facility] [address] [place] [address] 07/20/23
--- OUTSIDE RECORDS SUMMARY | 2024-06-06 20:58 | XMS_ITS | Data Portability ---
Author Organization [place] [facility] Address [address] [place] [address] Care Team Providers Care Mark Up Designer Name Role Phone URIELTELOLY Moran Primary Care Provider [phone] Assessment Encounter Date Assessment Date Assessment LastModified by Organization Details LastModified Time 01/04/2023 01/04/2023 77 yoM with NMI HG [...] CBC, BMP, urethral washings with Dr. Rodriguez [email or web address] Not available 03/31/2023 12:22:48 07/16/2023 07/16/2023 77M [...] chemotherapy; they prefer to do this in [place] if possible - refer to radiation oncology for consideration of palliative to RT to left iliac lesion 2) Ostomy - they would like to see ostomy nurse to review supplies; will place referral [email or web address] Not available 07/16/2023 14:04:28 Plan of Treatment Reminders Order Date Submit Date Provider Last Modified By Organization Details Last Modified Time Details Appointments None recorded. Lab CBC - For July 2023. 2022 023 [email or web address] [facility], [address] [place], [address], 3 12:39:11 BMP, serum or plasma - For July 2023. 2022 023 [email or web address] [facility], [address] [place], [address], 3 12:39:11 Referral ostomy care referral 2022 023 [facility] Department, [address] [place], [address], 3 08:00:39 radiation oncologist referral - consider palliative RT to right iliac bone 2022 023 SHUBHAM Polanco MD, [address] [place], [address], 3 14:28:33 medical oncologist referral 2022 023 [email or web address] Radiation Oncology - [facility], [address] [place], [address], 3 08:57:38 Procedures None recorded. Surgeries None recorded. Imaging CT, chest, w/ contrast - 100ML OMNI 300, A/P WO/W ALSO*, NO PREV 2022 023 [email or web address] [facility] , [address] [place], [address], 3 09:09:19 CT, urogram - CT A/P W and WO, 100ML OMNI 300, CHEST ALSO*, NO PREV 2022 023 [facility] , [address], [place], [address], 3 17:41:33 CT, chest + abdomen + pelvis, w/ contrast - For early July 2023. [address] [facility], [address], [place], [address], 3 12:39:17 PET-CT, skull base to mid-thigh scan - bladder cancer staging - PLEASE CONTACT PATIENT TO SCHEDULE 2022 023 [email or web address] [facility], [address] [place], [address], 13:57:04 Medication Orders None recorded. Patient TargetsNo targets recorded. Patient Instructions Encounter Date Encounter Id Patient Instructions Last Modified By Organization Details Last Modified Time 12/22/2022 [id number] RTC by this afternoon if unable to void. [email or web address] Not available 12/22/2022 11:09:50 Reason for Referral Ostomy Care Referral for Uro stomy present Referring Physician: Ana Paula Presley, Encounter Date: 07/16/2023 consider palliative RT to ri ght iliac bone Referring Physician: Ana Paula Persley, Encounter Date: 07/16/2023 Referring Physician: Ana Paula Presley, Encounter Date: 07/16/2023 Results Created Date Observation Date Name Description Value Unit Range Abnormal Flag LastModifiedBy Organization Detail LastModifiedTime 02/11/20 23 02/10/2023 CT, urogr am EXAM: CT, UROGRA M LOCATI ON: [facility] DATE/T SANNA: 023 9:00 AM CDT INDICA [...] al subple ural scarri ng. Solid nodule director of radiology olater al right upper lobe is 0.5 cm series 10 image 25. Ill-de fined irregu lar nodule director of radiology ior right lower lobe is 0.7 cm [...] Abdullahi Russell MD on 2022 at 16:39 [email or web address] [facility] [address] [place], [address], 02/22/2023 10:55:05 07/12/20 23 07/12/2023 CT, chest + abdom en + pelvi s, w/ contr ast No observ ation record ed. [email or web address] [facility] [address] [place], [address], 07/15/2023 14:57:07 Result Notes None recorded. Problems Name Status Onset Date Resolution Date Notes Provider Name and Address Organization Details Recorded Time Malignant neoplasm of urinary bladder Active 1 Tersea milton [facility] 09/09/2021 11:25:57 Retention of urine Active 2 Grazyna milton [facility] 04/03/2022 11:44:20 Problem Notes None recorded. Procedures Surgical History Date Name Laterality Status Provider Name and Address Organization Details Recorded Time 02/05/20 23 Fill and Pull/Voiding Trial/TOV completed Jean alvarez MD, PHD [address] [facility] [address] [facility],[address], [place], [address], [facility] 02/04/2023 10:14:03 12/22/19 23 Fill and Pull/Voiding Trial/TOV completed [facility] null, [facility] 12/22/2022 11:09:14 10/21/20 22 Cystoscopy- male completed Jose More MD [address] [facility] [address],[address], [place], [address], [facility] 10/21/2022 13:46:42 07/30/20 22 Cystoscopy- male completed Jose More MD [address] [facility] [address] [facility],[address], [place], [address], [facility] 07/30/2022 13:10:19 06/16/20 22 BCG Full Dose Tx 50mg completed Teresa Andujar null, [facility] 06/16/2022 11:10:22 06/09/20 22 BCG Full Dose Tx 50mg completed Evon Machometa null, [facility] 06/09/2022 11:40:10 06/02/20 22 BCG Full Dose Tx 50mg completed Evon Machometa null, [facility] 06/02/2022 11:26:18 05/28/20 22 BCG Full Dose Tx 50mg completed Evon Machometa null, [facility] 05/28/2022 12:40:35 05/19/20 22 BCG Full Dose Tx 50mg completed Teresa Andujar null, [facility] 05/19/2022 11:45:49 05/12/20 22 BCG Full Dose Tx 50mg completed Evon Machometa null, [facility] 05/12/2022 11:38:30 04/10/20 22 Fill and Pull/Voiding Trial/TOV completed Mary Jane Malik null, [facility] 04/10/2022 11:14:06 04/03/20 22 Espino Catheter Insertion completed Grazyna Flores null, [facility] 04/03/2022 11:45:37 04/03/20 22 Bladder Scan completed Grazyna Flores null, [facility] 04/03/2022 11:44:29 03/06/20 22 Cystoscopy- male completed Jose More MD [address] [facility],[address], [place], [address], [facility] 03/06/2022 13:28:52 12/01/19 22 Cystoscopy- male completed Jose More MD [address] [facility],[address], [place], [address], [facility] 12/01/2021 12:02:06 12/01/19 22 Urethral Dilation-initial male completed Jose More MD [address] [facility],[address], [place], [address], [facility] 12/01/2021 12:04:27 12/01/19 22 Cytology completed Nadia milton, [facility] 12/01/2021 11:55:49 10/14/20 21 BCG Full Dose Tx 50mg completed Teresa milton, [facility] 10/14/2021 11:18:44 10/07/20 21 BCG Full Dose Tx 50mg completed Teresa milton, [facility] 10/07/2021 11:31:46 09/30/20 21 BCG Full Dose Tx 50mg completed Teresa milton, [facility] 09/30/2021 11:21:04 09/23/20 21 BCG Full Dose Tx 50mg completed Evon Presley null, [facility] 09/23/2021 11:24:26 09/16/20 21 BCG Full Dose Tx 50mg completed Evon Presley null, [facility] 09/16/2021 11:22:40 09/09/20 21 BCG Full Dose Tx 50mg completed Teresa milton, [facility] 09/09/2021 11:28:03 09/03/20 21 Urethral Dilation-initial male completed Malaika Davis null, [facility] 09/03/2021 15:42:54 08/04/20 21 Fill and Pull/Voiding Trial/TOV completed Jose More MD [address] [facility],[address], [place], [address], [facility] 08/04/2021 13:31:48 07/31/20 21 CYSTOSCOPY WITH BLADDER BIOPSY (SURG) completed Jose More MD [address] [facility] [address],[address], [place], [address], [facility] 08/04/2021 13:29:31 06/23/20 21 Bladder Scan completed Malaika Davis null, [facility] 06/23/2021 14:14:01 06/23/20 21 Fill and Pull/Voiding Trial/TOV completed Malaika Davis null, [facility] 06/23/2021 12:55:23 Appendectomy completed Nadia Mendez null, [facility] 08/04/2021 13:07:54 Orthopedic Surgery completed Nadia Mendez null, [facility] 08/04/2021 13:08:04 Hernia Repair completed Nadia milton, [facility] 08/04/2021 13:08:09 Imaging Results Imaging Date Name Status LastModified by Organiz ation Details LastModified Time 02/10/2023 CT, urogram completed [email or web address] [facility] [address] [place], [address], 02/22/2023 10:55:05 07/12/2023 CT, chest + abdomen + pelvis, w/ contrast completed [facility] [address] [place], [address], 07/15/2023 14:57:07 Procedure Notes None recorded. Medical Equipment None Reported. Allergies Allergen ID Allergen Name Allergen Category Reaction Reaction Severity Criticality Documentation Date Start Date Code Code System Note Provider Name and Address Organization Details Recorded Time 841570 Medicinal product containin g penicilli n and acting as antibacte rial agent (product) medicatio n Not available Not available Not available 08/04/2021 43315 05 SNOMED Nadia Mendez null, [facility] 13:05:37 793495 naproxen medicatio n rash moderate high 04/16/2022 7258 RxNorm Sheng Clark null, [facility] 2 16:49:46 Medications Name Sig Start [...] Not Available Not Available No t Available Eighty Four BCG 50 mg intravesica l suspension Instill [...] MOUTH EVERY FOUR HOURS NEEDED FOR PAIN 10/04 /2021 completed Not Available Not Available Not Available [...] Updated DateTime 01/04/2023 176.53 cm 26.9 kg/m2 59174.59 g Violette Weaver [facility] 01/04/2023 11:40:42 Date Recorded Body height Body mass index (BMI) Body weight Provider Name and Address Organization Details Last Updated DateTime 02/04/2023 176.53 cm 26.9 kg/m2 04492.59 g Janine Ahsan [facility] 02/04/2023 09:27:32 Date Recorded Body height Body mass index (BMI) Body weight Provider Name and Address Organization Details Last Updated DateTime 03/31/2023 176.53 cm 26.9 kg/m2 96680.59 g Elizabeth Brunilda [facility] 03/31/2023 10:26:36 Date Recorded Body height Body mass index (BMI) Body weight Provider Name and Address Organization Details Last Updated DateTime 07/16/2023 176.53 cm 24.6 kg/m2 18593.11 g Jean alvarez MD, PHD [address] [place] [address], [address], [facility] 07/16/2023 13:01:17 Social History Question Answer Notes LastModified by Organizat ion Details LastModified Time Tobacco Smoking Status Former Smoker Nadia milton, [facility] 08/04/2021 13:07:38 What Is Your Level Of Alcohol Consumption? Occasional Information not available 08/04/2021 What Is Your Level Of Caffeine Consumption? Occasional Information not available 08/04/2021 Are You Currently Employed? No Information not available 12/01/2021 When Did You Quit Smoking? 16+yearssincel lino Information not available 08/04/2021 Ethnicity Not /Latin o Information not available 08/04/2021 Preferred Language Maldivian Information not available 08/04/2021 Recreational Drug Use [...] Nicotine? No Information not available 08/04/2021 Sex: Unknown Functional Status None recorded. Mental Status None recorded. Family History Relationship Description Onset Age of this Age Resolved Age Notes Mother Family history of malignant neoplasm Lung cancer Notes:Prostate cancer: Mater nal Cousin Medical History Condition Response High Blood Pressure Y Kidney Stones Y GERD/Acid Reflux Y Bleeding Disorder N Cancer Y High Cholesterol Y Immunizations Vaccine Type Date Status Provider Name and Address Organization Details Recorded Time pneumococcal polysaccharide PPV23 02/21/2009 completed Violette milton [facility] 07/09/2022 11:41:32 COVID-19, mRNA, LNP-S, PF, 30 mcg/0.3 mL dose 08/01/2021 completed Violette milton [facility] 07/09/2022 11:41:32 COVID-19, mRNA, LNP-S, PF, 30 mcg/0.3 mL dose 12/11/2020 completed Violette milton [facility] 07/09/2022 11:41:32 Pneumococcal conjugate PCV 13 05/08/2015 completed Violette milton [facility] 07/09/2022 11:41:32 COVID-19, mRNA, LNP-S, PF, 30 mcg/0.3 mL dose 01/01/2021 completed Violette milton [facility] 07/09/2022 11:41:32 pneumococcal polysaccharide PPV23 05/20/2016 completed Violette Weaver null, [facility] 07/09/2022 11:41:32 Influenza, adjuvanted, trivalent, PF 07/13/2017 completed Dana Spicerre null, [facility] 08/30/2023 14:59:32 Influenza, recombinant, quadrivalent, PF 08/10/2019 completed Dana Spicerre null, [facility] 08/30/2023 14:59:32 zoster recombinant 03/01/2019 completed Dana Spicerre null, [facility] 08/30/2023 14:59:32 zoster recombinant 05/10/2019 completed Dana Spicerre null, [facility] 08/30/2023 14:59:32 Influenza, high-dose, quadrivalent, PF 08/26/2020 completed Dana Spicerre null, [facility] 08/30/2023 14:59:32 Influenza, adjuvanted, quadrivalent, PF 07/10/2021 completed Dana Spicerre null, [facility] 08/30/2023 14:59:32 Tdap 04/12/2012 completed Dana Spicerre null, [facility] 08/30/2023 14:59:32 Novel [id number], all formulations 09/11/2009 completed Dana Spicerre null, [facility] 08/30/2023 14:59:32 zoster live 04/12/2012 completed Dana Gaonaejere null, [facility] 08/30/2023 14:59:32 Influenza, high-dose, trivalent, PF 08/01/2015 completed Dana Almejere null, [facility] 08/30/2023 14:59:32 Influenza, high-dose, trivalent, PF 08/09/2014 completed Dana Almejere null, [facility] 08/30/2023 14:59:32 Influenza, high-dose, trivalent, PF 08/27/2016 completed Dana Almejere null, [facility] 08/30/2023 14:59:32 Influenza, split virus, trivalent, preservative 07/10/2009 completed Dana milton, [facility] 08/30/2023 14:59:32 Influenza, split virus, trivalent, preservative 07/12/2013 completed Dana milton, [facility] 08/30/2023 14:59:32 Influenza, split virus, trivalent, preservative [facility] 14:59:32 Influenza, split virus, trivalent, preservative 07/28/2010 [facility] 14:59:32 Influenza, split virus, trivalent, preservative 08/04/2011 [facility] 14:59:32 Influenza, split virus, trivalent, preservative 09/23/2005 [facility] 14:59:32 Td (adult), 2 Lf tetanus toxoid, preservative free, adsorbed 07/17/2004 [facility] 14:59:32 Influenza, split virus, quadrivalent, PF 08/30/2018 [facility] 14:59:32 Influenza, high-dose, quadrivalent, PF 08/07/2022 completed Dana milton [facility] 08/30/2023 15:01:51 COVID-19, mRNA, LNP-S, PF, 30 mcg/0.3 mL dose, sarah-sucrose 04/28/2022 [facility] 15:01:02 COVID-19, mRNA, LNP-S, bivalent, PF, 30 mcg/0.3 mL dose 08/07/2022 [facility] 15:01:51 Past Encounters Encounter ID Performer Location Encounter Start Date Encounter Closed Date Diagnosis/Indication Diagnosis SNOMED-CT Code [id number] Malaika Davis [facility] [address] [place], [place] [address] 06/23/2021 12:12:46 06/24/2021 15:38:38 Retention of urine [id number] Jose More MD [facility] [address] [place] [address] 08/04/2021 12:08:14 08/08/2021 09:52:43 Malignant neoplasm of urinary bladder [id number] Malaika Davis [facility] [address] [place] [address] 09/03/2021 15:05:16 09/08/2021 11:00:22 Urinary tract infectious disease 14421564 Urethral stricture 37090 002 [id number] Jose Mroe MD [facility] [address] [place] [address] 09/09/2021 10:26:41 09/11/2021 14:42:50 Malignant neoplasm of urinary bladder [id number] Evon Otta [facility] [address] [place] [address] 09/16/2021 10:42:44 09/17/2021 14:16:41 Malignant neoplasm of urinary bladder 512514016 [id number] Evon Otta [facility] [address] [place] [address] 09/23/2021 10:44:52 09/29/2021 10:46:51 Malignant neoplasm of urinary bladder [id number] Teresa Andujar [facility] [address] [place] [address] 09/30/2021 10:37:37 10/07/2021 10:26:46 Malignant neoplasm of urinary bladder 543713187 [id number] Teresa Andujar [facility] [address] [place] [address] 10/07/2021 11:03:54 10/15/2021 10:37:13 Malignant neoplasm of urinary bladder 006934575 [id number] Jose More MD [facility] [address] [place] [address] 10/14/2021 10:35:10 10/20/2021 12:14:53 Malignant neoplasm of urinary bladder 951781631 [id number] Jose More MD [facility] [address] [place], [place] [address] 12/01/2021 11:11:34 12/03/2021 08:44:38 Malignant neoplasm of urinary bladder 159890522 Male ureth ral stricture 390609650346330 09 [id number] Jose More MD [facility] [address] [place], [place] [address] 03/06/2022 11:44:16 03/09/2022 13:22:50 Malignant neoplasm of urinary bladder [id number] Male ureth ral stricture 468932044600164 09 [id number] Jose More MD [facility] [address] [place] [address] 04/03/2022 10:15:13 04/06/2022 13:28:39 Retention of urine 100442856 [id number] Mary Jane Malik [facility] [address] [place] [address] 04/10/2022 10:41:20 04/15/2022 13:43:17 Malignant neoplasm of urinary bladder 515875506 [id number] Jose More MD [facility] [address] [place] [address] 04/16/2022 16:42:19 04/20/2022 09:07:47 Malignant neoplasm of urinary bladder 267132925 Male ureth ral stricture 600225738906192 09 [id number] Evon Machometa [facility] [address] [place] [address] 05/12/2022 10:41:13 05/13/2022 09:43:25 Malignant neoplasm of urinary bladder 051062553 [id number] Teresa Andujar [facility] [address] [place] [address] 05/19/2022 10:44:29 05/20/2022 12:08:08 Malignant neoplasm of urinary bladder 615237016 [id number] Evon Presley [facility] [address] [place] [address] 05/28/2022 11:59:30 06/01/2022 08:56:38 Malignant neoplasm of urinary bladder 803946011 [id number] Evon Presley [facility] [address] [place], [place] [address] 06/02/2022 10:46:42 06/08/2022 15:24:13 Malignant neoplasm of urinary bladder [id number] [id number] Evon Presley [facility] [address] [place], [place] [address] 06/09/2022 10:45:40 06/12/2022 11:22:43 Malignant neoplasm of urinary bladder 649664790 [id number] Teresa Andujar [facility] [address] [place], [place] [address] 06/16/2022 10:43:36 06/17/2022 11:06:41 Malignant neoplasm of urinary bladder 368527151 [id number] Jose More MD [facility] [address] [place] [address] 07/09/2022 11:24:15 07/15/2022 10:34:30 Malignant neoplasm of urinary bladder 822068276 Male ureth ral stricture 884464540741887 09 [id number] Jose More MD [facility] [address] 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 [address] 10/21/2022 11:06:43 10/23/2022 11:32:57 Malignant neoplasm of urinary bladder 927823185 Male ureth ral stricture 780599897745271 09 [id number] Jose More MD [facility] [address] [place] [address] 12/22/2022 10:47:13 12/25/2022 11:50:03 Male urethral stricture 963642783110918 09 [id number] Jose More MD [address] [place] [address] 01/04/2023 11:32:27 01/08/2023 12:15:12 Malignant neoplasm of urinary bladder [id number] Male ureth ral stricture 055507297620197 09 [id number] Jean lunsford MD, PHD [address] [place] [address] 02/04/2023 09:13:39 02/09/2023 18:39:12 Malignant neoplasm of urinary bladder 294490605 [id number] Malaika Ernandez PA-C [address] [place] [address] 03/31/2023 10:21:37 04/02/2023 16:50:24 Malignant neoplasm of urinary bladder 601980048 Urostomy present 3712096 04 [id number] Jean lunsford MD, PHD [address] [place] [address] 07/16/2023 12:27:33 07/22/2023 10:54:33 Malignant neoplasm of urinary bladder 466163353 Urostomy present [id number] 04 Health Concerns Section Related Observation LastModified by Organization Detai ls LastModified Time None Recorded Concern Status LastModified by Organization Details LastModified Time None Recorded Advance Directives Directive None Recorded Payers Encounter Date Sequence Insurance Name Policy Number Policy Preciado Covered Member ID Preciado Member ID Guarantor Name 12/22/2022 1 [employer] (MEDICARE REPLACEMENT/A DVANTAGE - PPO) [employer] [id number] [employer] 01/04/2023 1 [employer] (MEDICARE REPLACEMENT/A DVANTAGE - PPO) [employer] [id number] [employer] 02/04/2023 1 [employer] (MEDICARE REPLACEMENT/A DVANTAGE - PPO) [employer] [id number] [employer] 03/31/2023 1 [employer] (MEDICARE REPLACEMENT/A DVANTAGE - PPO) [employer] [id number] [employer] 07/16/2023 1 [employer] (MEDICARE REPLACEMENT/A DVANTAGE - PPO) [employer] [id number] [employer] Notes Date Note Type Note Provider Name and Address Organization Details Recorded Time 01/04/2023 text/html HPI Notes: 77 yo M who follows with me in [place] for hematuria. Found to have bladder tumors on in-office cystoscopy. Underwent TURBT in [place] but insufficient muscularis. Now s/p re-resection with [...] some the history. 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 Here with [facility]. Fossa navicularis stricture. Recent admit @ [place] for clot retention. 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
== END 2024-06-06 20:55 | disposition home or self-care (01) ==
LOC: SLEEP 20:57
PROVIDERS: PCP Family Medicine; Visit Provider Internal Medicine
DX: G47.33 Obstructive sleep apnea (adult) (pediatric) (principal)
CPT/HCPCS: 95811

== ENCOUNTER 2024-07-13 15:14 | Outpatient (CLI) | payer MEDICARE, SELFPAY ==
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
--- OUTSIDE RECORDS SUMMARY | 2024-07-13 15:17 | XMS_ITS | Data Portability ---
Author Organization [place] [facility], [facility] Address [address] [place] [address] Care Team Providers Care Event Crew Technician Name Role Phone URIELTELOLY Moran Primary Care [...] CBC, BMP, urethral washings with Dr. Rodriguez [email or web address] Not available 03/31/2023 12:22:48 07/16/2023 07/16/2023 77M [...] chemotherapy; they prefer to do this in [place] if possible - refer to radiation oncology [...] - For July 2023. 2022 023 [email or web address], [address] [place], [address], 3 12:39:11 BMP, serum or plasma - For July 2023. 2022 023 [email or web address], [address] [place], [address], 3 12:39:11 Referral ostomy care referral 2022 023 [facility], [address] [place], [address], 3 08:00:39 radiation oncologist referral - consider palliative RT to right iliac bone 2022 023 SHUBHAM Polanco MD, [address] [place], [address], 3 14:28:33 medical oncologist referral 2022 023 [email or web address] Radiation Oncology - [facility], [address] [place], [address], 3 08:57:38 Procedures None recorded. Surgeries None recorded. Imaging CT, chest, w/ contrast - 100ML OMNI 300, A/P WO/W ALSO*, NO PREV 2022 023 [email or web address] [facility] , [address] [place], [address], 3 09:09:19 CT, urogram - CT A/P W and WO, 100ML OMNI 300, CHEST ALSO*, NO PREV 2022 023 [facility] , [address], [place], [address], 3 17:41:33 CT, chest + abdomen + pelvis, w/ contrast - For early July 2023. 2022 023 [facility], [address], [place], [address], 3 12:39:17 PET-CT, skull base to mid-thigh scan - bladder cancer staging - PLEASE CONTACT PATIENT TO SCHEDULE 2022 023 [email or web address] [facility], [address] [place], [address], 13:57:04 Medication Orders None recorded. Patient TargetsNo targets recorded. Patient Instructions Encounter Date Encounter Id Patient Instructions Last Modified By Organization Details Last Modified Time 12/22/2022 [id number] RTC by this afternoon if unable to [...] Name Description Value Unit Range Abnormal Flag Note LastModifiedBy Organization Detail LastModifiedTime 02/11/2002/10/2023 CT, urogr am EXAM: CT, UROGRA M LOCATI ON: [facility] DATE/T SANNA: 023 9:00 AM CDT INDICA [...] al subple ural scarri ng. Solid nodule nurse assessor olater al right upper lobe is 0.5 cm series 10 image 25. Ill-de fined irregu lar nodule nurse assessor ior right lower lobe is 0.7 cm [...] Abdullahi Russell MD on 2022 at 16:39 [email or web address] [facility] [address] [place], [address], 02/22/2023 10:55:05 07/12/20 23 07/12/2023 CT, chest + abdom en + pelvi s, w/ contr ast No observ ation [facility] ed. [email or web address] [address] [place], [address], 07/15/2023 14:57:07 Result Notes Documentation Provider Name and Address Organization Details Recorded Time Ct, Urogram : EXAM: CT, UROGRAM LOCATION: [facility] DATE/TIME: 02/10/2023 9:00 AM CDT INDICATION: Malignant [...] Russell MD on 02/10/2023 at 16:39 Halina milton [facility] 02/22/2023 10:55:05 Problems Name Problem SNOMED Code Status Onset Date Resolution Date Notes Provider Name and Address Organization Details Recorded Time Malignant neoplasm of urinary bladder 445889498 Active 021 Teresa Pratima null, [facility] 11:25:57 Retention of urine 651365785 Active 022 Grazyna Mark null, [facility] 2 11:44:20 Problem Notes None recorded. Procedures Surgical History Date Name Laterality Status Provider Name and Address Organization Details Recorded Time 02/05/20 23 Fill and Pull/Voiding Trial/TOV completed Jean alvarez MD, PHD [address] [place] [address],[address], [place], [address], [facility] 02/04/2023 10:14:03 12/22/19 23 Fill and Pull/Voiding Trial/TOV completed Violette Weavre null, [facility] 12/22/2022 11:09:14 10/21/20 22 Cystoscopy- male completed Jose More MD [address] [place] [address],[address], [place], [address], [facility] 10/21/2022 13:46:42 07/30/20 22 Cystoscopy- male completed Jose More MD [address] [place] [address],[address], [place], [address], [facility] 07/30/2022 13:10:19 06/16/20 22 BCG Full Dose Tx 50mg completed Teresa Andujar null, [facility] 06/16/2022 11:10:22 06/09/20 22 BCG Full Dose Tx 50mg completed Evon Ribeiroometa null, [facility] 06/09/2022 11:40:10 06/02/20 22 BCG Full Dose Tx 50mg completed Evon Machometa null, [facility] 06/02/2022 11:26:18 05/28/20 22 BCG Full Dose Tx 50mg completed Evon Ribeiroometa null, [facility] 05/28/2022 12:40:35 05/19/20 22 BCG Full Dose Tx 50mg completed Teresa Andujar null, [facility] 05/19/2022 11:45:49 05/12/20 22 BCG Full Dose Tx 50mg completed Evon Ribeiroometa null, [facility] 05/12/2022 11:38:30 04/10/20 22 Fill and Pull/Voiding Trial/TOV completed Mary Jane Malik null, [facility] 04/10/2022 11:14:06 04/03/20 22 Espino Catheter Insertion completed Grazyna Flores null, [facility] 04/03/2022 11:45:37 04/03/20 22 Bladder Scan completed Grazyna Flores null, [facility] 04/03/2022 11:44:29 03/06/20 22 Cystoscopy- male completed Jose More MD [address], [place], [address], [place] [facility] 03/06/2022 13:28:52 12/01/19 22 Cystoscopy- male completed Jose More MD [address], [place], [address], [place] [facility] 12/01/2021 12:02:06 12/01/19 22 Urethral Dilation-initial male completed Jose More MD [address], [place], [address], [place] [facility] 12/01/2021 12:04:27 12/01/19 22 Cytology completed Nadia Mendez null, [facility] 12/01/2021 11:55:49 10/14/20 21 BCG Full Dose Tx 50mg completed Teresa milton, [facility] 10/14/2021 11:18:44 10/07/20 21 BCG Full Dose Tx 50mg completed Teresa milton, [facility] 10/07/2021 11:31:46 09/30/20 21 BCG Full Dose Tx 50mg completed Teresa Andujar null, [facility] 09/30/2021 11:21:04 09/23/20 21 BCG Full Dose Tx 50mg completed Evon Presley null, [facility] 09/23/2021 11:24:26 09/16/20 21 BCG Full Dose Tx 50mg completed Evon Presley null, [facility] 09/16/2021 11:22:40 09/09/20 21 BCG Full Dose Tx 50mg completed Teresa milton, [facility] 09/09/2021 11:28:03 09/03/20 21 Urethral Dilation-initial male completed Malaika milton, [facility] 09/03/2021 15:42:54 08/04/20 21 Fill and Pull/Voiding Trial/TOV completed Jose More MD [address], [place], [address], [facility] 08/04/2021 13:31:48 07/31/20 21 CYSTOSCOPY WITH BLADDER BIOPSY (SURG) completed Jose More MD [address], [place], [address], [facility] 08/04/2021 13:29:31 06/23/20 21 Bladder Scan completed Malaika milton [facility] 06/23/2021 14:14:01 06/23/20 21 Fill and Pull/Voiding Trial/TOV completed Malaika milton [facility] 06/23/2021 12:55:23 Appendectomy completed Nadia milton, [facility] 08/04/2021 13:07:54 Orthopedic Surgery completed Nadia milton, [facility] 08/04/2021 13:08:04 Hernia Repair completed Nadia milton, [facility] 08/04/2021 13:08:09 Imaging Results Imaging Date Name Status LastModified by Organiz ation Details LastModified Time 02/10/2023 CT, urogram completed [email or web address] [facility] [address] [place], [address], 02/22/2023 10:55:05 07/12/2023 CT, chest + abdomen + pelvis, w/ contrast completed [facility] [address] [place], [address], 07/15/2023 14:57:07 Procedure Notes None recorded. Medical Equipment None Reported. Allergies Allergen ID Allergen Name Allergen Category Reaction Reaction Severity Criticality Documentation Date Start Date Code Code System Note Provider Name and Address Organization Details Recorded Time 486834 Medicinal product containin g penicilli n and acting as antibacte rial agent (product) medicatio n Not available Not available Not available 08/04/2021 96006 05 SNOMED Nadia Mendez null, [place] [facility] 1 13:05:37 802735 naproxen medicatio n rash moderate high 04/16/2022 7258 RxNorm Sheng Clark null, [facility] 2 16:49:46 Medications Name Sig Start [...] Not Available Not Available No t Available [place] BCG 50 mg intravesica l suspension Instill [...] Updated DateTime 01/04/2023 176.53 cm 26.9 kg/m2 28921.59 g Violette Owen [facility] 01/04/2023 11:40:42 Date Recorded Body height Body mass index (BMI) Body weight Provider Name and Address Organization Details Last Updated DateTime 02/04/2023 176.53 cm 26.9 kg/m2 95392.59 g Janine Foreman [facility] 02/04/2023 09:27:32 Date Recorded Body height Body mass index (BMI) Body weight Provider Name and Address Organization Details Last Updated DateTime 03/31/2023 176.53 cm 26.9 kg/m2 07813.59 g Elizabeth Worley [facility] 03/31/2023 10:26:36 Date Recorded Body height Body mass index (BMI) Body weight Provider Name and Address Organization Details Last Updated DateTime 07/16/2023 176.53 cm 24.6 kg/m2 07047.11 g Jean alvarez MD, PHD [address],[facility] [address], [place], [address], [facility] 07/16/2023 13:01:17 Social History Question Answer Notes LastModified by Organizat ion Details LastModified Time Tobacco Smoking Status Former Smoker Nadia Vanessa milton [facility] 08/04/2021 13:07:38 What Is Your Level Of Alcohol Consumption? Occasional Information not available 08/04/2021 What Is Your Level Of Caffeine Consumption? Occasional Information not available 08/04/2021 Are You Currently Employed? No Information not available 12/01/2021 When Did You Quit Smoking? 16+yearssincel astcigarette Information not available 08/04/2021 Ethnicity Not /Latin o Information not available 08/04/2021 Preferred Language Uruguayan Information not available 08/04/2021 Recreational Drug Use [...] pneumococcal polysaccharide PPV23 02/21/2009 completed Violette milton [facility] 07/09/2022 11:41:32 COVID-19, mRNA, LNP-S, PF, 30 mcg/0.3 mL dose 08/01/2021 completed Violette milton [facility] 07/09/2022 11:41:32 COVID-19, mRNA, LNP-S, PF, 30 mcg/0.3 mL dose 12/11/2020 completed Violette Stromquist null, [facility] 07/09/2022 11:41:32 Pneumococcal conjugate PCV 13 05/08/2015 completed Violette Stromquist null, [facility] 07/09/2022 11:41:32 COVID-19, mRNA, LNP-S, PF, 30 mcg/0.3 mL dose 01/01/2021 completed Violette Stromquist null, [facility] 07/09/2022 11:41:32 pneumococcal polysaccharide PPV23 05/20/2016 completed Violette Stromquist null, [facility] 07/09/2022 11:41:32 Influenza, adjuvanted, trivalent, PF 07/13/2017 [facility] 14:59:32 Influenza, recombinant, quadrivalent, PF 08/10/2019 completed Dana Spicerre null, [facility] 08/30/2023 14:59:32 zoster recombinant 03/01/2019 [facility]23 14:59:32 zoster recombinant 05/10/2019 completed [facility] 08/30/2023 14:59:32 Influenza, high-dose, quadrivalent, PF 08/26/2020 completed [facility] 08/30/2023 14:59:32 Influenza, adjuvanted, quadrivalent, PF 07/10/2021 completed Dana Spicerre null, [facility] 08/30/2023 14:59:32 Tdap 04/12/2012 completed [facility] 08/30/2023 14:59:32 Novel [id number], all formulations 09/11/2009 completed [facility] 08/30/2023 14:59:32 zoster live 04/12/2012 completed [facility] 08/30/2023 14:59:32 Influenza, high-dose, trivalent, PF 08/01/2015 completed [facility] 08/30/2023 14:59:32 Influenza, high-dose, trivalent, PF 08/09/2014 completed [facility] 08/30/2023 14:59:32 Influenza, high-dose, trivalent, PF 08/27/2016 [facility] 14:59:32 Influenza, split virus, trivalent, preservative 07/10/2009 completed [facility] 08/30/2023 14:59:32 Influenza, split virus, trivalent, preservative 07/12/2013 [facility]23 14:59:32 Influenza, split virus, trivalent, preservative 07/23/2012 [facility]23 14:59:32 Influenza, split virus, trivalent, preservative 07/28/2010 [facility]23 14:59:32 Influenza, split virus, trivalent, preservative 08/04/2011 [facility]23 14:59:32 Influenza, split virus, trivalent, preservative 09/23/2005 [facility]23 14:59:32 Td (adult), 2 Lf tetanus toxoid, preservative free, adsorbed 07/17/2004 completed [facility] 08/30/2023 14:59:32 Influenza, split virus, quadrivalent, PF 08/30/2018 completed [facility]/30/[facility]23 14:59:32 Influenza, high-dose, quadrivalent, PF 08/07/2022 [facility]23 15:01:51 COVID-19, mRNA, LNP-S, PF, 30 mcg/0.3 mL dose, sarah-sucrose 04/28/2022 completed [place] [facility] 08/30/2023 15:01:02 COVID-19, mRNA, LNP-S, bivalent, PF, 30 mcg/0.3 mL dose 08/07/2022 completed Dana milton [place] [facility] 08/30/2023 15:01:51 Past Encounters Encounter ID Performer Location Encounter Start Date Encounter Closed Date Diagnosis/Indication Diagnosis SNOMED-CT Code Diagnosis ICD10 Code [id number] Malaika Davis [facility] [address] [place] [address] 06/23/2021 12:12:46 06/24/2021 15:38:38 Retention of urine 184834338 R33.9 [id number] Jose More MD [facility] [address] [place] [address] 08/04/2021 12:08:14 08/08/2021 09:52:43 Malignant neoplasm of urinary bladder 200566429 C67.9 [id number] Malaika Coboscher [facility] [address] [place] [address] 09/03/2021 15:05:16 09/08/2021 11:00:22 Urinary tract infectious disease 45015991 N39.0 Urethral stricture 58969 002 N35.919 [id number] Jose More MD [facility] [address] [place] [address] 09/09/2021 10:26:41 09/11/2021 14:42:50 Malignant neoplasm of urinary bladder 690484444 C67.9 [id number] Evon Machometa [facility] [address] [place] [address] 09/16/2021 10:42:44 09/17/2021 14:16:41 Malignant neoplasm of urinary bladder 701500738 C67.9 [id number] Evon Machometa [facility] [address] [place] [address] 09/23/2021 10:44:52 09/29/2021 10:46:51 Malignant neoplasm of urinary bladder 955032330 C67.9 [id number] Teresa Andujar [facility] [address] [place], [place] [address] 09/30/2021 10:37:37 10/07/2021 10:26:46 Malignant neoplasm of urinary bladder 010942238 C67.9 [id number] Teresa Andujar [facility] [address] [place], [place] [address] 10/07/2021 11:03:54 10/15/2021 10:37:13 Malignant neoplasm of urinary bladder 436346938 C67.9 [id number] Jose More MD [facility] [address] [place] [address] 10/14/2021 10:35:10 10/20/2021 12:14:53 Malignant neoplasm of urinary bladder 907962792 C67.9 [id number] Jose More MD [facility] [address] [place] [address] 12/01/2021 11:11:34 12/03/2021 08:44:38 Malignant neoplasm of urinary bladder 405805894 C67.9 Male ureth ral stricture 3958738461 8874298 N35.919 [id number] Jose More MD [facility] [address] [place] [address] 03/06/2022 11:44:16 03/09/2022 13:22:50 Malignant neoplasm of urinary bladder 148316823 C67.9 Male ureth ral stricture 5636222507 0075805 N35.919 [id number] oJse More MD [facility] [address] [place] [address] 04/03/2022 10:15:13 04/06/2022 13:28:39 Retention of urine 500266084 R33.9 [id number] Mary Jane King [facility] [address] [place] [id number] 04/10/2022 10:41:20 04/15/2022 13:43:17 Malignant neoplasm of urinary bladder 641909253 C67.9 [id number] Jose Argenis, MD [facility] [address] [place] [address] 04/16/2022 16:42:19 04/20/2022 09:07:47 Malignant neoplasm of urinary bladder 659346874 C67.9 Male ureth ral stricture 6506170974 2552735 N35.919 [id number] Evon Otta [facility] [address] [place] [address] 05/12/2022 10:41:13 05/13/2022 09:43:25 Malignant neoplasm of urinary bladder 492433020 C67.9 [id number] Teresa Andujar [facility] [address] [place] [address] 05/19/2022 10:44:29 05/20/2022 12:08:08 Malignant neoplasm of urinary bladder 740858845 C67.9 [id number] Evon Ribeiroometa [facility] [address] [place] [address] 05/28/2022 11:59:30 06/01/2022 08:56:38 Malignant neoplasm of urinary bladder 895299817 C67.9 [id number] Evon Otta [facility] [address] [place] [address] 06/02/2022 10:46:42 06/08/2022 15:24:13 Malignant neoplasm of urinary bladder 701987547 C67.9 [id number] Evon Otta [facility] [address] [place] [address] 06/09/2022 10:45:40 06/12/2022 11:22:43 Malignant neoplasm of urinary bladder 261627241 C67.9 [id number] Teresa Andujar [facility] [address] [place] [address] 06/16/2022 10:43:36 06/17/2022 11:06:41 Malignant neoplasm of urinary bladder 592608808 C67.9 [id number] Jose More MD [facility] [address] [place] [address] 07/09/2022 11:24:15 07/15/2022 10:34:30 Malignant neoplasm of urinary bladder 806341595 C67.9 Male ureth ral stricture 8804178634 6981300 N35.919 [id number] Jose More MD [facility] [address] [place] [address] 07/30/2022 11:46:51 08/03/2022 09:28:41 Malignant neoplasm of urinary bladder 900550284 C67.9 Male ureth ral stricture 1737717222 8405718 N35.919 [id number] Kallie Dalal [facility] [address] [place] [address] 10/21/2022 11:06:43 10/23/2022 11:32:57 Malignant neoplasm of urinary bladder 185812821 C67.9 Male ureth ral stricture 5866016040 9947114 N35.919 [id number] Jose More MD [facility] [address] [place] [address] 12/22/2022 10:47:13 12/25/2022 11:50:03 Male urethral stricture 8847944167 [id number] N35.919 [id number] Jose More MD [facility] [address] [place] [address] 01/04/2023 11:32:27 01/08/2023 12:15:12 Malignant neoplasm of urinary bladder 547877050 C67.9 Male ureth ral stricture 1755423149 [id number] N35.919 [id number] Jean lunsford MD, PHD [facility] [address] [place] [address] 02/04/2023 09:13:39 02/09/2023 18:39:12 Malignant neoplasm of urinary bladder 835372620 C67.9 [id number] Malaika Ernandez PA-C [facility] [address] [place] [address] 03/31/2023 10:21:37 04/02/2023 16:50:24 Malignant neoplasm of urinary bladder 628152832 C67.9 Urostomy present 3543871 04 Z93.6 [id number] Jean lunsford MD, PHD [facility] [address] [place] [address] 07/16/2023 12:27:33 07/22/2023 10:54:33 Malignant neoplasm of urinary bladder 284603984 C67.9 Urostomy present 4002543 04 Z93.6 Health Concerns Section Related Observation LastModified by Organization Detai ls LastModified Time None Recorded Concern Status LastModified by Organization Details LastModified Time None Recorded Advance Directives Directive None Recorded Payers Encounter Date Sequence Insurance Name Policy Number Policy Preciado Covered Member ID Preciado Member ID Guarantor Name 12/22/2022 1 [employer] (MEDICARE REPLACEMENT/A DVANTAGE - PPO) Med Grubbs Marianne [id number] [facility] 01/04/2023 1 [employer] (MEDICARE REPLACEMENT/A DVANTAGE - PPO) Med Grubbs Marianne [id number] [employer] 02/04/2023 1 [employer] (MEDICARE REPLACEMENT/A DVANTAGE - PPO) [facility] [id number] [facility] [place] 03/31/2023 1 [employer] (MEDICARE REPLACEMENT/A DVANTAGE - PPO) [facility] [id number] [employer] 07/16/2023 1 [employer] (MEDICARE REPLACEMENT/A DVANTAGE - PPO) [employer] [id number] [facility] Notes Date Note Type Note Provider Name and Address Organization Details Recorded Time 01/04/2023 text/html HPI Notes: 77 yo M who follows with me in [place] for hematuria. Found to have bladder tumors on in-office cystoscopy. Underwent TURBT in [place] but insufficient muscularis. Now s/p re-resection with [...] provides some the history. 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 Here with San[facility]. Fossa navicularis stricture. Recent admit @ [place] for clot retention. 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
--- NOTE | 2024-07-13 15:30 | PE_ITS ---
[facility] [address] [facility] [address] Phone:?[phone] Fax:?[phone] Referring Physician Information: Scotty Tucker M.D. [address] [facility] [address] Phone:?[phone] Fax:?[phone] Patient:?Med Lopes D.O.B:?1945 Sex:?Male Phone:?[phone] [facility] MRN:?[id number] Exam Date:?07/13/2024 EXAM:?PET EYES TO THIGHS, CANCER RESTAGING CLINICAL INFORMATION: Metastatic bladder cancer TECHNICAL INFORMATION: Helical acquisition of data was obtained from the orbits to the upper thighs with reconstruction of 3.75 mm thick images at 3.[address] data was used for attenuation correction. PET scanning was performed through the same anatomic range 60 minutes following administration of 12.95 mCi of 18-FDG delivered intravenously. The patient's glucose at the time of the injection was 92 mg/dL. PET, CT and PET/CT fusion images are interpreted using a computer viewing workstation. PET, CT and PET/CT fusion images were archived and saved in the patient's permanent medical record. COMPARISON: PET/CT 12/02/2023 and prior exams INTERPRETATION: Head and Neck: There are no abnormal hypermetabolic foci within the head or neck. There is physiologic uptake in the intracranial soft tissues. Chest: Mediastinal blood pool activity with a mean SUV of 1.77. The previously indexed metastatic lesion in the right upper lobe is slightly smaller on this exam measuring 6 mm, previously measuring up to 8 mm. As before, there is minimal radiotracer avidity with an SUV max of 1.93 (previously 1.49). No new or enlarging hypermetabolic lesions in the chest. No lymphadenopathy. Similar biapical pleural-parenchymal scarring. Coronary artery atherosclerosis. Atherosclerosis of the thoracic aorta. Abdomen and Pelvis: Background liver parenchymal uptake with a mean SUV of 2.27. There are no abnormal hypermetabolic foci within the abdomen or pelvis. There is physiologic excretion of radiotracer in the urine and bowel. Dependent calcified gallstones. Redemonstrated postsurgical changes of cystectomy with ileal conduit. Aortoiliac atherosclerosis. Sigmoid diverticulosis. Moderate stool burden. 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 Similar lytic lesion involving the left ischium with an SUV max of 1.56 (previously 1.97). A small focus of uptake appears to be in between the spinous processes of the L3 and L4 vertebral bodies and may be related to the interspinous ligament's of 3.68. CONCLUSION: * Stable exam. Stable postsurgical changes of cystectomy with ileal conduit. No findings to suggest local recurrence of disease. * Similar to slightly decreased size of patient's previously visualized pulmonary metastasis in the right upper lobe with low level FDG avidity. No new or enlarging hypermetabolic metastasis in the chest. * Similar appearance of patient's known skeletal metastasis with low-level FDG avidity. No new hypermetabolic osseous metastasis. * A small focus of FDG uptake in the lumbar spine region appears to correspond to the interspinous ligament. Attention on follow-up imaging. Electronically signed on 07/16/2024 8:36:00 PM by Thang Lamar D.O
== END 2024-07-13 15:15 | disposition home or self-care (01) ==
LOC: RAD 15:15
PROVIDERS: PCP Family Medicine; Visit Provider Internal Medicine Hematology & Oncology
DX: C67.8 Malignant neoplasm of overlapping sites of bladder (principal); C78.01 Secondary malignant neoplasm of right lung; C78.02 Secondary malignant neoplasm of left lung
CPT/HCPCS: 78815; A9552

== ENCOUNTER 2024-07-21 12:49 | Outpatient (RCR) | payer MEDICARE, SELFPAY | END 2024-11-18 23:59 | disposition home or self-care (01) | PROVIDERS: PCP Family Medicine; Visit Provider Clinical Nurse Specialist Adult Health | DX: G62.9 Polyneuropathy, unspecified (principal); C67.9 Malignant neoplasm of bladder, unspecified; Z51.89 Encounter for other specified aftercare ==

== ENCOUNTER 2024-10-19 14:38 | Outpatient (CLI) | payer MEDICARE, SELFPAY ==
--- NOTE | 2024-10-19 15:00 | PE_ITS ---
[facility] [address] [facility] [address] Phone:?[phone] Fax:?[phone] Referring Physician Information: Scotty Tucker M.D. [address] [facility] [address] Phone:[phone] Fax:?[phone] Patient:Gene Lopes D.O.B:?1945 Sex:?Male Phone:?[phone] [facility] MRN:?[id number] Exam Date:?10/19/2024 EXAM: PET/CT EYES TO THIGHS, CANCER RESTAGING CLINICAL INFORMATION: Metastatic bladder cancer. TECHNICAL INFORMATION: Helical acquisition of data was obtained from the orbits to the upper thighs with reconstruction of 3.75 mm thick images at 3.[address] data was used for attenuation correction. PET scanning was performed through the same anatomic range 60 minutes following administration of 13.98 mCi of 18-FDG delivered intravenously. The patient's glucose at the time of the injection was 82 mg/dL. PET, CT and PET/CT fusion images are interpreted using a computer viewing workstation. PET, CT and PET/CT fusion images were archived and saved in the patient's permanent medical record. COMPARISON: PET/CT from 07/13/2024 and prior exams. INTERPRETATION: Head and Neck: There are no abnormal hypermetabolic foci within the head or neck. There is physiologic uptake in the intracranial soft tissues. Chest: Mediastinal blood pool activity with a mean SUV of 2.32. The previously indexed metastatic lesion in the right upper lobe is stable, measuring 8 x 6 mm. As before, there is minimal radiotracer avidity with an SUV max of 1.89 (previously 1.93). No new or enlarging hypermetabolic lesions in the chest. No lymphadenopathy. Similar biapical pleural-parenchymal scarring. Coronary artery atherosclerosis. Atherosclerosis of the thoracic aorta. Abdomen and Pelvis: Background liver parenchymal uptake with a mean SUV of 3.04. There are no abnormal hypermetabolic foci within the abdomen or pelvis. There is physiologic excretion of radiotracer in the urine and bowel. Dependent calcified gallstones. Redemonstrated postsurgical changes of cystectomy with ileal conduit. Aortoiliac atherosclerosis. Sigmoid diverticulosis. Moderate stool burden. 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 Similar lytic lesion involving the left ischium with an SUV max of 2.01 (previously 1.56). A small focus of uptake appears to be in between the spinous processes of the L3 and L4 vertebral bodies and may be related to the interspinous ligament's of 5.12 (previously 3.68). There is extensive linear hypermetabolism that involves subcutaneous fat planes symmetrically, predominantly within the neck, thoracic inlet, and paraspinous regions. This observation is typical for benign brown adipose tissue. CONCLUSION: * Stable exam. Stable postsurgical changes of cystectomy with ileal conduit. No findings to suggest local recurrence of disease. 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 No new or enlarging hypermetabolic metastasis in the chest. * Similar appearance of patient's known skeletal metastasis with low-level FDG avidity. No new hypermetabolic osseous metastasis. * A small focus of FDG uptake in the lumbar spine region appears to correspond to the interspinous ligament. Attention on follow-up imaging. Electronically signed on 10/27/2024 10:02:00 AM by Addison Kim M.D.
== END 2024-10-19 14:39 | disposition home or self-care (01) ==
PROVIDERS: PCP Family Medicine; Visit Provider Internal Medicine Hematology & Oncology
DX: C67.8 Malignant neoplasm of overlapping sites of bladder (principal); C78.01 Secondary malignant neoplasm of right lung; C79.51 Secondary malignant neoplasm of bone
CPT/HCPCS: 78815; A9552

== ENCOUNTER 2025-01-25 14:37 | Outpatient (CLI) | payer MEDICARE, SELFPAY ==
--- NOTE | 2025-01-25 15:00 | CRLHL7_ITS ---
For Patients: As a result of the 21st Century Cures Act, medical imaging exams and procedure reports are released immediately into your electronic medical record. You may view this report before your referring provider. If you have questions, please contact your health care provider. EXAM: FDG PET-CT Skull Base to Thighs CLINICAL INFORMATION: 79-year-old man with history of bladder cancer. Restaging. TECHNIQUE: Radiopharmaceutical: 18F-fluorodeoxyglucose (18F-FDG) Dose: 12.86 milliCurie. Blood glucose: 84 mg/dL. Image acquisition: At approximately 60 minutes following IV tracer administration via a right wrist vein, positron emission tomography was performed from the skull base through the mid thigh. Non-contrast low-dose helical CT imaging was performed over the same range without breath-hold for attenuation correction of PET images and anatomic correlation; it is neither sufficient, nor should it be substituted for diagnostic purposes. COMPARISON: FDG PET-CT 10/19/2024. FINDINGS: Mediastinal blood pool FDG uptake: SUVMax 2.4 (image 112) Liver background parenchymal FDG uptake: SUVMax 3.5 (image 147) HEAD AND NECK: No abnormal FDG uptake in the imaged head and neck. Bilateral lens replacements. CHEST: Ports and devices: None. Lungs: No abnormal increased FDG uptake. Upper lung predominant centrilobular and paraseptal emphysema. Biapical scarring. No substantial interval change in scattered pulmonary nodules with low level FDG uptake below blood pool, for example a 1.1 x 0.6 cm right upper lobe nodule SUV max 1.3 (image 114), unchanged in size and previously SUV max 1.1 (image 132 , remeasured in the same plane). No definite correlate for a previously described 0.8 x 0.6 cm faintly FDG avid subcentimeter nodule in the right upper lobe of the lung on today`s study. Pleura: No abnormal FDG uptake. Thoracic lymph Nodes: New mild FDG uptake in the left hilum, likely a hilar node SUVMax 3.5 (Image 107). Mediastinum: No abnormal FDG uptake. Coronary artery calcifications. Atherosclerotic calcifications of the thoracic aorta. Aortic valve leaflet calcifications. Breasts/Chest Wall: No abnormal FDG uptake. ABDOMEN/PELVIS: Liver/biliary system: No abnormal FDG uptake. Cholelithiasis. Pancreas: No abnormal FDG uptake. Spleen: No abnormal FDG uptake. Adrenal Glands: No abnormal FDG uptake. Bowel//Kidneys/Pelvic Organs: No abnormal increased FDG uptake. Colonic diverticulosis. Cystectomy with diverting ileal conduit and right lower quadrant ostomy. Mesentery, Omentum and Peritoneum: No abnormal FDG uptake. Atherosclerotic calcifications. Abdominopelvic lymph Nodes: No abnormal FDG uptake. Musculoskeletal: No abnormal FDG uptake. Multilevel degenerative changes in the spine. Degenerative changes of the shoulders. Similar mixed lytic/sclerotic changes in the left iliac with mild FDG uptake and left ischium with faint FDG uptake, measuring up to SUVMax 2.9 in the left iliac bone (image 226), previously SUV max 2.5, compatible with quiescent/treated disease. Similar focal uptake in soft tissues between the dorsal spinous processes of L3-L4 SUVMax 3.6 (Image 195), previously SUV max 5.1, likely inflammatory/degenerative. Multilevel degenerative changes in the spine. IMPRESSION: 1. New mild FDG uptake in a left hilar node is nonspecific, but more likely to represent inflammatory uptake, less likely to represent metastatic disease. 2. No evidence of metabolically active malignancy. Dictated by Jg Clarke MD @ 01/26/2025 2:32:38 PM (Electronically Signed)
== END 2025-01-25 14:38 | disposition home or self-care (01) ==
LOC: RAD 14:38
PROVIDERS: PCP Family Medicine; Visit Provider Nurse Practitioner Adult Health
DX: C67.8 Malignant neoplasm of overlapping sites of bladder (principal)
CPT/HCPCS: 78815; A9552

== ENCOUNTER 2025-01-29 11:00 | Outpatient (RCR) | payer MEDICARE, SELFPAY | END 2025-05-29 23:59 | disposition home or self-care (01) | PROVIDERS: PCP Family Medicine; Visit Provider Family Medicine | DX: R29.898 Other symptoms and signs involving the musculoskeletal system (principal); Z51.89 Encounter for other specified aftercare | CPT/HCPCS: 97110; 97112; 97140; 97162; 97164; 97535 ==

== ENCOUNTER 2025-05-31 16:15 | Outpatient (CLI) | payer MEDICARE, SELFPAY ==
--- NOTE | 2025-05-31 16:30 | CRLHL7_ITS ---
For Patients: As a result of the 21st Century Cures Act, medical imaging exams and procedure reports are released immediately into your electronic medical record. You may view this report before your referring provider. If you have questions, please contact your health care provider. EXAM: FDG PET-CT Skull Base to Thighs CLINICAL INFORMATION: 79-year-old man with history of bladder cancer. Restaging. TECHNIQUE: Radiopharmaceutical: 18F-fluorodeoxyglucose (18F-FDG) Dose: 12.49 MilliCurie. Blood glucose: 81 mg/dL. Image acquisition: At approximately 60 minutes following IV tracer administration via a left hand vein, positron emission tomography was performed from the skull base through the mid thigh. Non-contrast low-dose helical CT imaging was performed over the same range without breath-hold for attenuation correction of PET images and anatomic correlation; it is neither sufficient, nor should it be substituted for diagnostic purposes. COMPARISON: FDG PET-CT 01/25/2025 FINDINGS: Mediastinal blood pool FDG uptake: SUVMax 2.6 (image 107) Liver background parenchymal FDG uptake: SUVMax 3.6 (Image 143) PET Findings: Cystectomy with diverting ileal conduit and right lower quadrant ostomy. No abnormal focal increased FDG uptake. *Interval resolution of a previously visualized focal FDG uptake in the left hilum, likely a resolved FDG avid left hilar node. *No abnormal FDG avid lymphadenopathy. *No abnormal focal increased FDG uptake in the visualized skeleton. *Similar mixed lytic/sclerotic changes in the left iliac with mild FDG uptake and left ischium with faint FDG uptake, measuring up to SUVMax 3.2 in the left iliac bone (image 227), previously SUV max 2.9, compatible with quiescent/treated disease. *Resolved FDG avidity in a non FDG avid 1.1 x 0.6 cm right upper lobe lung nodule, (image 109) unchanged in size and previously faintly FDG avid with SUVmax 1.3. Tracer uptake elsewhere is physiologic. Non-PET findings: Partial opacification of right maxillary sinus with air-fluid level. Bilateral lens replacements. Upper lung predominant centrilobular and paraseptal emphysema. Biapical scarring. No substantial interval change in scattered subcentimeter pulmonary nodules, too small to characterize. Aortic valve leaflet calcifications. Coronary artery calcifications. Atherosclerotic calcifications of the thoracic and abdominal aorta. Cholelithiasis. Colonic diverticulosis. Prior left inguinal hernia repair. 3.5 x 3.1 cm infrarenal abdominal aortic aneurysm. Multilevel degenerative changes in the spine. Degenerative changes of the shoulders. Multilevel degenerative changes in the spine. IMPRESSION: 1. Interval resolution of a previously visualized focal FDG uptake in the left hilum, likely a resolved FDG avid left hilar node. 2. No evidence of FDG avid malignancy. 3. Partial opacification of right maxillary sinus with air-fluid level, compatible with sinusitis in the appropriate clinical setting. 4. 3.5 x 3.1 cm infrarenal abdominal aortic aneurysm. Dictated by Jg Clarke MD @ 06/05/2025 3:21:37 PM (Electronically Signed)
== END 2025-05-31 16:16 | disposition home or self-care (01) ==
LOC: RAD 16:15
PROVIDERS: PCP Family Medicine; Visit Provider Internal Medicine Hematology & Oncology
DX: C67.8 Malignant neoplasm of overlapping sites of bladder (principal); J32.0 Chronic maxillary sinusitis; I71.43 Infrarenal abdominal aortic aneurysm, without rupture
CPT/HCPCS: 78815; A9552

== ENCOUNTER 2025-10-05 07:08 | Outpatient (CLI) | payer MEDICARE, SELFPAY | END 2025-10-05 07:09 | disposition home or self-care (01) | LOC: OP CLINIC 07:10 | PROVIDERS: PCP Family Medicine; Visit Provider Internal Medicine Gastroenterology | DX: Z53.9 Procedure and treatment not carried out, unspecified reason (principal) | CPT/HCPCS: A9270 ==